=== PATIENT | female | born 1950 | race Caucasian/White ===

== ENCOUNTER 2019-10-21 15:13 | Inpatient (IN) | payer MEDICARE ==
[2019-10-21] MEDS ORDERED: ACETAMINOPHEN TAB 325 MG TAB PO PRN (20:42)
[2019-10-21] MEDS ORDERED: ALPRAZolam 0.25 MG TAB PO PRN (20:42)
[2019-10-21] MEDS ORDERED: MELATONIN 3 MG TABLET PO PRN (20:42)
[2019-10-21] MEDS ORDERED: NALOXONE 0.4 MG/ML 1 ML VIAL IV PRN (20:42)
[2019-10-21] MEDS ORDERED: CALCIUM CARBONATE 500 MG CHEWABLE PO PRN (20:42)
[2019-10-21] MEDS ORDERED: LACTULOSE 20 GM/30 ML CUP PO PRN (20:42)
[2019-10-21] MEDS ORDERED: MAGNESIUM HYDROXIDE 2,400 MG/10 ML CUP PO PRN (20:42)
[2019-10-21] MEDS ORDERED: ONDANSETRON 4 MG/2 ML VIAL IVP PRN (20:42)
[2019-10-21] MEDS ORDERED: MAG HYDROX/AL HYDROX/SIMETH 30 ML CUP PO PRN (20:42)
--- NOTE | 2019-10-21 20:51 | P.HPIM ---
History of Present Illness H&P Date: 10/21/19 Chief Complaint: weak and dizzy History of presenting complaint: This is a 69-year-old patient who follows with Dr. Jacobsen. Chronic stable medical conditions include COPD, GERD, prostatitis, history of PE with childbirth,. Patient is an ex-smoker. Patient a few days of being feeling weak diet a bit dizzy. No cough. Decrease appetite. Patient in the last few weeks as lost about 25-30 pounds. Denies any lower exstrophy setting. Decided to go down to [facility]. Denies any fever and chills. Went to the to [facility]. Chest x-ray showed a lung mass. Patient was transferred here for further workup. Blood work was done. Review of systems: GEN.: Tired, decreased appetite and weight loss EYES: None HEENT: None NECK: None RESPIRATORY: As above CARDIOVASCULAR: No chest pain GASTROINTESTINAL: None GENITOURINARY: None MUSCULOSKELETAL: Muscle pains LYMPHATICS: None HEMATOLOGICAL: None PSYCHIATRY: None NEUROLOGICAL: None Past medical history to include: COPD, PE after childbirth, GERD, osteoarthritis, Social history: -Lives with her son and [id number]. Smoked for close to 45 years about 2 packs a day stopped 4 years ago. No alcohol. Physical examination: VITAL SIGNS: 97.6, 95, 18, 130/78, 96% room air GENERAL: [31.3, sitting up in bed, not in distress. EYES: Pupils equal. Conjunctiva normal. HEENT: External appearance of nose and ears normal, oral cavity grossly normal. NECK: JVD not raised; masses not palpable. HEART: First and second heart sounds are normal; no edema. LUNGS: Respiratory rate normal; decreased breath sounds. ABDOMEN: Soft, nontender, liver spleen not palpable, no masses palpable. PSYCH: Alert and oriented x3; mood and affect normal. NEUROLOGICAL: Cranial nerves grossly intact; no facial asymmetry, power and sensation grossly intact. LYMPHATICS: No lymph nodes palpable in the axilla and neck Investigations: Pending Assessment: -Right lung mass in a patient who was a smoker for many years now presented with decreased appetite and weight loss. -COPD in an ex-smoker -GERD -Primary osteoarthritis Plan: We'll start the patient on nebulized bronchodilators. Oral steroids. Check stat x-rays been ordered. Patient may need bronchoscopy. Pulmonary's consulted. Lovenox for DVT prophylaxis. Care was discussed with the patient.. Past Medical History Past Medical History: COPD, Deep Vein Thrombosis (DVT), GERD/Reflux, Osteoarthritis (OA), Pulmonary Embolus (PE), Syncope Additional Past Medical History / Comment(s): vertigo, hypotension History of Any Multi-Drug Resistant Organisms: None Reported Past Surgical History: Tubal Ligation Past Anesthesia/Blood Transfusion Reactions: Previous Problems w/ Anesthesia Additional Past Anesthesia/Blood Transfusion Reaction / Comment(s): hard time waking up Past Psychological History: No Psychological Hx Reported Smoking Status: Former smoker Past Alcohol Use History: None Reported - Past Family History Mother Family Medical History: Dementia Medications and Allergies Home Medications Medication Instructions Recorded Confirmed Type Famotidine [Pepcid] 20 mg PO DAILY PRN 10/21/19 10/21/19 History Meclizine HCl 12.5 mg PO TID PRN 10/21/19 10/21/19 History Naproxen Sodium [Aleve] 220 mg PO DAILY PRN 10/21/19 10/21/19 History Allergies Allergy/AdvReac Type Severity Reaction Status Date / Time Iodine and Iodide Containing Allergy Anaphylaxis Verified 10/21/19 18:18 Produc tomato Allergy Rash/Hives Verified 10/21/19 18:18 dial soap AdvReac Rash/Hives Uncoded 10/21/19 18:18 Physical Exam Vitals: Vital Signs Temp Pulse Resp BP Pulse Ox 10/21/19 17:29 97.6 F 95 18 130/78 96 Intake and Output 10/21/19 10/21/19 10/21/19 06:59 14:59 22:59 Other: Weight 70.307 kg Thrombosis Risk Factor Assmnt - Choose All That Apply Any of the Below Risk Factors Present?: Yes Each Factor Represents 1 point: Abnormal pulmonary function (COPD), Obesity (BMI >25) Other Risk Factors: Yes Each Risk Factor Represents 2 Points: Age 61-74 years Each Risk Factor Represents 3 Points: History of DVT/PE Other congenital or acquired thrombophilia - If yes, enter type in comment: No Thrombosis Risk Factor Assessment Total Risk Factor Score: 7 Thrombosis Risk Factor Assessment Level: High Risk
[2019-10-21 21:40] LABS: Albumin 2.7 g/dL (3.5-5.0); Calcium 9.4 mg/dL (8.4-10.2); Magnesium 1.7 mg/dL (1.6-2.3); Potassium 4.5 mmol/L (3.5-5.1); Total Bilirubin 0.7 mg/dL (0.2-1.3); Total Protein 7.6 g/dL (6.3-8.2)
[2019-10-21 21:44] LABS: Basophils % (A) 0 %; Eosinophils # (A) 0.4 k/uL (0-0.7); Eosinophils % (A) 3 %; HCT 23.8 % (34.0-46.0); Hypochromasia Marked; Lymphocytes # (A) 1.4 k/uL (1.0-4.8); Lymphocytes % (A) 11 %; MCH 22.2 pg (25.0-35.0); MCHC 28.8 g/dL (31.0-37.0); Mean Platelet Volume 7.1; Microcytosis Slight; Monocytes # (A) 0.6 k/uL (0-1.0); Monocytes % (A) 5 %; Neutrophils # (A) 10.1 k/uL (1.3-7.7); Neutrophils % (A) 80 %; Platelet Count 557 k/uL (150-450); RDW 15.9 % (11.5-15.5); WBC 12.7 k/uL (3.8-10.6)
[2019-10-21 21:46] LABS: HGB 6.9 gm/dL (11.4-16.0)
--- NOTE | 2019-10-21 23:00 | XR ---
EXAMINATION TYPE: XR chest 2V DATE OF EXAM: 10/21/2019 COMPARISON: Today HISTORY: Lung mass TECHNIQUE: 2 views FINDINGS: There is 7 cm masslike area of consolidation in the anterior segment of the left upper lobe . This extends to the left pulmonary hilum. The heart size is normal. There is no heart failure. Medi astinum is normal. There is no pleural effusion.. Bony thorax is intact. IMPRESSION: Large mass at the left pulmonary hilum extending into the left upper lobe suspicious for tumor. No change compared to exam 8 hours ago.
[2019-10-21] MEDS: ENOXAPARIN 40 MG/0.4 ML SYRINGE SQ SCH (23:38)
[2019-10-22 07:08] LABS: Basophils % (A) 0 %; Eosinophils # (A) 0.8 k/uL (0-0.7); Eosinophils % (A) 6 %; HCT 26.1 % (34.0-46.0); HGB 7.9 gm/dL (11.4-16.0); Hypochromasia Marked; Lymphocytes # (A) 1.6 k/uL (1.0-4.8); Lymphocytes % (A) 13 %; MCH 23.4 pg (25.0-35.0); MCHC 30.4 g/dL (31.0-37.0); MCV 77.1 fL (80.0-100.0); Mean Platelet Volume 6.6; Microcytosis Slight; Monocytes # (A) 0.7 k/uL (0-1.0); Monocytes % (A) 6 %; Neutrophils # (A) 9.3 k/uL (1.3-7.7); Neutrophils % (A) 74 %; Platelet Count 506 k/uL (150-450); Poikilocytosis Slight; RBC 3.38 m/uL (3.80-5.40); RDW 15.5 % (11.5-15.5); WBC 12.6 k/uL (3.8-10.6)
[2019-10-22] MEDS: ENOXAPARIN 40 MG/0.4 ML SYRINGE SQ SCH (08:18)
[2019-10-22] MEDS: SODIUM CHLORIDE 0.9% 1,000 ML IV SCH (12:24)
--- NOTE | 2019-10-22 14:56 | US ---
EXAMINATION TYPE: US kidneys/renal and bladder DATE OF EXAM: 10/22/2019 COMPARISON: NONE CLINICAL HISTORY: assess for CKD. abnormal labs EXAM MEASUREMENTS: Right Kidney: 10.1 x 4.8 x 4.3 cm Left Kidney: 11.1 x 4.3 x 3.9 cm Right Kidney: No hydronephrosis or masses seen Left Kidney: No hydronephrosis or masses seen Bladder: distended, anechoic Left bladder jet seen There is no evidence for hydronephrosis at this point in time. No nephrolithiasis is seen. No marga s are identified. The urinary bladder is anechoic. Kidneys show normal cortical medullary differenti ation IMPRESSION: Normal renal ultrasound.
--- NOTE | 2019-10-22 18:02 | P.PN ---
Progress Note - Text Progress Note Date: 10/22/19 Chief Complaint: weak and dizzy History of presenting complaint: This is a 69-year-old patient who follows with Dr. Jacobsen. Chronic stable medical conditions include COPD, GERD, prostatitis, history of PE with childbirth,. Patient is an ex-smoker. Patient a few days of being feeling weak diet a bit dizzy. No cough. Decrease appetite. Patient in the last few weeks as lost about 25-30 pounds. Denies any lower exstrophy setting. Decided to go down to [facility]. Denies any fever and chills. Went to the to [facility]. Chest x-ray showed a lung mass. Patient was transferred here for further workup. Blood work was done. Admitted with-left lung mass, kidney injury, microcytic anemia. Pulmonary consult. Today-patient given a unit of blood. Breathing stable. Awaiting pulmonary input. Started taking diet. Review of systems: Was done for constitutional, cardiovascular, GI, pulmonary. relevant finding as above Active Medications Acetaminophen (Tylenol Tab) 650 mg PO Q6HR PRN PRN Reason: Mild Pain or Fever > 100.5 Al Hydroxide/Mg Hydroxide (Maalox) 15 ml PO Q6HR PRN PRN Reason: Indigestion Alprazolam (Xanax) 0.25 mg PO Q6HR PRN PRN Reason: Anxiety Calcium Carbonate/Glycine (Tums) 1,000 mg PO Q4HR PRN PRN Reason: Dyspepsia Enoxaparin Sodium (Lovenox) 40 mg SQ DAILY [facility] Last Admin: 10/22/19 08:18 Dose: 40 mg Documented by: Sodium Chloride (Saline 0.9%) 1,000 mls @ 130 mls/hr IV .Q7H42M [facility] Last Admin: 10/22/19 12:24 Dose: 130 mls/hr Documented by: Lactulose (Cephulac) 20 gm PO DAILY PRN PRN Reason: Constipation Magnesium Hydroxide (Milk Of Magnesia) 2,400 mg PO DAILY PRN PRN Reason: Constipation Melatonin (Melatonin) 3 mg PO HS PRN PRN Reason: Insomnia Naloxone HCl (Narcan) 0.2 mg IV Q2M PRN PRN Reason: Opioid Reversal Ondansetron HCl (Zofran) 4 mg IVP Q8HR PRN PRN Reason: Nausea And Vomiting Physical examination: VITAL SIGNS: 98.3, 98, 17, 106/68, 96% room air GENERAL: Laying in bed, comfortable EYES: Pupils equal. Conjunctiva normal. HEENT: External appearance of nose and ears normal, oral cavity grossly normal. NECK: JVD not raised; masses not palpable. HEART: First and second heart sounds are normal; no edema. LUNGS: Respiratory rate normal; decreased breath sounds. ABDOMEN: Soft, nontender, liver spleen not palpable, no masses palpable. PSYCH: Alert and oriented x3; mood and affect normal. Investigations: White count 12.6 hemoglobin 7.9 platelets 506 History Lotrisone-shows normal cortical medullary differentiation. No hydronephrosis, no kidney stones. Previous testing: Check stat x-ray-large left hilar mass White count 12.7 hemoglobin 6.9 potassium 4.5 bun 20 creatinine 1.28 Assessment: -Left lung mass in a patient who was a smoker for many years now presented with decreased appetite and weight loss.-Suspicious for malignancy -COPD in an ex-smoker -GERD -Primary osteoarthritis -Suspect chronic kidney disease likely from the sclerosis -Microcytic anemia likely of chronic disease patient get a unit of blood Plan: Continue current medication treatment plan. Discussed with the patient. Await pulmonary input.
--- NOTE | 2019-10-22 19:15 | P.CNPUL ---
History of Present Illness Consult date: 10/22/19 Reason for consult: lung mass Chief complaint: generalized weakness progressive in the last 3-4 days History of present illness: this is a 69-year-old female who used to smoke quit smoking about 4 years ago about 2 months ago she has a viral syndrome bronchitis-like processes during which she lost the weight then she gained it back remains stable until about 3-4 day prior to coming to the hospital becomes extremely weak and difficult to get out of the bed also has lower extremity swelling in the hospital she was found to have severe anemia hemoglobin of 6.9 has been transfused with 1 unit of packed RBC feeling slightly better she has a significant microcytic anemia she is not aware of stool color though, incidentally she was found to have a left perihilar masslike process she was initially evaluated at the [place] subsequently sent over here for further evaluation, she denies any hemoptysis denies any hematemesis, denies any recent weight loss night sweats and chills, chest x-ray left perihilar masslike process/density is present she has mild renal insufficiency currently gently being hydrated Review of Systems All systems: negative Past Medical History Past Medical History: COPD, Deep Vein Thrombosis (DVT), GERD/Reflux, Osteoarthritis (OA), Pulmonary Embolus (PE), Syncope Additional Past Medical History / Comment(s): vertigo, hypotension History of Any Multi-Drug Resistant Organisms: None Reported Past Surgical History: Tubal Ligation Past Anesthesia/Blood Transfusion Reactions: Previous Problems w/ Anesthesia Additional Past Anesthesia/Blood Transfusion Reaction / Comment(s): hard time waking up Past Psychological History: No Psychological Hx Reported Smoking Status: Former smoker Past Alcohol Use History: None Reported - Past Family History Mother Family Medical History: Dementia Medications and Allergies Home Medications Medication Instructions Recorded Confirmed Type Famotidine [Pepcid] 20 mg PO DAILY PRN 10/21/19 10/21/19 History Meclizine HCl 12.5 mg PO TID PRN 10/21/19 10/21/19 History Naproxen Sodium [Aleve] 220 mg PO DAILY PRN 10/21/19 10/21/19 History Allergies Allergy/AdvReac Type Severity Reaction Status Date / Time Iodine and Iodide Containing Allergy Anaphylaxis Verified 10/21/19 18:18 Produc tomato Allergy Rash/Hives Verified 10/21/19 18:18 dial soap AdvReac Rash/Hives Uncoded 10/21/19 18:18 Physical Exam Vitals: Vital Signs Temp Pulse Pulse Resp BP BP Pulse Ox 10/22/19 11:36 98.1 F 98 17 106/68 96 10/22/19 05:30 98.3 F 92 18 131/85 98 10/22/19 05:02 98.3 F 98 18 131/85 10/22/19 04:53 98 18 150/75 10/22/19 02:57 98.1 F 90 16 143/88 92 L 10/22/19 02:45 98.6 F 95 16 137/83 95 10/22/19 02:27 97.6 F 96 16 124/75 10/22/19 02:17 98.3 F 95 16 137/79 93 L 10/21/19 23:10 18 10/21/19 20:54 97.9 F 70 18 104/59 92 L Intake and Output 10/22/19 10/22/19 10/22/19 06:59 14:59 22:59 Intake Total 310 370 Balance 310 370 Intake: Intake, IV Titration 130 Amount Sodium Chloride 0.9% 1, 130 000 ml @ 130 mls/hr IV . Q7H42M [facility] Rx#:[id number] Oral 240 Blood Product 310 Rc As-1 Unit 310 [id number] Other: Voiding Method Toilet Toilet # Voids 0 - Constitutional General appearance: average body habitus, cooperative, disheveled - EENT Eyes: EOMI, PERRLA ENT: normal oropharynx Ears: bilateral: normal - Neck Carotids: bilateral: upstroke normal Thyroid: bilateral: normal size - Respiratory Respiratory: bilateral: CTA - Cardiovascular Rhythm: regular Heart sounds: normal: S1, S2 - Gastrointestinal General gastrointestinal: distended, normal bowel sounds, soft - Neurologic Neurologic: CNII-XII intact - Musculoskeletal Musculoskeletal: gait normal, generalized weakness, strength equal bilaterally - Psychiatric Psychiatric: A&O x's 3, appropriate affect, intact judgment & insight Results - Laboratory Findings CBC and BMP: 10/22/19 06:29 10/21/19 21:10 Abnormal lab findings: Abnormal Labs 10/21/19 10/21/19 10/21/19 21:10 21:10 22:38 WBC 12.7 H RBC 3.10 L Hgb 6.9 L* Hct 23.8 L MCV 77.0 L MCH 22.2 L MCHC 28.8 L RDW 15.9 H Plt Count 557 H Neutrophils # 10.1 H Eosinophils # Sodium 133 L Chloride 96 L BUN 20 H Creatinine 1.28 H Glucose 217 H AST 13 L Alkaline Phosphatase 177 H Albumin 2.7 L Crossmatch See Detail 10/22/19 06:29 WBC 12.6 H RBC 3.38 L Hgb 7.9 L Hct 26.1 L MCV 77.1 L MCH 23.4 L MCHC 30.4 L RDW Plt Count 506 H Neutrophils # 9.3 H Eosinophils # 0.8 H Sodium Chloride BUN Creatinine Glucose AST Alkaline Phosphatase Albumin Crossmatch - Diagnostic Findings Chest x-ray: report reviewed, image reviewed (finding as noted above) Assessment and Plan Assessment: generalized weakness of acute onset Severe acute anemia microcytic Left lung density possible mass neoplasm cannot be excluded patient will need anemia workup for microcytosis possible EGD and colonoscopy as well Patient will need a computed tomography scan of the chest however will get abdominal and pelvis as well given the renal functions will reassess renal f unctions tomorrow then will give a repeat CBC and CMP patient will also need a PET scan as outpatient along with pulmonary function study we'll reschedule in case if patient is going over the weekend will plan those studies including bronchoscopy as outpatient Plan: as noted above Time with Patient: Greater than 30
[2019-10-22 20:14] LABS: Appearance,Urine Clear (Clear); Bacteria,Urine Rare /hpf; Bilirubin,Urine Negative (Negative); Blood,Urine Trace (Negative); Color,Urine Yellow; Glucose,Urine (UA) Negative (Negative); Ketones,Urine Negative (Negative); Leukocyte Esterase,Urine Negative (Negative); Mucus,Urine Rare /hpf; Nitrite,Urine Negative (Negative); Protein,Urine Negative (Negative); RBC,Urine 1 /hpf (0-5); Specific Gravity,Urine 1.008 (1.001-1.035); Squamous Epithelial Cell,Urine 1 /hpf (0-4); WBC,Urine 1 /hpf (0-5)
[2019-10-23 08:29] LABS: Anisocytosis Slight; Basophils % (A) 0 %; Eosinophils # (A) 0.6 k/uL (0-0.7); Eosinophils % (A) 5 %; HCT 26.5 % (34.0-46.0); HGB 7.8 gm/dL (11.4-16.0); Hypochromasia Marked; Lymphocytes # (A) 1.2 k/uL (1.0-4.8); Lymphocytes % (A) 11 %; MCH 23.1 pg (25.0-35.0); MCHC 29.6 g/dL (31.0-37.0); MCV 77.9 fL (80.0-100.0); Mean Platelet Volume 6.7; Microcytosis Slight; Monocytes # (A) 0.6 k/uL (0-1.0); Monocytes % (A) 5 %; Neutrophils # (A) 8.2 k/uL (1.3-7.7); Neutrophils % (A) 77 %; Platelet Count 523 k/uL (150-450); Poikilocytosis Slight; RBC 3.39 m/uL (3.80-5.40); RDW 16.2 % (11.5-15.5); WBC 10.7 k/uL (3.8-10.6)
[2019-10-23] MEDS: ENOXAPARIN 40 MG/0.4 ML SYRINGE SQ SCH (08:33)
[2019-10-23 08:53] LABS: Albumin 2.6 g/dL (3.5-5.0); Calcium 8.5 mg/dL (8.4-10.2); Potassium 4.7 mmol/L (3.5-5.1); Total Bilirubin 0.8 mg/dL (0.2-1.3); Total Protein 7.5 g/dL (6.3-8.2)
[2019-10-23] MEDS ORDERED: RX INFO: IV CONTRAST WAS GIVEN 1 EACH MISC MISCELLANE PRN (10:00)
[2019-10-23] MEDS ORDERED: IOPAMIDOL CONTRAST (ORAL USE) VIAL PO PRN (10:00)
[2019-10-23] MEDS ORDERED: FAMOTIDINE 20 MG/2 ML VIAL IV ONE (10:02)
[2019-10-23] MEDS ORDERED: methylPREDNISolone SOD SUCCI 125 MG/2 ML VIAL IV ONE (10:02)
[2019-10-23] MEDS ORDERED: diphenhydrAMINE 50 MG/ML 1 ML VIAL IVP ONE (10:02)
[2019-10-23] MEDS: SODIUM CHLORIDE 0.9% 1,000 ML IV SCH ×4 (11:24→20:00)
[2019-10-23] MEDS: BARIUM SULFATE 450 ML ORAL.SUSP BOTTLE PO PRN ×2 (13:08→16:02)
[2019-10-23 20:47] VITALS: BP 138/77; PULSE 98; RESP 16; TEMP 98.3
--- NOTE | 2019-10-23 22:26 | CT ---
EXAMINATION TYPE: CT ChestAbdPelvis w con DATE OF EXAM: 10/23/2019 INDICATION: Lung mass. COMPARISON: None CT DLP: 858.2 mGycm CONTRAST: Performed with Oral Contrast and with IV Contrast, patient injected with 100ml mL of Isovue 300. TECHNIQUE: Axial images at 5 mm thick sections. Reconstructed images in the coronal plane. Delayed images through the kidneys. FINDINGS: CT CHEST: Portion of the thyroid visualized is normal. There is a 7.4 x 6.2 cm x 9.0 mass within the anterior left midlung. This abuts the main pulmonary ar melania and the left main pulmonary artery. This partially encases lingular pulmonary arteries. There is a 1.1 cm enlarged left infrahilar lymph node. Shotty lymphadenopathy is in the pretracheal s pace. The ascending aorta diameter at the level of the main pulmonary artery is 3.3 cm. The main pulmonary artery diameter at the bifurcation is 2.[address] ABDOMEN: Liver: Normal Spleen: Normal Pancreas: Normal Adrenal glands: The adrenal glands are normal. Gallbladder: Gallstones are present. Kidneys: No masses are evident. No hydronephrosis is present. No cysts are present. Delayed images were obtained through the kidneys, which remain unremarkable. Aorta: Vascular calcification is within the aorta. Inferior vena cava: Normal. CT PELVIS: Loops of bowel within the abdomen and pelvis are normal. There are loops of bowel which are incom pletely distended or lack oral contrast limiting their evaluation. Appendix: Not identified. No suspicious dilated tubular structures or inflammatory changes in the rig ht lower quadrant are evident. Urinary bladder: Normal. Genitourinary structures: Uterus is unremarkable. Adnexal regions are clear. No free fluid is within the pelvis. Osseous structures: There is a well-circumscribed lucency within the anterior column acetabulum may b e a subchondral cyst. Sacroiliac joint degenerative changes are noted. Facet degenerative changes are in the lower lumbar spine. Suspicious lytic or sclerotic lesions suggest metastases are not identifi ed. IMPRESSIONS: 1. Left lung mass extending along the cardiomediastinal border. There are 2 A 1.1 cm infra hilar lymp h node is present. 3. Distal metastases are not identified. 4. Cholelithiasis
--- NOTE | 2019-10-24 19:52 | P.DS ---
Providers Date of admission: 10/21/19 17:09 Expected date of discharge: 11/23/19 Attending physician: James Montana Consults: 10/21/19 20:44 Consult Physician Routine Consulting Provider: Wally Pineda Consult Reason/Comments: Lung mass Do you want consulting provider notified?: Yes Primary care physician: Stated None Hospital Course: Chief Complaint: weak and dizzy History of presenting complaint: This is a 69-year-old patient who follows with Dr. Jacobsen. Chronic stable medical conditions include COPD, GERD, prostatitis, history of PE with childbirth,. Patient is an ex-smoker. Patient a few days of being feeling weak diet a bit dizzy. No cough. Decrease appetite. Patient in the last few weeks as lost about 25-30 pounds. Denies any lower exstrophy setting. Decided to go down to [facility]. Denies any fever and chills. Went to the to [facility]. Chest x-ray showed a lung mass. Patient was transferred here for further workup. Blood work was done. Admitted with-left lung mass, kidney injury, microcytic anemia. Today-patient underwent a computed tomography scan of the chest abdomen pelvis. Results as below. Had discussed with Dr. Pineda from pulmonary.. He'll follow up in the results. Given that patient had microcytic anemia. Patient also to be followed for GI for repeat colonoscopy and EGD. Discussed with patient. Discussion and discharge planning more than 35 minutes Consultation: Dr. Jovanna Pineda from pulmonary Physical examination: VITAL SIGNS: 98.3, 98, 16, 138/77, 95% room air GENERAL: Sitting up, comfortable EYES: Pupils equal. Conjunctiva normal. HEENT: External appearance of nose and ears normal, oral cavity grossly normal. NECK: JVD not raised; masses not palpable. HEART: First and second heart sounds are normal; no edema. LUNGS: Respiratory rate normal; decreased breath sounds. ABDOMEN: Soft, nontender, liver spleen not palpable, no masses palpable. PSYCH: Alert and oriented x3; mood and affect normal. Investigations: Computed tomography scan abdomen chest pelvis-7 x 4 x 6.2 x 9 cm mass within the anterior left lung. A box on the main pulmonary artery and the left main artery artery. Partially encases the lingular pulmonary arteries. Infrahilar lymph node. And in the pretracheal area. Gallstones White count 12.6 hemoglobin 7.9 platelets 506 Renal ultrasound normal cortical medullary differentiation. No hydronephrosis, no kidney stones. Previous testing: Check stat x-ray-large left hilar mass White count 12.7 hemoglobin 6.9 potassium 4.5 bun 20 creatinine 1.28 Assessment: -Left lung mass in a patient who was a smoker for many years now presented with decreased appetite and weight loss.-Strongly Suspicious for malignancy-no obvious metastases and fight on the computed tomography scan. For outpatient follow-up with Dr. Jovanna Pineda -Asymptomatic gallstones -COPD in an ex-smoker -GERD -Primary osteoarthritis -Suspect chronic kidney disease likely from the sclerosis -Microcytic anemia likely of chronic disease patient received a unit of blood- outpatient EGD colonoscopy Disposition: Home Patient Condition at Discharge: Undetermined Plan - Discharge Summary Discharge Rx Participant: No New Discharge Prescriptions: Continue Famotidine [Pepcid] 20 mg PO DAILY PRN PRN Reason: Heartburn Meclizine HCl 12.5 mg PO TID PRN PRN Reason: Vertigo Discontinued Naproxen Sodium [Aleve] 220 mg PO DAILY PRN PRN Reason: Pain Discharge Medication List Famotidine [Pepcid] 20 mg PO DAILY PRN 10/21/19 [History] Meclizine HCl 12.5 mg PO TID PRN 10/21/19 [History] Follow up Appointment(s)/Referral(s): Wally Pineda MD [STAFF PHYSICIAN] - 11/04/19 1:30 pm Patient Instructions/Handouts: How to Stop Smoking (DC), Cigarette Smoking and Your Health (GEN), COPD (Chronic Obstructive Pulmonary Disease) (DC) Activity/Diet/Wound Care/Special Instructions: schedule egd/colonoscopy with dr urrutia as outpatient Discharge Disposition: HOME SELF-CARE
--- NOTE | 2019-10-26 10:29 | CDI ---
Documentation Clarification Form Date: 10/26/19 From: Meghan Springer CCS Phone: If you have a question about this query, please contact Aishwarya Sánchez, Gate Shear Operator at [phone] between 8am and 5pm. Admit Date: 10/21/19 Discharge Date:10/23/19 Patient Name: Selene Sparks Visit Number: [id number] ATTENTION: The Clinical Documentation Specialists (CDI) and [facility] Coding Staff appreciate your assistance in clarifying documentation. Please respond to the clarification below the line at the bottom and electronically sign. The CDI & [facility] Coding staff will review the response and follow-up if needed. Please note: Queries are made part of the Legal Health Record. If you have any questions, please contact the author of this message via ITS. Dear Dr. Montana, Chronic kidney disease likely from the sclerosis is documented in PNs, DS. Admitted with-left lung mass, kidney injury, microcytic anemia is documented in PNs, DS. History/Risk Factors: Lung mass suspected malignancy, Anemia, COPD Clinical Indicators: Kidney injury, Sclerosis Current BUN: 20, 14 CR: 1.28, .89 GFR: 44, 67 In order to capture the severity of condition, please clarify the stage of the CKD, if known: Acute on Chronic CKD (please indicate stage of CKD) CKD only (please indicate stage of CKD) CKD Stage 1 (GFR > 90) CKD Stage 2 (GFR 60-89) CKD Stage 3 (GFR 30-59) CKD Stage 4 (GFR 15-29) CKD Stage 5 (GFR <15) ESRD Other, please specify Unable to determine No chronic kidney disease MTDD
--- NOTE | 2019-10-31 11:01 | P.PN ---
Subjective Progress Note Date: 10/23/19 (Late entry note) Principal diagnosis: generalized weakness of acute onset Severe acute anemia microcytic Left lung density possible mass neoplasm cannot be excluded patient will need anemia workup for microcytosis possible EGD and colonoscopy as well Patient will need a computed tomography scan of the chest however will get abdominal and pelvis patient will also need a PET scan as outpatient along with pulmonary function study 10/23/2019, patient seen and evaluated examined during the rounds generalized weakness still there but severity has improved, denies any chest pain, post blood transfusion symptoms significantly improved, computed tomography scan of the chest abdominal pelvis is pending this is a 69-year-old female who used to smoke quit smoking about 4 years ago about 2 months ago she has a viral syndrome bronchitis-like processes during which she lost the weight then she gained it back remains stable until about 3-4 day prior to coming to the hospital becomes extremely weak and difficult to get out of the bed also has lower extremity swelling in the hospital she was found to have severe anemia hemoglobin of 6.9 has been transfused with 1 unit of packed RBC feeling slightly better she has a significant microcytic anemia she is not aware of stool color though, incidentally she was found to have a left perihilar masslike process she was initially evaluated at the [facility] subsequently sent over here for further evaluation, she denies any hemoptysis denies any hematemesis, denies any recent weight loss night sweats and chills, chest x-ray left perihilar masslike process/density is present she has mild renal insufficiency currently gently being hydrated Objective - Vital Signs Vital signs: Vital Signs Temp 98.3 F 10/23/19 20:46 Pulse 98 10/23/19 20:46 Resp 16 10/23/19 20:46 BP 138/77 10/23/19 20:46 Pulse Ox 95 10/23/19 20:46 - Exam - Constitutional General appearance: average body habitus, cooperative, disheveled - EENT Eyes: EOMI, PERRLA ENT: normal oropharynx Ears: bilateral: normal - Neck Carotids: bilateral: upstroke normal Thyroid: bilateral: normal size - Respiratory Respiratory: bilateral: CTA - Cardiovascular Rhythm: regular Heart sounds: normal: S1, S2 - Gastrointestinal General gastrointestinal: distended, normal bowel sounds, soft - Neurologic Neurologic: CNII-XII intact - Musculoskeletal Musculoskeletal: gait normal, generalized weakness, strength equal bilaterally - Psychiatric Psychiatric: A&O x's 3, appropriate affect, intact judgment & insight - Labs CBC & Chem 7: 10/23/19 08:11 10/23/19 08:11 Assessment and Plan Assessment: generalized weakness of acute onset Severe acute anemia microcytic Left lung density possible mass/density, likely lung neoplasm patient will need anemia workup for microcytosis possible EGD and colonoscopy as well Patient will need a computed tomography scan of the chest however will get abdominal and pelvis as well given the renal functions patient will also need a PET scan as outpatient along with pulmonary function study we'll reschedule in case if patient is going over the weekend Plan: as noted above Time with Patient: Greater than 30
== END 2019-10-23 22:47 | disposition home or self-care (01) | DRG 182 ==
LOC: 5NMEDONC 17:09
PROVIDERS: ADMIT Hospitalist; ATTEND Hospitalist
PROC: 30233N1 Transfusion of Nonautologous Red Blood Cells into Peripheral Vein, Percutaneous Approach (ICD-10-PCS; principal; 2019-10-22)
DX: C34.02 Malignant neoplasm of left main bronchus (principal); J44.9 Chronic obstructive pulmonary disease, unspecified; M19.91 Primary osteoarthritis, unspecified site; K21.9 Gastro-esophageal reflux disease without esophagitis; R53.1 Weakness; R42 Dizziness and giddiness; K59.00 Constipation, unspecified; G47.00 Insomnia, unspecified; D63.0 Anemia in neoplastic disease; F41.9 Anxiety disorder, unspecified; N26.9 Renal sclerosis, unspecified; K80.20 Calculus of gallbladder without cholecystitis without obstruction; Z87.891 Personal history of nicotine dependence; Z98.51 Tubal ligation status; Z86.711 Personal history of pulmonary embolism; Z86.718 Personal history of other venous thrombosis and embolism; Z88.8 Allergy status to other drugs, medicaments and biological substances; Z91.018 Allergy to other foods; Z91.048 Other nonmedicinal substance allergy status; Z82.0 Family history of epilepsy and other diseases of the nervous system
CPT/HCPCS: 71046; 71260; 74177; 76770; 80053; 81001; 83735; 85025; 86850; 86900; 86901; 86920

== ENCOUNTER 2019-10-27 14:26 | Inpatient (IN) | payer MEDICARE, OTHER ==
[2019-10-27] MEDS ORDERED: NALOXONE 0.4 MG/ML 1 ML VIAL IV PRN (14:40)
[2019-10-27] MEDS ORDERED: ACETAMINOPHEN TAB 325 MG TAB PO PRN (14:40)
[2019-10-27] MEDS ORDERED: PANTOPRAZOLE 40 MG/10 ML VIAL IVP STA (14:42)
--- NOTE | 2019-10-27 14:46 | ED ---
General Adult HPI - General Stated complaint: AFIB Source: patient, EMS, RN notes reviewed, old records reviewed - History of Present Illness Initial comments: 69-year-old female presenting from outside hospital with new-onset atrial fibrillation. Patient was found to be in A. fib with a rate of 180 by EMS prior to arrival at outside facility. She had recent admission to this hospital with hilar mass, anemia of unknown origin. She did receive a blood transfusion on previous admission. She states that she felt well until this morning she developed some lightheadedness, diaphoresis. Patient was initiated on Cardizem and transferred for cardiology consultation. Patient denies melena or rectal bleeding. - Related Data Home Medications Medication Instructions Recorded Confirmed Famotidine [Pepcid] 20 mg PO DAILY PRN 10/21/19 10/21/19 Meclizine HCl 12.5 mg PO TID PRN 10/21/19 10/21/19 Allergies Allergy/AdvReac Type Severity Reaction Status Date / Time Iodine and Iodide Containing Allergy Anaphylaxis Verified 10/21/19 18:18 Produc tomato Allergy Rash/Hives Verified 10/21/19 18:18 dial soap AdvReac Rash/Hives Uncoded 10/21/19 18:18 Review of Systems ROS Statement: Those systems with pertinent positive or pertinent negative responses have been documented in the HPI. ROS Other: All systems not noted in ROS Statement are negative. Past Medical History Past Medical History: COPD, Deep Vein Thrombosis (DVT), GERD/Reflux, Osteoarthritis (OA), Pulmonary Embolus (PE), Syncope Additional Past Medical History / Comment(s): vertigo, hypotension History of Any Multi-Drug Resistant Organisms: None Reported Past Surgical History: Tubal Ligation Past Anesthesia/Blood Transfusion Reactions: Previous Problems w/ Anesthesia Additional Past Anesthesia/Blood Transfusion Reaction / Comment(s): hard time waking up Past Psychological History: No Psychological Hx Reported Smoking Status: Former smoker Past Alcohol Use History: None Reported - Past Family History Mother Family Medical History: Dementia General Exam General appearance: alert, in no apparent distress Head exam: Present: atraumatic, normocephalic Eye exam: Present: normal appearance, PERRL ENT exam: Present: normal exam Neck exam: Present: normal inspection. Absent: tenderness, meningismus Respiratory exam: Present: wheezes, decreased breath sounds. Absent: respiratory distress Cardiovascular Exam: Present: regular rate, normal rhythm GI/Abdominal exam: Present: soft. Absent: distended, tenderness, guarding Extremities exam: Present: normal inspection, normal capillary refill. Absent: pedal edema Neurological exam: Present: alert, oriented X3, CN II-XII intact. Absent: motor sensory deficit Psychiatric exam: Present: normal affect, normal mood Skin exam: Present: warm, dry, intact, pallor EKG Findings - EKG Comments: EKG Findings:: EKG: Sinus rhythm, rate of 85, IL interval 146, QRS duration 82, QTC 421. No ischemic changes. Medical Decision Making - Medical Decision Making 69-year-old female with recent diagnosis of left hilar mass presenting with new- onset atrial fibrillation. Patient is in sinus rhythm at the time of arrival. No complaints of chest pain or dyspnea. Laboratory studies will be repeated including CBC, CMP. She will be admitted with cardiology on consult. Heparin has not been initiated due to anemia and need for recent transfusion. She has been placed on a proton pump inhibitor as well. Hemoglobin will be trended. Case discussed with Dr. [place] who will admit. Disposition Clinical Impression: New onset a-fib, Atrial fibrillation with RVR Disposition: ADMITTED IP TO THIS [facility] Condition: Stable Is patient prescribed a controlled substance at d/c from ED?: No Referrals: Addison Jacobsen MD [Primary Care Provider] - 1-2 days Time of Disposition: 14:46 Decision to Admit Reason: Admit from EC Decision Date: 10/27/19 Decision Time: 14:46
[2019-10-27] MEDS: SODIUM CHLORIDE 0.9% 1,000 ML IV SCH (14:57)
[2019-10-27] MEDS: DILTIAZEM 125 MG in SODIUM CHLORIDE 0.9% 100 ML IV SCH (15:01)
[2019-10-27 15:06] LABS: Calcium 8.9 mg/dL (8.4-10.2); Potassium 4.7 mmol/L (3.5-5.1)
[2019-10-27 15:11] LABS: Anisocytosis Slight; Basophils % (A) 0 %; Eosinophils # (A) 0.1 k/uL (0-0.7); Eosinophils % (A) 1 %; HCT 28.8 % (34.0-46.0); HGB 8.5 gm/dL (11.4-16.0); Hypochromasia Marked; Lymphocytes # (A) 1.2 k/uL (1.0-4.8); Lymphocytes % (A) 7 %; MCH 23.2 pg (25.0-35.0); MCHC 29.6 g/dL (31.0-37.0); MCV 78.4 fL (80.0-100.0); Microcytosis Slight; Monocytes # (A) 0.8 k/uL (0-1.0); Monocytes % (A) 4 %; Neutrophils # (A) 15.4 k/uL (1.3-7.7); Neutrophils % (A) 87 %; Platelet Count 591 k/uL (150-450); RBC 3.67 m/uL (3.80-5.40); WBC 17.6 k/uL (3.8-10.6)
[2019-10-27 15:13] LABS: INR 1.1 (<1.2); Partial Thromboplastin Time 25.6 sec (22.0-30.0); Prothrombin Time 11.7 sec (9.0-12.0)
[2019-10-27] MEDS ORDERED: cefTRIAXone IN SWFI 1,000 MG/10 ML SYRINGE IVP STA (15:14)
[2019-10-27] MEDS ORDERED: AZITHROMYCIN 500 MG in SODIUM CHLORIDE 0.9% 250 ML IVPB STA (15:14)
[2019-10-27 20:44] LABS: Glucose,Whole Blood 206 mg/dL (75-99)
[2019-10-27] MEDS: PANTOPRAZOLE 40 MG/10 ML VIAL IVP SCH (20:57)
[2019-10-28] MEDS: PANTOPRAZOLE 40 MG/10 ML VIAL IVP SCH (08:40)
[2019-10-28] MEDS: DILTIAZEM 125 MG in SODIUM CHLORIDE 0.9% 100 ML IV SCH (08:42)
[2019-10-28] MEDS: SODIUM CHLORIDE 0.9% 1,000 ML IV SCH (08:42)
[2019-10-28] MEDS ORDERED: METOPROLOL TARTRATE 25 MG TAB PO SCH (12:00)
[2019-10-28] MEDS ORDERED: ENOXAPARIN 40 MG/0.4 ML SYRINGE SQ SCH ×2 (12:00→21:00)
[2019-10-28] MEDS: METOPROLOL TARTRATE 12.5 MG TAB PO SCH ×2 (12:24→21:01)
--- NOTE | 2019-10-28 14:35 | P.CRDCN ---
History of Present Illness Consult date: 10/28/19 Chief complaint: Dizziness and lightheadedness History of present illness: This is a very pleasant 69-year-old female patient was transferred from another hospital to the emergency department here for further evaluation and management of atrial fibrillation. The patient is a pleasant 69-year-old female patient with no significant past medical history of diabetes or hypertension or dyslipidemia and no cardiac history was in her usual state of health until yesterday when she suddenly started feeling dizzy and lightheaded. No associated symptoms of heart racing or fluttering, chest pain or chest discomfort, shortness of breath, or syncope. She presented to the emergency room where she was found to be in atrial fibrillation with RVR. The atrial fibrillation is new to the patient patient remained told that she has any cardiac arrhythmia in the past. No coronary artery disease or congestive heart failure. Subsequently the patient was started on Cardizem drip and converted to normal sinus mechanism. She has been maintaining normal sinus mechanism. Currently she is on metoprolol at 12.5 mg by mouth twice a day but she is not on any oral anticoagulation as a. Nor IV anticoagulation. The initial EKG from the other hospital was reviewed and showed A. fib with RVR. Subsequently the EKG here shows normal sinus mechanism without any significant ST or T-wave abnormalities. She is asymptomatic when she was seen and evaluated earlier today. At this point I am going to continue the current dose of metoprolol. We'll obtain a TSH to rule out any thyroid disorder. Also will obtain a cardiac enzymes to rule out acute coronary syndrome. He side that point to start the patient on heparin IV. We will continue following up with the patient. Past Medical History Past Medical History: COPD, Deep Vein Thrombosis (DVT), GERD/Reflux, Osteoarthritis (OA), Pulmonary Embolus (PE), Syncope Additional Past Medical History / Comment(s): vertigo, hypotension History of Any Multi-Drug Resistant Organisms: None Reported Past Surgical History: Tubal Ligation Past Anesthesia/Blood Transfusion Reactions: Previous Problems w/ Anesthesia Additional Past Anesthesia/Blood Transfusion Reaction / Comment(s): hard time waking up Past Psychological History: No Psychological Hx Reported Smoking Status: Former smoker Past Alcohol Use History: None Reported Past Drug Use History: None Reported - Past Family History Mother Family Medical History: Dementia Medications and Allergies Home Medications Medication Instructions Recorded Confirmed Type Famotidine [Pepcid] 20 mg PO DAILY PRN 10/21/19 10/27/19 History Meclizine HCl 12.5 mg PO TID PRN 10/21/19 10/27/19 History Allergies Allergy/AdvReac Type Severity Reaction Status Date / Time Iodine and Iodide Containing Allergy Anaphylaxis Verified 10/27/19 15:32 Produc tomato Allergy Rash/Hives Verified 10/27/19 15:32 dial soap AdvReac Rash/Hives Uncoded 10/21/19 18:18 Physical Exam Vitals: Vital Signs Temp Pulse Pulse Resp BP BP Pulse Ox 10/28/19 12:00 98 F 82 18 122/63 96 10/28/19 08:00 98.1 F 95 18 116/56 95 10/28/19 04:00 98 F 80 18 109/56 94 L 10/28/19 00:00 97.9 F 79 18 122/61 94 L 10/27/19 20:00 96.3 F L 78 18 113/62 95 10/27/19 16:31 84 18 107/65 95 10/27/19 16:30 80 107/61 97 10/27/19 16:00 80 111/78 97 10/27/19 15:30 82 104/88 96 10/27/19 15:00 84 101/71 95 10/27/19 14:39 98.3 F 86 18 101/71 93 L 10/27/19 14:36 81 101/71 92 L Intake and Output 10/27/19 10/28/19 10/28/19 22:59 06:59 14:59 Intake Total 120 240 Balance 120 240 Intake: Oral 120 240 Other: Voiding Method Toilet Toilet # Voids 1 2 Weight 66.678 kg 73 kg - Constitutional General appearance: no acute distress - Respiratory Respiratory: bilateral: CTA - Cardiovascular Rhythm: regular Heart sounds: normal: S1, S2 Results 10/27/19 14:36 10/27/19 14:36 Coagulation 10/27/19 Range/Units 14:36 PT 11.7 (9.0-12.0) sec APTT 25.6 (22.0-30.0) sec CBC 10/27/19 Range/Units 14:36 WBC 17.6 H (3.8-10.6) k/uL RBC 3.67 L (3.80-5.40) m/uL Hgb 8.5 L (11.4-16.0) gm/dL Hct 28.8 L (34.0-46.0) % Plt Count 591 H (150-450) k/uL Comprehensive Metabolic Panel 10/27/19 Range/Units 14:36 Sodium 132 L (137-145) mmol/L Potassium 4.7 (3.5-5.1) mmol/L Chloride 98 (98-107) mmol/L Carbon Dioxide 25 (22-30) mmol/L BUN 18 H (7-17) mg/dL Creatinine 0.86 (0.52-1.04) mg/dL Glucose 203 H (74-99) mg/dL Calcium 8.9 (8.4-10.2) mg/dL Current Medications Generic Name Dose Route Start Last Admin Trade Name Freq PRN Reason Stop Dose Admin Acetaminophen 650 mg 10/27/19 14:40 Tylenol Tab PO Q6HR PRN Mild Pain or Fever > 100.5 Enoxaparin Sodium 40 mg 10/28/19 12:00 10/28/19 12:25 Lovenox SQ 40 mg DAILY SHY Administration Sodium Chloride 1,000 mls @ 20 mls/hr 10/27/19 14:45 10/28/19 08:42 Saline 0.9% IV Not Given .Q24H SHY Metoprolol Tartrate 12.5 mg 10/28/19 12:15 10/28/19 12:24 Lopressor PO 12.5 mg BID SHY Administration Naloxone HCl 0.2 mg 10/27/19 14:40 Narcan IV Q2M PRN Opioid Reversal Polyethylene Glycol/Electrolytes 4,000 ml 10/28/19 17:00 Golytely Lavage PO 10/28/19 17:01 ONCE ONE Intake and Output 10/27/19 10/28/19 10/28/19 22:59 06:59 14:59 Intake Total 120 240 Balance 120 240 Intake: Oral 120 240 Other: Voiding Method Toilet Toilet # Voids 1 2 Weight 66.678 kg 73 kg 10/27/19 14:36 10/27/19 14:36 Assessment and Plan Assessment: Assessment #1 paroxysmal atrial fibrillation. #2 atrial fibrillation with RVR and the patient converted to normal sinus mechanism #3 history of smoking Plan #1 continue the current dose of metoprolol #2 start the patient on IV heparin at this point and consider oral anti coagulation #3 rule out thyroid disorder. Obtain TSH and free T4 #4 rule out acute coronary event. We'll obtain serial cardiac enzymes #5 obtain an echocardiogram was Doppler #6 follow-up with the patient
[2019-10-28] MEDS ORDERED: PEG 3350-NA SULF,BICARB,CL/KCL 4,000 ML BOTTLE PO ONE (17:00)
[2019-10-28 20:08] LABS: % Iron Saturation 4.64 (12.00-45.00); Ferritin 892.4 ng/mL (10.0-291.0)
--- NOTE | 2019-10-28 20:41 | P.HPIM ---
History of Present Illness H&P Date: 10/28/19 Chief Complaint: Past out History of presenting complaint: This is a 69-year-old patient who follows with Dr. Jacobsen. Chronic stable medical conditions include COPD, GERD,, history of PE with childbirth,. Patient is an ex-smoker. Patient is in the hospital recently from October 20 through November 22. Was admitted with left lung mass, acute kidney injury and microcytic anemia. For the microcytic anemia she was supposed to follow with GI for EGD colonoscopy.Computed tomography scan abdomen chest pelvis-7 x 4 x 6.2 x 9 cm mass within the anterior left lung. A box on the main pulmonary artery and the left main artery artery. Partially encases the lingular pulmonary arteries. Infrahilar lymph node. And in the pretracheal area. Gallstones. Patient was then seen by Dr. Jovanna Pineda from pulmonary. Patient did well at home for to few days. Yesterday had an episode when she became dizzy and lightheaded and actually then passed out. Not sure for how long. No tongue biting or seizure activity witnessed. No palpitation or chest pain. EMS found the patient to be in atrial fibrillation with a rapid ventricular rate. Patient started on a Cardizem drip. By this morning patient had reverted to sinus rhythm. Feeling better. Review of systems: GEN.: Tired, decreased appetite and weight loss EYES: None HEENT: None NECK: None RESPIRATORY: Mild shortness of breath CARDIOVASCULAR: No chest pain GASTROINTESTINAL: None GENITOURINARY: None MUSCULOSKELETAL: Muscle pains LYMPHATICS: None HEMATOLOGICAL: None PSYCHIATRY: None NEUROLOGICAL: As above, nonfocal Past medical history to include: COPD, PE after childbirth, GERD, osteoarthritis, lung mass workup in place Social history: -Lives with her son and [id number]. Smoked for close to 45 years about 2 packs a day stopped 4 years ago. No alcohol. Physical examination: VITAL SIGNS: 98.3, 86, 18, 101/71, 93% room air GENERAL: [BMI 32.5, sitting up in bed, awake EYES: Pupils equal. Conjunctiva normal. HEENT: External appearance of nose and ears normal, oral cavity grossly normal. NECK: JVD not raised; masses not palpable. HEART: First and second heart sounds are normal; no edema. LUNGS: Respiratory rate normal; decreased breath sounds. ABDOMEN: Soft, nontender, liver spleen not palpable, no masses palpable. PSYCH: Alert and oriented x3; mood and affect normal. NEUROLOGICAL: Cranial nerves grossly intact; no facial asymmetry, power and sensation grossly intact. LYMPHATICS: No lymph nodes palpable in the axilla and neck Investigations: White count 70.6 eliminate 0.5 platelets 591 potassium 4.7 creatinine 0.86 glucose 203 Troponin I less than 0.012, TSH 1.4 EKG tracing personally reviewed by me shows normal sinus rhythm Assessment: -Paroxysmal atrial flutter ablation rapid ventricular rate, leading to syncope, now back in sinus rhythm -Right lung mass in a patient who was a smoker for many years pending further workup. -COPD in an ex-smoker -GERD -Primary osteoarthritis -Asymptomatic gallstones Plan: 2-D echocardiogram was ordered. Lopressor 25 mg twice a day started. IV Cardizem drip was discontinued. We will hold off any anticoagulation in anticipation of possible bronchoscopy with the biopsy. We'll discuss with pulmonary. Dr. Jovanna Pineda. She will also be scheduled for EGD colonoscopy. Would hold off anticoagulation in the morning because of procedures. Past Medical History Past Medical History: COPD, Deep Vein Thrombosis (DVT), GERD/Reflux, Osteoarthritis (OA), Pulmonary Embolus (PE), Syncope Additional Past Medical History / Comment(s): vertigo, hypotension History of Any Multi-Drug Resistant Organisms: None Reported Past Surgical History: Tubal Ligation Past Anesthesia/Blood Transfusion Reactions: Previous Problems w/ Anesthesia Additional Past Anesthesia/Blood Transfusion Reaction / Comment(s): hard time waking up Past Psychological History: No Psychological Hx Reported Smoking Status: Former smoker Past Alcohol Use History: None Reported Past Drug Use History: None Reported - Past Family History Mother Family Medical History: Dementia Medications and Allergies Home Medications Medication Instructions Recorded Confirmed Type Famotidine [Pepcid] 20 mg PO DAILY PRN 10/21/19 10/27/19 History Meclizine HCl 12.5 mg PO TID PRN 10/21/19 10/27/19 History Allergies Allergy/AdvReac Type Severity Reaction Status Date / Time Iodine and Iodide Containing Allergy Anaphylaxis Verified 10/27/19 15:32 Produc tomato Allergy Rash/Hives Verified 10/27/19 15:32 dial soap AdvReac Rash/Hives Uncoded 10/21/19 18:18 Physical Exam Vitals: Vital Signs Temp Pulse Pulse Resp BP BP Pulse Ox 10/28/19 08:00 98.1 F 95 18 116/56 95 10/28/19 04:00 98 F 80 18 109/56 94 L 10/28/19 00:00 97.9 F 79 18 122/61 94 L 10/27/19 20:00 96.3 F L 78 18 113/62 95 10/27/19 16:31 84 18 107/65 95 10/27/19 16:30 80 107/61 97 10/27/19 16:00 80 111/78 97 10/27/19 15:30 82 104/88 96 10/27/19 15:00 84 101/71 95 10/27/19 14:39 98.3 F 86 18 101/71 93 L 10/27/19 14:36 81 101/71 92 L Intake and Output 10/27/19 10/28/19 10/28/19 22:59 06:59 14:59 Intake Total 120 Balance 120 Intake: Oral 120 Other: Voiding Method Toilet Toilet # Voids 1 2 Weight 66.678 kg 73 kg Results CBC & Chem 7: 10/27/19 14:36 10/27/19 14:36 Labs: Abnormal Lab Results - Last 24 Hours (Table) 10/27/19 10/27/19 10/27/19 Range/Units 14:36 14:36 20:43 WBC 17.6 H (3.8-10.6) k/uL RBC 3.67 L (3.80-5.40) m/uL Hgb 8.5 L (11.4-16.0) gm/dL Hct 28.8 L (34.0-46.0) % MCV 78.4 L (80.0-100.0) fL MCH 23.2 L (25.0-35.0) pg MCHC 29.6 L (31.0-37.0) g/dL RDW 16.0 H (11.5-15.5) % Plt Count 591 H (150-450) k/uL Neutrophils # 15.4 H (1.3-7.7) k/uL Sodium 132 L (137-145) mmol/L BUN 18 H (7-17) mg/dL Glucose 203 H (74-99) mg/dL POC Glucose (mg/dL) 206 H (75-99) mg/dL Thrombosis Risk Factor Assmnt - Choose All That Apply Any of the Below Risk Factors Present?: Yes Each Factor Represents 1 point: Abnormal pulmonary function (COPD), Obesity (BMI >25) Other Risk Factors: Yes Each Risk Factor Represents 2 Points: Age 61-74 years Each Risk Factor Represents 3 Points: History of DVT/PE Other congenital or acquired thrombophilia - If yes, enter type in comment: No Thrombosis Risk Factor Assessment Total Risk Factor Score: 7 Thrombosis Risk Factor Assessment Level: High Risk
--- NOTE | 2019-10-28 22:15 | CONS ---
CONSULTATION DATE OF DICTATION: October 28, 2019. REASON FOR CONSULTATION: Microcytic hypochromic anemia. HISTORY OF PRESENT ILLNESS: The patient is a 69-year-old pleasant white female transferred from [facility] when she was diagnosed with A-fib and was transferred to [facility]. The patient was noted to have a hemoglobin of 8.6, and hence we are consulted in regards to this issue. She was admitted to the hospital about a month ago with a hemoglobin of 6.9, received 1 unit of blood transfusion was sent home. She was advised to have an outpatient colonoscopy which was not done yet. The patient presently denies any abdominal pain. No nausea, no vomiting. No rectal bleeding or melena. No prior history of EGD or colonoscopy in the past. PAST MEDICAL HISTORY: Significant for hypertension. Vertigo. GERD. MEDICATIONS AT HOME: Include PEPCID. ALLERGIES: To IV DYE. SOCIAL HISTORY: No smoking. No alcohol use. FAMILY HISTORY: Unremarkable. REVIEW OF SYSTEMS: CARDIOPULMONARY: No chest pain, no shortness of breath. No dysuria or hematuria. MUSCULOSKELETAL unremarkable. SKIN unremarkable. ENDOCRINE: Unremarkable. PSYCHIATRIC: Unremarkable. NEUROLOGY: Unremarkable. ENT/VISION: Unremarkable. CONSTITUTIONAL: No recent weight loss. No fever, chills, night sweats. PAST SURGICAL HISTORY: Tubal ligation. EXAMINATION: Appears comfortable. No apparent distress. Vital signs stable. Blood pressure is 113/82, pulse rate 82, temperature 98. HEENT examination unremarkable. Conjunctivae pink. Sclerae anicteric. Oral cavity no lesions. NECK: No JVD or lymph node enlargement. CHEST was clear to auscultation. HEART: Regular rate and rhythm. ABDOMEN: Soft. Bowel sounds are positive. No organomegaly. EXTREMITIES: No pedal edema. SKIN no rashes. NEUROLOGIC: Alert and oriented x3. No focal deficits. LABS: WBC 17.6, hemoglobin 8.5, platelets 591. Basic metabolic panel is within normal limits. AST, ALT, T-bilirubin and alk phos are normal. MCV is decreased at 77. IMPRESSION: 1. Microcytic hypochromic anemia, most likely related to iron deficiency anemia from occult gastrointestinal blood loss. Clinically patient does not have any evidence of active ongoing bleeding. No prior history of EGD or colonoscopy in the past. 2. New onset atrial fibrillation. Cardiology following the patient closely. 3. History of gastroesophageal reflux disease. RECOMMENDATIONS: 1. Clear liquid diet. 2. Discussed with the patient the workup of microcytic anemia. At this time we will proceed with EGD and colonoscopy tomorrow. She understands risks, benefits, and complications of the procedure and agreeable to it. Thank you for this consultation. MMMELISSAL / KATELYNN: [phone] /
[2019-10-29] MEDS ORDERED: DEXTROSE 5% IN WATER 100 ML with AMIODARONE 150 MG IV ONE (02:45)
[2019-10-29] MEDS ORDERED: AMIODARONE 360 MG in DEXTROSE 5% IN WATER 200 ML IV ONE ×2 (02:45)
--- NOTE | 2019-10-29 07:57 | P.CNPUL ---
History of Present Illness Consult date: 10/29/19 Reason for consult: dyspnea, COPD, lung mass, obstructive sleep apnea Chief complaint: Dizziness and lightheadedness of one day History of present illness: This is a 69-year-old female who was seen evaluated examined on third floor patient is well-known to me from prior medical history in the hospital, patient has a long-standing history of smoking in the past, he presented this time with dizziness lightheadedness found to be in A. fib with RVR, now converted back to sinus rhythm, patient has a recent diagnosis of left-sided lung mass, computed tomography scan have been performed which I reviewed it from previous hospitalization a week ago large left-sided anterior lung masses present very next to the chest wall, airways looks okay, for now for tissue diagnosis we will consult interventional radiology for CT-guided biopsy, patient is nothing by mouth for EGD and colonoscopy for microcytic anemia Review of Systems All systems: negative Past Medical History Past Medical History: COPD, Deep Vein Thrombosis (DVT), GERD/Reflux, O steoarthritis (OA), Pulmonary Embolus (PE), Syncope Additional Past Medical History / Comment(s): vertigo, hypotension History of Any Multi-Drug Resistant Organisms: None Reported Past Surgical History: Tubal Ligation Past Anesthesia/Blood Transfusion Reactions: Previous Problems w/ Anesthesia Additional Past Anesthesia/Blood Transfusion Reaction / Comment(s): hard time wa minh up Past Psychological History: No Psychological Hx Reported Smoking Status: Former smoker Past Alcohol Use History: None Reported Past Drug Use History: None Reported - Past Family History Mother Family Medical History: Dementia Medications and Allergies Home Medications Medication Instructions Recorded Confirmed Type Famotidine [Pepcid] 20 mg PO DAILY PRN 10/21/19 10/27/19 History Meclizine HCl 12.5 mg PO TID PRN 10/21/19 10/27/19 History Allergies Allergy/AdvReac Type Severity Reaction Status Date / Time Iodine and Iodide Containing Allergy Anaphylaxis Verified 10/27/19 15:32 Produc tomato Allergy Rash/Hives Verified 10/27/19 15:32 dial soap AdvReac Rash/Hives Uncoded 10/21/19 18:18 Physical Exam Vitals: Vital Signs Temp Pulse Resp BP Pulse Ox 10/29/19 04:00 98.2 F 144 H 18 107/62 98 10/29/19 00:00 98.6 F 89 18 122/69 96 10/28/19 20:00 98 F 83 18 149/78 97 10/28/19 16:00 97.9 F 91 18 138/77 98 10/28/19 12:46 97.9 F 91 18 138/77 98 10/28/19 12:00 98 F 82 18 122/63 96 10/28/19 08:00 98.1 F 95 18 116/56 95 Intake and Output 10/28/19 10/29/19 10/29/19 22:59 06:59 14:59 Output Total 120 120 Balance -120 -120 Output: Urine 120 120 Other: Voiding Method Toilet Toilet # Voids 1 1 - Constitutional General appearance: average body habitus, cooperative, disheveled - EENT Eyes: EOMI, PERRLA Ears: bilateral: normal - Neck Carotids: bilateral: upstroke normal Thyroid: bilateral: normal size - Respiratory Respiratory: bilateral: CTA - Cardiovascular Rhythm: regular Heart sounds: normal: S1, S2 - Gastrointestinal General gastrointestinal: decreased bowel sounds, soft - Integumentary Integumentary: normal turgor - Neurologic Neurologic: CNII-XII intact - Musculoskeletal Musculoskeletal: gait normal, generalized weakness, strength equal bilaterally - Psychiatric Psychiatric: A&O x's 3, appropriate affect, intact judgment & insight Results - Laboratory Findings CBC and BMP: 10/27/19 14:36 10/27/19 14:36 PT/INR, D-dimer PT 11.7 sec (9.0-12.0) 10/27/19 14:36 INR 1.1 (<1.2) 10/27/19 14:36 Abnormal lab findings: Abnormal Labs 10/27/19 10/27/19 10/27/19 14:36 14:36 14:36 WBC 17.6 H RBC 3.67 L Hgb 8.5 L Hct 28.8 L MCV 78.4 L MCH 23.2 L MCHC 29.6 L RDW 16.0 H Plt Count 591 H Neutrophils # 15.4 H Sodium 132 L BUN 18 H Glucose 203 H POC Glucose (mg/dL) Iron 9 L TIBC 194 L % Saturation 4.64 L Ferritin 892.4 H 10/27/19 20:43 WBC RBC Hgb Hct MCV MCH MCHC RDW Plt Count Neutrophils # Sodium BUN Glucose POC Glucose (mg/dL) 206 H Iron TIBC % Saturation Ferritin - Diagnostic Findings Chest x-ray: report reviewed, image reviewed CT scan - chest: report reviewed, image reviewed (Those were done weeks ago) Assessment and Plan Assessment: 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 fib with RVR spontaneously converted to sinus rhythm now Iron deficiency anemia Generalized weakness Plan: As mass is large anteriorly just next to the left thoracic wall and will proceed with CT-guided biopsy INR has been consulted Proceed with upper and lower endoscopy as planned Tumor is unresectable, will get a tissue diagnosis and plan for chemo/radiation versus observation patient wants to think about intervention Follow closely Time with Patient: Greater than 30
[2019-10-29] MEDS: METOPROLOL TARTRATE 12.5 MG TAB PO SCH (08:17)
[2019-10-29] MEDS ORDERED: AMIODARONE 300 MG in DEXTROSE 5% IN WATER 250 ML IV SCH ×2 (09:00)
[2019-10-29 09:19] LABS: Anisocytosis Slight; HCT 25.6 % (34.0-46.0); HGB 7.5 gm/dL (11.4-16.0); Hypochromasia Marked; MCH 22.9 pg (25.0-35.0); MCHC 29.2 g/dL (31.0-37.0); MCV 78.4 fL (80.0-100.0); Mean Platelet Volume 6.9; Microcytosis Slight; Platelet Count 449 k/uL (150-450); RBC 3.27 m/uL (3.80-5.40); RDW 16.4 % (11.5-15.5); WBC 10.5 k/uL (3.8-10.6)
[2019-10-29 09:30] LABS: African American GFR (CKD) >90 (>60 ml/min/1.73 sqM); Anion Gap 8 mmol/L; Blood Urea Nitrogen 10 mg/dL (7-17); Calcium 8.4 mg/dL (8.4-10.2); Carbon Dioxide 28 mmol/L (22-30); Chloride 99 mmol/L (98-107); Glucose 156 mg/dL (74-99); Non-African American GFR(CKD) 80 (>60 ml/min/1.73 sqM); Potassium 3.9 mmol/L (3.5-5.1); Sodium 135 mmol/L (137-145)
[2019-10-29 09:33] LABS: INR 1.2 (<1.2); Prothrombin Time 11.9 sec (9.0-12.0)
[2019-10-29 11:47] LABS: Glucose,Whole Blood 161 mg/dL (75-99)
--- NOTE | 2019-10-29 12:44 | P.PN ---
Subjective Progress Note Date: 10/29/19 Principal diagnosis: Paroxysmal atrial fibrillation This is a very pleasant 69-year-old female patient was transferred from another hospital to the emergency department here for further evaluation and management of atrial fibrillation. The patient is a pleasant 69-year-old female patient with no significant past medical history of diabetes or hypertension or dyslipidemia and no cardiac history was in her usual state of health until yesterday when she suddenly started feeling dizzy and lightheaded. No associated symptoms of heart racing or fluttering, chest pain or chest discomfort, shortness of breath, or syncope. She presented to the emergency room where she was found to be in atrial fibrillation with RVR. The atrial fibrillation is new to the patient patient remained told that she has any cardiac arrhythmia in the past. No coronary artery disease or congestive heart failure. Subsequently the patient was started on Cardizem drip and converted to normal sinus mechanism. She has been maintaining normal sinus mechanism. Currently she is on metoprolol at 12.5 mg by mouth twice a day but she is not on any oral anticoagulation as a. Nor IV anticoagulation. The initial EKG from the other hospital was reviewed and showed A. fib with RVR. Subsequently the EKG here shows normal sinus mechanism without any significant ST or T-wave abnormalities. She is asymptomatic when she was seen and evaluated earlier today. The patient was seen today, October [id number]. She remains asymptomatic from a cardiac vascular standpoint overview. She went into A. fib with RVR last night and she was started on amiodarone IV. Currently she is on any IV as well as met oprolol 12.5 mg by mouth twice a day which I am going to increase to 25 mg by mouth twice a day. The echocardiogram continues to be pending. Hemoglobin continues to be low. Heparin was stopped. She is going to undergo an EGD tomorrow to rule out any gastrointestinal bleeding. We'll hold any antiplatelet or anticoagulation at this point though the patient cleared from the gastrointestinal standpoint of view. We'll follow-up on the echo. Objective - Vital Signs Vital signs: Vital Signs Temp 98.2 F 10/29/19 08:00 Pulse 80 10/29/19 08:00 Resp 18 10/29/19 08:00 BP 116/72 10/29/19 08:00 Pulse Ox 98 10/29/19 08:00 Intake & Output 10/28/19 10/29/19 10/29/19 18:59 06:59 18:59 Intake Total 240 359.8 Output Total 240 Balance 240 -240 359.8 Intake: Intake, IV Titration 359.8 Amount Amiodarone 300 mg In 199.8 Dextrose 5% in Water 250 ml @ 0.5 MG/MIN 25 mls/hr IV .Q10H [facility] Rx#: [id number] Sodium Chloride 0.9% 1, 160 000 ml @ 20 mls/hr IV . Q24H [facility] Rx#:[id number] Oral 240 Output: Urine 240 Other: Voiding Method Toilet # Voids 1 - Constitutional General appearance: Present: no acute distress - Respiratory Respiratory: bilateral: CTA - Cardiovascular Rhythm: regular Heart sounds: normal: S1, S2 - Labs CBC & Chem 7: 10/29/19 08:50 10/29/19 08:50 Labs: Abnormal Lab Results - Last 24 Hours (Table) 10/27/19 10/29/19 10/29/19 Range/Units 14:36 08:50 08:50 RBC 3.27 L (3.80-5.40) m/uL Hgb 7.5 L (11.4-16.0) gm/dL Hct 25.6 L (34.0-46.0) % MCV 78.4 L (80.0-100.0) fL MCH 22.9 L (25.0-35.0) pg MCHC 29.2 L (31.0-37.0) g/dL RDW 16.4 H (11.5-15.5) % INR (<1.2) Sodium 135 L (137-145) mmol/L Glucose 156 H (74-99) mg/dL POC Glucose (mg/dL) (75-99) mg/dL Iron 9 L (50-170) ug/dL TIBC 194 L (228-460) ug/dL % Saturation 4.64 L (12.00-45.00) Ferritin 892.4 H (10.0-291.0) ng/mL 10/29/19 10/29/19 Range/Units 08:50 11:46 RBC (3.80-5.40) m/uL Hgb (11.4-16.0) gm/dL Hct (34.0-46.0) % MCV (80.0-100.0) fL MCH (25.0-35.0) pg MCHC (31.0-37.0) g/dL RDW (11.5-15.5) % INR 1.2 H (<1.2) Sodium (137-145) mmol/L Glucose (74-99) mg/dL POC Glucose (mg/dL) 161 H (75-99) mg/dL Iron (50-170) ug/dL TIBC (228-460) ug/dL % Saturation (12.00-45.00) Ferritin (10.0-291.0) ng/mL Assessment and Plan Assessment: Assessment #1 paroxysmal atrial fibrillation. #2 atrial fibrillation with RVR and the patient converted to normal sinus mechanism #3 history of smoking Plan #1 continue amiodarone IV and switch to amiodarone by mouth down the line #2 increase the dose of metoprolol #3 continue holding any anticoagulation until the patient cleared from the gastrointestinal standpoint overview #4 follow-up with the patient #5 follow-up on the echocardiogram
[2019-10-29] MEDS ORDERED: PROPOFOL 10 MG/ML 20 ML VIAL IV ONE (13:11)
[2019-10-29] MEDS ORDERED: LIDOCAINE 1% INJ 10MG/ML (20 ML MDV) ONE (13:11)
[2019-10-29] MEDS ORDERED: IV FLUID CONTINUATION 1,000 ML IV ONE ×2 (13:12)
--- NOTE | 2019-10-29 13:39 | P.PCN ---
Date of Procedure: 10/29/19 Procedure(s) Performed: Brief history: Patient is a pleasant 69-year-old white female admitted the hospital with new- onset A. fib and Iron deficiency anemia with a hemoglobin of 8.3 g/dL. She denies any GI symptoms. She is scheduled for an elective upper endoscopy as well as colonoscopy to evaluate further. Procedure performed: Esophagogastroduodenoscopy with biopsy Colonoscopy Preoperative diagnosis: Iron deficiency anemia Anesthesia: [facility] Procedure: After informed consent was obtained from the patient was brought into the endoscopy unit and IV sedation was administered by anesthesia under continuous monitoring. Initially upper endoscopy was done. The Olympus GF 160 video endoscope was inserted inserted into the mouth and esophagus intubated without any difficulty and was gradually advanced into the stomach and duodenum and carefully examined. The bulb and second part of the duodenum appeared normal. Biopsies were done from the duodenum to rule out celiac disease. The scope was then withdrawn into the stomach adequately insufflated with air and upon careful examination the antrum had mild antral gastritis and biopsies were done from this area. The body, cardia and fundus appeared normal. The scope was then withdrawn into the esophagus. The GE junction was located at 40 cm to the incisors. It appeared regular with no erythema erosions or ulcerations. Rest of the esophagus appeared normal. Patient tolerated the procedure well. At this time the patient continued to remain sedation. Initial digital rectal examination was normal. Olympus CF 160 video colonoscope was then inserted into the rectum and gradually advanced to the cecum with moderate to severe difficulty. Careful examination was performed as the scope was gradually being withdrawn. The prep was excellent. The cecum, ascending colon, transverse colon, descending colon, sigmoid colon and rectum appeared normal. Retroflexion was performed in the rectum and small internal hemorrhoids were noted. Patient tolerated the procedure well. Impression: 1. Upper endoscopy revealed mild antral gastritis and small hiatal 2. Colonoscopy revealed small internal hemorrhoids but no evidence of colorectal neoplasia Recommendations: Findings of this examination were discussed with the patient as well as as a family. She was advised to follow with the biopsy results. Diet will be advanced as tolerated. She'll be started on iron supplements twice daily.
[2019-10-29 17:40] LABS: Glucose,Whole Blood 195 mg/dL (75-99)
--- NOTE | 2019-10-29 19:04 | P.PN ---
Progress Note - Text Progress Note Date: 10/29/19 Chief Complaint: Past out History of presenting complaint: This is a 69-year-old patient who follows with Dr. Jacobsen. Chronic stable medical conditions include COPD, GERD,, history of PE with childbirth,. Patient is an ex-smoker. Patient is in the hospital recently from October 20 through November 22. Was admitted with left lung mass, acute kidney injury and microcytic anemia. For the microcytic anemia she was supposed to follow with GI for EGD colonoscopy.Computed tomography scan abdomen chest pelvis-7 x 4 x 6.2 x 9 cm mass within the anterior left lung. A box on the main pulmonary artery and the left main artery artery. Partially encases the lingular pulmonary arteries. Infrahilar lymph node. And in the pretracheal area. Gallstones. Patient was then seen by Dr. Jovanna Pineda from pulmonary. Patient did well at home for to few days. Yesterday had an episode when she became dizzy and lightheaded and actually then passed out. Not sure for how long. No tongue biting or seizure activity witnessed. No palpitation or chest pain. EMS found the patient to be in atrial fibrillation with a rapid ventricular rate. Patient started on a Cardizem drip. By this morning patient had reverted to sinus rhythm. Feeling better. Today-underwent EGD coloscopic this morning. Found a mild gastritis and small internal hemorrhoids. Pending lung biopsy. Breathing stable. Laying in bed. Review of systems: Was done for constitutional, cardiovascular, GI, pulmonary. relevant finding as above Active Medications Acetaminophen (Tylenol Tab) 650 mg PO Q6HR PRN PRN Reason: Mild Pain or Fever > 100.5 Amiodarone HCl (Cordarone) 400 mg PO BID [facility] Sodium Chloride (Saline 0.9%) 1,000 mls @ 20 mls/hr IV .Q24H [facility] Last Admin: 10/28/19 08:42 Dose: Not Given Documented by: Metoprolol Tartrate (Lopressor) 25 mg PO BID [facility] Naloxone HCl (Narcan) 0.2 mg IV Q2M PRN PRN Reason: Opioid Reversal Physical examination: VITAL SIGNS: 97.9, 76, 18, 115/67, 96% on 2 L GENERAL: [BMI 32.5, laying in bed awake EYES: Pupils equal. Conjunctiva normal. HEENT: External appearance of nose and ears normal, oral cavity grossly normal. NECK: JVD not raised; masses not palpable. HEART: First and second heart sounds are normal; no edema. LUNGS: Respiratory rate normal; decreased breath sounds. ABDOMEN: Soft, nontender, liver spleen not palpable, no masses palpable. PSYCH: Alert and oriented x3; mood and affect normal. Investigations: White count 10.5 hemoglobin 7.5 [place] 3.9 creatinine 0.77 Previous testing White count 17.6 hemoglobin 8.5 platelets 591 potassium 4.7 creatinine 0.86 glucose 203 Troponin I less than 0.012, TSH 1.4 EKG tracing personally reviewed by me shows normal sinus rhythm Assessment: -Paroxysmal atrial flutter ablation rapid ventricular rate, leading to syncope, now back in sinus rhythm -Right lung mass in a patient who was a smoker for many years pending lung biopsy. -COPD in an ex-smoker -GERD -Primary osteoarthritis -Asymptomatic gallstones -Microcytic anemia workup included EGD coloscopy. Unremarkable. Plan: Discussed with patient. Discussed with Dr. Jovanna Pineda from pulmonary. Pending lung biopsy but by interventional radiology. Discussed with patient. Hopefully tomorrow..
--- NOTE | 2019-10-29 20:00 | ECHOF ---
Referral Reason:af MEASUREMENTS -------- HEIGHT: 149.9 cm WEIGHT: 72.6 kg BP: 116/56 IVSd: 1.1 cm (0.6 - 1.1) LVIDd: 4.4 cm (3.9 - 5.3) LVPWd: 1.1 cm (0.6 - 1.1) IVSs: 1.6 cm LVIDs: 3.0 cm LVPWs: 1.5 cm LA Diam: 3.6 cm (2.7 - 3.8) RVIDd: 3.6 cm (< 3.3) LAESV Index (A-L): 24.51 ml/m Ao Diam: 2.7 cm (2.0 - 3.7) AV Cusp: 2.0 cm (1.5 - 2.6) EPSS: 0.8 cm MV E Rao: 0.73 m/s MV DecT: 223 ms MV A Rao: 0.87 m/s MV E/A Ratio: 0.84 AV maxP.57 mmHg AV meanP.24 mmHg RAP: 5.00 mmHg RVSP: 24.03 mmHg MV EF SLOPE: 56.88 mm/s (70 - 150) MV EXCURSION: 10.07 mm (> 18.000) FINDINGS -------- Sinus rhythm. This was a technically adequate study. The left ventricular size is normal. There is borderline concentric left ventricular hypertrophy. Overall left ventricular systolic function is normal with, an EF between 60 - 65 %. The right ventricle is mildly enlarged. Normal LA size by volume 22+/-6 ml/m2. The right atrium is normal in size. Interatrial and interventricular septum intact. Aortic valve is trileaflet and is mildly thickened. There is mild aortic stenosis present. Peak/m vidal gradient across the Aortic Valve is 20.57mmHg / 9.24mmHg. The mitral valve leaflets are mildly thickened. Mild tricuspid regurgitation present. Right ventricular systolic pressure is normal at < 35 mmHg. Trace/mild (physiologic) pulmonic regurgitation. The aortic root size is normal. Normal inferior vena cava with normal inspiratory collapse consistent with estimated right atrial pre ssure of 5 mmHg. There is no pericardial effusion. CONCLUSIONS -------- 1. The left ventricular size is normal. 2. There is borderline concentric left ventricular hypertrophy. 3. Overall left ventricular systolic function is normal with, an EF between 60 - 65 %. 4. The right ventricle is mildly enlarged. 5. Aortic valve is trileaflet and is mildly thickened. 6. There is mild aortic stenosis present. 7. Peak/mean gradient across the Aortic Valve is 20.57mmHg / 9.24mmHg. 8. The mitral valve leaflets are mildly thickened. 9. Mild tricuspid regurgitation present. 10. Trace/mild (physiologic) pulmonic regurgitation. 11. There is no pericardial effusion. CHICKEN STUFFER: Audra Oconnor RDCS
[2019-10-29 20:04] LABS: Glucose,Whole Blood 238 mg/dL (75-99)
[2019-10-29] MEDS: METOPROLOL TARTRATE 25 MG TAB PO SCH (21:00)
[2019-10-29] MEDS: AMIODARONE 200 MG TAB PO SCH (21:01)
[2019-10-30] MEDS: SODIUM CHLORIDE 0.9% 1,000 ML IV SCH (02:38)
[2019-10-30 03:27] VITALS: RESP 18
[2019-10-30 06:21] LABS: Glucose,Whole Blood 178 mg/dL (75-99)
--- NOTE | 2019-10-30 07:40 | P.PN ---
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 fib with RVR spontaneously converted to sinus rhythm now Iron deficiency anemia Generalized weakness 10/30/2019 overall patient remains stable, will service following for A. fib RVR, patient is in sinus rhythm now, has been on oral amiodarone, off of IV amiodarone, consult has been initiated with interventional radiology for CT- guided biopsy of left-sided anterior lung mass, patient is status post endoscopy including colonoscopy and EGD for iron deficiency anemia and no significant pathology noted except some antral mucosa disruption, This is a 69-year-old female who was seen evaluated examined on third floor patient is well-known to me from prior medical history in the hospital, patient has a long-standing history of smoking in the past, he presented this time with dizziness lightheadedness found to be in A. fib with RVR, now converted back to sinus rhythm, patient has a recent diagnosis of left-sided lung mass, computed tomography scan have been performed which I reviewed it from previous hospitalization a week ago large left-sided anterior lung masses present very next to the chest wall, airways looks okay, for now for tissue diagnosis we will consult interventional radiology for CT-guided biopsy, patient is nothing by mouth for EGD and colonoscopy for microcytic anemia Objective - Vital Signs Vital signs: Vital Signs Temp 98.5 F 10/30/19 03:20 Pulse 85 10/30/19 03:20 Resp 18 10/30/19 03:20 BP 127/67 10/30/19 03:20 Pulse Ox 94 L 10/30/19 03:20 Intake & Output 10/29/19 10/30/19 10/30/19 18:59 06:59 18:59 Intake Total 379.8 Balance 379.8 Weight 74.2 kg Intake: IV 20 Intake, IV Titration 359.8 Amount Amiodarone 300 mg In 199.8 Dextrose 5% in Water 250 ml @ 0.5 MG/MIN 25 mls/hr IV .Q10H [facility] Rx#: [id number] Sodium Chloride 0.9% 1, 160 000 ml @ 20 mls/hr IV . Q24H [facility] Rx#:[id number] Other: Voiding Method Toilet # Voids 1 - Exam - Constitutional General appearance: average body habitus, cooperative, disheveled - EENT Eyes: EOMI, PERRLA Ears: bilateral: normal - Neck Carotids: bilateral: upstroke normal Thyroid: bilateral: normal size - Respiratory Respiratory: bilateral: CTA - Cardiovascular Rhythm: regular Heart sounds: normal: S1, S2 - Gastrointestinal General gastrointestinal: decreased bowel sounds, soft - Integumentary Integumentary: normal turgor - Neurologic Neurologic: CNII-XII intact - Musculoskeletal Musculoskeletal: gait normal, generalized weakness, strength equal bilaterally - Psychiatric Psychiatric: A&O x's 3, appropriate affect, intact judgment & insight - Labs CBC & Chem 7: 10/29/19 08:50 10/29/19 08:50 Labs: Abnormal Lab Results - Last 24 Hours (Table) 10/29/19 10/29/19 10/29/19 Range/Units 08:50 08:50 08:50 RBC 3.27 L (3.80-5.40) m/uL Hgb 7.5 L (11.4-16.0) gm/dL Hct 25.6 L (34.0-46.0) % MCV 78.4 L (80.0-100.0) fL MCH 22.9 L (25.0-35.0) pg MCHC 29.2 L (31.0-37.0) g/dL RDW 16.4 H (11.5-15.5) % INR 1.2 H (<1.2) Sodium 135 L (137-145) mmol/L Glucose 156 H (74-99) mg/dL POC Glucose (mg/dL) (75-99) mg/dL 10/29/19 10/29/19 10/29/19 Range/Units 11:46 17:25 20:03 RBC (3.80-5.40) m/uL Hgb (11.4-16.0) gm/dL Hct (34.0-46.0) % MCV (80.0-100.0) fL MCH (25.0-35.0) pg MCHC (31.0-37.0) g/dL RDW (11.5-15.5) % INR (<1.2) Sodium (137-145) mmol/L Glucose (74-99) mg/dL POC Glucose (mg/dL) 161 H 195 H 238 H (75-99) mg/dL 10/30/19 Range/Units 06:20 RBC (3.80-5.40) m/uL Hgb (11.4-16.0) gm/dL Hct (34.0-46.0) % MCV (80.0-100.0) fL MCH (25.0-35.0) pg MCHC (31.0-37.0) g/dL RDW (11.5-15.5) % INR (<1.2) Sodium (137-145) mmol/L Glucose (74-99) mg/dL POC Glucose (mg/dL) 178 H (75-99) mg/dL Assessment and Plan Assessment: 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 fib with RVR spontaneously converted to sinus rhythm now Iron deficiency anemia Generalized weakness Plan: As mass is large anteriorly just next to the left thoracic wall and will proceed with CT-guided biopsy INR has been consulted Status post upper and lower endoscopy as planned Tumor is unresectable, will get a tissue diagnosis and plan for chemo/radiation versus observation patient wants to think about intervention Follow closely Time with Patient: Greater than 30
[2019-10-30] MEDS: AMIODARONE 200 MG TAB PO SCH (07:58)
[2019-10-30] MEDS: METOPROLOL TARTRATE 25 MG TAB PO SCH (07:58)
[2019-10-30 09:49] VITALS: TEMP 97.4
[2019-10-30] MEDS ORDERED: APIXABAN 2.5 MG TABLET PO SCH (10:45)
--- NOTE | 2019-10-30 11:04 | P.PN ---
Subjective Progress Note Date: 10/30/19 Principal diagnosis: Paroxysmal atrial fibrillation This is a very pleasant 69-year-old female patient was transferred from another hospital to the emergency department here for further evaluation and management of atrial fibrillation. The patient is a pleasant 69-year-old female patient with no significant past medical history of diabetes or hypertension or dyslipidemia and no cardiac history was in her usual state of health until yesterday when she suddenly started feeling dizzy and lightheaded. No associated symptoms of heart racing or fluttering, chest pain or chest discomfort, shortness of breath, or syncope. She presented to the emergency room where she was found to be in atrial fibrillation with RVR. The atrial fibrillation is new to the patient patient remained told that she has any cardiac arrhythmia in the past. No coronary artery disease or congestive heart failure. Subsequently the patient was started on Cardizem drip and converted to normal sinus mechanism. She has been maintaining normal sinus mechanism. Currently she is on metoprolol at 12.5 mg by mouth twice a day but she is not on any oral anticoagulation as a. Nor IV anticoagulation. The initial EKG from the other hospital was reviewed and showed A. fib with RVR. Subsequently the EKG here shows normal sinus mechanism without any significant ST or T-wave abnormalities. She is asymptomatic when she was seen and evaluated earlier today. The patient was seen today, although 10/12/2019. She remains asymptomatic from a cardiovascular standpoint overview. She has been maintaining normal sinus mechanism which she is on amiodarone by mouth. She underwent yesterday an EGD which showed no evidence of active bleeding. Also she underwent a lung biopsy. We checked the GI service and they stated that it is safe to start the patient on oral anticoagulation. Her echo revealed normal LV function was mild aortic stenoses Objective - Vital Signs Vital signs: Vital Signs Temp 97.4 F L 10/30/19 09:48 Pulse 76 10/30/19 10:50 Resp 18 10/30/19 10:50 BP 129/81 10/30/19 10:50 Pulse Ox 100 10/30/19 10:50 Intake & Output 10/29/19 10/30/19 10/30/19 18:59 06:59 18:59 Intake Total 379.8 Balance 379.8 Weight 74.2 kg Intake: IV 20 Intake, IV Titration 359.8 Amount Amiodarone 300 mg In 199.8 Dextrose 5% in Water 250 ml @ 0.5 MG/MIN 25 mls/hr IV .Q10H [facility] Rx#: [id number] Sodium Chloride 0.9% 1, 160 000 ml @ 20 mls/hr IV . Q24H [facility] Rx#:[id number] Other: Voiding Method Toilet # Voids 1 - Constitutional General appearance: Present: no acute distress - Respiratory Respiratory: bilateral: CTA - Cardiovascular Rhythm: regular Heart sounds: normal: S1, S2 - Labs CBC & Chem 7: 10/29/19 08:50 10/29/19 08:50 Labs: Abnormal Lab Results - Last 24 Hours (Table) 10/29/19 10/29/19 10/29/19 Range/Units 11:46 17:25 20:03 POC Glucose (mg/dL) 161 H 195 H 238 H (75-99) mg/dL 10/30/19 Range/Units 06:20 POC Glucose (mg/dL) 178 H (75-99) mg/dL Assessment and Plan Assessment: Assessment #1 paroxysmal atrial fibrillation. #2 atrial fibrillation with RVR and the patient converted to normal sinus mechanism #3 history of smoking Plan #1 continue the current medical regimen #2 start the patient on oral anticoagulation
[2019-10-30 11:39] VITALS: BP 132/81; PULSE 77
[2019-10-30 11:55] LABS: Glucose,Whole Blood 200 mg/dL (75-99)
[2019-10-30 12:02] LABS: HCT 26.4 % (34.0-46.0); HGB 7.7 gm/dL (11.4-16.0); Hypochromasia Marked; MCH 23.1 pg (25.0-35.0); MCHC 29.1 g/dL (31.0-37.0); MCV 79.5 fL (80.0-100.0); Mean Platelet Volume 6.9; Platelet Count 490 k/uL (150-450); RBC 3.32 m/uL (3.80-5.40); WBC 13.5 k/uL (3.8-10.6)
--- NOTE | 2019-10-30 15:38 | CT ---
EXAMINATION TYPE: CT biopsy lung LT DATE OF EXAM: 10/30/2019 HISTORY: Lung mass COMPARISON: PET/CT 09/18/2019, CTA chest 07/24/2019. OPERATORS: Dr. Annetta Joseph D.O. PROCEDURE: The procedure was discussed with the patient. The risks, complications, benefits, and alternatives we re discussed and any questions were answered. Informed consent was obtained. Preliminary CT imaging demonstrated left upper lobe medial lung mass. The skin overlying a suitable p ath to the left anterior lung lesion was localized using CT and the overlying skin was prepped and dr abena utilizing maximal barrier technique. Lidocaine used for local anesthesia. A small skin ney was made with a scalpel. Using CT guidance, access was gained to the lesion with a 18-gauge coaxial core biopsy needle. Core specimen(s) submitted in formalin for histopathology. 4 pass(es) performed in al l. All needles were removed and sterile bandage was applied. Postprocedure CT imaging demonstrated no evidence of significant hemorrhage or pneumothorax. Patient tolerated procedure well with no immediate complications. Patient is discharged in stable condition. IMPRESSION: SUCCESSFUL CT GUIDED LEFT LUNG MASS 18G CORE BIOPSY. PATHOLOGY PENDING.
--- NOTE | 2019-10-30 23:27 | P.DS ---
Providers Date of admission: 10/29/19 10:02 Expected date of discharge: 10/30/19 Attending physician: James Montana Consults: 10/27/19 14:41 Consult Physician Routine Consulting Provider: Ash Villarreal Consult Reason/Comments: New-onset atrial fibrillation Do you want consulting provider notified?: Yes 10/28/19 12:01 Consult Physician Routine Consulting Provider: Sherice Menjivar Consult Reason/Comments: microcytic anemia Do you want consulting provider notified?: Yes 10/28/19 20:41 Consult Physician Routine Consulting Provider: Wally Pineda Consult Reason/Comments: Bronchoscopy-lung mass Do you want consulting provider notified?: Yes Primary care physician: [facility] Course: Chief Complaint: Past out History of presenting complaint: This is a 69-year-old patient who follows with Dr. Jacobsen. Chronic stable medical conditions include COPD, GERD,, history of PE with childbirth,. Patient is an ex-smoker. Patient is in the hospital recently from October 20 through November 22. Was admitted with left lung mass, acute kidney injury and microcytic anemia. For the microcytic anemia she was supposed to follow with GI for EGD colonos copy.Computed tomography scan abdomen chest pelvis-7 x 4 x 6.2 x 9 cm mass within the anterior left lung. A box on the main pulmonary artery and the left main artery artery. Partially encases the lingular pulmonary arteries. Infrahilar lymph node. And in the pretracheal area. Gallstones. Patient was then seen by Dr. Jovanna Pineda from pulmonary. Patient did well at home for to few days. Yesterday had an episode when she became dizzy and lightheaded and actually then passed out. Not sure for how long. No tongue biting or seizure activity witnessed. No palpitation or chest pain. EMS found the patient to be in atrial fibrillation with a rapid ventricular rate. Patient started on a Cardizem drip. By this morning patient had reverted to sinus rhythm. Feeling better. for microcytic anemia-underwent EGD coloscopic - mild gastritis and small internal hemorrhoids. Today-underwent lung biopsy. Stable.we'll follow with Dr. Pineda in the office. And oncology. consultation: Dr. Kwan from cardiology Dr. Pineda from pulmonary Interventional radiology. Physical examination: VITAL SIGNS: 97.4, 71, 18, 121/77, 96% on room air GENERAL: , laying in bed awake EYES: Pupils equal. Conjunctiva normal. HEENT: External appearance of nose and ears normal, oral cavity grossly normal. NECK: JVD not raised; masses not palpable. HEART: First and second heart sounds are normal; no edema. LUNGS: Respiratory rate normal; decreased breath sounds. ABDOMEN: Soft, nontender, liver spleen not palpable, no masses palpable. PSYCH: Alert and oriented x3; mood and affect normal. Investigations: white count 13.5 hemoglobin 7.7 which is 490 Previous testing White count 17.6 hemoglobin 8.5 platelets 591 potassium 4.7 creatinine 0.86 glucose 203 Troponin I less than 0.012, TSH 1.4 EKG tracing personally reviewed by me shows normal sinus rhythm Assessment: -Paroxysmal atrial flutter ablation rapid ventricular rate, leading to syncope, now back in sinus rhythm -Right lung mass in a patient who was a smoker for many years -today had lung biopsy. -COPD in an ex-smoker -GERD -Primary osteoarthritis -Asymptomatic gallstones -Microcytic anemia workup included EGD coloscopy. Unremarkable. disposition: Home Patient Condition at Discharge: Stable Plan - Discharge Summary New Discharge Prescriptions: New Amiodarone [Cordarone] 400 mg PO DAILY #30 tab Apixaban [Eliquis] 2.5 mg PO BID #60 tablet Metoprolol Tartrate [Lopressor] 25 mg PO BID #60 tab Continue Famotidine [Pepcid] 20 mg PO DAILY PRN PRN Reason: Heartburn Meclizine HCl 12.5 mg PO TID PRN PRN Reason: Vertigo Discharge Medication List Famotidine [Pepcid] 20 mg PO DAILY PRN 10/21/19 [History] Meclizine HCl 12.5 mg PO TID PRN 10/21/19 [History] Amiodarone [Cordarone] 400 mg PO DAILY #30 tab 10/30/19 [Rx] Apixaban [Eliquis] 2.5 mg PO BID #60 tablet 10/30/19 [Rx] Metoprolol Tartrate [Lopressor] 25 mg PO BID #60 tab 10/30/19 [Rx] Follow up Appointment(s)/Referral(s): Rafa Medrano MD [STAFF PHYSICIAN] - 10 Days (Spoke to day spa manager. Office will call you on Saturday or Saturday with an appointment time.) Adrian Mar MD [STAFF PHYSICIAN] - 11/13/19 4:30 pm (Saturday) Addison Jacobsen MD [Primary Care Provider] - 1-2 days (Office is closed. Please call to schedule appointment) Wally Pineda MD [STAFF PHYSICIAN] - 1 Week (Office is closed. Please call to schedule appointment) Patient Instructions/Handouts: A-fib (Atrial Fibrillation) (DC), Safe Use of Anticoagulants (DC) Discharge Disposition: HOME SELF-CARE
--- NOTE | 2019-11-06 08:03 | CDI ---
Documentation Clarification Form Date: 11/06/2019 07:53:24 AM From: Shawna Chance Phone: If you have a question about this query, please contact Aishwarya Sánchez Park Ranger at [phone] between 8am and 5pm. Admit Date: 10/29/2019 10:02:00 AM Patient Name: Selene Sparks Visit Number: [id number] Discharge Date: 10/30/2019 03:53:00 PM ATTENTION: The Clinical Documentation Specialists (CDI) and [facility] Coding Staff appreciate your assistance in clarifying documentation. Please respond to the clarification below the line at the bottom and electronically sign. The CDI & [facility] Coding staff will review the response and follow-up if needed. Please note: Queries are made part of the Legal Health Record. If you have any questions, please contact the author of this message via ITS. Dr. James Montana Patient had a lung core bx of FERNANDA. Path report is positive for moderately to poorly differentiated squamous cell carcinoma. In order to accurately reflect the patient's condition, attending must document. Codes cannot be taken from path report results. Please clarify if you agree with malignancy documented on path report or do not. Patient history/risk factors: FERNANDA mass atrial fib Radiology: FERNANDA mass Please clarify if you agree with results of positive path report from patient lung core bx: Yes No Other, please specify ____ Unable to determine Behavior Malignant, primary site Malignant, secondary site Benign In situ Of uncertain behavior Other, please specify Unable to determine moderate to severe squamous cell carcinoma of the lung, POA, likely primary MTDD
== END 2019-10-30 15:53 | disposition home or self-care (01) | DRG 309 ==
LOC: EC 14:26 → 3SCARD 15:02 → OBSVTOIN 10-29 10:02
PROVIDERS: ADMIT Hospitalist; ATTEND Hospitalist
PROC: 0DJD8ZZ Inspection of Lower Intestinal Tract, Via Natural or Artificial Opening Endoscopic (ICD-10-PCS; principal; 2019-10-29 11:25)
PROC: 0DB98ZX Excision of Duodenum, Via Natural or Artificial Opening Endoscopic, Diagnostic (ICD-10-PCS; principal; 2019-10-29 11:25)
PROC: 0DB78ZX Excision of Stomach, Pylorus, Via Natural or Artificial Opening Endoscopic, Diagnostic (ICD-10-PCS; principal; 2019-10-29 11:25)
PROC: 0BB83ZX Excision of Left Upper Lobe Bronchus, Percutaneous Approach, Diagnostic (ICD-10-PCS; 2019-10-30)
DX: I48.92 Unspecified atrial flutter (principal); N17.9 Acute kidney failure, unspecified; C34.12 Malignant neoplasm of upper lobe, left bronchus or lung; I48.0 Paroxysmal atrial fibrillation; I10 Essential (primary) hypertension; G47.33 Obstructive sleep apnea (adult) (pediatric); D50.9 Iron deficiency anemia, unspecified; K21.9 Gastro-esophageal reflux disease without esophagitis; K29.70 Gastritis, unspecified, without bleeding; K64.8 Other hemorrhoids; K80.20 Calculus of gallbladder without cholecystitis without obstruction; M19.91 Primary osteoarthritis, unspecified site; J44.9 Chronic obstructive pulmonary disease, unspecified; R91.8 Other nonspecific abnormal finding of lung field; Z87.891 Personal history of nicotine dependence; Z86.711 Personal history of pulmonary embolism; Z79.899 Other long term (current) drug therapy; Z91.041 Radiographic dye allergy status; Z98.51 Tubal ligation status; K44.9 Diaphragmatic hernia without obstruction or gangrene; Z82.0 Family history of epilepsy and other diseases of the nervous system; I95.9 Hypotension, unspecified; R42 Dizziness and giddiness; Z11.59 Encounter for screening for other viral diseases
CPT/HCPCS: 36415; 43239; 45378; 77012; 80048; 82728; 83540; 83550; 84443; 84484; 85025; 85027; 85610; 85730; 86850; 86900; 86901; 88305; 88341; 88342; 93005; 93306; 96365; 96366; 96374; 96375; 99285

== ENCOUNTER 2019-11-03 17:48 | Inpatient (IN) | payer MEDICARE ==
[2019-11-03] MEDS ORDERED: SODIUM CHLORIDE 0.9% 500 ML 500 ML IV STA (18:31)
--- NOTE | 2019-11-03 18:37 | ED ---
General Adult HPI - General Chief complaint: Weakness Stated complaint: heart concerns Time Seen by Provider: 11/03/19 18:00 Source: patient, RN notes reviewed, old records reviewed Mode of arrival: wheelchair Limitations: no limitations - History of Present Illness Initial comments: This is a 69-year-old female who presents emergency department after having had a dizzy spell at home at which point in time she called EMS. EMS at that time reported the patient's heart rate got down to 28. Patient was taken to [facility] where the they saw no abnormalities while in the emergency department but they did see a rhythm strip that the heart rate was down into the 40s. From the hospital she was sent to her school crossing guard Yoselin Bashir to the patient and believe that the patient's heart rate was occasionally going slow causing her lightheadedness and he wanted the patient admitted in the amiodarone stop. Patient states currently she has without symptoms. Patient denies any recent fever chills. Patient denies any recent chest pain. Patient was recently diagnosed with a lung mass and had a biopsy of that mass. - Related Data Home Medications Medication Instructions Recorded Confirmed Famotidine [Pepcid] 20 mg PO DAILY PRN 10/21/19 10/27/19 Meclizine HCl 12.5 mg PO TID PRN 10/21/19 10/27/19 Previous Rx's Medication Instructions Recorded Amiodarone [Cordarone] 400 mg PO DAILY #30 tab 10/30/19 Apixaban [Eliquis] 2.5 mg PO BID #60 tablet 10/30/19 Metoprolol Tartrate [Lopressor] 25 mg PO BID #60 tab 10/30/19 Allergies Allergy/AdvReac Type Severity Reaction Status Date / Time Iodine and Iodide Containing Allergy Anaphylaxis Verified 11/03/19 18:01 Produc tomato Allergy Rash/Hives Verified 11/03/19 18:01 dial soap AdvReac Rash/Hives Uncoded 11/03/19 18:01 Review of Systems ROS Statement: Those systems with pertinent positive or pertinent negative responses have been documented in the HPI. ROS Other: All systems not noted in ROS Statement are negative. Past Medical History Past Medical History: COPD, Deep Vein Thrombosis (DVT), GERD/Reflux, Osteoarthritis (OA), Pulmonary Embolus (PE), Syncope Additional Past Medical History / Comment(s): vertigo, hypotension History of Any Multi-Drug Resistant Organisms: None Reported Past Surgical History: Tubal Ligation Past Anesthesia/Blood Transfusion Reactions: Previous Problems w/ Anesthesia Additional Past Anesthesia/Blood Transfusion Reaction / Comment(s): hard time waking up Past Psychological History: No Psychological Hx Reported Smoking Status: Former smoker Past Alcohol Use History: None Reported Past Drug Use History: None Reported - Past Family History Mother Family Medical History: Dementia General Exam - General Exam Comments Initial Comments: GENERAL: Patient is well-developed and well-nourished. Patient is nontoxic and well- hydrated and is in no acute distress. ENT: Neck is soft and supple. No significant lymphadenopathy is noted. Oropharynx is clear. Moist mucous membranes. Neck has full range of motion without eliciting any pain. EYES: The sclera were anicteric and conjunctiva were pink and moist. Extraocular movements were intact and pupils were equal round and reactive to light. Eyelids were unremarkable. PULMONARY: Unlabored respirations. Good breath sounds bilaterally. No audible rales rhonchi or wheezing was noted. CARDIOVASCULAR: There is a regular rate and rhythm without any murmurs gallops or rubs. ABDOMEN: Soft and nontender with normal bowel sounds. SKIN: Skin is clear with no lesions or rashes and otherwise unremarkable. NEUROLOGIC: Patient is alert and oriented x3. Cranial nerves II through XII are grossly intact. Motor and sensory are also intact. Normal speech, volume and content. Symmetrical smile. MUSCULOSKELETAL: Normal extremities with adequate strength and full range of motion. No lower extremity swelling or edema. No calf tenderness. LYMPHATICS: No significant lymphadenopathy is noted PSYCHIATRIC: Normal psychiatric evaluation. Limitations: no limitations Course Vital Signs 11/03/19 11/03/19 17:58 19:44 Pulse Rate 76 74 Respiratory 18 16 Rate Blood Pressure 103/71 115/58 O2 Sat by Pulse 96 Oximetry Medical Decision Making - Medical Decision Making EKG shows normal sinus rhythm at a rate of 79 bpm MI interval 150 QRS 78 QT interval 362 QTC is 4:15. Patient's EKG shows no ST segment elevation or depression. Chest x-ray shows a left-sided lung mass. Patient has been asymptomatic throughout the ED stay. I spoke with Dr. Mar he wants the patient admitted. I spoke with [facility]ist agreed to admit the patient admitted the patient wrote admitting orders. - Lab Data Result diagrams: 11/03/19 19:29 11/03/19 19:29 Lab Results 11/03/19 11/03/19 Range/Units 19:29 19:29 WBC 13.4 H (3.8-10.6) k/uL RBC 3.41 L (3.80-5.40) m/uL Hgb 7.7 L (11.4-16.0) gm/dL Hct 26.2 L (34.0-46.0) % MCV 76.9 L (80.0-100.0) fL MCH 22.5 L (25.0-35.0) pg MCHC 29.3 L (31.0-37.0) g/dL RDW 16.8 H (11.5-15.5) % Plt Count 609 H (150-450) k/uL Neutrophils % 81 % Lymphocytes % 8 % Monocytes % 5 % Eosinophils % 3 % Basophils % 0 % Neutrophils # 10.9 H (1.3-7.7) k/uL Lymphocytes # 1.1 (1.0-4.8) k/uL Monocytes # 0.7 (0-1.0) k/uL Eosinophils # 0.4 (0-0.7) k/uL Basophils # 0.1 (0-0.2) k/uL Hypochromasia Marked Anisocytosis Slight Microcytosis Slight Sodium 128 L (137-145) mmol/L Potassium 5.1 (3.5-5.1) mmol/L Chloride 93 L (98-107) mmol/L Carbon Dioxide 27 (22-30) mmol/L Anion Gap 8 mmol/L BUN 17 (7-17) mg/dL Creatinine 0.89 (0.52-1.04) mg/dL Est GFR (CKD-EPI)AfAm 78 (>60 ml/min/1.73 sqM) Est GFR (CKD-EPI)NonAf 67 (>60 ml/min/1.73 sqM) Glucose 140 H (74-99) mg/dL Calcium 9.1 (8.4-10.2) mg/dL Magnesium 2.0 (1.6-2.3) mg/dL Total Bilirubin 0.7 (0.2-1.3) mg/dL AST 19 (14-36) U/L ALT 14 (4-34) U/L Alkaline Phosphatase 167 H (38-126) U/L Total Protein 7.2 (6.3-8.2) g/dL Albumin 2.8 L (3.5-5.0) g/dL Disposition Clinical Impression: Bradycardia, Lung mass Disposition: ADMITTED IP TO THIS HOSP Referrals: Addison Jacobsen MD [Primary Care Provider] - 1-2 days Time of Disposition: 20:11
[2019-11-03 19:40] LABS: Anisocytosis Slight; Basophils # (A) 0.1 k/uL (0-0.2); Basophils % (A) 0 %; Eosinophils # (A) 0.4 k/uL (0-0.7); Eosinophils % (A) 3 %; HCT 26.2 % (34.0-46.0); HGB 7.7 gm/dL (11.4-16.0); Hypochromasia Marked; Lymphocytes # (A) 1.1 k/uL (1.0-4.8); Lymphocytes % (A) 8 %; MCH 22.5 pg (25.0-35.0); MCHC 29.3 g/dL (31.0-37.0); MCV 76.9 fL (80.0-100.0); Mean Platelet Volume 6.6; Microcytosis Slight; Monocytes # (A) 0.7 k/uL (0-1.0); Monocytes % (A) 5 %; Neutrophils # (A) 10.9 k/uL (1.3-7.7); Neutrophils % (A) 81 %; Platelet Count 609 k/uL (150-450); RBC 3.41 m/uL (3.80-5.40); RDW 16.8 % (11.5-15.5); WBC 13.4 k/uL (3.8-10.6)
[2019-11-03 19:45] LABS: Albumin 2.8 g/dL (3.5-5.0); Calcium 9.1 mg/dL (8.4-10.2); Potassium 5.1 mmol/L (3.5-5.1); Total Bilirubin 0.7 mg/dL (0.2-1.3); Total Protein 7.2 g/dL (6.3-8.2)
[2019-11-03] MEDS ORDERED: NITROGLYCERIN SL TABS 0.4 MG TAB SUBLINGUAL PRN (20:11)
[2019-11-03 20:19] LABS: INR 1.2 (<1.2); Partial Thromboplastin Time 32.1 sec (22.0-30.0); Prothrombin Time 11.9 sec (9.0-12.0)
--- NOTE | 2019-11-03 20:26 | XR ---
EXAMINATION TYPE: XR chest 2V DATE OF EXAM: 11/03/2019 COMPARISON: Prior chest x-ray 10/21/2019 HISTORY: Chest pain TECHNIQUE: Frontal and lateral views of the chest are obtained. FINDINGS: Left-sided lung mass is again noted. There is no pneumothorax or pleural effusion. Heart s ize is stable. IMPRESSION: Stable lung mass.
[2019-11-03] MEDS ORDERED: RX INFO: IV CONTRAST WAS GIVEN 1 EACH MISC MISCELLANE PRN (22:22)
[2019-11-03] MEDS ORDERED: diphenhydrAMINE 25 MG CAP PO SCH (22:30)
[2019-11-04] MEDS ORDERED: methylPREDNISolone SOD SUCCI 40 MG/ML 1 ML VIAL IV SCH
[2019-11-04 00:13] VITALS: RESP 18
[2019-11-04 02:20] LABS: Cholesterol 110 mg/dL (<200); HDL Cholesterol 19 mg/dL (40-60); LDL Cholesterol,Calculated 71 mg/dL (0-99); Triglycerides 100 mg/dL (<150)
[2019-11-04] MEDS ORDERED: ASPIRIN 325 MG TAB PO SCH (09:00)
--- NOTE | 2019-11-04 09:34 | P.CRDCN ---
History of Present Illness Consult date: 11/04/19 Requesting physician: Andrew De Leon Reason for Consult (text): bradycardia Chief complaint: dizziness, weakness History of present illness: This is a pleasant 69-year-old patient who is new to our practice and will be following with Dr. Mar. 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 At that time she was initiated on amiodarone, her metoprolol was increased to 25 mg by mouth twice a day and she was initiated on Eliquis 2.5 mg by mouth twice a day. She was noted to be anemic and an EGD and colonoscopy ruled out active bleeding but did reveal mild antral gastritis and small hiatal hernia with small internal hemorrhoids, no evidence of colorectal neoplasia. Apparently yesterday she became very weak and dizzy and overall did not feel well presented to [facility] and was noted to have a low heart rate. At one point it is reported that the patient was found by EMS to have a heart rate around 28. Apparently her heart rate was in the 40s while at [facility]. She was discharged from [facility] and was seen in the office by Dr. Mar who recommended she present to the emergency department here. He advised her at that time to discontinue the amiodarone. Her metoprolol has been on hold as well. Her heart rate has been well-controlled running in the 70s to 90s since presentation. EKG showed sinus rhythm. Chest x-ray showed stable lung mass. Labs show white blood cell count 13,400, hemoglobin 7.7, potassium 5.1, BUN 17, creatinine 0.89, alkaline phosphatase 167 with normal AST and ALT, troponins negative 3. The patient did undergo echocardiogram with Doppler study during her previous admission which showed normal LV systolic function with ejection fraction of 60- 65%, mild aortic stenosis, mild tricuspid regurgitation. Upon examination, patient is resting completely bed. She has no further complaints of dizziness or weakness. She's had no complaints of chest discomfort, palpitations, nausea, vomiting. She's had no blood in the urine or stool. Past Medical History Past Medical History: Atrial Fibrillation, COPD, Deep Vein Thrombosis (DVT), GERD/Reflux, Osteoarthritis (OA), Pulmonary Embolus (PE), Syncope Additional Past Medical History / Comment(s): vertigo, hypotension, recently diagnosed with afib a week ago- started on amio PO at this time. History of Any Multi-Drug Resistant Organisms: None Reported Past Surgical History: Tubal Ligation Past Anesthesia/Blood Transfusion Reactions: Previous Problems w/ Anesthesia Additional Past Anesthesia/Blood Transfusion Reaction / Comment(s): hard time waking up Past Psychological History: No Psychological Hx Reported Smoking Status: Former smoker Past Alcohol Use History: None Reported Additional Past Alcohol Use History / Comment(s): quit smoking 4 almost 5 years. Past Drug Use History: None Reported - Past Family History Mother Family Medical History: Dementia Medications and Allergies Home Medications Medication Instructions Recorded Confirmed Type Famotidine [Pepcid] 20 mg PO DAILY PRN 10/21/19 11/03/19 History Meclizine HCl 12.5 mg PO TID PRN 10/21/19 11/03/19 History Apixaban [Eliquis] 2.5 mg PO BID #60 tablet 10/30/19 11/03/19 Rx Metoprolol Tartrate [Lopressor] 25 mg PO BID #60 tab 10/30/19 11/03/19 Rx Allergies Allergy/AdvReac Type Severity Reaction Status Date / Time Iodine and Iodide Containing Allergy Anaphylaxis Verified 11/03/19 20:36 Produc tomato Allergy Rash/Hives Verified 11/03/19 20:36 dial soap Allergy Rash/Hives Uncoded 11/03/19 20:36 Physical Exam Vitals: Vital Signs Temp Pulse Pulse Resp BP BP Pulse Ox 11/04/19 07:35 98.1 F 96 18 100/64 94 L 11/04/19 04:00 98.3 F 92 18 149/76 94 L 11/04/19 00:19 84 18 11/04/19 00:17 98.2 F 84 18 95/67 94 L 11/04/19 00:00 98.2 F 84 18 95/67 94 L 11/03/19 20:20 74 11/03/19 19:44 74 16 115/58 11/03/19 17:58 76 18 103/71 96 Intake and Output 11/03/19 11/04/19 11/04/19 22:59 06:59 14:59 Intake Total 600 Balance 600 Intake: Oral 600 Other: Voiding Method Toilet # Voids 1 Weight 66.678 kg 68.5 kg PHYSICAL EXAMINATION: This is a 69-year-old female in no apparent distress at the time of my examination. VITAL SIGNS: Blood pressure 100/64 but was 149/76 at 4 AM, heart rate 96, respirations 18, temp 98.1F. Patient is 94 % on room air. HEENT: Head is atraumatic, normocephalic. Pupils are equal, round. Sclerae anicteric. Conjunctivae are clear. Mucous membranes of the mouth are moist. Neck is supple. There is no elevated jugular venous pressure. No carotid bruit is heard. CHEST EXAMINATION: Lungs reveal diminished air entry bilaterally. No wheezes rales or rhonchi. Respirations even and nonlabored. HEART EXAMINATION: Heart regular, positive S1 and S2. No S3. No S4. With a soft systolic ejection murmur. ABDOMEN: Soft, nontender. Bowel sounds are heard. No organomegaly noted. EXTREMITIES: 2+ peripheral pulses with no evidence of peripheral edema and no calf tenderness noted. NEUROLOGIC EXAMINATION: Patient is awake, alert and oriented x3. Results 11/03/19 19:29 11/03/19 19:29 Cardiac Enzymes 11/03/19 11/03/19 11/03/19 Range/Units 19:29 19:29 22:45 AST 19 (14-36) U/L Troponin I <0.012 <0.012 (0.000-0.034) ng/mL 11/04/19 Range/Units 00:59 AST (14-36) U/L Troponin I <0.012 (0.000-0.034) ng/mL Coagulation 11/03/19 Range/Units 19:29 PT 11.9 (9.0-12.0) sec APTT 32.1 H (22.0-30.0) sec Lipids 11/04/19 Range/Units 00:59 Triglycerides 100 (<150) mg/dL Cholesterol 110 (<200) mg/dL HDL Cholesterol 19 L (40-60) mg/dL CBC 11/03/19 Range/Units 19:29 WBC 13.4 H (3.8-10.6) k/uL RBC 3.41 L (3.80-5.40) m/uL Hgb 7.7 L (11.4-16.0) gm/dL Hct 26.2 L (34.0-46.0) % Plt Count 609 H (150-450) k/uL Comprehensive Metabolic Panel 11/03/19 Range/Units 19:29 Sodium 128 L (137-145) mmol/L Potassium 5.1 (3.5-5.1) mmol/L Chloride 93 L (98-107) mmol/L Carbon Dioxide 27 (22-30) mmol/L BUN 17 (7-17) mg/dL Creatinine 0.89 (0.52-1.04) mg/dL Glucose 140 H (74-99) mg/dL Calcium 9.1 (8.4-10.2) mg/dL AST 19 (14-36) U/L ALT 14 (4-34) U/L Alkaline Phosphatase 167 H (38-126) U/L Total Protein 7.2 (6.3-8.2) g/dL Albumin 2.8 L (3.5-5.0) g/dL Current Medications Generic Name Dose Route Start Last Admin Trade Name Freq PRN Reason Stop Dose Admin Aspirin 325 mg 11/04/19 09:00 Aspirin PO DAILY SHY Nitroglycerin 0.4 mg 11/03/19 20:11 Nitrostat SUBLINGUAL Q5M PRN Chest Pain Intake and Output 11/03/19 11/04/19 11/04/19 22:59 06:59 14:59 Intake Total 600 Balance 600 Intake: Oral 600 Other: Voiding Method Toilet # Voids 1 Weight 66.678 kg 68.5 kg 11/03/19 19:29 11/03/19 19:29 EKG Interpretations (text) Normal sinus rhythm Assessment and Plan Assessment: #1 symptomatic bradycardia, amiodarone has been discontinued and beta blockers currently on hold, improved #2 paroxysmal atrial fibrillation #3 prior history of smoking #4 newly diagnosed squamous cell carcinoma Plan: From cardiology's perspective, we will resume beta carlton. We will resume Eliquis at 5 mg by mouth twice a day. We will monitor the patient for 24 hours. We will attempt to obtain records from EMS and [facility]. We will provide further recommendations accordingly. CORE LOADER note has been reviewed, I agree with a documented findings and plan of care. Patient was seen and examined.
[2019-11-04] MEDS: METOPROLOL TARTRATE 25 MG TAB PO SCH ×2 (10:06→20:17)
[2019-11-04] MEDS: APIXABAN 5 MG TAB PO SCH ×2 (10:06→20:17)
--- NOTE | 2019-11-04 11:17 | P.CNPUL ---
History of Present Illness Consult date: 11/04/19 Reason for consult: dyspnea, lung mass Chief complaint: Dizziness lightheadedness History of present illness: 69-year-old female well-known to me came into the hospital with severe dizziness and lightheadedness likely related to profound bradycardia, cardiovascular services following this patient, he she had the recent A. fib with RVR medicines are being adjusted, she has been diagnosed as large left-sided lung mass biopsy was done last week positive for poorly differentiated squamous cell carcinoma oncology has been consulted Review of Systems All systems: negative Past Medical History Past Medical History: Atrial Fibrillation, COPD, Deep Vein Thrombosis (DVT), GERD/Reflux, Osteoarthritis (OA), Pulmonary Embolus (PE), Syncope Additional Past Medical History / Comment(s): vertigo, hypotension, recently d iagnosed with afib a week ago- started on amio PO at this time. History of Any Multi-Drug Resistant Organisms: None Reported Past Surgical History: Tubal Ligation Past Anesthesia/Blood Transfusion Reactions: Previous Problems w/ Anesthesia Additional Past Anesthesia/Blood Transfusion Reaction / Comment(s): hard time waking up Past Psychological History: No Psychological Hx Reported Smoking Status: Former smoker Past Alcohol Use History: None Reported Additional Past Alcohol Use History / Comment(s): quit smoking 4 almost 5 years. Past Drug Use History: None Reported - Past Family History Mother Family Medical History: Dementia Medications and Allergies Home Medications Medication Instructions Recorded Confirmed Type Famotidine [Pepcid] 20 mg PO DAILY PRN 10/21/19 11/03/19 History Meclizine HCl 12.5 mg PO TID PRN 10/21/19 11/03/19 History Apixaban [Eliquis] 2.5 mg PO BID #60 tablet 10/30/19 11/03/19 Rx Metoprolol Tartrate [Lopressor] 25 mg PO BID #60 tab 10/30/19 11/03/19 Rx Allergies Allergy/AdvReac Type Severity Reaction Status Date / Time Iodine and Iodide Containing Allergy Anaphylaxis Verified 11/03/19 20:36 Produc tomato Allergy Rash/Hives Verified 11/03/19 20:36 dial soap Allergy Rash/Hives Uncoded 11/03/19 20:36 Physical Exam Vitals: Vital Signs Temp Pulse Pulse Resp BP BP Pulse Ox 11/04/19 07:35 98.1 F 96 18 100/64 94 L 11/04/19 04:00 98.3 F 92 18 149/76 94 L 11/04/19 00:19 84 18 11/04/19 00:17 98.2 F 84 18 95/67 94 L 11/04/19 00:00 98.2 F 84 18 95/67 94 L 11/03/19 20:20 74 11/03/19 19:44 74 16 115/58 11/03/19 17:58 76 18 103/71 96 Intake and Output 11/03/19 11/04/19 11/04/19 22:59 06:59 14:59 Intake Total 600 Balance 600 Intake: Oral 600 Other: Voiding Method Toilet # Voids 1 Weight 66.678 kg 68.5 kg - Constitutional General appearance: average body habitus, cooperative, disheveled - EENT Eyes: EOMI, PERRLA ENT: normal oropharynx Ears: bilateral: normal - Neck Neck: normal ROM Carotids: bilateral: upstroke normal - Respiratory Respiratory: bilateral: diminished - Cardiovascular Rhythm: regular Heart sounds: normal: S1, S2 - Gastrointestinal General gastrointestinal: normal bowel sounds - Integumentary Integumentary: normal turgor - Neurologic Neurologic: CNII-XII intact - Musculoskeletal Musculoskeletal: gait normal, generalized weakness, strength equal bilaterally - Psychiatric Psychiatric: A&O x's 3, appropriate affect, intact judgment & insight Results - Laboratory Findings CBC and BMP: 11/03/19 19:29 11/03/19 19:29 PT/INR, D-dimer PT 11.9 sec (9.0-12.0) 11/03/19 19:29 INR 1.2 (<1.2) H 11/03/19 19:29 Abnormal lab findings: Abnormal Labs 11/03/19 11/03/19 11/03/19 19:29 19:29 19:29 WBC 13.4 H RBC 3.41 L Hgb 7.7 L Hct 26.2 L MCV 76.9 L MCH 22.5 L MCHC 29.3 L RDW 16.8 H Plt Count 609 H Neutrophils # 10.9 H INR 1.2 H APTT 32.1 H Sodium 128 L Chloride 93 L Glucose 140 H Alkaline Phosphatase 167 H Albumin 2.8 L HDL Cholesterol 11/04/19 00:59 WBC RBC Hgb Hct MCV MCH MCHC RDW Plt Count Neutrophils # INR APTT Sodium Chloride Glucose Alkaline Phosphatase Albumin HDL Cholesterol 19 L - Diagnostic Findings Chest x-ray: report reviewed, image reviewed Assessment and Plan Assessment: New diagnoses of non-small cell lung cancer biopsy positive for squamous cell carcinoma likely unresectable due to size Dizziness lightheadedness is due to profound bradycardia A. fib with RVR Hypertension hypertensive cardiovascular disease Severe chronic anemia microcytic Generalized weakness Baseline COPD Plan: Continue as needed breathing treatment Blood pressure medicines are being adjusted Continue anticoagulation We'll consult oncology Further recommendations pending plan of care as per clinical response of patient Time with Patient: Greater than 30
[2019-11-04] MEDS ORDERED: MECLIZINE 25 MG TAB PO PRN (15:47)
[2019-11-04] MEDS ORDERED: FAMOTIDINE 20 MG TAB PO PRN (15:47)
--- NOTE | 2019-11-04 18:11 | P.HPIM ---
History of Present Illness H&P Date: 11/04/19 Chief Complaint: Dizziness is a 69-year-old female with a past medical history of COPD, osteoarthritis, GERD, DVT 40 years ago, not on anticoagulation coming to the hospital with a chief complaint of dizziness. Patient was feeling dizzy so called EMS, who took her to [facility] and she was noticed to have abnormalities in her symptoms trip and said that her heart rate was in 40s, later she was discharged from there to follow up with Dr. Kwan. She was advised to discontinue amiodarone and get admitted. Patient was recently admitted to the hospital last week with a new onset of A. fib with RVR and was discharged home on amiodarone and Eliquis. Patient also had a biopsy done of her right lung mass. In the emergency patient had had a heart rate in 70s to 90s and EKG was showing sinus rhythm. She had a chest x-ray showing stable left sided lung mass. On reviewing her vitals her white count was slightly elevated at 13.4, hemoglobin is 7.7 with MCV of 76.9. Patient mentions that she had a blood transfusion done in her recent admission. Sodium 128, potassium 5.1, chloride 93, bicarbonate 27. P1 17 and creatinine of 0.89. Troponin less than 0.0123. Albumin of 2.8. Review of Systems REVIEW OF SYSTEMS: CONSTITUTIONAL: No fever, no malaise, no fatigue. HEENT: No recent visual problems or hearing problems. Denied any sore throat. CARDIOVASCULAR: As per HPI PULMONARY: Left lung mass and biopsy done recently GASTROINTESTINAL: No abdominal pain, nausea or vomiting. NEUROLOGICAL: No headaches, no weakness, no numbness. HEMATOLOGICAL: Denies any bleeding or petechiae. GENITOURINARY: Denies any burning micturition, frequency, or urgency. MUSCULOSKELETAL/RHEUMATOLOGICAL: No joint swelling or pains ENDOCRINE: Denies any polyuria or polydipsia. Denies heat or cold intolerance The rest of the 13-point review of systems is negative. Past Medical History Past Medical History: Atrial Fibrillation, COPD, Deep Vein Thrombosis (DVT), GERD/Reflux, Osteoarthritis (OA), Pulmonary Embolus (PE), Syncope Additional Past Medical History / Comment(s): vertigo, hypotension, recently diagnosed with afib a week ago- started on amio PO at this time. History of Any Multi-Drug Resistant Organisms: None Reported Past Surgical History: Tubal Ligation Past Anesthesia/Blood Transfusion Reactions: Previous Problems w/ Anesthesia Additional Past Anesthesia/Blood Transfusion Reaction / Comment(s): hard time waking up Past Psychological History: No Psychological Hx Reported Smoking Status: Former smoker Past Alcohol Use History: None Reported Additional Past Alcohol Use History / Comment(s): quit smoking 4 almost 5 years. Past Drug Use History: None Reported - Past Family History Mother Family Medical History: Dementia Medications and Allergies Home Medications Medication Instructions Recorded Confirmed Type Famotidine [Pepcid] 20 mg PO DAILY PRN 10/21/19 11/03/19 History Meclizine HCl 12.5 mg PO TID PRN 10/21/19 11/03/19 History Apixaban [Eliquis] 2.5 mg PO BID #60 tablet 10/30/19 11/03/19 Rx Metoprolol Tartrate [Lopressor] 25 mg PO BID #60 tab 10/30/19 11/03/19 Rx Allergies Allergy/AdvReac Type Severity Reaction Status Date / Time Iodine and Iodide Containing Allergy Anaphylaxis Verified 11/03/19 20:36 Produc tomato Allergy Rash/Hives Verified 11/03/19 20:36 dial soap Allergy Rash/Hives Uncoded 11/03/19 20:36 Physical Exam Vitals: Vital Signs Temp Pulse Pulse Resp BP BP Pulse Ox 11/04/19 11:40 98.8 F 79 18 115/66 93 L 11/04/19 07:35 98.1 F 96 18 100/64 94 L 11/04/19 04:00 98.3 F 92 18 149/76 94 L 11/04/19 00:19 84 18 11/04/19 00:17 98.2 F 84 18 95/67 94 L 11/04/19 00:00 98.2 F 84 18 95/67 94 L 11/03/19 20:20 74 11/03/19 19:44 74 16 115/58 11/03/19 17:58 76 18 103/71 96 Intake and Output 11/04/19 11/04/19 11/04/19 06:59 14:59 22:59 Intake Total 600 250 Balance 600 250 Intake: Oral 600 250 Other: Voiding Method Toilet # Voids 1 2 Weight 68.5 kg PHYSICAL EXAMINATION: GENERAL: Patient is comfortably lying in bed with her daughter at the bedside. HEENT: Pupils are round and equally reacting to light. Mild pallor. No icterus. CARDIOVASCULAR: S 1 and s 2 heard, normal rhythm. No additional sounds. PULMONARY: Bilateral breath sounds are positive. Diminished at lower lung bases No wheeze or crackles. ABDOMEN: Soft, nontender, nondistended, normoactive bowel sounds. No palpable organomegaly. MUSCULOSKELETAL: No joint swelling or deformity. EXTREMITIES: No cyanosis, clubbing, or pedal edema. NEUROLOGICAL: alert, awake, oriented X 3 , Gross neurological examination did not reveal any focal deficits. Results CBC & Chem 7: 11/05/19 05:34 11/05/19 05:34 Labs: Abnormal Lab Results - Last 24 Hours (Table) 11/03/19 11/03/19 11/03/19 Range/Units 19:29 19:29 19:29 WBC 13.4 H (3.8-10.6) k/uL RBC 3.41 L (3.80-5.40) m/uL Hgb 7.7 L (11.4-16.0) gm/dL Hct 26.2 L (34.0-46.0) % MCV 76.9 L (80.0-100.0) fL MCH 22.5 L (25.0-35.0) pg MCHC 29.3 L (31.0-37.0) g/dL RDW 16.8 H (11.5-15.5) % Plt Count 609 H (150-450) k/uL Neutrophils # 10.9 H (1.3-7.7) k/uL INR 1.2 H (<1.2) APTT 32.1 H (22.0-30.0) sec Sodium 128 L (137-145) mmol/L Chloride 93 L (98-107) mmol/L Glucose 140 H (74-99) mg/dL Alkaline Phosphatase 167 H (38-126) U/L Albumin 2.8 L (3.5-5.0) g/dL HDL Cholesterol (40-60) mg/dL 11/04/19 Range/Units 00:59 WBC (3.8-10.6) k/uL RBC (3.80-5.40) m/uL Hgb (11.4-16.0) gm/dL Hct (34.0-46.0) % MCV (80.0-100.0) fL MCH (25.0-35.0) pg MCHC (31.0-37.0) g/dL RDW (11.5-15.5) % Plt Count (150-450) k/uL Neutrophils # (1.3-7.7) k/uL INR (<1.2) APTT (22.0-30.0) sec Sodium (137-145) mmol/L Chloride (98-107) mmol/L Glucose (74-99) mg/dL Alkaline Phosphatase (38-126) U/L Albumin (3.5-5.0) g/dL HDL Cholesterol 19 L (40-60) mg/dL Thrombosis Risk Factor Assmnt - Choose All That Apply Any of the Below Risk Factors Present?: Yes Each Factor Represents 1 point: Abnormal pulmonary function (COPD) Other Risk Factors: Yes Each Risk Factor Represents 2 Points: Age 61-74 years Other congenital or acquired thrombophilia - If yes, enter type in comment: No Thrombosis Risk Factor Assessment Total Risk Factor Score: 3 Thrombosis Risk Factor Assessment Level: Moderate Risk Assessment and Plan Assessment: ASSESSMENT Dizziness- probably due to bradycardia Paroxysmal atrial fibrillation Hypovolemic hyponatremia Chronic anemia Microcytosis Thrombocytosis Squamous cell carcinoma of the left lung GERD Vertigo 40 pack years of smoking-quit 4 years back Moderate protein calorie malnutrition PLAN: Patient's amiodarone has been discontinued. Patient is currently in sinus rhythm. She was restarted on Lopressor 25 mg twice a day. Patient received a liter of bolus in the ER, will check her electrolytes tomorrow morning. As the patient has microcytosis, we will check iron panel. Her thrombocytosis could be due to her underlying malignancy. Patient is restarted on her home medications. Oncology has been consulted. Cardiology and pulmonary following the patient. DVT prophylaxsis on Eliquis. Further recommendations to follow depending on the progress of the patient.
[2019-11-05 06:03] LABS: Anisocytosis Slight; Basophils % (A) 0 %; Eosinophils # (A) 0.6 k/uL (0-0.7); Eosinophils % (A) 5 %; HCT 26.4 % (34.0-46.0); HGB 7.8 gm/dL (11.4-16.0); Hypochromasia Marked; Lymphocytes # (A) 1.3 k/uL (1.0-4.8); Lymphocytes % (A) 12 %; MCHC 29.4 g/dL (31.0-37.0); MCV 78.3 fL (80.0-100.0); Mean Platelet Volume 6.6; Microcytosis Slight; Monocytes # (A) 0.7 k/uL (0-1.0); Monocytes % (A) 6 %; Neutrophils # (A) 8.3 k/uL (1.3-7.7); Neutrophils % (A) 75 %; Platelet Count 586 k/uL (150-450); RBC 3.37 m/uL (3.80-5.40); RDW 16.1 % (11.5-15.5); WBC 11.2 k/uL (3.8-10.6)
[2019-11-05 06:15] LABS: Calcium 8.9 mg/dL (8.4-10.2); Potassium 4.6 mmol/L (3.5-5.1)
[2019-11-05] MEDS: METOPROLOL TARTRATE 25 MG TAB PO SCH ×2 (08:52→20:47)
[2019-11-05] MEDS: APIXABAN 5 MG TAB PO SCH ×2 (08:52→20:47)
--- NOTE | 2019-11-05 11:07 | P.PN ---
Subjective Progress Note Date: 11/05/19 This is a pleasant 69-year-old patient who is new to our practice and will be following with Dr. Mar. 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 At that time she was initiated on amiodarone, her metoprolol was increased to 25 mg by mouth twice a day and she was initiated on Eliquis 2.5 mg by mouth twice a day. She was noted to be anemic and an EGD and colonoscopy ruled out active bleeding but did reveal mild antral gastritis and small hiatal hernia with small internal hemorrhoids, no evidence of colorectal neoplasia. Apparently yesterday she became very weak and dizzy and overall did not feel well presented to [facility] and was noted to have a low heart rate. At one point it is reported that the patient was found by EMS to have a heart rate around 28. Apparently her heart rate was in the 40s while at [place]. She was discharged from [facility] and was seen in the office by Dr. Mar who recommended she present to the emergency department here. He advised her at that time to discontinue the amiodarone. Her metoprolol has been on hold as well. Her heart rate has been well-controlled running in the 70s to 90s since presentation. EKG showed sinus rhythm. Chest x-ray showed stable lung mass. Labs show white blood cell count 13,400, hemoglobin 7.7, potassium 5.1, BUN 17, creatinine 0.89, alkaline phosphatase 167 with normal AST and ALT, troponins negative 3. The patient did undergo echocardiogram with Doppler study during her previous a dmission which showed normal LV systolic function with ejection fraction of 60- 65%, mild aortic stenosis, mild tricuspid regurgitation. Upon examination, patient is resting completely bed. She has no further complaints of dizziness or weakness. She's had no complaints of chest discomfort, palpitations, nausea, vomiting. She's had no blood in the urine or stool. 11/05/2019 Patient was seen and examined sitting up at the edge of the bed. She is feeling well. She had no further episodes of feeling dizzy and weak. Her heart rate has been in the 80s and maintaining sinus rhythm. She is back on her metoprolol tartrate 25 mg by mouth twice a day. Oncology has been counseled and 4 squamous cell carcinoma of the lung which is not amenable by resection due to the size according to Dr. Pineda. Labs today showed white blood cell count of 11,200, hemoglobin stable at 7.8, sodium 132, potassium 4.6, BUN 14 and creatinine 0.83. Objective - Vital Signs Vital signs: Vital Signs Temp 98.1 F 11/05/19 08:00 Pulse 97 11/05/19 08:00 Resp 18 11/05/19 08:00 BP 120/66 11/05/19 08:00 Pulse Ox 92 L 11/05/19 08:00 Intake & Output 11/04/19 11/05/19 11/05/19 18:59 06:59 18:59 Intake Total 490 236 Balance 490 236 Weight 66.6 kg Intake: Oral 490 236 Other: Voiding Method Toilet Toilet Toilet # Voids 2 3 - Exam PHYSICAL EXAMINATION: HEENT: Head is atraumatic, normocephalic. Pupils equal, round. Neck is supple. There is no elevated jugular venous pressure. HEART EXAMINATION: Heart sounds regular, S1 and S2 with a soft systolic murmur. CHEST EXAMINATION: Lungs reveal diminished air entry bilaterally. Tenderness is noted with deep breathing. ABDOMEN: Soft, nontender. Bowel sounds are heard. No organomegaly noted. EXTREMITIES: 2+ peripheral pulses with no evidence of peripheral edema and no calf tenderness noted. NEUROLOGIC patient is awake, alert and oriented x3. . - Labs CBC & Chem 7: 11/05/19 05:34 11/05/19 05:34 Labs: Abnormal Lab Results - Last 24 Hours (Table) 11/05/19 11/05/19 Range/Units 05:34 05:34 WBC 11.2 H (3.8-10.6) k/uL RBC 3.37 L (3.80-5.40) m/uL Hgb 7.8 L (11.4-16.0) gm/dL Hct 26.4 L (34.0-46.0) % MCV 78.3 L (80.0-100.0) fL MCH 23.0 L (25.0-35.0) pg MCHC 29.4 L (31.0-37.0) g/dL RDW 16.1 H (11.5-15.5) % Plt Count 586 H (150-450) k/uL Neutrophils # 8.3 H (1.3-7.7) k/uL Sodium 132 L (137-145) mmol/L Chloride 94 L (98-107) mmol/L Glucose 148 H (74-99) mg/dL Assessment and Plan Assessment: #1 symptomatic bradycardia, improved, currently on metoprolol 25 mg by mouth twice a day #2 paroxysmal atrial fibrillation #3 prior history of smoking #4 newly diagnosed squamous cell carcinoma, oncology has been consulted Plan: From cardiology's perspective, medications were reviewed and we will continue the same. At this time will follow her on an as-needed basis. She'll be scheduled as an outpatient follow-up with Dr. Mar in the office following discharge. 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 Patient was seen and examined.
[2019-11-05] MEDS ORDERED: LORazepam 2 MG/ML INJ IV PRN (11:58)
--- NOTE | 2019-11-05 15:33 | P.PN ---
Subjective Progress Note Date: 11/05/19 Principal diagnosis: New diagnoses of non-small cell lung cancer biopsy positive for squamous cell carcinoma likely unresectable due to size Dizziness lightheadedness is due to profound bradycardia A. fib with RVR Hypertension hypertensive cardiovascular disease Severe chronic anemia microcytic Generalized weakness Baseline COPD 11/05/2019, patient seen eval examined during the rounds dizziness lightheadedness has improved, denies any chest pain shortness of breath, he modynamic slightly stable now, hemodynamic status including her blood pressure of 106/72 saturation 92% she is afebrile, has been evaluated by oncology service, workup for metastatic disease being considered, at bedside had a lengthy discussion with the daughter 69-year-old female well-known to me came into the hospital with severe dizziness and lightheadedness likely related to profound bradycardia, cardiovascular services following this patient, he she had the recent A. fib with RVR medicines are being adjusted, she has been diagnosed as large left-sided lung mass biopsy was done last week positive for poorly differentiated squamous cell carcinoma oncology has been consulted Objective - Vital Signs Vital signs: Vital Signs Temp 97.8 F 11/05/19 15:00 Pulse 82 11/05/19 15:00 Resp 18 11/05/19 15:00 BP 106/72 11/05/19 15:00 Pulse Ox 92 L 11/05/19 15:00 Intake & Output 11/04/19 11/05/19 11/05/19 18:59 06:59 18:59 Intake Total 490 546 Balance 490 546 Weight 66.6 kg Intake: IV 10 Invasive Line 1 10 Oral 490 536 Other: Voiding Method Toilet Toilet Toilet # Voids 2 3 2 - Exam - Constitutional General appearance: average body habitus, cooperative, disheveled - EENT Eyes: EOMI, PERRLA ENT: normal oropharynx Ears: bilateral: normal - Neck Neck: normal ROM Carotids: bilateral: upstroke normal - Respiratory Respiratory: bilateral: diminished - Cardiovascular Rhythm: regular Heart sounds: normal: S1, S2 - Gastrointestinal General gastrointestinal: normal bowel sounds - Integumentary Integumentary: normal turgor - Neurologic Neurologic: CNII-XII intact - Musculoskeletal Musculoskeletal: gait normal, generalized weakness, strength equal bilaterally - Psychiatric Psychiatric: A&O x's 3, appropriate affect, intact judgment & insight - Labs CBC & Chem 7: 11/05/19 05:34 11/05/19 05:34 Labs: Abnormal Lab Results - Last 24 Hours (Table) 11/05/19 11/05/19 Range/Units 05:34 05:34 WBC 11.2 H (3.8-10.6) k/uL RBC 3.37 L (3.80-5.40) m/uL Hgb 7.8 L (11.4-16.0) gm/dL Hct 26.4 L (34.0-46.0) % MCV 78.3 L (80.0-100.0) fL MCH 23.0 L (25.0-35.0) pg MCHC 29.4 L (31.0-37.0) g/dL RDW 16.1 H (11.5-15.5) % Plt Count 586 H (150-450) k/uL Neutrophils # 8.3 H (1.3-7.7) k/uL Sodium 132 L (137-145) mmol/L Chloride 94 L (98-107) mmol/L Glucose 148 H (74-99) mg/dL Assessment and Plan Assessment: New diagnoses of non-small cell lung cancer biopsy positive for squamous cell carcinoma likely unresectable due to size Dizziness lightheadedness is due to profound bradycardia A. fib with RVR Hypertension hypertensive cardiovascular disease Severe chronic anemia microcytic Generalized weakness Baseline COPD Plan: Workup in process for metastatic disease Continue as needed breathing treatment Blood pressure medicines are being adjusted Continue anticoagulation oncology services have started following Further recommendations pending plan of care as per clinical response of patient Time with Patient: Greater than 30
[2019-11-05 17:38] LABS: % Iron Saturation 2.93 (12.00-45.00)
--- NOTE | 2019-11-05 23:57 | P.CONS ---
History of Present Illness - Reason for Consult Consult date: 11/05/19 New diagnosis of Lung Cancer Requesting physician: Wally Pineda - Chief Complaint SOb Review of Systems All systems: negative (HPI) Past Medical History Past Medical History: Atrial Fibrillation, COPD, Deep Vein Thrombosis (DVT), GERD/Reflux, Osteoarthritis (OA), Pulmonary Embolus (PE), Syncope Additional Past Medical History / Comment(s): vertigo, hypotension, recently diagnosed with afib a week ago- started on amio PO at this time. History of Any Multi-Drug Resistant Organisms: None Reported Past Surgical History: Tubal Ligation Past Anesthesia/Blood Transfusion Reactions: Previous Problems w/ Anesthesia Additional Past Anesthesia/Blood Transfusion Reaction / Comm: hard time waking up Past Psychological History: No Psychological Hx Reported Smoking Status: Former smoker Past Alcohol Use History: None Reported Additional Past Alcohol Use History / Comment(s): quit smoking 4 almost 5 years. Past Drug Use History: None Reported - Past Family History Mother Family Medical History: Dementia Medications and Allergies Home Medications Medication Instructions Recorded Confirmed Type Famotidine [Pepcid] 20 mg PO DAILY PRN 10/21/19 11/03/19 History Meclizine HCl 12.5 mg PO TID PRN 10/21/19 11/03/19 History Apixaban [Eliquis] 2.5 mg PO BID #60 tablet 10/30/19 11/03/19 Rx Metoprolol Tartrate [Lopressor] 25 mg PO BID #60 tab 10/30/19 11/03/19 Rx Allergies Allergy/AdvReac Type Severity Reaction Status Date / Time Iodine and Iodide Containing Allergy Anaphylaxis Verified 11/03/19 20:36 Produc tomato Allergy Rash/Hives Verified 11/03/19 20:36 dial soap Allergy Rash/Hives Uncoded 11/03/19 20:36 Physical Exam Vitals: Vital Signs Temp Pulse Resp BP Pulse Ox 11/05/19 08:00 98.1 F 97 18 120/66 92 L 11/05/19 05:03 97.9 F 83 18 108/66 92 L 11/05/19 00:00 98.0 F 80 16 144/80 94 L 11/04/19 20:11 98.1 F 85 16 111/71 92 L 11/04/19 16:00 98.3 F 82 18 115/59 94 L 11/04/19 11:40 98.8 F 79 18 115/66 93 L Intake and Output 11/04/19 11/05/19 11/05/19 22:59 06:59 14:59 Intake Total 240 236 Balance 240 236 Intake: Oral 240 236 Other: Voiding Method Toilet Toilet Toilet # Voids 2 3 2 Weight 66.6 kg - Constitutional General appearance: cooperative, no acute distress, thin - EENT Eyes: EOMI, dentition normal ENT: NA/AT, normal oropharynx - Neck No palapable adenopathy Neck: normal ROM - Cardiovascular Rhythm: regular Heart sounds: normal: S1, S2 - Gastrointestinal General gastrointestinal: normal bowel sounds, soft - Integumentary Integumentary: pale - Neurologic non-focal Results CBC & Chem 7: 11/05/19 05:34 11/05/19 05:34 Labs: Abnormal Lab Results - Last 24 Hours (Table) 11/05/19 11/05/19 Range/Units 05:34 05:34 WBC 11.2 H (3.8-10.6) k/uL RBC 3.37 L (3.80-5.40) m/uL Hgb 7.8 L (11.4-16.0) gm/dL Hct 26.4 L (34.0-46.0) % MCV 78.3 L (80.0-100.0) fL MCH 23.0 L (25.0-35.0) pg MCHC 29.4 L (31.0-37.0) g/dL RDW 16.1 H (11.5-15.5) % Plt Count 586 H (150-450) k/uL Neutrophils # 8.3 H (1.3-7.7) k/uL Sodium 132 L (137-145) mmol/L Chloride 94 L (98-107) mmol/L Glucose 148 H (74-99) mg/dL Assessment and Plan Plan: Assessment and Recommendations: New Diagnosis of Squamous Cell LUng Cancer: - Bx on 10/29 - MRI Brain - PET scan as outpatient Microcytic Anemia: - Further anemia work-up - Low saturation, increased Ferritin - Transfuse less than 7 - Daily CBC Physician Attest: I have completed the full history and physical and agree with above dictation, dictated as a scribe.
--- NOTE | 2019-11-06 01:43 | P.PN ---
Subjective Progress Note Date: 11/05/19 Principal diagnosis: A fib and Lung Cancer is a 69-year-old female with a past medical history of COPD, osteoarthritis, GERD, DVT 40 years ago, not on anticoagulation coming to the hospital with a chief complaint of dizziness. Patient was feeling dizzy so called EMS, who took her to [facility] and she was noticed to have abnormalities in her symptoms trip and said that her heart rate was in 40s, later she was discharged from there to follow up with Dr. Kwan. She was advised to discontinue amiodarone and get admitted. Patient was recently admitted to the hospital last week with a new onset of A. fib with RVR and was discharged home on amiodarone and Eliquis. Patient also had a biopsy done of her right lung mass. In the emergency patient had had a heart rate in 70s to 90s and EKG was showing sinus rhythm. She had a chest x-ray showing stable left sided lung mass. On reviewing her vitals her white count was slightly elevated at 13.4, hemoglobin is 7.7 with MCV of 76.9. Patient mentions that she had a blood transfusion done in her recent admission. Sodium 128, potassium 5.1, chloride 93, bicarbonate 27. P1 17 and creatinine of 0.89. Troponin less than 0.0123. Albumin of 2.8. On 11/05/2019 -patient is lying in bed appears to be no acute distress. Her daughter is at bedside. Patient mentions that oncology communicated to her about the new diagnosis of lung cancer. She is keeping her hopes high and said she would fight. Overnight no acute events reported by nursing staff. Patient denies having any complaints of fever chills or rigors. No cough or difficulty in breathing. No chest pain or palpitations. No abdominal pain nausea vomiting or diarrhea. No dysuria or hematuria. On reviewing the patient's vitals t emperature 98.1, heart rate 82, respiratory rate 16, blood pressure 134/78, saturating at 97% on room air. On reviewing her labs white count is 1.2, hemoglobin 7.8, platelets 586. Sodium trended up to 132, potassium 4.6, chloride 94, bicarb 28, BUN 14, creatinine 0.83 iron studies came back as low iron with low saturation. Active Medications Apixaban (Eliquis) 5 mg PO BID SHY Last Admin: 11/05/19 20:47 Dose: 5 mg Documented by: Famotidine (Pepcid) 20 mg PO DAILY PRN PRN Reason: Heartburn Lorazepam (Ativan) 0.5 mg IV Q1H PRN PRN Reason: Anxiety Stop: 12/05/19 11:59 Meclizine HCl (Antivert) 12.5 mg PO TID PRN PRN Reason: Vertigo Metoprolol Tartrate (Lopressor) 25 mg PO BID [facility] Last Admin: 11/05/19 20:47 Dose: 25 mg Documented by: Nitroglycerin (Nitrostat) 0.4 mg SUBLINGUAL Q5M PRN PRN Reason: Chest Pain Objective - Vital Signs Vital signs: Vital Signs Temp 97.8 F 11/05/19 15:00 Pulse 82 11/05/19 15:00 Resp 18 11/05/19 15:00 BP 106/72 11/05/19 15:00 Pulse Ox 92 L 11/05/19 15:00 Intake & Output 11/04/19 11/05/19 11/05/19 18:59 06:59 18:59 Intake Total 490 546 Balance 490 546 Weight 66.6 kg Intake: IV 10 Invasive Line 1 10 Oral [id number] Other: Voiding Method Toilet Toilet Toilet # Voids 2 3 2 - Exam PHYSICAL EXAMINATION: GENERAL: Patient is comfortably lying in bed with her daughter at the bedside. HEENT: Pupils are round and equally reacting to light. Mild pallor. No icterus. CARDIOVASCULAR: S 1 and s 2 heard, normal rhythm. No additional sounds. PULMONARY: Bilateral breath sounds are positive. Diminished at lower lung bases No wheeze or crackles. ABDOMEN: Soft, nontender, nondistended, normoactive bowel sounds. No palpable organomegaly. MUSCULOSKELETAL: No joint swelling or deformity. EXTREMITIES: No cyanosis, clubbing, or pedal edema. NEUROLOGICAL: alert, awake, oriented X 3 , Gross neurological examination did not reveal any focal deficits. - Labs CBC & Chem 7: 11/05/19 05:34 11/05/19 05:34 Labs: Abnormal Lab Results - Last 24 Hours (Table) 11/05/19 11/05/19 Range/Units 05:34 05:34 WBC 11.2 H (3.8-10.6) k/uL RBC 3.37 L (3.80-5.40) m/uL Hgb 7.8 L (11.4-16.0) gm/dL Hct 26.4 L (34.0-46.0) % MCV 78.3 L (80.0-100.0) fL MCH 23.0 L (25.0-35.0) pg MCHC 29.4 L (31.0-37.0) g/dL RDW 16.1 H (11.5-15.5) % Plt Count 586 H (150-450) k/uL Neutrophils # 8.3 H (1.3-7.7) k/uL Sodium 132 L (137-145) mmol/L Chloride 94 L (98-107) mmol/L Glucose 148 H (74-99) mg/dL Assessment and Plan Assessment: ASSESSMENT Dizziness- probably due to bradycardia Paroxysmal atrial fibrillation Hypovolemic hyponatremia Chronic anemia Microcytosis Thrombocytosis Squamous cell carcinoma of the left lung GERD Vertigo 40 pack years of smoking-quit 4 years back Moderate protein calorie malnutrition PLAN: Patient's amiodarone has been discontinued. Patient is currently in sinus rhythm. She was restarted on Lopressor 25 mg twice a day and she is tolerating it well. Patient received 1 L of bolus in the ED, sodium today at 132. Hemoglobin stable at 7.8 and will transfuse if below 7. Her thrombocytosis could be due to her underlying malignancy. Patient is restarted on her home medications. Oncology has been consulted- they evaluated her today and gave her the diagnosis. Cardiology and pulmonary following the patient. DVT prophylaxsis on Eliquis. Further recommendations to follow depending on the progress of the patient.
[2019-11-06 07:04] LABS: Anisocytosis Slight; Basophils # (A) 0.1 k/uL (0-0.2); Basophils % (A) 1 %; Eosinophils # (A) 0.6 k/uL (0-0.7); Eosinophils % (A) 6 %; HCT 26.4 % (34.0-46.0); HGB 7.6 gm/dL (11.4-16.0); Hypochromasia Marked; Lymphocytes # (A) 1.2 k/uL (1.0-4.8); Lymphocytes % (A) 12 %; MCH 22.5 pg (25.0-35.0); MCV 77.8 fL (80.0-100.0); Mean Platelet Volume 6.8; Microcytosis Slight; Monocytes # (A) 0.6 k/uL (0-1.0); Monocytes % (A) 6 %; Neutrophils # (A) 7.4 k/uL (1.3-7.7); Neutrophils % (A) 74 %; Platelet Count 580 k/uL (150-450); RBC 3.39 m/uL (3.80-5.40); RDW 16.6 % (11.5-15.5); WBC 10.1 k/uL (3.8-10.6)
[2019-11-06 07:21] LABS: Albumin 2.8 g/dL (3.5-5.0); Calcium 9.1 mg/dL (8.4-10.2); Potassium 4.7 mmol/L (3.5-5.1); Total Bilirubin 0.7 mg/dL (0.2-1.3); Total Protein 7.5 g/dL (6.3-8.2)
[2019-11-06 07:58] LABS: Reticulocyte % 2.8 % (0.5-2.0)
[2019-11-06] MEDS: METOPROLOL TARTRATE 25 MG TAB PO SCH (08:02)
--- NOTE | 2019-11-06 09:22 | MR ---
EXAMINATION TYPE: MR brain wo/w con DATE OF EXAM: 11/06/2019 COMPARISON: None HISTORY: initial staging, New diagnosis of Lung CA, Dizziness TECHNIQUE: Multiplanar, multisequence images of the brain and brainstem is performed without and with IV contras t, utilizing 6.5 mL intravenous Gadavist . FINDINGS: Diffusion weighted images demonstrate no evidence of a recent infarct or other diffusion ab normality. Mild to moderate generalized degenerative change. There is both diffuse and numerous focal areas of abnormal signal the white matter which are nonspecific but most typical of remote microvasc ular ischemia. Midline structures demonstrate normal morphology. The craniocervical junction appears within normal limits. Post contrast images demonstrate no abnormal enhancement. The dural venous sinuses appear pa tent. Changes of chronic sinusitis with nasal septal deviation. The globes are symmetric. IMPRESSION: 1. No evidence of intracranial metastases. 2. Degenerative and nonspecific white matter changes most typical remote ischemia
--- NOTE | 2019-11-06 10:51 | P.PN ---
Subjective Progress Note Date: 11/06/19 Principal diagnosis: New diagnoses of non-small cell lung cancer biopsy positive for squamous cell carcinoma likely unresectable due to size Dizziness lightheadedness is due to profound bradycardia A. fib with RVR Hypertension hypertensive cardiovascular disease Severe chronic anemia microcytic Generalized weakness Baseline COPD I was 2019, patient seen eval examined during the rounds labs reviewed medications reviewed care plan discussed, awake and alert, no dizziness lightheadedness has been noted, oncology service following this patient, hemodynamic status stable, patient continued to manifest severe microcytic anemia 11/05/2019, patient seen eval examined during the rounds dizziness lightheadedness has improved, denies any chest pain shortness of breath, h emodynamic slightly stable now, hemodynamic status including her blood pressure of 106/72 saturation 92% she is afebrile, has been evaluated by oncology service, workup for metastatic disease being considered, at bedside had a lengthy discussion with the daughter 69-year-old female well-known to me came into the hospital with severe dizziness and lightheadedness likely related to profound bradycardia, cardiovascular services following this patient, he she had the recent A. fib with RVR medicines are being adjusted, she has been diagnosed as large left-sided lung mass biopsy was done last week positive for poorly differentiated squamous cell carcinoma oncology has been consulted Objective - Vital Signs Vital signs: Vital Signs Temp 98.2 F 11/06/19 08:10 Pulse 96 11/06/19 08:10 Resp 18 11/06/19 08:10 BP 100/55 11/06/19 08:10 Pulse Ox 92 L 11/06/19 08:10 Intake & Output 11/05/19 11/06/19 11/06/19 18:59 06:59 18:59 Intake Total 1006 480 Balance 1006 480 Weight 66.8 kg Intake: IV 10 Invasive Line 1 10 Oral 996 [id number] Other: Voiding Method Toilet Toilet Toilet # Voids 2 2 - Exam - Constitutional General appearance: average body habitus, cooperative, disheveled - EENT Eyes: EOMI, PERRLA ENT: normal oropharynx Ears: bilateral: normal - Neck Neck: normal ROM Carotids: bilateral: upstroke normal - Respiratory Respiratory: bilateral: diminished - Cardiovascular Rhythm: regular Heart sounds: normal: S1, S2 - Gastrointestinal General gastrointestinal: normal bowel sounds - Integumentary Integumentary: normal turgor - Neurologic Neurologic: CNII-XII intact - Musculoskeletal Musculoskeletal: gait normal, generalized weakness, strength equal bilaterally - Psychiatric Psychiatric: A&O x's 3, appropriate affect, intact judgment & insight - Labs CBC & Chem 7: 11/06/19 06:24 11/06/19 06:24 Labs: Abnormal Lab Results - Last 24 Hours (Table) 11/05/19 11/06/19 11/06/19 Range/Units 05:34 06:24 06:24 RBC 3.39 L (3.80-5.40) m/uL Hgb 7.6 L (11.4-16.0) gm/dL Hct 26.4 L (34.0-46.0) % MCV 77.8 L (80.0-100.0) fL MCH 22.5 L (25.0-35.0) pg MCHC 29.0 L (31.0-37.0) g/dL RDW 16.6 H (11.5-15.5) % Plt Count 580 H (150-450) k/uL Retic Count 2.8 H (0.5-2.0) % Sodium 132 L (137-145) mmol/L Chloride 95 L (98-107) mmol/L Glucose 142 H (74-99) mg/dL Iron 6 L (50-170) ug/dL TIBC 205 L (228-460) ug/dL % Saturation 2.93 L (12.00-45.00) Alkaline Phosphatase 168 H (38-126) U/L Albumin 2.8 L (3.5-5.0) g/dL Assessment and Plan Assessment: New diagnoses of non-small cell lung cancer biopsy positive for squamous cell carcinoma likely unresectable due to size Dizziness lightheadedness is due to profound bradycardia A. fib with RVR Hypertension hypertensive cardiovascular disease Severe chronic anemia microcytic Generalized weakness Baseline COPD Plan: Workup in process for metastatic disease Continue as needed breathing treatment Blood pressure medicines are being adjusted Continue anticoagulation oncology services have started following Further recommendations pending plan of care as per clinical response of patient
[2019-11-06] MEDS: APIXABAN 5 MG TAB PO SCH (12:14)
[2019-11-06 12:36] LABS: Folate, Serum 4.1 ng/mL
--- NOTE | 2019-11-06 16:19 | P.PN ---
Subjective Progress Note Date: 11/06/19 Principal diagnosis: New lung cancer diagnosis Microcytic anemia MRI of brain reviewed and negative for metastatic disease Objective - Vital Signs Vital signs: Vital Signs Temp 98.2 F 11/06/19 08:10 Pulse 96 11/06/19 08:10 Resp 18 11/06/19 08:10 BP 100/55 11/06/19 08:10 Pulse Ox 92 L 11/06/19 08:10 Intake & Output 11/05/19 11/06/19 11/06/19 18:59 06:59 18:59 Intake Total 1006 480 Balance 1006 480 Weight 66.8 kg Intake: IV 10 Invasive Line 1 10 Oral 996 480 Other: Voiding Method Toilet Toilet Toilet # Voids 2 2 - Exam - Constitutional General appearance: cooperative, no acute distress, thin - EENT Eyes: EOMI, dentition normal ENT: NA/AT, normal oropharynx - Neck No palapable adenopathy Neck: normal ROM - Cardiovascular Rhythm: regular Heart sounds: normal: S1, S2 - Gastrointestinal General gastrointestinal: normal bowel sounds, soft - Integumentary Integumentary: pale - Neurologic non-focal - Labs CBC & Chem 7: 11/06/19 06:24 11/06/19 06:24 Labs: Abnormal Lab Results - Last 24 Hours (Table) 11/05/19 11/06/19 11/06/19 Range/Units 05:34 06:24 06:24 RBC 3.39 L (3.80-5.40) m/uL Hgb 7.6 L (11.4-16.0) gm/dL Hct 26.4 L (34.0-46.0) % MCV 77.8 L (80.0-100.0) fL MCH 22.5 L (25.0-35.0) pg MCHC 29.0 L (31.0-37.0) g/dL RDW 16.6 H (11.5-15.5) % Plt Count 580 H (150-450) k/uL Retic Count 2.8 H (0.5-2.0) % Sodium 132 L (137-145) mmol/L Chloride 95 L (98-107) mmol/L Glucose 142 H (74-99) mg/dL Iron 6 L (50-170) ug/dL TIBC 205 L (228-460) ug/dL % Saturation 2.93 L (12.00-45.00) Alkaline Phosphatase 168 H (38-126) U/L Albumin 2.8 L (3.5-5.0) g/dL Assessment and Plan Plan: Assessment and Recommendations: New Diagnosis of Squamous Cell LUng Cancer: - Bx on 10/29 - MRI Brain - PET scan as outpatient Microcytic Anemia: - Further anemia work-up - Low saturation, increased Ferritin - Transfuse less than 7 - Daily CBC Plan": - Set up for outpatient PET, Molecular testing on pathology specimen(NGS and PDL1) - Will follow up with Dr. Medrano in 10 Days to discuss and initiate treatment plan - GI evaluation was completed last week. - Discussed plan with patient and daughter in detail she is anxious for discharge therefore will be ok with this but she will need cbc next week. Physician Attest: I have completed the full history and physical and agree with above dictation, dictated as a scribe.
--- NOTE | 2019-11-06 16:49 | P.DS ---
Providers Date of admission: 11/03/19 20:11 Expected date of discharge: 11/06/19 Attending physician: Andrew De Leon Consults: 11/03/19 20:11 Consult Physician Urgent Consulting Provider: [facility] Consult Reason/Comments: Bradycardia Do you want consulting provider notified?: Yes 11/03/19 22:43 Consult Physician Urgent Consulting Provider: Wally Pineda Consult Reason/Comments: known to you, lung cancer Do you want consulting provider notified?: Yes, Notify in am 11/04/19 10:58 Consult Physician Routine Consulting Provider: Rafa Medrano Consult Reason/Comments: New diagnosis squamous cell lung ca Do you want consulting provider notified?: Yes 11/06/19 11:43 Consult Physician Routine Consulting Provider: Milan Acosta Consult Reason/Comments: iron deficiency Do you want consulting provider notified?: Yes Primary care physician: [facility] Hospital Course: is a 69-year-old female with a past medical history of COPD, osteoarthritis, GERD, DVT 40 years ago, not on anticoagulation coming to the hospital with a chief complaint of dizziness. Patient was feeling dizzy so called EMS, who took her to [facility] and she was noticed to have abnormalities in her symptoms trip and said that her heart rate was in 40s, later she was discharged from there to follow up with Dr. Kwan. She was advised to discontinue amiodarone and get admitted. Patient was recently admitted to the hospital last week with a new onset of A. fib with RVR and was discharged home on amiodarone and Eliquis. Patient also had a biopsy done of her right lung mass. In the emergency patient had had a heart rate in 70s to 90s and EKG was showing sinus rhythm. She had a chest x-ray showing stable left sided lung mass. On reviewing her vitals her white count was slightly elevated at 13.4, hemoglobin is 7.7 with MCV of 76.9. Patient mentions that she had a blood transfusion done in her recent admission. Sodium 128, potassium 5.1, chloride 93, bicarbonate 27. P1 17 and creatinine of 0.89. Troponin less than 0.0123. Albumin of 2.8. Hospital course -at the time of admission patient had symptomatic bradycardia, heart rate of blockers and amiodarone were discontinued. Cardiology services were consulted. As the patient had a lung biopsy and was waiting for the results, oncology services have been consulted. Dr. Medrano evaluated the patient and she was given the diagnosis of squamous cell carcinoma of the left lung. As a part of workup for her lung cancer patient had an MRI of the brain that was negative for any metastases. So she's been cleared by cardiology and oncology to be discharged home today. Patient has been started on 5 mg twice a day of Eliquis and her dose of metoprolol has been resumed at 25 mg twice a day. DISCHARGE DIAGNOSIS Dizziness- probably due to bradycardia Paroxysmal atrial fibrillation Hypovolemic hyponatremia Chronic anemia Microcytosis Thrombocytosis Squamous cell carcinoma of the left lung GERD Vertigo 40 pack years of smoking-quit 4 years back Moderate protein calorie malnutrition Patient is being discharged in stable condition and is advised to follow up with her primary care physician, pulmonary, cardiology and oncology. CC to Dr. Addison Jacobsen Patient Condition at Discharge: Fair Plan - Discharge Summary Discharge Rx Participant: No New Discharge Prescriptions: New Apixaban [Eliquis] 5 mg PO BID 30 Days #60 tab Continue Famotidine [Pepcid] 20 mg PO DAILY PRN PRN Reason: Heartburn Meclizine HCl 12.5 mg PO TID PRN PRN Reason: Vertigo Metoprolol Tartrate [Lopressor] 25 mg PO BID #60 tab Discontinued Apixaban [Eliquis] 2.5 mg PO BID #60 tablet Discharge Medication List Famotidine [Pepcid] 20 mg PO DAILY PRN 10/21/19 [History] Meclizine HCl 12.5 mg PO TID PRN 10/21/19 [History] Metoprolol Tartrate [Lopressor] 25 mg PO BID #60 tab 10/30/19 [Rx] Apixaban [Eliquis] 5 mg PO BID 30 Days #60 tab 11/06/19 [Rx] Follow up Appointment(s)/Referral(s): Addison Jacobsen MD [Primary Care Provider] - 1-2 days Discharge Disposition: HOME SELF-CARE
[2019-11-06 17:12] VITALS: BP 118/61; PULSE 75; TEMP 98.3
--- NOTE | 2019-11-06 23:45 | CONS ---
CONSULTATION DATE OF SERVICE: 11/06/2019 REASON FOR CONSULTATION: Iron deficiency anemia. HISTORY OF PRESENT ILLNESS: The patient is a 69 -year-old pleasant white female admitted to the hospital because of atrial fibrillation and RVR. She presented to the hospital with shortness of breath and subsequently was noted to have an atrial fibrillation. She is on Eliquis because of prior history of DVT and PE. At the time of admission the hospital, was noted to have anemia with a hemoglobin of 7.7 g/dL and hence we are consulted in regards to this issue. The patient was just discharged from the hospital 10 days ago at which time she also had severe anemia. She underwent an EGD and colonoscopy by tn that showed mild antral gastritis and small internal hemorrhoids. The patient denies any abdominal pain. No nausea, vomiting. No rectal bleeding or melena. PAST MEDICAL HISTORY: Atrial fibrillation, DVT, PE, COPD, newly diagnosed squamous cell lung cancer following with Dr. Medrano. MEDICATIONS: Medications at home include Pepcid, meclizine, Eliquis, Lopressor. PAST SURGICAL HISTORY: Tubal ligation. FAMILY HISTORY: Mother has dementia. ALLERGIES: IODINE. REVIEW OF SYSTEMS: CARDIOPULMONARY: No chest pain, no shortness of breath. no dysuria or hematuria. MUSCULOSKELETAL unremarkable. SKIN unremarkable. ENDOCRINE unremarkable. PSYCHIATRIC unremarkable. NEUROLOGY: Unremarkable. ENT/VISION: Unremarkable. CONSTITUTIONAL: No recent weight loss. No fever, chills, night sweats. PHYSICAL EXAMINATION: She appears comfortable. No apparent distress. Vital signs stable. Blood pressure 153/89, pulse rate 75, temperature 98.3. HEENT examination unremarkable. Conjunctivae pink. Sclerae anicteric. Oral cavity no lesions. Neck no JVD. No lymph node enlargement. CHEST: Clear to auscultation. HEART: Regular rate and rhythm. ABDOMEN: Soft. Bowel sounds are positive. No organomegaly. EXTREMITIES: No pedal edema. SKIN no rashes. NEUROLOGIC: Alert and oriented x3. No focal deficits. LABS: WBC 10.1, hemoglobin 7.6, platelets 518, MCV 77.8. INR 1.2. Basic metabolic panel is within normal limits. IMPRESSION: 1. Microcytic hypochromic anemia and iron indices consistent with iron deficiency anemia. Patient did undergo EGD/ colonoscopy during her last hospitalization a week ago that showed mild gastritis and small internal hemorrhoids. 2. Newly diagnosed squamous cell lung cancer, following with Oncology. 3. Deep vein thrombosis/pulmonary embolism on Eliquis. 4. Atrial fibrillation on Eliquis. RECOMMENDATIONS: 1. No need for any GI workup at this time. 2. Start her on iron supplements twice daily. 3. She can be discharged home from GI standpoint. Thank you for this consultation. MMODL / IJN: [id number] /
== END 2019-11-06 17:15 | disposition home or self-care (01) | DRG 309 ==
LOC: EC 17:48 → 3SCARD 20:11
PROVIDERS: ADMIT Hospitalist; ATTEND Hospitalist
DX: I48.0 Paroxysmal atrial fibrillation (principal); E87.1 Hypo-osmolality and hyponatremia; E44.0 Moderate protein-calorie malnutrition; C34.12 Malignant neoplasm of upper lobe, left bronchus or lung; I08.2 Rheumatic disorders of both aortic and tricuspid valves; I11.9 Hypertensive heart disease without heart failure; J44.9 Chronic obstructive pulmonary disease, unspecified; D47.3 Essential (hemorrhagic) thrombocythemia; E86.1 Hypovolemia; K21.9 Gastro-esophageal reflux disease without esophagitis; K29.70 Gastritis, unspecified, without bleeding; M19.90 Unspecified osteoarthritis, unspecified site; K64.8 Other hemorrhoids; K44.9 Diaphragmatic hernia without obstruction or gangrene; D63.0 Anemia in neoplastic disease; F41.9 Anxiety disorder, unspecified; R07.9 Chest pain, unspecified; Z68.29 Body mass index [BMI] 29.0-29.9, adult; Z79.899 Other long term (current) drug therapy; Z79.01 Long term (current) use of anticoagulants; Z86.718 Personal history of other venous thrombosis and embolism; Z86.711 Personal history of pulmonary embolism; Z98.51 Tubal ligation status; Z88.8 Allergy status to other drugs, medicaments and biological substances; Z91.018 Allergy to other foods; Z91.048 Other nonmedicinal substance allergy status; Z87.891 Personal history of nicotine dependence; Z81.8 Family history of other mental and behavioral disorders
CPT/HCPCS: 36415; 70553; 71046; 80048; 80053; 80061; 82607; 82746; 83540; 83550; 83615; 83735; 83921; 84443; 84484; 85025; 85045; 85610; 85730; 93005; 96360; 96361; 99285

== ENCOUNTER 2019-12-25 11:19 | Inpatient (IN) | payer MEDICARE, OTHER ==
[2019-12-25] MEDS ORDERED: ONDANSETRON 4 MG/2 ML VIAL IVP STA (11:48)
[2019-12-25] MEDS ORDERED: SODIUM CHLORIDE 0.9% 1,000 ML IV STA (11:48)
--- NOTE | 2019-12-25 12:09 | ED ---
General Adult HPI - General Chief complaint: Nausea/Vomiting/Diarrhea Stated complaint: Syncope Time Seen by Provider: 12/25/19 11:30 Source: patient, EMS, RN notes reviewed Mode of arrival: EMS Limitations: no limitations - History of Present Illness Initial comments: 69-year-old female with a past medical history of atrial fibrillation, COPD, DVT, PE, lung mass presents to the emergency room for a chief complaint of vomiting. Patient is a poor historian. However family member reports that patient had an episode of syncope today. States she was dry heaving prior to this. She then passed out. Afterwards she again continued nausea vomiting. F amily member states she was not dry heaving when she passed out. Her family called 911. Patient denies any chest pain or shortness of breath. Patient states her nausea is better at this time. Patient has been nothing by mouth for 10 hours because she was supposed to have a PET scan today however that was rescheduled for next week.Patient has no other complaints at this time including shortness of breath, chest pain, abdominal pain, nausea or vomiting, headache, or visual changes. - Related Data Home Medications Medication Instructions Recorded Confirmed Famotidine [Pepcid] 20 mg PO DAILY PRN 10/21/19 12/25/19 Previous Rx's Medication Instructions Recorded Metoprolol Tartrate [Lopressor] 25 mg PO BID #60 tab 10/30/19 Apixaban [Eliquis] 5 mg PO BID 30 Days #60 tab 11/06/19 Allergies Allergy/AdvReac Type Severity Reaction Status Date / Time Iodine and Iodide Containing Allergy Anaphylaxis Verified 12/25/19 12:48 Produc tomato Allergy Rash/Hives Verified 12/25/19 12:48 dial soap Allergy Rash/Hives Uncoded 12/25/19 11:30 Review of Systems ROS Statement: Those systems with pertinent positive or pertinent negative responses have been documented in the HPI. ROS Other: All systems not noted in ROS Statement are negative. Past Medical History Past Medical History: Atrial Fibrillation, COPD, Deep Vein Thrombosis (DVT), GERD/Reflux, Osteoarthritis (OA), Pulmonary Embolus (PE), Syncope Additional Past Medical History / Comment(s): vertigo, hypotension, recently diagnosed with afib a week ago- started on amio PO at this time, Lung CA History of Any Multi-Drug Resistant Organisms: None Reported Past Surgical History: Tubal Ligation Past Anesthesia/Blood Transfusion Reactions: Previous Problems w/ Anesthesia Additional Past Anesthesia/Blood Transfusion Reaction / Comment(s): hard time waking up Past Psychological History: No Psychological Hx Reported Smoking Status: Former smoker Past Alcohol Use History: None Reported Past Drug Use History: None Reported - Past Family History Mother Family Medical History: Dementia General Exam Limitations: no limitations General appearance: alert, in no apparent distress Head exam: Present: atraumatic, normocephalic, normal inspection Eye exam: Present: normal appearance, PERRL, EOMI. Absent: scleral icterus, conjunctival injection, periorbital swelling ENT exam: Present: normal exam, mucous membranes moist Neck exam: Present: normal inspection, full ROM. Absent: tenderness, meningismus, lymphadenopathy Respiratory exam: Present: normal lung sounds bilaterally. Absent: respiratory distress, wheezes, rales, rhonchi, stridor Cardiovascular Exam: Present: regular rate, normal rhythm, normal heart sounds. Absent: systolic murmur, diastolic murmur, rubs, gallop, clicks GI/Abdominal exam: Present: soft, normal bowel sounds. Absent: distended, tenderness, guarding, rebound, rigid Neurological exam: Present: alert Course Vital Signs 12/25/19 12/25/19 12/25/19 11:20 11:45 12:02 Temperature 97.6 F Pulse Rate 91 Respiratory 18 Rate Blood Pressure 98/69 109/71 Blood Pressure 104/75 [Sitting] Blood Pressure 102/59 [Standing] Blood Pressure 100/66 [Supine] O2 Sat by Pulse 95 Oximetry 12/25/19 12/25/19 13:25 13:33 Temperature Pulse Rate 165 H 93 Respiratory Rate Blood Pressure Blood Pressure [Sitting] Blood Pressure [Standing] Blood Pressure [Supine] O2 Sat by Pulse Oximetry Medical Decision Making - Medical Decision Making Vitals are stable. Patient's orthostatics were negative however did have one episode of tachycardia when getting up to the bathroom. CBC shows chronic anemia of 7.5 that appears stable. CMP does have some mild hyponatremia which was treated with IV fluids. Troponin is negative. EKG is unremarkable. Urinal ysis does not show any significant evidence of infection. However this will be cultured given rare bacteria. At this time given history of syncope patient will be admitted for further management. Patient was also evaluated by Dr. Mckeon. - Lab Data Result diagrams: 12/25/19 11:52 12/25/19 11:52 Lab Results 12/25/19 12/25/19 12/25/19 Range/Units 11:52 11:52 11:52 WBC 13.7 H (3.8-10.6) k/uL RBC 3.30 L (3.80-5.40) m/uL Hgb 7.5 L (11.4-16.0) gm/dL Hct 25.7 L (34.0-46.0) % MCV 77.9 L (80.0-100.0) fL MCH 22.6 L (25.0-35.0) pg MCHC 29.0 L (31.0-37.0) g/dL RDW 16.3 H (11.5-15.5) % Plt Count 627 H (150-450) k/uL Neutrophils % 82 % Lymphocytes % 6 % Monocytes % 5 % Eosinophils % 6 % Basophils % 1 % Neutrophils # 11.2 H (1.3-7.7) k/uL Lymphocytes # 0.8 L (1.0-4.8) k/uL Monocytes # 0.6 (0-1.0) k/uL Eosinophils # 0.8 H (0-0.7) k/uL Basophils # 0.1 (0-0.2) k/uL Hypochromasia Marked Anisocytosis Slight Microcytosis Slight PT 12.8 H (9.0-12.0) sec INR 1.3 H (<1.2) APTT 34.9 H (22.0-30.0) sec Sodium 129 L (137-145) mmol/L Potassium 4.7 (3.5-5.1) mmol/L Chloride 94 L (98-107) mmol/L Carbon Dioxide 26 (22-30) mmol/L Anion Gap 9 mmol/L BUN 14 (7-17) mg/dL Creatinine 0.74 (0.52-1.04) mg/dL Est GFR (CKD-EPI)AfAm >90 (>60 ml/min/1.73 sqM) Est GFR (CKD-EPI)NonAf 85 (>60 ml/min/1.73 sqM) Glucose 180 H (74-99) mg/dL Calcium 9.2 (8.4-10.2) mg/dL Magnesium 1.8 (1.6-2.3) mg/dL Total Bilirubin 0.7 (0.2-1.3) mg/dL AST 16 (14-36) U/L ALT 11 (4-34) U/L Alkaline Phosphatase 208 H (38-126) U/L Troponin I (0.000-0.034) ng/mL Total Protein 7.4 (6.3-8.2) g/dL Albumin 2.7 L (3.5-5.0) g/dL Urine Color Urine Appearance (Clear) Urine pH (5.0-8.0) Ur Specific Chemult (1.001-1.035) Urine Protein (Negative) Urine Glucose (UA) (Negative) Urine Ketones (Negative) Urine Blood (Negative) Urine Nitrite (Negative) Urine Bilirubin (Negative) Urine Urobilinogen (<2.0) mg/dL Ur Leukocyte Esterase (Negative) Urine RBC (0-5) /hpf Urine WBC (0-5) /hpf Ur Squamous Epith Cells (0-4) /hpf Amorphous Sediment (None) /hpf Urine Bacteria (None) /hpf Urine Mucus (None) /hpf 12/25/19 12/25/19 Range/Units 11:52 11:54 WBC (3.8-10.6) k/uL RBC (3.80-5.40) m/uL Hgb (11.4-16.0) gm/dL Hct (34.0-46.0) % MCV (80.0-100.0) fL MCH (25.0-35.0) pg MCHC (31.0-37.0) g/dL RDW (11.5-15.5) % Plt Count (150-450) k/uL Neutrophils % % Lymphocytes % % Monocytes % % Eosinophils % % Basophils % % Neutrophils # (1.3-7.7) k/uL Lymphocytes # (1.0-4.8) k/uL Monocytes # (0-1.0) k/uL Eosinophils # (0-0.7) k/uL Basophils # (0-0.2) k/uL Hypochromasia Anisocytosis Microcytosis PT (9.0-12.0) sec INR (<1.2) APTT (22.0-30.0) sec Sodium (137-145) mmol/L Potassium (3.5-5.1) mmol/L Chloride (98-107) mmol/L Carbon Dioxide (22-30) mmol/L Anion Gap mmol/L BUN (7-17) mg/dL Creatinine (0.52-1.04) mg/dL Est GFR (CKD-EPI)AfAm (>60 ml/min/1.73 sqM) Est GFR (CKD-EPI)NonAf (>60 ml/min/1.73 sqM) Glucose (74-99) mg/dL Calcium (8.4-10.2) mg/dL Magnesium (1.6-2.3) mg/dL Total Bilirubin (0.2-1.3) mg/dL AST (14-36) U/L ALT (4-34) U/L Alkaline Phosphatase (38-126) U/L Troponin I <0.012 (0.000-0.034) ng/mL Total Protein (6.3-8.2) g/dL Albumin (3.5-5.0) g/dL Urine Color Yellow Urine Appearance Clear (Clear) Urine pH 6.0 (5.0-8.0) Ur Specific Chemult 1.012 (1.001-1.035) Urine Protein Trace H (Negative) Urine Glucose (UA) Negative (Negative) Urine Ketones Negative (Negative) Urine Blood Small H (Negative) Urine Nitrite Negative (Negative) Urine Bilirubin Negative (Negative) Urine Urobilinogen 4.0 (<2.0) mg/dL Ur Leukocyte Esterase Negative (Negative) Urine RBC 9 H (0-5) /hpf Urine WBC 6 H (0-5) /hpf Ur Squamous Epith Cells 2 (0-4) /hpf Amorphous Sediment Rare H (None) /hpf Urine Bacteria Rare H (None) /hpf Urine Mucus Rare H (None) /hpf Disposition Clinical Impression: Syncope, Nausea & vomiting, History of lung cancer Disposition: ADMITTED IP TO THIS HOSP Is patient prescribed a controlled substance at d/c from ED?: No Referrals: None,Stated [Primary Care Provider] - 1-2 days Time of Disposition: 14:04
[2019-12-25 12:11] LABS: Anisocytosis Slight; Basophils # (A) 0.1 k/uL (0-0.2); Basophils % (A) 1 %; Eosinophils # (A) 0.8 k/uL (0-0.7); Eosinophils % (A) 6 %; HCT 25.7 % (34.0-46.0); HGB 7.5 gm/dL (11.4-16.0); Hypochromasia Marked; Lymphocytes # (A) 0.8 k/uL (1.0-4.8); Lymphocytes % (A) 6 %; MCH 22.6 pg (25.0-35.0); MCV 77.9 fL (80.0-100.0); Mean Platelet Volume 6.2; Microcytosis Slight; Monocytes # (A) 0.6 k/uL (0-1.0); Monocytes % (A) 5 %; Neutrophils # (A) 11.2 k/uL (1.3-7.7); Neutrophils % (A) 82 %; Platelet Count 627 k/uL (150-450); RDW 16.3 % (11.5-15.5); WBC 13.7 k/uL (3.8-10.6)
[2019-12-25 12:20] LABS: Carbon Dioxide 26 mmol/L (22-30); Chloride 94 mmol/L (98-107); Glucose 180 mg/dL (74-99); Potassium 4.7 mmol/L (3.5-5.1); Sodium 129 mmol/L (137-145)
[2019-12-25 12:21] LABS: ALT 11 U/L (4-34); AST 16 U/L (14-36); African American GFR (CKD) >90 (>60 ml/min/1.73 sqM); Albumin 2.7 g/dL (3.5-5.0); Alkaline Phosphatase 208 U/L (38-126); Anion Gap 9 mmol/L; Blood Urea Nitrogen 14 mg/dL (7-17); Calcium 9.2 mg/dL (8.4-10.2); Magnesium 1.8 mg/dL (1.6-2.3); Non-African American GFR(CKD) 85 (>60 ml/min/1.73 sqM); Total Bilirubin 0.7 mg/dL (0.2-1.3); Total Protein 7.4 g/dL (6.3-8.2)
[2019-12-25 12:27] LABS: INR 1.3 (<1.2); Partial Thromboplastin Time 34.9 sec (22.0-30.0); Prothrombin Time 12.8 sec (9.0-12.0)
--- NOTE | 2019-12-25 12:39 | XR ---
EXAMINATION TYPE: XR chest 2V DATE OF EXAM: 12/25/2019 COMPARISON: 11/03/2019 HISTORY: Shortness of breath TECHNIQUE: Frontal and lateral views of the chest are obtained. FINDINGS: Scattered senescent parenchymal changes noted. Hyperinflation compatible with COPD. Progressive left perihilar mass measuring an estimated 10.8 x 7.8 cm. The right lung appears clear. Heart size is stable. Mediastinal structures are stable and grossly unremarkable. No evidence for hilar prominence. Degenerative changes dorsal spine. IMPRESSION: 1. No evidence for acute pulmonary disease. Enlarging left hilar mass.
[2019-12-25 13:56] LABS: Amorphous Sediment,Urine Rare /hpf; Appearance,Urine Clear (Clear); Bacteria,Urine Rare /hpf; Bilirubin,Urine Negative (Negative); Blood,Urine Small (Negative); Color,Urine Yellow; Glucose,Urine (UA) Negative (Negative); Ketones,Urine Negative (Negative); Leukocyte Esterase,Urine Negative (Negative); Mucus,Urine Rare /hpf; Nitrite,Urine Negative (Negative); Protein,Urine Trace (Negative); RBC,Urine 9 /hpf (0-5); Specific Gravity,Urine 1.012 (1.001-1.035); Squamous Epithelial Cell,Urine 2 /hpf (0-4); WBC,Urine 6 /hpf (0-5)
[2019-12-25] MEDS ORDERED: ONDANSETRON 4 MG/2 ML VIAL IVP PRN (22:01)
--- NOTE | 2019-12-25 22:08 | P.HPIM ---
History of Present Illness H&P Date: 12/25/19 Chief Complaint: Syncope Patient is a 69-year-old female with a known history of lung cancer diagnosed about a month ago supposed to get PET scan today a.m., paroxysmal atrial fibrillation on anticoagulation with Eliquis, history of DVT, COPD, osteoarthritis and previous syncopal episode when she was diagnosed with A. matthew came to ER with complaints of dizziness and near syncopal episode today morning. Patient states that she was getting out of the bed to go to the bathroom and suddenly felt dizzy associated nausea and dry heaves. Did have episode of vomiting. Patient did not fall on the ground and was able to lean onto the floor with the help of her family. Patient does not recall if she lost her consciousness or not. EMS was called. Patient was brought to the hospital for evaluation. Patient denied any chest pain or palpitations prior to the episode. No h eadache. No recent abdominal pain or diarrhea.. No fever no chills.Denied any hematemesis or melena. No hematochezia. Chest x-ray showed no acute evidence of pulmonary disease. Enlarging left hilar mass. EKG showed normal sinus rhythm Laboratory data showed WBC 13.7, hemoglobin 7.5 MCV 77.9 and platelets 627 INR 1.3 Sodium 139, potassium 4.7, chloride 94 BUN 49 creatinine 0.74 Alk phos 208 Troponin x3- Albumin 2.7 Urinalysis is negative for infection Review of Systems Constitutional: Patient denies any fever or chills . No generalized weakness or weight loss. Abdomen:currently Patient denied nausea vomiting and diarrhea and abdominal pain. Cardiovascular: Patient denies any chest pain or short of breath no palpitations. Respiratory: patient denied any cough or sputum production. No shortness of breath Neurologic: Patient denied any numbness or tingling headache. Musculoskeletal: Patient denies any complaints of joint swelling or deformity. Skin: Negative Psychiatric: Negative Endocrine: No heat or cold intolerance. No recent weight gain. Genitourinary: No dysuria or hematuria. All other 14 point ROS negative except the above Past Medical History Past Medical History: Atrial Fibrillation, COPD, Deep Vein Thrombosis (DVT), GERD/Reflux, Osteoarthritis (OA), Pulmonary Embolus (PE), Syncope Additional Past Medical History / Comment(s): vertigo, hypotension, recently diagnosed with afib, Lung CA History of Any Multi-Drug Resistant Organisms: None Reported Past Surgical History: Tubal Ligation Past Anesthesia/Blood Transfusion Reactions: Previous Problems w/ Anesthesia Additional Past Anesthesia/Blood Transfusion Reaction / Comment(s): hard time waking up Past Psychological History: No Psychological Hx Reported Smoking Status: Former smoker Past Alcohol Use History: None Reported Additional Past Alcohol Use History / Comment(s): quit smoking 4 almost 5 years. Past Drug Use History: None Reported - Past Family History Mother Family Medical History: Dementia Medications and Allergies Home Medications Medication Instructions Recorded Confirmed Type Famotidine [Pepcid] 20 mg PO DAILY PRN 10/21/19 12/25/19 History Metoprolol Tartrate [Lopressor] 25 mg PO BID #60 tab 10/30/19 12/25/19 Rx Apixaban [Eliquis] 5 mg PO BID 30 Days #60 tab 11/06/19 12/25/19 Rx Allergies Allergy/AdvReac Type Severity Reaction Status Date / Time Iodine and Iodide Containing Allergy Anaphylaxis Verified 12/25/19 12:48 Produc tomato Allergy Rash/Hives Verified 12/25/19 12:48 dial soap Allergy Rash/Hives Uncoded 12/25/19 11:30 Physical Exam Vitals: Vital Signs Temp Pulse Pulse Resp BP BP BP 12/25/19 17:15 97.5 F L 92 18 100/61 12/25/19 16:00 80 18 116/67 12/25/19 15:30 89 16 116/67 12/25/19 15:00 87 18 119/71 12/25/19 14:30 90 16 119/71 12/25/19 14:00 94 17 102/72 12/25/19 13:33 93 12/25/19 13:30 96 21 102/72 12/25/19 13:25 165 H 12/25/19 13:00 138 H 18 102/59 12/25/19 12:30 102/59 12/25/19 12:02 104/75 102/59 12/25/19 12:00 104/75 12/25/19 11:45 109/71 12/25/19 11:30 98/69 12/25/19 11:20 97.6 F 91 18 98/69 BP Pulse Ox 12/25/19 17:15 95 12/25/19 16:00 94 L 12/25/19 15:30 12/25/19 15:00 95 12/25/19 14:30 90 L 12/25/19 14:00 93 L 12/25/19 13:33 12/25/19 13:30 93 L 12/25/19 13:25 12/25/19 13:00 90 L 12/25/19 12:30 12/25/19 12:02 100/66 12/25/19 12:00 95 12/25/19 11:45 12/25/19 11:30 95 12/25/19 11:20 95 Intake and Output 12/25/19 12/25/19 12/25/19 06:59 14:59 22:59 Other: Weight 66.361 kg 66.361 kg PHYSICAL EXAMINATION: Patient is lying in the bed comfortably, no acute distress, awake alert and oriented.. HEENT: Normocephalic. Neck is supple. Pupils reactive. Nostrils clear. Oral cavity is moist. Ears reveal no drainage. Neck reveals no JVD, carotid bruits, or thyromegaly. CHEST EXAMINATION: Trachea is central. Symmetrical expansion. Patient does have scattered rhonchi and coarse sounds. CARDIAC: Normal S1, S2 with no gallops. No murmurs ABDOMEN: Soft. Bowel sounds normal. No organomegaly. No abdominal bruits. Extremities: trace edema. No clubbing or cyanosis Neurologically awake, alert, oriented x3 with well-coordinated movements. No focal deficits noted Skin: No rash or skin lesions. Psychiatric: Coperative. Nonsuicidal Musculoskeletal: No joint swelling or deformity. Normal range of motion. Results CBC & Chem 7: 12/25/19 11:52 12/25/19 11:52 Labs: Abnormal Lab Results - Last 24 Hours (Table) 12/25/19 12/25/19 12/25/19 Range/Units 11:52 11:52 11:52 WBC 13.7 H (3.8-10.6) k/uL RBC 3.30 L (3.80-5.40) m/uL Hgb 7.5 L (11.4-16.0) gm/dL Hct 25.7 L (34.0-46.0) % MCV 77.9 L (80.0-100.0) fL MCH 22.6 L (25.0-35.0) pg MCHC 29.0 L (31.0-37.0) g/dL RDW 16.3 H (11.5-15.5) % Plt Count 627 H (150-450) k/uL Neutrophils # 11.2 H (1.3-7.7) k/uL Lymphocytes # 0.8 L (1.0-4.8) k/uL Eosinophils # 0.8 H (0-0.7) k/uL PT 12.8 H (9.0-12.0) sec INR 1.3 H (<1.2) APTT 34.9 H (22.0-30.0) sec Sodium 129 L (137-145) mmol/L Chloride 94 L (98-107) mmol/L Glucose 180 H (74-99) mg/dL Alkaline Phosphatase 208 H (38-126) U/L Albumin 2.7 L (3.5-5.0) g/dL Urine Protein (Negative) Urine Blood (Negative) Urine RBC (0-5) /hpf Urine WBC (0-5) /hpf Amorphous Sediment (None) /hpf Urine Bacteria (None) /hpf Urine Mucus (None) /hpf 12/25/19 Range/Units 11:54 WBC (3.8-10.6) k/uL RBC (3.80-5.40) m/uL Hgb (11.4-16.0) gm/dL Hct (34.0-46.0) % MCV (80.0-100.0) fL MCH (25.0-35.0) pg MCHC (31.0-37.0) g/dL RDW (11.5-15.5) % Plt Count (150-450) k/uL Neutrophils # (1.3-7.7) k/uL Lymphocytes # (1.0-4.8) k/uL Eosinophils # (0-0.7) k/uL PT (9.0-12.0) sec INR (<1.2) APTT (22.0-30.0) sec Sodium (137-145) mmol/L Chloride (98-107) mmol/L Glucose (74-99) mg/dL Alkaline Phosphatase (38-126) U/L Albumin (3.5-5.0) g/dL Urine Protein Trace H (Negative) Urine Blood Small H (Negative) Urine RBC 9 H (0-5) /hpf Urine WBC 6 H (0-5) /hpf Amorphous Sediment Rare H (None) /hpf Urine Bacteria Rare H (None) /hpf Urine Mucus Rare H (None) /hpf Thrombosis Risk Factor Assmnt - DVT/VTE Prophylaxis DVT/VTE Prophylaxis: Pharmacologic Prophylaxis ordered - Choose All That Apply Any of the Below Risk Factors Present?: Yes Each Factor Represents 1 point: Abnormal pulmonary function (COPD), Obesity (BMI >25) Each Risk Factor Represents 2 Points: Age 61-74 years, Malignancy Each Risk Factor Represents 3 Points: History of DVT/PE Other congenital or acquired thrombophilia - If yes, enter type in comment: No Thrombosis Risk Factor Assessment Total Risk Factor Score: 9 Thrombosis Risk Factor Assessment Level: High Risk Assessment and Plan Assessment: Acute syncopal episode. rule out arrhythmia Possible Symptomatic anemia Anemia of chronic disease and microcytic anemia rule out iron deficiency. Hypovolemic hyponatremia Right respiratory fibrillation on anticoagulation with Eliquis Squamous cell lung cancer/left hilar mass. Currently work-up in progress. PET scan pending. GERD Prior history of smoking Moderate protein calorie malnutrition DVT prophylaxis patient is only on Eliquis Plan: Patient was given IV fluid bolus. Tele monitor. Monitor H&H. FOBT was ordered. Will check iron profile as well. Hemoglobin during previous discharge was 7.6 which is stable currently. Patient will continue on metoprolol and Eliquis. Started on PPI and follow-up closely. Discussed with the patient and her at bedside in detail. Time with Patient: Greater than 30
[2019-12-25] MEDS: PANTOPRAZOLE 40 MG/10 ML VIAL IVP SCH (23:17)
[2019-12-26 05:31] LABS: Anisocytosis Slight; Basophils % (A) 0 %; Eosinophils # (A) 1.2 k/uL (0-0.7); Eosinophils % (A) 9 %; HCT 25.2 % (34.0-46.0); Hypochromasia Marked; Lymphocytes # (A) 1.2 k/uL (1.0-4.8); Lymphocytes % (A) 10 %; MCH 21.9 pg (25.0-35.0); MCHC 27.7 g/dL (31.0-37.0); MCV 79.2 fL (80.0-100.0); Mean Platelet Volume 6.3; Monocytes # (A) 0.6 k/uL (0-1.0); Monocytes % (A) 5 %; Neutrophils % (A) 74 %; Platelet Count 607 k/uL (150-450); RBC 3.18 m/uL (3.80-5.40); WBC 12.2 k/uL (3.8-10.6)
[2019-12-26] MEDS: PANTOPRAZOLE 40 MG/10 ML VIAL IVP SCH (08:21)
[2019-12-26] MEDS: METOPROLOL TARTRATE 25 MG TAB PO SCH ×2 (08:21→21:04)
[2019-12-26] MEDS: APIXABAN 5 MG TAB PO SCH ×2 (08:21→21:04)
[2019-12-26 09:55] LABS: % Iron Saturation 6.52 (12.00-45.00); African American GFR (CKD) 88.4 (60.0-200.0); Anion Gap 6.4 mmol/L (4.00-12.00); BUN/Creat Ratio 16.25 Ratio (12.00-20.00); Calcium 8.7 mg/dL (8.7-10.3); Carbon Dioxide 28.6 mmol/L (21.6-31.8); Chol/HDL Ratio 4.95; Ferritin 1002.9 ng/mL (10.0-291.0); LDL Cholesterol,Calculated 68.2 mg/dL (0.0-131.0); Non-African American GFR(CKD) 76.3 (60.0-200.0); Potassium 4.3 mmol/L (3.5-5.5); VLDL Calculation 18.8 mg/dL (5.00-40.00)
--- NOTE | 2019-12-26 12:41 | P.CONS ---
History of Present Illness - Reason for Consult Consult date: 12/26/19 Squamous cell lung cancer. Syncope - History of Present Illness The patient is a 69-year-old white female, patient of Dr. Martinez in the office. The patient was found to have a large left lung mass in 10/11, with biopsy in early 11/11 showing only differential to squamous cell cancer. CT of the chest abdomen and pelvis at that time did not show any obvious metastatic disease. There was a nonspecific 1.1 cm infrahilar ipsilateral nodes. The patient was seen in consult in 11/11 when admitted with atrial fibrillation with RVR. At that time MRI of the brain was ordered which showed no metastatic disease. The patient continued follow-up in the outpatient setting with a PET scan ordered for completion of staging. Unfortunately she was unable to get that done at the time because of insurance issues. Patient states that she was ultimately able to obtain coverage and had a PET scan scheduled for 12/25/19. However on the day when she got up from laying down she felt very dizzy and lightheaded and states that she actually passed out. She was also nauseous and subsequently had an episode of vomiting when she regained consciousness. She was therefore brought to the emergency room and admitted for further management. She denied any ongoing neurologic symptoms prior to this episode. She states that when younger she would have orthostatic symptoms if she got up too fast after sitting or lying down. Review of Systems Constitutional: Reports fatigue Eyes: denies blurred vision, denies pain Ears: deny: decreased hearing, ear discharge, earache, tinnitus Ears, nose, mouth and throat: Denies headache, Denies sore throat Cardiovascular: Reports dyspnea on exertion, Reports irregular heart beat Respiratory: Reports dyspnea Gastrointestinal: Reports nausea, Reports vomiting Genitourinary: Denies dysuria, Denies hematuria Menstruation: Reports postmenopausal Musculoskeletal: Denies myalgias Integumentary: Denies pruritus, Denies rash Neurological: Reports as per HPI, Reports syncope, Reports weakness Psychiatric: Reports as per HPI Endocrine: Reports fatigue Hematologic/Lymphatic: Reports as per HPI Past Medical History Past Medical History: Atrial Fibrillation, COPD, Deep Vein Thrombosis (DVT), GERD/Reflux, Osteoarthritis (OA), Pulmonary Embolus (PE), Syncope Additional Past Medical History / Comment(s): vertigo, hypotension, recently chloe gnosed with afib, Lung CA History of Any Multi-Drug Resistant Organisms: None Reported Past Surgical History: Tubal Ligation Past Anesthesia/Blood Transfusion Reactions: Previous Problems w/ Anesthesia Additional Past Anesthesia/Blood Transfusion Reaction / Comm: hard time waking up Past Psychological History: No Psychological Hx Reported Smoking Status: Former smoker Past Alcohol Use History: None Reported Additional Past Alcohol Use History / Comment(s): quit smoking 4 almost 5 years. Past Drug Use History: None Reported - Past Family History Mother Family Medical History: Dementia Medications and Allergies Home Medications Medication Instructions Recorded Confirmed Type Famotidine [Pepcid] 20 mg PO DAILY PRN 10/21/19 12/25/19 History Metoprolol Tartrate [Lopressor] 25 mg PO BID #60 tab 10/30/19 12/25/19 Rx Apixaban [Eliquis] 5 mg PO BID 30 Days #60 tab 11/06/19 12/25/19 Rx Allergies Allergy/AdvReac Type Severity Reaction Status Date / Time Iodine and Iodide Containing Allergy Anaphylaxis Verified 12/25/19 12:48 Produc tomato Allergy Rash/Hives Verified 12/25/19 12:48 dial soap Allergy Rash/Hives Uncoded 12/25/19 11:30 Physical Exam Vitals: Vital Signs Temp Pulse Pulse Resp BP BP BP 12/26/19 12:30 97.9 F 91 19 12/26/19 04:56 98.3 F 92 17 123/67 12/25/19 21:00 98.0 F 83 16 115/70 12/25/19 17:15 97.5 F L 92 18 100/61 12/25/19 16:00 80 18 116/67 12/25/19 15:30 89 16 116/67 12/25/19 15:00 87 18 119/71 12/25/19 14:30 90 16 119/71 12/25/19 14:00 94 17 102/72 12/25/19 13:33 93 12/25/19 13:30 96 21 102/72 12/25/19 13:25 165 H 12/25/19 13:00 138 H 18 102/59 BP Pulse Ox 12/26/19 12:30 111/65 95 12/26/19 04:56 90 L 12/25/19 21:00 95 12/25/19 17:15 95 12/25/19 16:00 94 L 12/25/19 15:30 12/25/19 15:00 95 12/25/19 14:30 90 L 12/25/19 14:00 93 L 12/25/19 13:33 12/25/19 13:30 93 L 12/25/19 13:25 12/25/19 13:00 90 L Intake and Output 12/25/19 12/26/19 12/26/19 22:59 06:59 14:59 Intake Total 240 Balance 240 Intake: Oral 240 Other: Voiding Method Toilet Toilet # Voids 1 1 Weight 66.361 kg - Constitutional General appearance: no acute distress - EENT Eyes: EOMI, PERRLA ENT: hearing grossly normal, normal oropharynx - Neck Neck: no lymphadenopathy Thyroid: bilateral: normal size - Respiratory Respiratory: bilateral: CTA - Cardiovascular Rhythm: irregularly irregular Heart sounds: normal: S1, S2 - Gastrointestinal General gastrointestinal: normal bowel sounds, soft - Integumentary Integumentary: normal - Neurologic Neurologic: CNII-XII intact - Musculoskeletal Musculoskeletal: generalized weakness, strength equal bilaterally - Psychiatric Psychiatric: A&O x's 3, appropriate affect Results CBC & Chem 7: 12/26/19 05:18 12/26/19 05:18 Labs: Abnormal Lab Results - Last 24 Hours (Table) 12/25/19 12/26/19 12/26/19 Range/Units 11:54 05:18 05:18 WBC 12.2 H (3.8-10.6) k/uL RBC 3.18 L (3.80-5.40) m/uL Hgb 7.0 L (11.4-16.0) gm/dL Hct 25.2 L (34.0-46.0) % MCV 79.2 L (80.0-100.0) fL MCH 21.9 L (25.0-35.0) pg MCHC 27.7 L (31.0-37.0) g/dL RDW 16.0 H (11.5-15.5) % Plt Count 607 H (150-450) k/uL Neutrophils # 9.0 H (1.3-7.7) k/uL Eosinophils # 1.2 H (0-0.7) k/uL Sodium 129 L (135-145) mmol/L Chloride 94 L (96-109) mmol/L Glucose 141 H (70-110) mg/dL Iron 12 L (50-170) ug/dL TIBC 184 L (228-460) ug/dL % Saturation 6.52 L (12.00-45.00) Ferritin 1002.9 H (10.0-291.0) ng/mL HDL Cholesterol 22.0 L (40.0-60.0) mg/dL Urine Protein Trace H (Negative) Urine Blood Small H (Negative) Urine RBC 9 H (0-5) /hpf Urine WBC 6 H (0-5) /hpf Amorphous Sediment Rare H (None) /hpf Urine Bacteria Rare H (None) /hpf Urine Mucus Rare H (None) /hpf Microbiology - Last 24 Hours (Table) 12/25/19 14:57 Urine Culture - Preliminary Urine,Clean Catch Chest x-ray: report reviewed Assessment and Plan (1) Squamous cell carcinoma of left lung Narrative/Plan: The patient was diagnosed with the same in 11/11. CT of the chest abdomen and pelvis at that time did not show any obvious metastatic disease. Patient's MRI of the brain was negative. However she has been unable to complete staging with PET scan due to insurance issues. She states that she is finally had that was ordered and was supposed to get a PET scan done on 12/25/19. Due to her hospital admission she has already had this rescheduled for next week. She'll follow-up in the office after the same for treatment plan. Current Visit: Yes Status: Acute Code(s): C34.92 - MALIGNANT NEOPLASM OF UNSP PART OF LEFT BRONCHUS OR LUNG SNOMED Code(s): 36785532971127319 (2) Syncope Narrative/Plan: This is appear to be related to her malignancy. MRI of the brain was negative in 11/11. She has had no neurologic symptoms since. By history this episode appears to be vasovagal. The patient already feels much better since admission. Defer to the admitting service of further workup and management as well as discharge decision The patient confirmed that though she actually passed out she did not fall or have any significant trauma. She said she essentially collapsed into an office chair. Current Visit: Yes Status: Acute Code(s): R55 - SYNCOPE AND COLLAPSE SNOMED Code(s): 570505843 (3) Anemia aplastic aregenerative Narrative/Plan: The patient had anemia workup at her previous visit, showing very high ferritin. Therefore there is no evidence of any bleeding. The anemia appears to be most likely due to marrow aplasia from inflammation related to her cancer. The persistent chronic anemia could however have contributed to her having the vasovagal/orthostatic symptoms. Continue to monitor and transfuse if less than 7. Okay to continue anticoagulation as the anemia does not appear to be due to blood loss. Current Visit: Yes Status: Acute Code(s): D61.9 - APLASTIC ANEMIA, UNSPECIFIED SNOMED Code(s): 68196563
--- NOTE | 2019-12-26 15:40 | P.CRDCN ---
History of Present Illness Consult date: 12/26/19 Requesting physician: Andrew De Leon Reason for Consult (text): syncope Chief complaint: syncope History of present illness: This pleasant 69-year-old female patient who follows with Dr. Kwan in the office. She has a history of COPD, PE, DVT, GERD, chronic anemia, paroxysmal atrial fibrillation, smoking for which she quit about 4 years ago, and recent diagnosis of squamous cell carcinoma of the lung. Does have a history of a admission in October of this year due to bradycardia while on metoprolol and amiodarone. Amiodarone was discontinued and the bradycardia resolved. She been doing fairly well until yesterday when she woke up to go have her PET scan done. She was sitting in a chair in her stomach felt funny at which time her son tried to help her to the bathroom and she passed out. There is a mention of some nausea with dry heaves but the patient feels that this happened after the syncopal episode. She does have a history of syncope in the past. She remembers as a child and grade school slamming her finger and her desk and subsequently passing out. EKG on admission showed sinus rhythm. Patient has been maintaining sinus rhythm however there is a episode of tachycardia documented in the vital signs spread sheet with no rhythm strips available however likely A. fib with RVR as her rates are 130s to 160s. She is currently on metoprolol titrate 25 mg by mouth twice a day, Protonix, Zofran and Eliquis 5 mg by mouth twice a day. Vital signs on admission showed a white blood cell count 13.7, hemoglobin 7.5 which is stable, sodium 129, BUN 14, creatinine 0.74 and troponins negative 3. She's had no further syncope. She does note some very mild dizziness at times upon standing verbalizes her blood pressure tends to run low. She denies any palpitations at the time of her syncope. Denies the feeling she had when she was significantly bradycardic and [place]. She's had no chest discomfort, shortness of breath, orthopnea or PND. She's had no edema. Past Medical History Past Medical History: Atrial Fibrillation, COPD, Deep Vein Thrombosis (DVT), GERD/Reflux, Osteoarthritis (OA), Pulmonary Embolus (PE), Syncope Additional Past Medical History / Comment(s): vertigo, hypotension, recently d iagnosed with afib, Lung CA History of Any Multi-Drug Resistant Organisms: None Reported Past Surgical History: Tubal Ligation Past Anesthesia/Blood Transfusion Reactions: Previous Problems w/ Anesthesia Additional Past Anesthesia/Blood Transfusion Reaction / Comment(s): hard time waking up Past Psychological History: No Psychological Hx Reported Smoking Status: Former smoker Past Alcohol Use History: None Reported Additional Past Alcohol Use History / Comment(s): quit smoking 4 almost 5 years. Past Drug Use History: None Reported - Past Family History Mother Family Medical History: Dementia Medications and Allergies Home Medications Medication Instructions Recorded Confirmed Type Famotidine [Pepcid] 20 mg PO DAILY PRN 10/21/19 12/25/19 History Metoprolol Tartrate [Lopressor] 25 mg PO BID #60 tab 10/30/19 12/25/19 Rx Apixaban [Eliquis] 5 mg PO BID 30 Days #60 tab 11/06/19 12/25/19 Rx Allergies Allergy/AdvReac Type Severity Reaction Status Date / Time Iodine and Iodide Containing Allergy Anaphylaxis Verified 12/25/19 12:48 Produc tomato Allergy Rash/Hives Verified 12/25/19 12:48 dial soap Allergy Rash/Hives Uncoded 12/25/19 11:30 Physical Exam Vitals: Vital Signs Temp Pulse Pulse Resp BP BP BP 12/26/19 12:30 97.9 F 91 19 12/26/19 04:56 98.3 F 92 17 123/67 12/25/19 21:00 98.0 F 83 16 115/70 12/25/19 17:15 97.5 F L 92 18 100/61 12/25/19 16:00 80 18 116/67 12/25/19 15:30 89 16 116/67 12/25/19 15:00 87 18 119/71 12/25/19 14:30 90 16 119/71 12/25/19 14:00 94 17 102/72 BP Pulse Ox 12/26/19 12:30 111/65 95 12/26/19 04:56 90 L 12/25/19 21:00 95 12/25/19 17:15 95 12/25/19 16:00 94 L 12/25/19 15:30 12/25/19 15:00 95 12/25/19 14:30 90 L 12/25/19 14:00 93 L Intake and Output 12/25/19 12/26/19 12/26/19 22:59 06:59 14:59 Intake Total 240 Balance 240 Intake: Oral 240 Other: Voiding Method Toilet Toilet # Voids 1 1 Weight 66.361 kg PHYSICAL EXAMINATION: This is a 69-year-old female in no apparent distress at the time of my examination. VITAL SIGNS: Blood pressure 111/65, heart rate 91, respirations 19, temp 97.9F. Patient is 95 % on room air. HEENT: Head is atraumatic, normocephalic. Pupils are equal, round. Sclerae anicteric. Conjunctivae are clear. Mucous membranes of the mouth are moist. Neck is supple. There is no elevated jugular venous pressure. No carotid bruit is heard. CHEST EXAMINATION: Clear to auscultation bilaterally. No wheezes rales or rhonchi. Respirations even and nonlabored. HEART EXAMINATION: Heart regular, positive S1 and S2. No S3. No S4. With the systolic ejection murmur at the base. ABDOMEN: Soft, nontender. Bowel sounds are heard. No organomegaly noted. EXTREMITIES: 2+ peripheral pulses with no evidence of peripheral edema and no calf tenderness noted. NEUROLOGIC EXAMINATION: Patient is awake, alert and oriented x3. Results 12/26/19 05:18 12/26/19 05:18 Cardiac Enzymes 12/25/19 12/25/19 Range/Units 14:54 18:12 Troponin I <0.012 <0.012 (0.000-0.034) ng/mL Lipids 12/26/19 Range/Units 05:18 Triglycerides 94.0 (0.0-149.0) mg/dL Cholesterol 109 (0-200) mg/dL HDL Cholesterol 22.0 L (40.0-60.0) mg/dL Cholesterol/HDL Ratio 4.95 CBC 12/26/19 Range/Units 05:18 WBC 12.2 H (3.8-10.6) k/uL RBC 3.18 L (3.80-5.40) m/uL Hgb 7.0 L (11.4-16.0) gm/dL Hct 25.2 L (34.0-46.0) % Plt Count 607 H (150-450) k/uL Comprehensive Metabolic Panel 12/26/19 Range/Units 05:18 Sodium 129 L (135-145) mmol/L Potassium 4.3 (3.5-5.5) mmol/L Chloride 94 L (96-109) mmol/L Carbon Dioxide 28.6 (21.6-31.8) mmol/L BUN 13.0 (9.0-27.0) mg/dL Creatinine 0.8 (0.6-1.5) mg/dL Glucose 141 H (70-110) mg/dL Calcium 8.7 (8.7-10.3) mg/dL Current Medications Generic Name Dose Route Start Last Admin Trade Name Freq PRN Reason Stop Dose Admin Apixaban 5 mg 12/26/19 09:00 12/26/19 08:21 Apixaban 5 Mg Tab PO 5 mg BID SHY Administration Metoprolol Tartrate 25 mg 12/26/19 09:00 12/26/19 08:21 Metoprolol Tartrate 25 Mg Tab PO 25 mg BID SHY Administration Ondansetron HCl 4 mg 12/25/19 22:01 Ondansetron 4 Mg/2 Ml Vial IVP Q6HR PRN Nausea And Vomiting Pantoprazole Sodium 40 mg 12/25/19 22:15 12/26/19 08:21 Pantoprazole 40 Mg/10 Ml Vial IVP 40 mg DAILY SHY Administration Intake and Output 12/25/19 12/26/19 12/26/19 22:59 06:59 14:59 Intake Total 240 Balance 240 Intake: Oral 240 Other: Voiding Method Toilet Toilet # Voids 1 1 Weight 66.361 kg 12/26/19 05:18 12/26/19 05:18 Assessment and Plan Assessment: #1 syncope likely vasovagal versus orthostasis #2 chronic anemia #3 squamous cell lung cancer #4 hyponatremia #5 paroxysmal atrial fibrillation with rapid ventricular response, anticoagulated #6 GERD #7 history of smoking Plan: From adaptive physical educator perspective episode of syncope likely related to vasovagal syncope or orthostatic hypotension. We will check orthostatic blood pressures. Continue current medications. She'll follow-up in the office with Dr. Mar as an outpatient. PERSONAL CARE HOME ADMINISTRATOR note has been reviewed, I agree with a documented findings and plan of care. Patient was seen and examined.
[2019-12-27 05:23] LABS: Anisocytosis Slight; Basophils # (A) 0.1 k/uL (0-0.2); Basophils % (A) 0 %; Eosinophils # (A) 1.5 k/uL (0-0.7); Eosinophils % (A) 12 %; HCT 28.6 % (34.0-46.0); HGB 8.3 gm/dL (11.4-16.0); Hypochromasia Marked; Lymphocytes # (A) 1.3 k/uL (1.0-4.8); Lymphocytes % (A) 10 %; MCH 23.2 pg (25.0-35.0); MCHC 29.1 g/dL (31.0-37.0); MCV 79.7 fL (80.0-100.0); Mean Platelet Volume 6.4; Monocytes # (A) 0.6 k/uL (0-1.0); Monocytes % (A) 5 %; Neutrophils # (A) 9.2 k/uL (1.3-7.7); Neutrophils % (A) 72 %; Platelet Count 582 k/uL (150-450); Poikilocytosis Slight; RBC 3.59 m/uL (3.80-5.40); RDW 16.5 % (11.5-15.5); WBC 12.8 k/uL (3.8-10.6)
[2019-12-27] MEDS: METOPROLOL TARTRATE 25 MG TAB PO SCH (08:50)
[2019-12-27] MEDS: APIXABAN 5 MG TAB PO SCH (08:50)
[2019-12-27] MEDS: PANTOPRAZOLE 40 MG/10 ML VIAL IVP SCH (08:50)
[2019-12-27] MEDS ORDERED: SODIUM FERRIC GLUCONAT-SUCROSE 125 MG in SODIUM CHLORIDE 0.9% 100 ML IVPB SCH (09:00)
[2019-12-27 11:39] VITALS: BP 104/65; PULSE 78; RESP 14; TEMP 98
--- NOTE | 2019-12-27 12:13 | P.PN ---
Subjective Progress Note Date: 12/27/19 This pleasant 69-year-old female patient who follows with Dr. Kwan in the office. She has a history of COPD, PE, DVT, GERD, chronic anemia, paroxysmal atrial fibrillation, smoking for which she quit about 4 years ago, and recent diagnosis of squamous cell carcinoma of the lung. Does have a history of a admission in October of this year due to bradycardia while on metoprolol and amiodarone. Amiodarone was discontinued and the bradycardia resolved. She been doing fairly well until yesterday when she woke up to go have her PET scan done. She was sitting in a chair in her stomach felt funny at which time her son tried to help her to the bathroom and she passed out. There is a mention of some nausea with dry heaves but the patient feels that this happened after the syncopal episode. She does have a history of syncope in the past. She remembers as a child and grade school slamming her finger and her desk and subsequently passing out. EKG on admission showed sinus rhythm. Patient has been maintaining sinus rhythm however there is a episode of tachycardia documented in the vital signs spread sheet with no rhythm strips available however likely A. fib with RVR as her rates are 130s to 160s. She is currently on metoprolol titrate 25 mg by mouth twice a day, Protonix, Zofran and Eliquis 5 mg by mouth twice a day. Vital signs on admission showed a white blood cell count 13.7, hemoglobin 7.5 which is stable, sodium 129, BUN 14, creatinine 0.74 and troponins negative 3. She's had no further syncope. She does note some very mild dizziness at times upon standing verbalizes her blood pressure tends to run low. She denies any palpitations at the time of her syncope. Denies the feeling she had when she was significantly bradycardic and [place]. She's had no chest discomfort, shortness of breath, orthopnea or PND. She's had no edema. 12/27/2019 The patient was seen and examined this morning resting comfortably in bed. She said no further complaints of syncope. She's had no dizziness or lightheadedness. Symptoms no nausea or vomiting. She was given one unit of packed red blood cells and iron infusion. Hemoglobin this morning is 8.3. Vital signs have been stable with no significant orthostatic changes in blood pressure. Objective - Vital Signs Vital signs: Vital Signs Temp 98.0 F 12/27/19 11:39 Pulse 78 12/27/19 11:39 Resp 14 12/27/19 11:39 BP 104/65 12/27/19 11:39 Pulse Ox 91 L 12/27/19 11:39 Intake & Output 12/26/19 12/27/19 12/27/19 18:59 06:59 18:59 Intake Total 480 310 480 Balance 480 310 480 Intake: Oral 480 480 Blood Product 0 310 Rc Pheresis As-3 Unit 0 310 [id number] Other: Voiding Method Toilet Toilet # Voids 2 2 - Exam PHYSICAL EXAMINATION: HEENT: Head is atraumatic, normocephalic. Pupils equal, round. Neck is supple. There is no elevated jugular venous pressure. HEART EXAMINATION: Heart sounds regular, S1 and S2 normal with a systolic ejection murmur at the base. CHEST EXAMINATION: Lungs are clear to auscultation. No chest wall tenderness is noted on palpation or with deep breathing. ABDOMEN: Soft, nontender. Bowel sounds are heard. No organomegaly noted. EXTREMITIES: 2+ peripheral pulses with no evidence of peripheral edema and no calf tenderness noted. NEUROLOGIC patient is awake, alert and oriented x3. . - Labs CBC & Chem 7: 12/27/19 05:00 12/26/19 05:18 Labs: Abnormal Lab Results - Last 24 Hours (Table) 12/25/19 12/27/19 Range/Units 14:54 05:00 WBC 12.8 H (3.8-10.6) k/uL RBC 3.59 L (3.80-5.40) m/uL Hgb 8.3 L (11.4-16.0) gm/dL Hct 28.6 L (34.0-46.0) % MCV 79.7 L (80.0-100.0) fL MCH 23.2 L (25.0-35.0) pg MCHC 29.1 L (31.0-37.0) g/dL RDW 16.5 H (11.5-15.5) % Plt Count 582 H (150-450) k/uL Neutrophils # 9.2 H (1.3-7.7) k/uL Eosinophils # 1.5 H (0-0.7) k/uL Crossmatch See Detail Assessment and Plan Assessment: #1 syncope likely vasovagal #2 chronic anemia #3 squamous cell lung cancer #4 hyponatremia #5 paroxysmal atrial fibrillation with rapid ventricular response, anticoagulated #6 GERD #7 history of smoking Plan: From industrial energy engineer perspective episode of syncope likely related to vasovagal syncope. Continue current medications. She'll follow-up in the office with Dr. Mar as an outpatient. INTERIOR DESIGN PROJECT MANAGER note has been reviewed, I agree with a documented findings and plan of care. Patient was seen and examined.
--- NOTE | 2019-12-29 06:35 | CDI ---
Documentation Clarification Form Date: 12/29/2019 05:16:00 AM From: Shawna Chance Phone: If you have a question about this query, please contact Aishwarya Sánchez Line Locator at [phone] between 8am and 5pm. Admit Date: 12/25/2019 03:14:00 PM Patient Name: Selene Sparks Visit Number: [id number] Discharge Date: 12/27/2019 05:14:00 PM ATTENTION: The Clinical Documentation Specialists (CDI) and [facility] Coding Staff appreciate your assistance in clarifying documentation. Please respond to the clarification below the line at the bottom and electronically sign. The CDI & [facility] Coding staff will review the response and follow-up if needed. Please note: Queries are made part of the Legal Health Record. If you have any questions, please contact the author of this message via ITS. Dr. Star Butler The patients principal diagnosis has not been clearly identified and requires clarification. Patient with syncope thought to be vasovagal. Patient also has anemia not due to blood loss but due to bone marrow aplasia. "Chronic anemail could however have contributed to her having the vasovagal symptoms." Patient RBC transfusion 12/25. Patient also with Atrial fib. Please clarify reason for patient's syncope. He/She presented with syncope History/Risk factors: Lung Cancer, aplastic anemia, atrial fib Lab findings: HGB 7.5 Radiology findings: enlarging hilar mass Vital Signs: 97.6 F, 91 bpm, 18, 98/69, 95 NC Treatment: 1 unit RBC's Consults: Oncology and Cardiology In your professional opinion, can you please clarify which diagnosis, after study, accounted for the patients presenting symptoms and was the reason chiefly responsible for the admission? Anemia aplastic causing syncope Atrial fib causing syncope Other: Unable to determine: Syncope secondary to vasovagal MTDD
== END 2019-12-27 17:14 | disposition home or self-care (01) | DRG 312 ==
LOC: EC 11:19 → 6NMEDSUR 15:14
PROVIDERS: ADMIT Hospitalist; ATTEND Hospitalist
PROC: 30233N1 Transfusion of Nonautologous Red Blood Cells into Peripheral Vein, Percutaneous Approach (ICD-10-PCS; principal; 2019-12-26)
DX: R55 Syncope and collapse (principal); D61.9 Aplastic anemia, unspecified; E44.0 Moderate protein-calorie malnutrition; E87.1 Hypo-osmolality and hyponatremia; C34.02 Malignant neoplasm of left main bronchus; Z68.29 Body mass index [BMI] 29.0-29.9, adult; E86.1 Hypovolemia; I48.0 Paroxysmal atrial fibrillation; J44.9 Chronic obstructive pulmonary disease, unspecified; K21.9 Gastro-esophageal reflux disease without esophagitis; Z79.01 Long term (current) use of anticoagulants; Z79.899 Other long term (current) drug therapy; Z85.118 Personal history of other malignant neoplasm of bronchus and lung; Z86.711 Personal history of pulmonary embolism; Z86.718 Personal history of other venous thrombosis and embolism; Z87.891 Personal history of nicotine dependence; Z82.0 Family history of epilepsy and other diseases of the nervous system; D63.8 Anemia in other chronic diseases classified elsewhere; M19.90 Unspecified osteoarthritis, unspecified site; Z98.51 Tubal ligation status; Z91.041 Radiographic dye allergy status; E66.9 Obesity, unspecified
CPT/HCPCS: 36415; 71046; 80048; 80053; 80061; 81001; 82728; 83540; 83550; 83735; 84484; 85025; 85610; 85730; 86850; 86900; 86901; 86920; 87086; 93005; 96361; 96374; 99285

== ENCOUNTER 2019-12-30 23:51 | Observation (INO) | payer MEDICARE, OTHER ==
[2019-12-31] MEDS ORDERED: APIXABAN 5 MG TAB PO STA (00:53)
[2019-12-31] MEDS ORDERED: METOPROLOL TARTRATE 25 MG TAB PO STA (00:54)
[2019-12-31] MEDS ORDERED: NITROGLYCERIN SL TABS 0.4 MG TAB SUBLINGUAL PRN (01:00)
[2019-12-31] MEDS ORDERED: FAMOTIDINE 20 MG TAB PO PRN (01:01)
[2019-12-31 01:07] LABS: Anisocytosis Slight; Basophils # (A) 0.1 k/uL (0-0.2); Basophils % (A) 0 %; Eosinophils # (A) 0.8 k/uL (0-0.7); Eosinophils % (A) 5 %; HGB 8.5 gm/dL (11.4-16.0); Hypochromasia Marked; Lymphocytes % (A) 7 %; MCH 23.8 pg (25.0-35.0); MCHC 29.1 g/dL (31.0-37.0); MCV 81.8 fL (80.0-100.0); Mean Platelet Volume 6.1; Monocytes # (A) 0.6 k/uL (0-1.0); Monocytes % (A) 4 %; Neutrophils # (A) 12.8 k/uL (1.3-7.7); Neutrophils % (A) 83 %; Platelet Count 575 k/uL (150-450); RBC 3.55 m/uL (3.80-5.40); RDW 16.7 % (11.5-15.5); WBC 15.5 k/uL (3.8-10.6)
--- NOTE | 2019-12-31 01:28 | ED ---
Syncope HPI - General Chief Complaint: Recheck/Abnormal Lab/Rx Stated Complaint: Recheck Time Seen by Provider: 12/31/19 00:04 Source: patient, RN/MD, EMS, old records reviewed Mode of arrival: EMS Limitations: no limitations - History of Present Illness Initial Comments: This patient is a 69-year-old woman who presents as a transfer from [facility]. The patient had gone to the other hospital for syncopal episode. The patient reports that this evening she had gone to urinate and then had passed out. During the evaluation at the other hospital, the patient had atrial fibrillation with a rapid ventricular rate and for that reason they transferred the patient here. When I interview the patient, she states she is feeling much better. She is not having chest pain, dyspnea, diaphoresis, nausea or vomiting. MD Complaint: loss of consciousness, collapsed -: hour(s) Prodromal Symptoms: none Witnessed: no Injuries Sustained Associated with Event: None Current Symptoms: back to baseline Context: other Treatments Prior to Arrival: medication - Related Data Home Medications Medication Instructions Recorded Confirmed Famotidine [Pepcid] 20 mg PO DAILY PRN 10/21/19 12/25/19 Previous Rx's Medication Instructions Recorded Metoprolol Tartrate [Lopressor] 25 mg PO BID #60 tab 10/30/19 Apixaban [Eliquis] 5 mg PO BID 30 Days #60 tab 11/06/19 Allergies Allergy/AdvReac Type Severity Reaction Status Date / Time Iodine and Iodide Containing Allergy Anaphylaxis Verified 12/30/19 23:58 Produc tomato Allergy Rash/Hives Verified 12/30/19 23:58 dial soap Allergy Rash/Hives Uncoded 12/30/19 23:58 Review of Systems ROS Statement: Those systems with pertinent positive or pertinent negative responses have been documented in the HPI. ROS Other: All systems not noted in ROS Statement are negative. Constitutional: Denies: fever, chills Eyes: Denies: vision change Respiratory: Denies: cough, dyspnea Cardiovascular: Reports: palpitations, syncope. Denies: chest pain, orthopnea, edema Gastrointestinal: Denies: abdominal pain, vomiting, diarrhea, melena, hematochezia Genitourinary: Denies: dysuria, frequency, hematuria Musculoskeletal: Denies: back pain Skin: Denies: rash Neurological: Denies: headache, weakness, numbness Past Medical History Past Medical History: Atrial Fibrillation, COPD, Deep Vein Thrombosis (DVT), GERD/Reflux, Osteoarthritis (OA), Pulmonary Embolus (PE), Syncope Additional Past Medical History / Comment(s): vertigo, hypotension, recently diagnosed with afib, Lung CA History of Any Multi-Drug Resistant Organisms: None Reported Past Surgical History: Tubal Ligation Past Anesthesia/Blood Transfusion Reactions: Previous Problems w/ Anesthesia Additional Past Anesthesia/Blood Transfusion Reaction / Comment(s): hard time waking up Past Psychological History: No Psychological Hx Reported Smoking Status: Former smoker Past Alcohol Use History: None Reported Past Drug Use History: None Reported - Past Family History Mother Family Medical History: Dementia General Exam Limitations: no limitations General appearance: alert, in no apparent distress Head exam: Present: atraumatic, normocephalic Eye exam: Present: normal appearance. Absent: scleral icterus, conjunctival injection ENT exam: Present: normal oropharynx Neck exam: Present: normal inspection, full ROM Respiratory exam: Present: normal lung sounds bilaterally. Absent: respiratory distress, wheezes, rales, rhonchi, stridor Cardiovascular Exam: Present: regular rate, normal rhythm, normal heart sounds. Absent: systolic murmur, diastolic murmur, rubs, gallop GI/Abdominal exam: Present: soft. Absent: distended, tenderness, guarding, rebound, rigid, mass Extremities exam: Present: normal inspection, normal capillary refill. Absent: pedal edema, calf tenderness Back exam: Present: normal inspection. Absent: CVA tenderness (R), CVA tenderness (L) Neurological exam: Present: alert Skin exam: Present: warm, dry, intact, normal color. Absent: rash Course Vital Signs 12/30/19 12/31/19 23:52 01:00 Pulse Rate 84 82 Respiratory 22 16 Rate Blood Pressure 116/69 113/72 O2 Sat by Pulse 92 L 97 Oximetry EKG Findings - EKG Results: EKG: interpreted by PRAVIN BAEZ, sinus rhythm (Rate 82 bpm), normal axis, normal QRS, normal ST/T, no acute changes Medical Decision Making - Lab Data Result diagrams: 12/31/19 00:57 12/31/19 00:57 Lab Results 12/31/19 12/31/19 12/31/19 Range/Units 00:57 00:57 00:57 WBC 15.5 H (3.8-10.6) k/uL RBC 3.55 L (3.80-5.40) m/uL Hgb 8.5 L (11.4-16.0) gm/dL Hct 29.0 L (34.0-46.0) % MCV 81.8 (80.0-100.0) fL MCH 23.8 L (25.0-35.0) pg MCHC 29.1 L (31.0-37.0) g/dL RDW 16.7 H (11.5-15.5) % Plt Count 575 H (150-450) k/uL Neutrophils % 83 % Lymphocytes % 7 % Monocytes % 4 % Eosinophils % 5 % Basophils % 0 % Neutrophils # 12.8 H (1.3-7.7) k/uL Lymphocytes # 1.0 (1.0-4.8) k/uL Monocytes # 0.6 (0-1.0) k/uL Eosinophils # 0.8 H (0-0.7) k/uL Basophils # 0.1 (0-0.2) k/uL Hypochromasia Marked Anisocytosis Slight Sodium 131 L (137-145) mmol/L Potassium 4.5 (3.5-5.1) mmol/L Chloride 96 L (98-107) mmol/L Carbon Dioxide 31 H (22-30) mmol/L Anion Gap 4 mmol/L BUN 15 (7-17) mg/dL Creatinine 0.69 (0.52-1.04) mg/dL Est GFR (CKD-EPI)AfAm >90 (>60 ml/min/1.73 sqM) Est GFR (CKD-EPI)NonAf >90 (>60 ml/min/1.73 sqM) Glucose 193 H (74-99) mg/dL Calcium 8.6 (8.4-10.2) mg/dL Troponin I <0.012 (0.000-0.034) ng/mL Disposition Clinical Impression: Syncope Disposition: ADMITTED IP TO THIS HOSP Condition: Good Referrals: None,Stated [Primary Care Provider] - 1-2 days
[2019-12-31 01:31] LABS: African American GFR (CKD) >90 (>60 ml/min/1.73 sqM); Anion Gap 4 mmol/L; Blood Urea Nitrogen 15 mg/dL (7-17); Calcium 8.6 mg/dL (8.4-10.2); Carbon Dioxide 31 mmol/L (22-30); Chloride 96 mmol/L (98-107); Glucose 193 mg/dL (74-99); Non-African American GFR(CKD) >90 (>60 ml/min/1.73 sqM); Potassium 4.5 mmol/L (3.5-5.1); Sodium 131 mmol/L (137-145)
[2019-12-31] MEDS ORDERED: APIXABAN 5 MG TAB PO SCH (09:00)
[2019-12-31] MEDS ORDERED: METOPROLOL TARTRATE 25 MG TAB PO SCH (09:00)
[2019-12-31 09:02] VITALS: RESP 18
[2019-12-31 11:27] VITALS: BMI 29.7
[2019-12-31] MEDS ORDERED: SODIUM CHLORIDE 0.9% 1,000 ML IV SCH (14:30)
[2019-12-31] MEDS ORDERED: SODIUM CHLORIDE 0.9% 1,000 ML IV ONE (14:32)
[2019-12-31] MEDS ORDERED: IPRATROPIUM-ALBUTEROL 3 ML NEB INHALATION PRN (14:33)
[2019-12-31] MEDS ORDERED: HYDROcodone/APAP 5-325MG 1 EACH TAB PO PRN (14:44)
--- NOTE | 2019-12-31 15:13 | P.DS ---
Providers Date of admission: 12/31/19 01:00 Attending physician: Andrew De Leon Primary care physician: Stated None Hospital Course: As mentioned in HPI Patient Condition at Discharge: Good Plan - Discharge Summary New Discharge Prescriptions: New HYDROcodone/APAP 7.5-325MG [[place] 7.5-325] 1 tab PO Q4H PRN #20 tab PRN Reason: Pain Omeprazole [PriLOSEC] 40 mg PO AC-BRKFST #14 capsule. Albuterol Inhaler [Ventolin Hfa Inhaler] 2 puff INHALATION RT-QID PRN #1 inhaler PRN Reason: Shortness Of Breath Or Wheezing No Action Famotidine [Pepcid] 20 mg PO DAILY PRN PRN Reason: Heartburn Metoprolol Tartrate [Lopressor] 25 mg PO BID #60 tab Apixaban [Eliquis] 5 mg PO BID 30 Days #60 tab Discharge Medication List Famotidine [Pepcid] 20 mg PO DAILY PRN 10/21/19 [History] Metoprolol Tartrate [Lopressor] 25 mg PO BID #60 tab 10/30/19 [Rx] Apixaban [Eliquis] 5 mg PO BID 30 Days #60 tab 11/06/19 [Rx] Albuterol Inhaler [Ventolin Hfa Inhaler] 2 puff INHALATION RT-QID PRN #1 inhaler 12/31/19 [Rx] HYDROcodone/APAP 7.5-325MG [[place] 7.5-325] 1 tab PO Q4H PRN #20 tab 12/31/19 [Rx] Omeprazole [PriLOSEC] 40 mg PO AC-BRKFST #14 capsule. 12/31/19 [Rx] Follow up Appointment(s)/Referral(s): Adrian Mar MD [STAFF PHYSICIAN] - 1 Week Monica Roth MD [STAFF PHYSICIAN] - 3 Days Discharge Disposition: HOME SELF-CARE
--- NOTE | 2019-12-31 15:13 | P.HPIM ---
History of Present Illness Patient is admitted for syncope. Patient had asthma symptoms will episodes in the past patient appears to have micturition syncope she recently while urinating. Patient has history of atrial fibrillation patient is presently rate controlled at this time. Patient is on 2.5 mg of Eliquis. Patient also appears to be clinically dehydrated mild hyponatremia patient will be given IV fluids. Patient is complaining of left hip pain we'll obtain a imaging of the left hip. If it doesn't show any significant abnormality and if patient is able to tap ambulate well without any assist patient will be discharged today. Patient will be given IV fluids before discharge. She denied any fever chills dysuria patient does have mild leukocytosis which is reactive patient does have history of lung cancer chest x-ray showing the lung mass. Patient is supposed to get a PET scan tomorrow. Patient was extensively evaluated in the past for syncope was evaluated by cardiology in the past. Patient will follow with PCP and cardiology as outpatient. Review of Systems REVIEW OF SYSTEMS: CONSTITUTIONAL: No fever, no malaise, no fatigue. HEENT: No recent visual problems or hearing problems. Denied any sore throat. CARDIOVASCULAR: No chest pain, orthopnea, PND, no palpitations. PULMONARY: No shortness of breath, no cough, no hemoptysis. GASTROINTESTINAL: No diarrhea, no nausea, no vomiting, no abdominal pain. NEUROLOGICAL: No headaches, no weakness, no numbness. HEMATOLOGICAL: Denies any bleeding or petechiae. GENITOURINARY: Denies any burning micturition, frequency, or urgency. MUSCULOSKELETAL/RHEUMATOLOGICAL: Denies any joint pain, swelling, or any muscle pain. ENDOCRINE: Denies any polyuria or polydipsia. The rest of the 14-point review of systems is negative. Past Medical History Past Medical History: Atrial Fibrillation, COPD, Deep Vein Thrombosis (DVT), GERD/Reflux, Osteoarthritis (OA), Pulmonary Embolus (PE), Syncope Additional Past Medical History / Comment(s): vertigo, hypotension, recently diagnosed with afib, Lung CA History of Any Multi-Drug Resistant Organisms: None Reported Past Surgical History: Tubal Ligation Past Anesthesia/Blood Transfusion Reactions: Previous Problems w/ Anesthesia Additional Past Anesthesia/Blood Transfusion Reaction / Comment(s): hard time waking up Past Psychological History: No Psychological Hx Reported Smoking Status: Former smoker Past Alcohol Use History: None Reported Additional Past Alcohol Use History / Comment(s): quit smoking 4 almost 5 years. Past Drug Use History: None Reported - Past Family History Mother Family Medical History: Dementia Medications and Allergies Home Medications Medication Instructions Recorded Confirmed Type Famotidine [Pepcid] 20 mg PO DAILY PRN 10/21/19 12/31/19 History Metoprolol Tartrate [Lopressor] 25 mg PO BID #60 tab 10/30/19 12/31/19 Rx Apixaban [Eliquis] 5 mg PO BID 30 Days #60 tab 11/06/19 12/31/19 Rx HYDROcodone/APAP 7.5-325MG [[place] 1 tab PO Q4H PRN #20 tab 12/31/19 Rx 7.5-325] Allergies Allergy/AdvReac Type Severity Reaction Status Date / Time Iodine and Iodide Containing Allergy Anaphylaxis Verified 12/31/19 08:43 Produc tomato Allergy Rash/Hives Verified 12/31/19 08:43 dial soap Allergy Rash/Hives Uncoded 12/31/19 08:43 Physical Exam Vitals: Vital Signs Temp Pulse Pulse Resp BP BP Pulse Ox 12/31/19 09:00 97.8 F 90 18 101/67 95 12/31/19 02:30 97.8 F 70 107/65 97 12/31/19 02:27 97.8 F 70 107/65 97 12/31/19 01:00 82 16 113/72 97 12/30/19 23:52 84 22 116/69 92 L Intake and Output 12/31/19 12/31/19 12/31/19 06:59 14:59 22:59 Output Total 100 Balance -100 Output: Urine 100 Other: # Voids 1 Weight 66.678 kg 66.678 kg PHYSICAL EXAMINATION: GENERAL: The patient is alert and oriented x3, not in any acute distress. Well developed, well nourished. HEENT: Pupils are round and equally reacting to light. EOMI. No scleral icterus. No conjunctival pallor. Normocephalic, atraumatic. No pharyngeal erythema. No thyromegaly. CARDIOVASCULAR: S1 and S2 present. No murmurs, rubs, or gallops. PULMONARY: Mildly diminished air entry into bilateral lung mcgee ABDOMEN: Soft, nontender, nondistended, normoactive bowel sounds. No palpable organomegaly. MUSCULOSKELETAL: No joint swelling or deformity. EXTREMITIES: No cyanosis, clubbing, or pedal edema. NEUROLOGICAL: Gross neurological examination did not reveal any focal deficits. SKIN: No rashes. Results CBC & Chem 7: 12/31/19 00:57 12/31/19 00:57 Labs: Abnormal Lab Results - Last 24 Hours (Table) 12/31/19 12/31/19 Range/Units 00:57 00:57 WBC 15.5 H (3.8-10.6) k/uL RBC 3.55 L (3.80-5.40) m/uL Hgb 8.5 L (11.4-16.0) gm/dL Hct 29.0 L (34.0-46.0) % MCH 23.8 L (25.0-35.0) pg MCHC 29.1 L (31.0-37.0) g/dL RDW 16.7 H (11.5-15.5) % Plt Count 575 H (150-450) k/uL Neutrophils # 12.8 H (1.3-7.7) k/uL Eosinophils # 0.8 H (0-0.7) k/uL Sodium 131 L (137-145) mmol/L Chloride 96 L (98-107) mmol/L Carbon Dioxide 31 H (22-30) mmol/L Glucose 193 H (74-99) mg/dL Thrombosis Risk Factor Assmnt - Choose All That Apply Each Factor Represents 1 point: Obesity (BMI >25) Each Risk Factor Represents 2 Points: Age 61-74 years Thrombosis Risk Factor Assessment Total Risk Factor Score: 3 Thrombosis Risk Factor Assessment Level: Moderate Risk Assessment and Plan Plan: -Syncope: Probably micturition syncope is hypovolemic as well with low blood pressure and hyponatremia and mildly dry mucous membranes patient will be hydrated as mentioned above and will be discharged today. Patient has a PET scan scheduled tomorrow. -Left hip pain probably osteoarthritis Will opt any chest hip x-ray make sure there are no metastatic lesions to the hip -Leukocytosis reactive in nature -Atrial relation presently rate controlled on anticoagulation which will be con tinued. -Recently diagnosed lung cancer for which patient is not on any treatment yet has not initiated any treatment yet. -history of DVT and PE in the past Patient appears to be bit weak clinically will ablate the patient if patient is strong enough and if if the x-rays are negative patient will be hydrated and discharged today
--- NOTE | 2019-12-31 15:15 | XR ---
EXAMINATION TYPE: XR Hip Complete LT DATE OF EXAM: 12/31/2019 COMPARISON: 12/30/2019 [facility] HISTORY: Left hip pain x1 week TECHNIQUE: 2 view left hip FINDINGS: No acute or subacute fracture or dislocation is evident. Femoral head articulates with the acetabulum. IMPRESSION: 1. No acute osseous abnormality left hip
[2019-12-31 17:00] VITALS: BP 104/67; PULSE 94; TEMP 97.9
== END 2019-12-31 19:51 | disposition home or self-care (01) ==
LOC: EC 23:51 → 3NCARDOBS 12-31 01:00
PROVIDERS: ADMIT Hospitalist; ATTEND Hospitalist
DX: R55 Syncope and collapse (principal); R39.198 Other difficulties with micturition; I48.91 Unspecified atrial fibrillation; E87.1 Hypo-osmolality and hyponatremia; M25.552 Pain in left hip; D72.829 Elevated white blood cell count, unspecified; Z85.118 Personal history of other malignant neoplasm of bronchus and lung; J44.9 Chronic obstructive pulmonary disease, unspecified; Z86.718 Personal history of other venous thrombosis and embolism; K21.9 Gastro-esophageal reflux disease without esophagitis; M19.90 Unspecified osteoarthritis, unspecified site; Z86.711 Personal history of pulmonary embolism; I95.9 Hypotension, unspecified; Z87.891 Personal history of nicotine dependence; Z81.8 Family history of other mental and behavioral disorders; Z79.01 Long term (current) use of anticoagulants; Z79.899 Other long term (current) drug therapy; Z79.891 Long term (current) use of opiate analgesic; Z91.018 Allergy to other foods; Z91.048 Other nonmedicinal substance allergy status
CPT/HCPCS: 93005 ×2; 99285; 36415; 80048; 84484; 85025; 73502; G0378

== ENCOUNTER → 2020-01-01 | Outpatient (CLI) | payer MEDICARE, OTHER ==
--- NOTE | 2020-01-04 11:29 | PE ---
Nuclear medicine PET/CT HISTORY: Cancer of the lung, C 34.82, initial Patient received 12.4 mCi F-18 FDG intravenously and delayed scanning was performed from the skull ba se to the mid thighs. Localization and attenuation correction CT scan was performed., Comparison to c hest CT dated 10/23/2019 Chest and neck: The left upper lobe mass shows hypermetabolic uptake consistent with patient's histor y of lung carcinoma. No additional hypermetabolic uptake. No evident pleural or pericardial effusion. No additional lung mass. No axillary, supraclavicular, or evident additional mediastinal uptake. ABDOMEN: There is no adrenal mass. No evident liver mass or retroperitoneal adenopathy, no suspicious uptake. There is no ascites. Gallstone is noted incidentally. Osseous structures show no suspicious uptake. IMPRESSION: Findings consistent with patient's history of lung carcinoma.
== END | disposition home or self-care (01) ==
LOC: RADPETMAIN 13:47
PROVIDERS: ATTEND Internal Medicine Hematology & Oncology
DX: C34.82 Malignant neoplasm of overlapping sites of left bronchus and lung (principal)
CPT/HCPCS: 78815; A9552

== ENCOUNTER 2020-01-14 23:22 | Inpatient (IN) | payer MEDICARE, OTHER ==
[2020-01-14] MEDS ORDERED: PNEUMONIA PROTOCOL UTILIZED 1 EACH MISC PO PRN (23:30)
--- NOTE | 2020-01-14 23:40 | ED ---
SOB HPI - General Stated Complaint: COPD Time Seen by Provider: 01/14/20 23:26 Source: patient, EMS Mode of arrival: EMS - History of Present Illness MD Complaint: shortness of breath, cough, chest pain -: days(s) Severity: mild Quality: aching Consistency: constant Improves With: oxygen, bronchodilators Worsens With: nothing Known History Of: COPD, other (Lungs) Associated Symptoms: chest pain, cough Treatments Prior to Arrival: oxygen, bronchodilator, other - Related Data Home Medications Medication Instructions Recorded Confirmed Famotidine [Pepcid] 20 mg PO DAILY PRN 10/21/19 12/31/19 Previous Rx's Medication Instructions Recorded Metoprolol Tartrate [Lopressor] 25 mg PO BID #60 tab 10/30/19 Apixaban [Eliquis] 5 mg PO BID 30 Days #60 tab 11/06/19 Albuterol Inhaler [Ventolin Hfa 2 puff INHALATION RT-QID PRN #1 12/31/19 Inhaler] inhaler HYDROcodone/APAP 7.5-325MG [[place] 1 tab PO Q4H PRN #20 tab 12/31/19 7.5-325] Omeprazole [PriLOSEC] 40 mg PO AC-BRKFST #14 capsule. 12/31/19 Allergies Allergy/AdvReac Type Severity Reaction Status Date / Time Iodine and Iodide Containing Allergy Anaphylaxis Verified 12/31/19 08:43 Produc tomato Allergy Rash/Hives Verified 12/31/19 08:43 dial soap Allergy Rash/Hives Uncoded 12/31/19 08:43 Review of Systems ROS Statement: Those systems with pertinent positive or pertinent negative responses have been documented in the HPI. ROS Other: All systems not noted in ROS Statement are negative. Constitutional: Reports: weakness. Denies: fever, chills Respiratory: Reports: cough, dyspnea, wheezes. Denies: hemoptysis Cardiovascular: Reports: chest pain. Denies: palpitations, dyspnea on exertion, orthopnea, edema, syncope Gastrointestinal: Denies: abdominal pain, nausea, vomiting, diarrhea Genitourinary: Denies: dysuria, hematuria Musculoskeletal: Denies: back pain Skin: Denies: rash Neurological: Denies: headache, weakness, numbness Past Medical History Past Medical History: Atrial Fibrillation, COPD, Deep Vein Thrombosis (DVT), GERD/Reflux, Osteoarthritis (OA), Pulmonary Embolus (PE), Syncope Additional Past Medical History / Comment(s): vertigo, hypotension, recently diagnosed with afib a week ago- started on amio PO at this time. History of Any Multi-Drug Resistant Organisms: None Reported Past Surgical History: Tubal Ligation Past Anesthesia/Blood Transfusion Reactions: Previous Problems w/ Anesthesia Additional Past Anesthesia/Blood Transfusion Reaction / Comment(s): hard time waking up Past Psychological History: No Psychological Hx Reported Smoking Status: Former smoker Past Alcohol Use History: None Reported Past Drug Use History: None Reported - Past Family History Mother Family Medical History: Dementia General Exam General appearance: alert, in no apparent distress Head exam: Present: atraumatic, normocephalic Eye exam: Present: normal appearance. Absent: scleral icterus, conjunctival injection ENT exam: Present: normal oropharynx Neck exam: Present: normal inspection Respiratory exam: Present: wheezes. Absent: respiratory distress, rhonchi, stridor Cardiovascular Exam: Present: regular rate, normal rhythm, normal heart sounds. Absent: systolic murmur, diastolic murmur, rubs, gallop GI/Abdominal exam: Present: soft. Absent: distended, tenderness, guarding, rebound, rigid, mass Extremities exam: Present: normal inspection, normal capillary refill. Absent: pedal edema, calf tenderness Back exam: Present: normal inspection. Absent: CVA tenderness (R), CVA tenderness (L) Neurological exam: Present: alert Skin exam: Present: warm, dry, intact, normal color. Absent: rash Course Vital Signs 01/14/20 23:26 Temperature 98.1 F Pulse Rate 95 Respiratory 17 Rate Blood Pressure 106/67 O2 Sat by Pulse 94 L Oximetry Medical Decision Making - Medical Decision Making This patient is 69-year-old woman who presented to [facility] this afternoon/evening with complaint of shortness of breath and cough. The patient was diagnosed in October with left lung cancer. She also has history of COPD. The patient was seen there and found to be hypoxic on room air. Chest x-ray does show left sided mass/infiltrate. The patient was started on Zosyn therefore possible pneumonia steroids for COPD exacerbation, and transferred [facility] for further evaluation and treatment. When I interview the patient, she states that her breathing does feel better following treatment and on the oxygen. She states she does not have any new chest pain, she does have some aching at the upper portion of the left chest that she states has been present since she had been diagnosed with the cancer. She states that she is taking hydrocodone for this and that it does relieve the pain. She has not noted fever or chills. She does have cough but no change in her sputum. No leg pain or swelling Disposition Clinical Impression: Pneumonia, COPD (chronic obstructive pulmonary disease), Lung cancer Disposition: ADMITTED IP TO THIS HOSP Condition: Fair Is patient prescribed a controlled substance at d/c from ED?: No Referrals: Monica Roth MD [Primary Care Provider] - 1-2 days
[2020-01-14] MEDS ORDERED: HYDROcodone/APAP 7.5-325MG 1 EACH TAB PO ONE (23:52)
[2020-01-14] MEDS: ALBUTEROL NEBULIZED 2.5 MG/3 ML INHALATION PRN (23:59)
[2020-01-15] MEDS: ALBUTEROL NEBULIZED 2.5 MG/3 ML INHALATION PRN (00:01)
[2020-01-15] MEDS ORDERED: FAMOTIDINE 20 MG TAB PO PRN (00:05)
[2020-01-15] MEDS ORDERED: HYDROcodone/APAP 7.5-325MG 1 EACH TAB PO PRN (00:05)
[2020-01-15] MEDS: PANTOPRAZOLE 40 MG TABLET PO SCH (06:42)
[2020-01-15 07:56] LABS: Glucose,Whole Blood 181 mg/dL (75-99)
[2020-01-15] MEDS ORDERED: PIPERACILLIN-TAZOBACTAM 3.375 GM in SODIUM CHLORIDE 0.9% 100 ML IVPB SCH (08:00)
[2020-01-15] MEDS: AZITHROMYCIN 500 MG TAB PO SCH (08:23)
[2020-01-15] MEDS: APIXABAN 5 MG TAB PO SCH ×2 (08:23→20:42)
[2020-01-15] MEDS ORDERED: SODIUM CHLORIDE 0.9% 500 ML 500 ML IV ONE (08:30)
[2020-01-15] MEDS ORDERED: DILTIAZEM 5 MG/ML 5 ML VIAL IVP STA (08:46)
[2020-01-15] MEDS: IPRATROPIUM-ALBUTEROL 3 ML NEB INHALATION SCH ×4 (08:59→19:34)
[2020-01-15] MEDS ORDERED: METOPROLOL TARTRATE 25 MG TAB PO SCH (09:00)
[2020-01-15] MEDS ORDERED: HEPARIN SODIUM,PORCINE 5,000 UNIT/ML 1 ML VIAL SQ SCH (09:00)
[2020-01-15] MEDS: DILTIAZEM 125 MG in SODIUM CHLORIDE 0.9% 100 ML IV SCH (09:13)
[2020-01-15] MEDS: SODIUM CHLORIDE 0.9% 1,000 ML IV SCH (09:15)
[2020-01-15 09:52] LABS: Calcium 9.5 mg/dL (8.4-10.2)
[2020-01-15 10:05] LABS: Anisocytosis Slight; Basophils # (A) 0.1 k/uL (0-0.2); Basophils % (A) 1 %; Eosinophils # (A) 0.3 k/uL (0-0.7); Eosinophils % (A) 2 %; HCT 33.1 % (34.0-46.0); HGB 9.2 gm/dL (11.4-16.0); Hypochromasia Marked; Lymphocytes # (A) 0.9 k/uL (1.0-4.8); Lymphocytes % (A) 6 %; MCH 24.6 pg (25.0-35.0); MCHC 27.8 g/dL (31.0-37.0); Mean Platelet Volume 7.2; Monocytes # (A) 0.8 k/uL (0-1.0); Monocytes % (A) 5 %; Neutrophils % (A) 85 %; Platelet Count 576 k/uL (150-450); RBC 3.74 m/uL (3.80-5.40); RDW 16.4 % (11.5-15.5); WBC 15.3 k/uL (3.8-10.6)
[2020-01-15 10:09] LABS: MCV 88.5 fL (80.0-100.0)
[2020-01-15 10:25] LABS: Creatine Kinase MB 0.6 ng/mL (0.0-2.4); Troponin I <0.012 ng/mL (0.000-0.034)
--- NOTE | 2020-01-15 10:35 | XR ---
EXAMINATION TYPE: XR chest 1V portable DATE OF EXAM: 01/15/2020 Comparison: 01/14/2020 History: 69-year-old female Pneumonia Findings: Heart borderline enlarged. Large focal area of opacity at the left midlung. No other consolidation or pleural effusion. Impression: 1. Borderline heart size. 2. Redemonstrated large focal opacity at the left midlung.
[2020-01-15 10:37] LABS: Creatine Kinase <20 U/L (30-135)
--- NOTE | 2020-01-15 11:37 | P.CRDCN ---
<Wandy Pepe - Last Filed: 01/15/20 11:31> History of Present Illness Consult date: 01/15/20 History of present illness: CHIEF COMPLAINT: Afib RVR HISTORY OF PRESENT ILLNESS: This is a 69-year old female with a past medical history significant for paroxysmal atrial fibrillation, COPD, DVT, and recent diagnosis of lung cancer. Patient follows in the office with Dr. Mar. We have been asked to see the patient in consultation for afib with RVR. Patient was admitted to the hospital for shortness of breath and possible pneumonia. Per nursing, patient was using the commode this morning. The patient stood up after using the commode and became pale, diaphoretic and limp. The patient had to be assisted back to bed. Her blood pressure was found to be in the 70s. Heart rate revealed atrial fibrillation with RVR. Hence, cardiology consultation was requested. Patient examined at the bedside. She is currently receiving a 500 mL bolus. She continues to have an uncontrolled heart rate. She received her morning dose of metoprolol a few minutes ago per nursing. Apparently the patient did not receive her dose of metoprolol last night. She currently denies chest pain or pressure. DIAGNOSTICS: Bedside telemetry reveals A. fib with RVR Chest xray borderline heart size. Large redemonstrated large focal opacity at the left midlung Laboratory data: WBC 15.3. Hemoglobin 9.2. Platelet count 576. Sodium 129. Potassium 5.0. BUN 18. Creatinine 0.80. Lactic acid 1.8. Troponin negative 1 Current home cardiac medications include metoprolol 25 mg BID and Eliquis 5 mg BID Echocardiogram completed in October 2019 reveals ejection fraction between 60 and 65%, mild aortic stenosis, and mild tricuspid regurgitation. REVIEW OF SYSTEMS: At the time of my exam: CONSTITUTIONAL: Denies fever or chills. HEENT: Denies blurred vision, vision changes, or eye pain. Denies hemoptysis CARDIOVASCULAR: Denies chest pain, orthopnea, PND or palpitations RESPIRATORY: No shortness of breath. GASTROINTESTINAL: Denies abdominal pain. Denies nausea or vomiting. HEMATOLOGIC: Denies bleeding disorders. GENITOURINARY: Denies any blood in urine. SKIN: Denies pruitis. Denies rash. PHYSICAL EXAM: VITAL SIGNS: Reviewed. GENERAL: Well-developed in no acute distress. HEENT: Head is normocephalic. Pupils are equal, round. Sclerae anicteric. Mucous membranes of the mouth are moist. Neck supple. No JVD or thyromegaly LUNGS: Respirations even and unlabored. Lungs essentially clear to auscultation bilaterally. HEART: Tachycardic. Irregular rate and rhythm. S1 and S2 heard. ABDOMEN: Soft. Nondistended. Nontender. EXTREMITIES: Normal range of motion. No clubbing or cyanosis. Peripheral pulses intact. No lower extremity edema NEUROLOGIC: Awake and alert. Oriented x 3. ASSESSMENT: Paroxysmal atrial fibrillation with RVR Pre-syncope, suspect vasovagal in nature Hypotension Lung cancer History of nicotine dependence PLAN: Agreeable to patient receiving 500cc bolus Monitor blood pressure Begin cardizem drip at 5mg/hr Increase metoprolol to 50mg BID Repeat 2D echo to assess cardiac structure and function Nurse practitioner note has been reviewed by physician. Signing provider agrees with the documented findings, assessment, and plan of care. Past Medical History Past Medical History: Atrial Fibrillation, COPD, Deep Vein Thrombosis (DVT), GERD/Reflux, Osteoarthritis (OA), Pulmonary Embolus (PE), Syncope Additional Past Medical History / Comment(s): vertigo, hypotension, recently diagnosed with afib a week ago- started on amio PO at this time. History of Any Multi-Drug Resistant Organisms: None Reported Past Surgical History: Tubal Ligation Past Anesthesia/Blood Transfusion Reactions: Previous Problems w/ Anesthesia Additional Past Anesthesia/Blood Transfusion Reaction / Comment(s): hard time waking up Past Psychological History: No Psychological Hx Reported Smoking Status: Former smoker Past Alcohol Use History: None Reported Additional Past Alcohol Use History / Comment(s): quit smoking 4 almost 5 years. Past Drug Use History: None Reported - Past Family History Mother Family Medical History: Dementia Medications and Allergies Home Medications Medication Instructions Recorded Confirmed Type Famotidine [Pepcid] 20 mg PO DAILY PRN 10/21/19 01/15/20 History Metoprolol Tartrate [Lopressor] 25 mg PO BID #60 tab 10/30/19 01/15/20 Rx Apixaban [Eliquis] 5 mg PO BID 30 Days #60 tab 11/06/19 01/15/20 Rx HYDROcodone/APAP 7.5-325MG [[place] 1 tab PO Q4H PRN #20 tab 12/31/19 01/15/20 Rx 7.5-325] Omeprazole [PriLOSEC] 40 mg PO AC-BRKFST #14 capsule. 12/31/19 01/15/20 Rx Allergies Allergy/AdvReac Type Severity Reaction Status Date / Time Iodine and Iodide Containing Allergy Anaphylaxis Verified 01/15/20 07:50 Produc tomato Allergy Rash/Hives Verified 01/15/20 07:50 dial soap Allergy Rash/Hives Uncoded 12/31/19 08:43 Physical Exam Vitals: Vital Signs Temp Pulse Pulse Resp BP BP Pulse Ox 01/15/20 03:00 98 F 90 18 94/60 99 01/15/20 01:00 97.3 F L 98 18 95/61 92 L 01/15/20 00:35 99.1 F 101 H 18 123/73 98 01/15/20 00:08 84 01/15/20 00:00 86 01/14/20 23:26 98.1 F 95 17 106/67 94 L Intake and Output 01/14/20 01/15/20 01/15/20 22:59 06:59 14:59 Other: Voiding Method Bedside Commode # Voids 1 Weight 66.678 kg Results 01/15/20 09:19 01/15/20 09:19 Current Medications Generic Name Dose Route Start Last Admin Trade Name Freq PRN Reason Stop Dose Admin Hydrocodone Bitart/Acetaminophen 1 each 01/15/20 00:05 Hydrocodone/Apap 7.5-325mg 1 Each Tab PO Q4H PRN Pain Albuterol Sulfate 2.5 mg 01/14/20 23:30 01/15/20 00:01 Albuterol Nebulized 2.5 Mg/3 Ml INHALATION 2.5 mg RT-Q4H PRN Administration Shortness Of Breath Or Wheezing Albuterol/Ipratropium 3 ml 01/15/20 08:00 Ipratropium-Albuterol 3 Ml Neb INHALATION RT-QID SHY Apixaban 5 mg 01/15/20 09:00 01/15/20 08:23 Apixaban 5 Mg Tab PO 5 mg BID SHY Administration Azithromycin 500 mg 01/15/20 09:00 01/15/20 08:23 Azithromycin 500 Mg Tab PO 500 mg DAILY SHY Administration Famotidine 20 mg 01/15/20 00:05 Famotidine 20 Mg Tab PO DAILY PRN Heartburn Piperacillin Sod/Tazobactam 100 mls @ 25 mls/hr 01/15/20 08:00 Sod 3.375 gm/ Sodium Chloride IVPB Q8HR SHY Sodium Chloride 500 mls @ 999 mls/hr 01/15/20 08:30 Saline 0.9% IV 01/15/20 09:00 .Q31M ONE Sodium Chloride 1,000 mls @ 100 mls/hr 01/15/20 08:30 Saline 0.9% IV .Q10H SHY Diltiazem HCl 125 mg/ Sodium 125 mls @ 5 mls/hr 01/15/20 09:00 Chloride IV .Q24H SHY 5 MG/HR Metoprolol Tartrate 25 mg 01/15/20 09:00 01/15/20 08:23 Metoprolol Tartrate 25 Mg Tab PO 25 mg BID SHY Administration Miscellaneous Information 1 each 01/14/20 23:30 Pneumonia Protocol Utilized 1 Each Misc PO ONCE PRN Per Protocol Pantoprazole Sodium 40 mg 01/15/20 07:30 01/15/20 06:42 Pantoprazole 40 Mg Tablet PO 40 mg AC-BRKFST SHY Administration Intake and Output 01/14/20 01/15/20 01/15/20 22:59 06:59 14:59 Other: Voiding Method Bedside Commode # Voids 1 Weight 66.678 kg <Kushal Mackay - Last Filed: 01/15/20 17:20> History of Present Illness History of present illness: Agree with history, physical and assessment and plan as above. Patient predominantly presented with shortness of breath, cough, chills. Elevated white blood cell count and chest x-ray showing possible pneumonia versus patient's lung cancer. May be presyncopal due to infection versus component of dehydration. Continue with IV fluids and increase rate controlling medications as able. Continue anticoagulation with Eliquis. Further recommendations to follow. Kushal Mackay D.O. Physical Exam Vitals: Vital Signs Temp Pulse Pulse Pulse Resp BP BP 01/15/20 16:04 78 01/15/20 15:54 78 01/15/20 12:43 70 20 01/15/20 11:03 64 16 01/15/20 10:49 63 93/57 01/15/20 10:39 104 H 16 01/15/20 10:32 117 H 16 01/15/20 10:25 122 H 16 01/15/20 10:14 123 H 18 01/15/20 10:01 131 H 108/82 01/15/20 08:30 144 H 18 01/15/20 08:15 18 01/15/20 08:10 01/15/20 08:00 97.5 F L 100 20 106/63 01/15/20 03:00 98 F 90 18 01/15/20 01:00 97.3 F L 98 18 01/15/20 00:35 99.1 F 101 H 18 123/73 01/15/20 00:08 84 01/15/20 00:00 86 01/14/20 23:26 98.1 F 95 17 106/67 BP Pulse Ox 01/15/20 16:04 01/15/20 15:54 01/15/20 12:43 90/64 94 L 01/15/20 11:03 95/59 96 01/15/20 10:49 01/15/20 10:39 116/54 96 01/15/20 10:32 82/61 96 01/15/20 10:25 91/62 96 01/15/20 10:14 99/65 96 01/15/20 10:01 01/15/20 08:30 92/50 01/15/20 08:15 01/15/20 08:10 80/50 01/15/20 08:00 100 01/15/20 03:00 94/60 99 01/15/20 01:00 95/61 92 L 01/15/20 00:35 98 01/15/20 00:08 01/15/20 00:00 01/14/20 23:26 94 L Intake and Output 01/15/20 01/15/20 01/15/20 06:59 14:59 22:59 Intake Total 8.667 Output Total 200 Balance -191.333 Intake: Intake, IV Titration 8.667 Amount Diltiazem 125 mg In 8.667 Sodium Chloride 0.9% 100 ml @ 10 MG/HR 10 mls/hr IV .[id number] [facility] Rx#: [id number] Output: Urine 200 Other: Voiding Method Bedside Commode Bedside Commode # Voids 1 Weight 66.678 kg Results 01/15/20 09:19 01/15/20 09:19 Cardiac Enzymes 01/15/20 01/15/20 Range/Units 09:19 14:09 Lactate Dehydrogenase 303 L (313-618) U/L CK-MB (CK-2) 0.6 (0.0-2.4) ng/mL Troponin I <0.012 (0.000-0.034) ng/mL CBC 01/15/20 Range/Units 09:19 WBC 15.3 H (3.8-10.6) k/uL RBC 3.74 L (3.80-5.40) m/uL Hgb 9.2 L (11.4-16.0) gm/dL Hct 33.1 L (34.0-46.0) % Plt Count 576 H (150-450) k/uL Comprehensive Metabolic Panel 01/15/20 Range/Units 09:19 Sodium 129 L (137-145) mmol/L Potassium 5.0 (3.5-5.1) mmol/L Chloride 96 L (98-107) mmol/L Carbon Dioxide 23 (22-30) mmol/L BUN 18 H (7-17) mg/dL Creatinine 0.80 (0.52-1.04) mg/dL Glucose 178 H (74-99) mg/dL Calcium 9.5 (8.4-10.2) mg/dL Current Medications Generic Name Dose Route Start Last Admin Trade Name Freq PRN Reason Stop Dose Admin Hydrocodone Bitart/Acetaminophen 1 each 01/15/20 00:05 Hydrocodone/Apap 7.5-325mg 1 Each Tab PO Q4H PRN Pain Albuterol Sulfate 2.5 mg 01/14/20 23:30 01/15/20 00:01 Albuterol Nebulized 2.5 Mg/3 Ml INHALATION 2.5 mg RT-Q4H PRN Administration Shortness Of Breath Or Wheezing Albuterol/Ipratropium 3 ml 01/15/20 08:00 01/15/20 15:54 Ipratropium-Albuterol 3 Ml Neb INHALATION 3 ml RT-QID SHY Administration Apixaban 5 mg 01/15/20 09:00 01/15/20 08:23 Apixaban 5 Mg Tab PO 5 mg BID SHY Administration Azithromycin 500 mg 01/15/20 09:00 01/15/20 08:23 Azithromycin 500 Mg Tab PO 500 mg DAILY SHY Administration Diphenhydramine HCl 50 mg 01/15/20 17:16 Diphenhydramine 50 Mg/Ml 1 Ml Vial IVP 01/15/20 17:17 ONCE ONE Famotidine 20 mg 01/15/20 00:05 Famotidine 20 Mg Tab PO DAILY PRN Heartburn Famotidine 20 mg 01/15/20 17:16 Famotidine 20 Mg/2 Ml Vial IV 01/15/20 17:17 ONCE ONE Sodium Chloride 1,000 mls @ 100 mls/hr 01/15/20 08:30 01/15/20 09:15 Saline 0.9% IV 100 mls/hr .Q10H SHY Administration Diltiazem HCl 125 mg/ Sodium 125 mls @ 10 mls/hr 01/15/20 09:00 01/15/20 10:57 Chloride IV 0 mg/hr .[id number] SHY 0 mls/hr Infusion 10 MG/HR Ceftriaxone Sodium 2 gm/ 50 mls @ 100 mls/hr 01/15/20 09:30 01/15/20 09:32 Sodium Chloride IVPB 100 mls/hr Q24HR SHY Administration Methylprednisolone Sodium Succinate 125 mg 01/15/20 17:16 Methylprednisolone Sod Succi 125 Mg/2 Ml Vial IV 01/15/20 17:17 ONCE ONE Metoprolol Tartrate 50 mg 01/15/20 21:00 Metoprolol Tartrate 50 Mg Tab PO BID SHY Miscellaneous Information 1 each 01/14/20 23:30 Pneumonia Protocol Utilized 1 Each Misc PO ONCE PRN Per Protocol Pantoprazole Sodium 40 mg 01/15/20 07:30 01/15/20 06:42 Pantoprazole 40 Mg Tablet PO 40 mg AC-BRKFST SHY Administration Intake and Output 01/15/20 01/15/20 01/15/20 06:59 14:59 22:59 Intake Total 8.667 Output Total 200 Balance -191.333 Intake: Intake, IV Titration 8.667 Amount Diltiazem 125 mg In 8.667 Sodium Chloride 0.9% 100 ml @ 10 MG/HR 10 mls/hr IV .[id number] SHY Rx#: [id number] Output: Urine 200 Other: Voiding Method Bedside Commode Bedside Commode # Voids 1 Weight 66.678 kg 01/15/20 09:19 01/15/20 09:19
--- NOTE | 2020-01-15 13:19 | P.HPIM ---
History of Present Illness 69-year-old female came in with complaints of Torri sinus and weakness was seen at the [facility] was transferred here for possible pneumonia patient has significant infiltrate in the left side which is probably secondary to lung cancer. Patient does have lung cancer was actually recently discharged from the hospital a few weeks ago after she was treated for hyponatremia.. Patient was later found to be in atrial correlation with rapid ventricular rate patient is also hyponatremic patient will be given IV fluids patient was a bolus with IV fluids. Patient was started on Cardizem cardiology evaluated the patient denied patient is on metoprolol which was resumed denies any chest pain at this time. Patient looks really tired and weak. She is comparing of cough some sputum production. Review of Systems REVIEW OF SYSTEMS: CONSTITUTIONAL: As mentioned above HEENT: No recent visual problems or hearing problems. Denied any sore throat. CARDIOVASCULAR: No chest pain, orthopnea, PND, no palpitations, no syncope. PULMONARY: As mentioned above GASTROINTESTINAL: No diarrhea, no nausea, no vomiting, no abdominal pain. NEUROLOGICAL: No headaches, no weakness, no numbness. HEMATOLOGICAL: Denies any bleeding or petechiae. GENITOURINARY: Denies any burning micturition, frequency, or urgency. MUSCULOSKELETAL/RHEUMATOLOGICAL: Denies any joint pain, swelling, or any muscle pain. ENDOCRINE: Denies any polyuria or polydipsia. The rest of the 14-point review of systems is negative. Past Medical History Past Medical History: Atrial Fibrillation, COPD, Deep Vein Thrombosis (DVT), GERD/Reflux, Osteoarthritis (OA), Pulmonary Embolus (PE), Syncope Additional Past Medical History / Comment(s): vertigo, hypotension, recently diagnosed with afib a week ago- started on amio PO at this time. History of Any Multi-Drug Resistant Organisms: None Reported Past Surgical History: Tubal Ligation Past Anesthesia/Blood Transfusion Reactions: Previous Problems w/ Anesthesia Additional Past Anesthesia/Blood Transfusion Reaction / Comment(s): hard time waking up Past Psychological History: No Psychological Hx Reported Smoking Status: Former smoker Past Alcohol Use History: None Reported Additional Past Alcohol Use History / Comment(s): quit smoking 4 almost 5 years. Past Drug Use History: None Reported - Past Family History Mother Family Medical History: Dementia Medications and Allergies Home Medications Medication Instructions Recorded Confirmed Type Famotidine [Pepcid] 20 mg PO DAILY PRN 10/21/19 01/15/20 History Metoprolol Tartrate [Lopressor] 25 mg PO BID #60 tab 10/30/19 01/15/20 Rx Apixaban [Eliquis] 5 mg PO BID 30 Days #60 tab 11/06/19 01/15/20 Rx HYDROcodone/APAP 7.5-325MG [[place] 1 tab PO Q4H PRN #20 tab 12/31/19 01/15/20 Rx 7.5-325] Omeprazole [PriLOSEC] 40 mg PO AC-BRKFST #14 capsule. 12/31/19 01/15/20 Rx Allergies Allergy/AdvReac Type Severity Reaction Status Date / Time Iodine and Iodide Containing Allergy Anaphylaxis Verified 01/15/20 07:50 Produc tomato Allergy Rash/Hives Verified 01/15/20 07:50 dial soap Allergy Rash/Hives Uncoded 12/31/19 08:43 Physical Exam Vitals: Vital Signs Temp Pulse Pulse Pulse Resp BP BP 01/15/20 11:03 64 16 01/15/20 10:49 63 93/57 01/15/20 10:39 104 H 16 01/15/20 10:32 117 H 16 01/15/20 10:25 122 H 16 01/15/20 10:14 123 H 18 01/15/20 10:01 131 H 108/82 01/15/20 08:30 144 H 18 01/15/20 08:15 18 01/15/20 08:10 01/15/20 08:00 97.5 F L 100 20 106/63 01/15/20 03:00 98 F 90 18 01/15/20 01:00 97.3 F L 98 18 01/15/20 00:35 99.1 F 101 H 18 123/73 01/15/20 00:08 84 01/15/20 00:00 86 01/14/20 23:26 98.1 F 95 17 106/67 BP Pulse Ox 01/15/20 11:03 95/59 96 01/15/20 10:49 01/15/20 10:39 116/54 96 01/15/20 10:32 82/61 96 01/15/20 10:25 91/62 96 01/15/20 10:14 99/65 96 01/15/20 10:01 01/15/20 08:30 92/50 01/15/20 08:15 01/15/20 08:10 80/50 01/15/20 08:00 100 01/15/20 03:00 94/60 99 01/15/20 01:00 95/61 92 L 01/15/20 00:35 98 01/15/20 00:08 01/15/20 00:00 01/14/20 23:26 94 L Intake and Output 01/14/20 01/15/20 01/15/20 22:59 06:59 14:59 Intake Total 8.667 Output Total 200 Balance -191.333 Intake: Intake, IV Titration 8.667 Amount Diltiazem 125 mg In 8.667 Sodium Chloride 0.9% 100 ml @ 10 MG/HR 10 mls/hr IV .[id number] [facility] Rx#: [id number] Output: Urine 200 Other: Voiding Method Bedside Commode Bedside Commode # Voids 1 Weight 66.678 kg PHYSICAL EXAMINATION: GENERAL: The patient is alert and oriented x3, not in any acute distress. And built appears to be fatigued HEENT: Pupils are round and equally reacting to light. EOMI. No scleral icterus. No conjunctival pallor. Normocephalic, atraumatic. No pharyngeal erythema. No thyromegaly. CARDIOVASCULAR: S1 and S2 present. No murmurs, rubs, or gallops. Atrial fibri llation with rapid ventricular rate PULMONARY: Chest is clear to auscultation, no wheezing or crackles. ABDOMEN: Soft, nontender, nondistended, normoactive bowel sounds. No palpable organomegaly. MUSCULOSKELETAL: No joint swelling or deformity. EXTREMITIES: No cyanosis, clubbing, or pedal edema. NEUROLOGICAL: Gross neurological examination did not reveal any focal deficits. SKIN: No rashes. Results CBC & Chem 7: 01/15/20 09:19 01/15/20 09:19 Labs: Abnormal Lab Results - Last 24 Hours (Table) 01/15/20 01/15/20 01/15/20 Range/Units 07:54 09:19 09:19 WBC 15.3 H (3.8-10.6) k/uL RBC 3.74 L (3.80-5.40) m/uL Hgb 9.2 L (11.4-16.0) gm/dL Hct 33.1 L (34.0-46.0) % MCH 24.6 L (25.0-35.0) pg MCHC 27.8 L (31.0-37.0) g/dL RDW 16.4 H (11.5-15.5) % Plt Count 576 H (150-450) k/uL Neutrophils # 13.0 H (1.3-7.7) k/uL Lymphocytes # 0.9 L (1.0-4.8) k/uL Sodium 129 L (137-145) mmol/L Chloride 96 L (98-107) mmol/L BUN 18 H (7-17) mg/dL Glucose 178 H (74-99) mg/dL POC Glucose (mg/dL) 181 H (75-99) mg/dL Total Creatine Kinase (30-135) U/L 01/15/20 Range/Units 09:19 WBC (3.8-10.6) k/uL RBC (3.80-5.40) m/uL Hgb (11.4-16.0) gm/dL Hct (34.0-46.0) % MCH (25.0-35.0) pg MCHC (31.0-37.0) g/dL RDW (11.5-15.5) % Plt Count (150-450) k/uL Neutrophils # (1.3-7.7) k/uL Lymphocytes # (1.0-4.8) k/uL Sodium (137-145) mmol/L Chloride (98-107) mmol/L BUN (7-17) mg/dL Glucose (74-99) mg/dL POC Glucose (mg/dL) (75-99) mg/dL Total Creatine Kinase <20 L (30-135) U/L Thrombosis Risk Factor Assmnt - Choose All That Apply Each Factor Represents 1 point: Abnormal pulmonary function (COPD) Each Risk Factor Represents 2 Points: Age 61-74 years Each Risk Factor Represents 3 Points: History of DVT/PE Thrombosis Risk Factor Assessment Total Risk Factor Score: 6 Thrombosis Risk Factor Assessment Level: High Risk Assessment and Plan Plan: Possible left left temporal lobe pneumonia possibly postobstructive pneumonia patient will be continued on Rocephin and azithromycin. -Atrial fibrillation with rapid ventricular rate: Secondary to dehydration and intravascular volume patient patient will be started and continued on IV fluids -Acute renal failure prerenal azotemia secondary to dehydration IV fluids as mentioned above -Dizziness and presyncope due to intravascular depletion continue with IV fluids as mentioned above -History of lung cancer -Generalized weakness: PT and OT consultation -History of DVT and PE in the past continue with anticoagulation with Eliquis -COPD without any acute exacerbation
[2020-01-15 14:36] LABS: Reticulocyte % 2.6 % (0.5-2.0)
[2020-01-15] MEDS ORDERED: FAMOTIDINE 20 MG/2 ML VIAL IV ONE (17:16)
[2020-01-15] MEDS ORDERED: methylPREDNISolone SOD SUCCI 125 MG/2 ML VIAL IV ONE (17:16)
[2020-01-15] MEDS ORDERED: diphenhydrAMINE 50 MG/ML 1 ML VIAL IVP ONE (17:16)
--- NOTE | 2020-01-15 19:57 | CT ---
EXAMINATION TYPE: CT angio chest DATE OF EXAM: 01/15/2020 7:15 PM COMPARISON: PET CT 01/01/2020. CT 10/23/2019. HISTORY: PE suspected. CT DLP: 228 mGycm Automated exposure control for dose reduction was used. CONTRAST: CTA scan of the thorax is performed with IV Contrast, patient injected with 100 mL of Isovue 370, pul monary embolism protocol. MIP images are created and reviewed. FINDINGS: LUNGS: There is redemonstration of a 6.8 x 6.9 cm left upper lobe mass, invading the anterior mediast inum and left hilar. The mass encases the bronchovascular structures. No significant new abnormality is seen. No pleural effusion or pneumothorax. MEDIASTINUM: There is satisfactory enhancement of the pulmonary artery and its branches, there is no CT evidence for pulmonary embolism. No pericardial effusion is seen. OTHER: No additional significant abnormality is seen. IMPRESSION: REDEMONSTRATED LARGE LEFT UPPER LOBE MASS CONSISTENT WITH HISTORY OF MALIGNANCY. OTHERWISE NO EVIDENCE OF PULMONARY EMBOLUS.
[2020-01-15] MEDS: METOPROLOL TARTRATE 50 MG TAB PO SCH (20:42)
[2020-01-15 20:47] LABS: Glucose,Whole Blood 259 mg/dL (75-99)
--- NOTE | 2020-01-15 21:56 | P.CONS ---
History of Present Illness - Reason for Consult Consult date: 01/15/20 Recent Lung cancer Diagnosis Requesting physician: Stefanie Lazaro - Chief Complaint Weak and SOB - History of Present Illness Mrs. 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 The patient was found to have a large left lung mass in 10/11, with biopsy in early 11/11 showing only differential to squamous cell cancer. CT of the chest abdomen and pelvis at that time did not show any obvious metastatic disease. There was a nonspecific 1.1 cm infrahilar ipsilateral nodes. The patient was seen in consult in 11/11 when admitted with atrial fibrillation with RVR. At that time MRI of the brain was ordered which showed no metastatic disease. The patient was scheduled to follow-up in the outpatient setting with a PET scan ordered for completion of staging. Unfortunately she was unable to get that done at the time because of insurance issues. Patient states that she was ultimately able to obtain coverage and had a PET scan scheduled for 12/25/19. Therefore she did not commit to first follow-up visit until December, Last appointment scheduled she was admitted for complaints of syncope. This has now been rescheduled for 01/19 for first outpatient visit in office. She now presents for complaints of weakness, shortness of breath and burning chest pain. She originally presented at the [facility] although was then transferred to [facility] for concern of pneumonia given the recent lung cancer diagnosis. Chest xray did reveal a significant infiltrate in the left side which is the same side of lung as the newly found cancer. Review of Systems All systems: negative Constitutional: Reports as per HPI Past Medical History Past Medical History: Atrial Fibrillation, COPD, Deep Vein Thrombosis (DVT), GERD/Reflux, Osteoarthritis (OA), Pulmonary Embolus (PE), Syncope Additional Past Medical History / Comment(s): vertigo, hypotension, recently diagnosed with afib a week ago- started on amio PO at this time. History of Any Multi-Drug Resistant Organisms: None Reported Past Surgical History: Tubal Ligation Past Anesthesia/Blood Transfusion Reactions: Previous Problems w/ Anesthesia Additional Past Anesthesia/Blood Transfusion Reaction / Comm: hard time waking up Past Psychological History: No Psychological Hx Reported Smoking Status: Former smoker Past Alcohol Use History: None Reported Additional Past Alcohol Use History / Comment(s): quit smoking 4 almost 5 years. Past Drug Use History: None Reported - Past Family History Mother Family Medical History: Dementia Medications and Allergies Home Medications Medication Instructions Recorded Confirmed Type Famotidine [Pepcid] 20 mg PO DAILY PRN 10/21/19 01/15/20 History Metoprolol Tartrate [Lopressor] 25 mg PO BID #60 tab 10/30/19 01/15/20 Rx Apixaban [Eliquis] 5 mg PO BID 30 Days #60 tab 11/06/19 01/15/20 Rx HYDROcodone/APAP 7.5-325MG [[place] 1 tab PO Q4H PRN #20 tab 12/31/19 01/15/20 Rx 7.5-325] Omeprazole [PriLOSEC] 40 mg PO AC-BRKFST #14 capsule. 12/31/19 01/15/20 Rx Allergies Allergy/AdvReac Type Severity Reaction Status Date / Time Iodine and Iodide Containing Allergy Anaphylaxis Verified 01/15/20 07:50 Produc tomato Allergy Rash/Hives Verified 01/15/20 07:50 dial soap Allergy Rash/Hives Uncoded 12/31/19 08:43 Physical Exam Vitals: Vital Signs Temp Pulse Pulse Pulse Resp BP BP 01/15/20 12:43 70 20 01/15/20 11:03 64 16 01/15/20 10:49 63 93/57 01/15/20 10:39 104 H 16 01/15/20 10:32 117 H 16 01/15/20 10:25 122 H 16 01/15/20 10:14 123 H 18 01/15/20 10:01 131 H 108/82 01/15/20 08:30 144 H 18 01/15/20 08:15 18 01/15/20 08:10 01/15/20 08:00 97.5 F L 100 20 106/63 01/15/20 03:00 98 F 90 18 01/15/20 01:00 97.3 F L 98 18 01/15/20 00:35 99.1 F 101 H 18 123/73 01/15/20 00:08 84 01/15/20 00:00 86 01/14/20 23:26 98.1 F 95 17 106/67 BP Pulse Ox 01/15/20 12:43 90/64 94 L 01/15/20 11:03 95/59 96 01/15/20 10:49 10/23/20 10:39 116/54 96 01/15/20 10:32 82/61 96 01/15/20 10:25 91/62 96 01/15/20 10:14 99/65 96 01/15/20 10:01 01/15/20 08:30 92/50 01/15/20 08:15 01/15/20 08:10 80/50 01/15/20 08:00 100 01/15/20 03:00 94/60 99 01/15/20 01:00 95/61 92 L 01/15/20 00:35 98 01/15/20 00:08 01/15/20 00:00 01/14/20 23:26 94 L Intake and Output 01/14/20 01/15/20 01/15/20 22:59 06:59 14:59 Intake Total 8.667 Output Total 200 Balance -191.333 Intake: Intake, IV Titration 8.667 Amount Diltiazem 125 mg In 8.667 Sodium Chloride 0.9% 100 ml @ 10 MG/HR 10 mls/hr IV .[id number] [facility] Rx#: [id number] Output: Urine 200 Other: Voiding Method Bedside Commode Bedside Commode # Voids 1 Weight 66.678 kg - Constitutional General appearance: cooperative, no acute distress - EENT Eyes: EOMI, PERRLA ENT: NA/AT, normal oropharynx - Neck Supple Neck: normal ROM - Respiratory Respiratory: left: wheezing, bilateral: diminished (bibasilar) - Cardiovascular Rhythm: irregularly irregular leg Peripheral Edema: bilateral: Trace - Gastrointestinal General gastrointestinal: normal bowel sounds, soft - Integumentary Integumentary: pale - Neurologic Neurologic: CNII-XII intact - Musculoskeletal Musculoskeletal: generalized weakness, strength equal bilaterally - Psychiatric Psychiatric: A&O x's 3, appropriate affect, intact judgment & insight Results CBC & Chem 7: 01/15/20 09:19 01/15/20 09:19 Labs: Abnormal Lab Results - Last 24 Hours (Table) 01/15/20 01/15/20 01/15/20 Range/Units 07:54 09:19 09:19 WBC 15.3 H (3.8-10.6) k/uL RBC 3.74 L (3.80-5.40) m/uL Hgb 9.2 L (11.4-16.0) gm/dL Hct 33.1 L (34.0-46.0) % MCH 24.6 L (25.0-35.0) pg MCHC 27.8 L (31.0-37.0) g/dL RDW 16.4 H (11.5-15.5) % Plt Count 576 H (150-450) k/uL Neutrophils # 13.0 H (1.3-7.7) k/uL Lymphocytes # 0.9 L (1.0-4.8) k/uL Sodium 129 L (137-145) mmol/L Chloride 96 L (98-107) mmol/L BUN 18 H (7-17) mg/dL Glucose 178 H (74-99) mg/dL POC Glucose (mg/dL) 181 H (75-99) mg/dL Total Creatine Kinase (30-135) U/L 01/15/20 Range/Units 09:19 WBC (3.8-10.6) k/uL RBC (3.80-5.40) m/uL Hgb (11.4-16.0) gm/dL Hct (34.0-46.0) % MCH (25.0-35.0) pg MCHC (31.0-37.0) g/dL RDW (11.5-15.5) % Plt Count (150-450) k/uL Neutrophils # (1.3-7.7) k/uL Lymphocytes # (1.0-4.8) k/uL Sodium (137-145) mmol/L Chloride (98-107) mmol/L BUN (7-17) mg/dL Glucose (74-99) mg/dL POC Glucose (mg/dL) (75-99) mg/dL Total Creatine Kinase <20 L (30-135) U/L Chest x-ray: report reviewed CT scan - chest: report reviewed Assessment and Plan (1) Non-small cell cancer of left lung Current Visit: Yes Status: Acute Code(s): C34.92 - MALIGNANT NEOPLASM OF UNSP PART OF LEFT BRONCHUS OR LUNG SNOMED Code(s): 196683058 (2) Atrial fibrillation with RVR Current Visit: No Status: Acute Code(s): I48.91 - UNSPECIFIED ATRIAL FIBRILLATION SNOMED Code(s): 608473542244628 (3) Hyponatremia Current Visit: No Status: Acute Code(s): E87.1 - HYPO-OSMOLALITY AND HYPONATREMIA SNOMED Code(s): 93135825 (4) Microcytic anemia Current Visit: Yes Status: Acute Code(s): D50.9 - IRON DEFICIENCY ANEMIA, UNSPECIFIED SNOMED Code(s): 049600367 (5) Leukocytosis Current Visit: Yes Status: Acute Code(s): D72.829 - ELEVATED WHITE BLOOD CELL COUNT, UNSPECIFIED SNOMED Code(s): 142994953 (6) Lymphocytopenia Current Visit: Yes Status: Acute Code(s): D72.810 - LYMPHOCYTOPENIA SNOMED Code(s): 79298976 Plan: Left Lung Pneumonia: - Likely secondary to post obstructive pneumonia give known Large left lung mass and new diagnosis of NSCLCA Non-Small Cell Lung Cancer: Squamous Cell Carcinoma - Diagnosed in October, but has not committed to follow-up until now as she states she had lost her insurance - PET scan early December no distant metastatic disease identified - MRI Brain in October negative for Metastatic Disease Pre-syncopal Episodes: - Second admission this month for the same: - [place] to be secondary to her atrial fib with RVR, however given her lung cancer diagnosis and Initial MRI Brain in October, reasonable to consider re- imaging of brain if persists Microcytic Anemia: - Secondary to malignancy and likely secondary decreased PO intake - Anemia assessment ordered Hyponatremia: - Dehydration, possible component SIADH - Monitor for improvement after fluid replacement History of DVT and Atrial Fib - On Eliquis Tobacco Dependance and COPD - On 3L NC during evaluation Hypotension: - Dehydration decreased PO intake - IV Hydration/Fluids Plan: - Further assess with CT chest (completed and neg PE, Redemonstration of Left Lung mass, possible picture post obstructive pneumonia. - Radiation Oncology to further assess - IV Fluid Hydration - IV antibiotics primary teams - Daily CBC Physician Attest: I have completed the full history and physical and developed the above impression and plan, Agree with above dictation by CLAIMS DIRECTOR. Dictated as a scribe
[2020-01-16 02:04] LABS: % Iron Saturation 5.26 (12.00-45.00)
[2020-01-16] MEDS: SODIUM CHLORIDE 0.9% 1,000 ML IV SCH ×2 (02:38→08:15)
[2020-01-16 03:22] LABS: Ferritin 1958.2 ng/mL (10.0-291.0)
[2020-01-16 04:33] VITALS: TEMP 97.4
--- NOTE | 2020-01-16 05:00 | ECHOF ---
Referral Reason:LV function, hypotension, compare to recent echo MEASUREMENTS -------- HEIGHT: 129.5 cm WEIGHT: 66.7 kg BP: RVIDd: 2.9 cm (< 3.3) IVSd: 1.1 cm (0.6 - 1.1) LVIDd: 4.1 cm (3.9 - 5.3) LVPWd: 1.2 cm (0.6 - 1.1) IVSs: 1.4 cm LVIDs: 2.7 cm LVPWs: 1.7 cm LAESV Index (A-L): 23.47 ml/m Ao Diam: 2.3 cm (2.0 - 3.7) AV Cusp: 1.6 cm (1.5 - 2.6) LA Diam: 3.1 cm (2.7 - 3.8) AV maxP.64 mmHg AV meanP.79 mmHg RAP: 5.00 mmHg RVSP: 16.18 mmHg FINDINGS -------- Atrial fibrillation. Resting tachycardia (HR>100bpm). This was a technically good study. The left ventricular size is normal. Left ventricular wall thickness is normal. Overall left vent ricular systolic function is low-normal with, an EF between 50 - 55 %. Left ventricular fillimg pre ssure cannot be estimated due to Atrial fibrillation. The right ventricle is normal in size. The left atrial size is normal. Normal LA size by volume 22+/-6 ml/m2. The right atrial size is normal. Aortic valve is trileaflet and is mildly thickened. There is mild aortic valve sclerosis. Peak/me an gradient across the Aortic Valve is 9.64mmHg / 6.79mmHg. The mitral valve is normal. Mild mitral regurgitation is present. The tricuspid valve appears structurally normal. Mild tricuspid regurgitation present. Right vent ricular systolic pressure is normal at < 35 mmHg. There is no pulmonic regurgitation present. The aortic root size is normal. Normal inferior vena cava with normal inspiratory collapse consistent with estimated right atrial pre ssure of 5 mmHg. There is a trivial pericardial effusion present. CONCLUSIONS -------- 1. The left ventricular size is normal. 2. Left ventricular wall thickness is normal. 3. Overall left ventricular systolic function is low-normal with, an EF between 50 - 55 %. 4. Left ventricular fillimg pressure cannot be estimated due to Atrial fibrillation. 5. Aortic valve is trileaflet and is mildly thickened. 6. There is mild aortic valve sclerosis. 7. Peak/mean gradient across the Aortic Valve is 9.64mmHg / 6.79mmHg. 8. Mild mitral regurgitation is present. 9. Mild tricuspid regurgitation present. 10. There is a trivial pericardial effusion present. GRIP: Anna Kelsey RDCS
[2020-01-16] MEDS: PANTOPRAZOLE 40 MG TABLET PO SCH (06:21)
[2020-01-16 06:34] LABS: Glucose,Whole Blood 285 mg/dL (75-99)
[2020-01-16] MEDS: AZITHROMYCIN 500 MG TAB PO SCH (08:15)
[2020-01-16] MEDS: DILTIAZEM 125 MG in SODIUM CHLORIDE 0.9% 100 ML IV SCH (08:15)
[2020-01-16] MEDS: APIXABAN 5 MG TAB PO SCH (08:15)
[2020-01-16] MEDS: METOPROLOL TARTRATE 50 MG TAB PO SCH (08:15)
[2020-01-16 08:22] VITALS: RESP 16
[2020-01-16 08:23] LABS: Anisocytosis Slight; HCT 29.6 % (34.0-46.0); Hypochromasia Marked; MCH 23.5 pg (25.0-35.0); MCHC 27.1 g/dL (31.0-37.0); MCV 86.8 fL (80.0-100.0); Mean Platelet Volume 6.7; Platelet Count 612 k/uL (150-450); RBC 3.41 m/uL (3.80-5.40); RDW 16.3 % (11.5-15.5); WBC 12.7 k/uL (3.8-10.6)
[2020-01-16 08:38] LABS: Albumin 2.4 g/dL (3.5-5.0); Calcium 9.7 mg/dL (8.4-10.2); Total Bilirubin 0.4 mg/dL (0.2-1.3); Total Protein 7.2 g/dL (6.3-8.2)
[2020-01-16] MEDS: IPRATROPIUM-ALBUTEROL 3 ML NEB INHALATION SCH ×3 (08:42→15:48)
[2020-01-16 08:59] LABS: Potassium 5.3 mmol/L (3.5-5.1)
--- NOTE | 2020-01-16 09:55 | P.PN ---
Subjective Progress Note Date: 01/16/20 The patient continues to complain of some generalized weakness and shortness of breath on exertion. However she feels better compared to her admission. Palpitations have resolved. This pretty status has improved. Objective - Vital Signs Vital signs: Vital Signs Temp 97.4 F L 01/16/20 08:15 Pulse 98 01/16/20 08:15 Resp 16 01/16/20 08:15 BP 117/58 01/16/20 08:15 Pulse Ox 96 01/16/20 08:15 Intake & Output 01/15/20 01/16/20 01/16/20 18:59 06:59 18:59 Intake Total 8.667 450 Output Total 200 Balance -191.333 450 Weight 61.6 kg Intake: Intake, IV Titration 8.667 0 Amount Diltiazem 125 mg In 8.667 0 Sodium Chloride 0.9% 100 ml @ 10 MG/HR 10 mls/hr IV .[id number] [facility] Rx#: [id number] Oral 450 Output: Urine 200 Other: Voiding Method Bedside Commode Toilet # Voids 1 1 - Constitutional General appearance: Present: no acute distress - EENT Eyes: Present: EOMI ENT: Present: hearing grossly normal, normal oropharynx - Respiratory Respiratory: bilateral: CTA - Cardiovascular Rhythm: regular Heart sounds: normal: S1, S2 - Gastrointestinal General gastrointestinal: Present: normal bowel sounds, soft - Integumentary Integumentary: Present: normal - Neurologic Neurologic: Present: CNII-XII intact - Musculoskeletal Musculoskeletal: Present: generalized weakness, strength equal bilaterally - Psychiatric Psychiatric: Present: A&O x's 3, appropriate affect - Labs CBC & Chem 7: 01/16/20 07:34 01/16/20 07:34 Labs: Abnormal Lab Results - Last 24 Hours (Table) 01/15/20 01/15/20 01/15/20 Range/Units 09:19 09:19 09:19 WBC 15.3 H (3.8-10.6) k/uL RBC 3.74 L (3.80-5.40) m/uL Hgb 9.2 L (11.4-16.0) gm/dL Hct 33.1 L (34.0-46.0) % MCH 24.6 L (25.0-35.0) pg MCHC 27.8 L (31.0-37.0) g/dL RDW 16.4 H (11.5-15.5) % Plt Count 576 H (150-450) k/uL Neutrophils # 13.0 H (1.3-7.7) k/uL Lymphocytes # 0.9 L (1.0-4.8) k/uL Retic Count (0.5-2.0) % Sodium 129 L (137-145) mmol/L Potassium (3.5-5.1) mmol/L Chloride 96 L (98-107) mmol/L BUN 18 H (7-17) mg/dL Glucose 178 H (74-99) mg/dL POC Glucose (mg/dL) (75-99) mg/dL Iron (50-170) ug/dL TIBC (228-460) ug/dL % Saturation (12.00-45.00) Ferritin (10.0-291.0) ng/mL AST (14-36) U/L Alkaline Phosphatase (38-126) U/L Lactate Dehydrogenase (313-618) U/L Total Creatine Kinase <20 L (30-135) U/L Albumin (3.5-5.0) g/dL 01/15/20 01/15/20 01/15/20 Range/Units 14:09 14:09 20:46 WBC (3.8-10.6) k/uL RBC (3.80-5.40) m/uL Hgb (11.4-16.0) gm/dL Hct (34.0-46.0) % MCH (25.0-35.0) pg MCHC (31.0-37.0) g/dL RDW (11.5-15.5) % Plt Count (150-450) k/uL Neutrophils # (1.3-7.7) k/uL Lymphocytes # (1.0-4.8) k/uL Retic Count 2.6 H (0.5-2.0) % Sodium (137-145) mmol/L Potassium (3.5-5.1) mmol/L Chloride (98-107) mmol/L BUN (7-17) mg/dL Glucose (74-99) mg/dL POC Glucose (mg/dL) 259 H (75-99) mg/dL Iron 9 L (50-170) ug/dL TIBC 171 L (228-460) ug/dL % Saturation 5.26 L (12.00-45.00) Ferritin 1958.2 H (10.0-291.0) ng/mL AST (14-36) U/L Alkaline Phosphatase (38-126) U/L Lactate Dehydrogenase 303 L (313-618) U/L Total Creatine Kinase (30-135) U/L Albumin (3.5-5.0) g/dL 01/16/20 01/16/20 01/16/20 Range/Units 06:32 07:34 07:34 WBC 12.7 H (3.8-10.6) k/uL RBC 3.41 L (3.80-5.40) m/uL Hgb 8.0 L (11.4-16.0) gm/dL Hct 29.6 L (34.0-46.0) % MCH 23.5 L (25.0-35.0) pg MCHC 27.1 L (31.0-37.0) g/dL RDW 16.3 H (11.5-15.5) % Plt Count 612 H (150-450) k/uL Neutrophils # (1.3-7.7) k/uL Lymphocytes # (1.0-4.8) k/uL Retic Count (0.5-2.0) % Sodium 132 L (137-145) mmol/L Potassium 5.3 H (3.5-5.1) mmol/L Chloride 96 L (98-107) mmol/L BUN (7-17) mg/dL Glucose 354 H (74-99) mg/dL POC Glucose (mg/dL) 285 H (75-99) mg/dL Iron (50-170) ug/dL TIBC (228-460) ug/dL % Saturation (12.00-45.00) Ferritin (10.0-291.0) ng/mL AST 12 L (14-36) U/L Alkaline Phosphatase 154 H (38-126) U/L Lactate Dehydrogenase (313-618) U/L Total Creatine Kinase (30-135) U/L Albumin 2.4 L (3.5-5.0) g/dL Assessment and Plan (1) Atrial fibrillation with RVR Narrative/Plan: Patient CTA was negative for evidence of pulmonary embolus. Therefore that is ruled out as a potential cause. I did show her large left upper lobe tumor, with invasion into the mediastinum. Therefore this potentially could have been due to pressure and/or hypoxic effects of the tumor. Defer to cardiology for ongoing workup and accommodations. The patient is currently in normal sinus rhythm. Current Visit: No Status: Acute Code(s): I48.91 - UNSPECIFIED ATRIAL FI BRILLATION SNOMED Code(s): 150155488046636 (2) Lung cancer Narrative/Plan: Patient had a recent PET scan on 01/11/20. It did not show any metastatic disease. She has follow-up with Dr. Martinez in the office next week. Based on s tucker would be a candidate for curative treatment, likely with combined chemoradiation. Current Visit: Yes Status: Acute Code(s): C34.90 - MALIGNANT NEOPLASM OF UNSP PART OF UNSP BRONCHUS OR LUNG SNOMED Code(s): 369051032 (3) Anemia aplastic aregenerative Narrative/Plan: Labs during previous admission indicated anemia of inflammation likely due to h er malignancy. Hemoglobin is stable in the 8-9 range. Continue to monitor and transfuse if less than 7 Current Visit: No Status: Acute Code(s): D61.9 - APLASTIC ANEMIA, UNSPECIFIED SNOMED Code(s): 54205037
[2020-01-16 11:51] LABS: Glucose,Whole Blood 334 mg/dL (75-99)
[2020-01-16] MEDS ORDERED: SODIUM POLYSTYRENE SULFONATE 15 GM/60 ML BOTTLE PO STA (12:09)
[2020-01-16] MEDS ORDERED: INSULIN ASPART (NovoLOG) 100 UNIT/ML VIAL SQ SCH (12:30)
--- NOTE | 2020-01-16 12:40 | P.DS ---
Providers Date of admission: 01/15/20 09:34 Attending physician: Andrew De Leon Consults: 01/15/20 08:29 Consult Physician Urgent Consulting Provider: Kushal Mackay Consult Reason/Comments: afib rvr Do you want consulting provider notified?: Yes 01/15/20 13:15 Consult Physician Routine Consulting Provider: Rafa Medrano Consult Reason/Comments: Lung cancer Do you want consulting provider notified?: Yes Primary care physician: [facility] Hospital Course: 69-year-old female came in with complaints of Torri sinus and weakness was seen at the [facility] was transferred here for possible pneumonia patient has significant infiltrate in the left side which is probably secondary to lung cancer. Patient does have lung cancer was actually recently discharged from the hospital a few weeks ago after she was treated for hyponatremia.. Patient was later found to be in atrial correlation with rapid ventricular rate patient is also hyponatremic patient will be given IV fluids patient was a bolus with IV fluids. Patient was started on Cardizem cardiology evaluated the patient denied patient is on metoprolol which was resumed denies any chest pain at this time. Patient looks really tired and weak. She is comparing of cough some sputum production. 01/16/2020 Patient had a CAT scan of the chest which did not show any significant pneumonic infiltrate but does have a bit mass. Patient probably a lot require any more antibiotics. Patient the A. fib presently rate controlled had an episode where she has to go back on Cardizem last night. Patient can be discharged if cleared by cardiology. Patient's metoprolol dose was increased to 50 g twice a day. PHYSICAL EXAMINATION: GENERAL: The patient is alert and oriented x3, not in any acute distress. And built appears to be fatigued HEENT: Pupils are round and equally reacting to light. EOMI. No scleral icterus. No conjunctival pallor. Normocephalic, atraumatic. No pharyngeal erythema. No thyromegaly. CARDIOVASCULAR: S1 and S2 present. No murmurs, rubs, or gallops. PULMONARY: Chest is clear to auscultation, no wheezing or crackles. ABDOMEN: Soft, nontender, nondistended, normoactive bowel sounds. No palpable organomegaly. MUSCULOSKELETAL: No joint swelling or deformity. EXTREMITIES: No cyanosis, clubbing, or pedal edema. NEUROLOGICAL: Gross neurological examination did not reveal any focal deficits. SKIN: No rashes. Assessment and Plan Plan: Ruled out left left lower lobe pneumonia, and medics will be discontinued -Atrial fibrillation with rapid ventricular rate: Secondary to dehydration and intravascular volume depletion along with possible mild SIADH. -Chronic hypoxic respiratory failure patient may require oxygen upon discharge this is because of her lung cancer and COPD -Acute renal failure prerenal azotemia secondary to dehydration IV fluids as mentioned above -Dizziness and presyncope due to intravascular depletion continue with IV fluids as mentioned above -Type 2 diabetes mellitus with elevated blood sugars secondary to systemic steroids she received upon admission -History of lung cancer -History of DVT and PE in the past continue with anticoagulation with Eliquis -COPD without any acute exacerbation Patient Condition at Discharge: Fair Plan - Discharge Summary New Discharge Prescriptions: New Metoprolol Tartrate [Lopressor] 50 mg PO BID #60 tab Continue Famotidine [Pepcid] 20 mg PO DAILY PRN PRN Reason: Heartburn Apixaban [Eliquis] 5 mg PO BID 30 Days #60 tab HYDROcodone/APAP 7.5-325MG [[place] 7.5-325] 1 tab PO Q4H PRN #20 tab PRN Reason: Pain Discontinued Metoprolol Tartrate [Lopressor] 25 mg PO BID #60 tab Omeprazole [PriLOSEC] 40 mg PO AC-BRFST #14 capsule.dr Discharge Medication List Famotidine [Pepcid] 20 mg PO DAILY PRN 10/21/19 [History] Apixaban [Eliquis] 5 mg PO BID 30 Days #60 tab 11/06/19 [Rx] HYDROcodone/APAP 7.5-325MG [[place] 7.5-325] 1 tab PO Q4H PRN #20 tab 12/31/19 [Rx] Metoprolol Tartrate [Lopressor] 50 mg PO BID #60 tab 01/16/20 [Rx] Follow up Appointment(s)/Referral(s): [facility], [NON-STAFF] - 1-2 Days Monica Roth MD [Primary Care Provider] - 3 Days Discharge Disposition: HOME WITH HOME HEALTH SERVICES
[2020-01-16] MEDS ORDERED: VERAPAMIL 40 MG TAB PO SCH (13:00)
--- NOTE | 2020-01-16 15:12 | P.PN ---
Subjective Progress Note Date: 01/16/20 Principal diagnosis: Afob RVR PROGRESS NOTE 01/16/2020 69-year-old female with medical history of smoking 30+ years, DVT, PE, paroxysmal atrial fibrillation, COPD, DVT and recent diagnosis of lung mass in September 2019. Patient examined this a.m. sitting in bed with no acute distress. Patient is alert and oriented. Pt follows with Dr. Kwan in office. Cardiology consulted for atrial fibrillation with RVR, shortness of breath and possible pneumonia. Patient has been going in and out of sinus tach/atrial fibrillation on monitors. Vital signs stable. Continues 3 L of O2 NC. CT angiography of chest, negative for PE. Most recent EF 50-55%, atrial fibrillation noted. mild MR. Mild TR. Trivial pericardial effusion present. PHYSICAL EXAMINATION: HEENT: Head is atraumatic, normocephalic. Pupils are equal, round. Sclerae anicteric. Conjunctivae are clear. Mucous membranes of the mouth are moist. Neck is supple. There is no jugular venous distention. No carotid bruit is heard. No thyromegaly. LUNGS: Diminished to auscultation with wheezes and rhonchi. No chest wall tenderness is noted on palpation or with deep breathing. HEART: Irrregular rate and rhythm without murmurs, rubs or gallops. S1 and S2 heard. ABDOMEN: Abdominal exam revealed normal bowel sounds. The abdomen was soft, non- tender, and without masses, organomegaly, or appreciable enlargement of the abdominal aorta. EXTREMITIES: Examination of the extremities revealed easily palpable radial, femoral and pedal pulses. There was no cyanosis, clubbing or edema. No calf tenderness noted. VASCULAR: Radial and dorsalis pedis pulses palpated, no evidence of clubbing. NEUROLOGIC: Patient is awake, alert and oriented x3. There were no obvious focal neurologic abnormalities. LAB DATA: Troponin normal. WBC continues to be elevated at 12.7. HBG 8.0, HCT 29.6. FINAL IMPRESSION: 1. Afib RVR 2. Lung Mass 3. smoking x 30 years 4. COPD exacerbation 5. Pneumonia PLAN: Continue metoprolol tartrate 25 mg twice daily. Add Verapamil 40 mg every 8 hours times daily. Continue anticoagulation with Eliquis 5 mg twice daily. Continue same medical/medication regime. Okay for discharge from cardiology perspective and follow-up with Dr. Kwan in office in 2 weeks. Objective - Vital Signs Vital signs: Vital Signs Temp 97.4 F L 01/16/20 08:15 Pulse 76 01/16/20 11:35 Resp 16 01/16/20 11:40 BP 115/65 01/16/20 11:35 Pulse Ox 92 L 01/16/20 11:40 Intake & Output 01/15/20 01/16/20 01/16/20 18:59 06:59 18:59 Intake Total 8.667 450 439.75 Output Total 200 1 Balance -191.333 450 438.75 Weight 61.6 kg Intake: IV 10 Diltiazem 125 mg In 10 Sodium Chloride 0.9% 100 ml @ 10 MG/HR 10 mls/hr IV .[id number] [facility] Rx#: [id number] Intake, IV Titration 8.667 0 71.75 Amount Diltiazem 125 mg In 8.667 0 21.75 Sodium Chloride 0.9% 100 ml @ 10 MG/HR 10 mls/hr IV .[id number] [facility] Rx#: [id number] cefTRIAXone 2 gm In 50 Sodium Chloride 0.9% 50 ml @ 100 mls/hr IVPB Q24HR [facility] Rx#:[id number] Oral 450 358 Output: Urine 200 Urine/Stool Mix 1 Other: Voiding Method Bedside Commode Toilet Toilet # Voids 1 1 1 - Labs CBC & Chem 7: 01/16/20 07:34 01/16/20 07:34 Labs: Abnormal Lab Results - Last 24 Hours (Table) 01/15/20 01/15/20 01/16/20 Range/Units 14:09 20:46 06:32 WBC (3.8-10.6) k/uL RBC (3.80-5.40) m/uL Hgb (11.4-16.0) gm/dL Hct (34.0-46.0) % MCH (25.0-35.0) pg MCHC (31.0-37.0) g/dL RDW (11.5-15.5) % Plt Count (150-450) k/uL Sodium (137-145) mmol/L Potassium (3.5-5.1) mmol/L Chloride (98-107) mmol/L Glucose (74-99) mg/dL POC Glucose (mg/dL) 259 H 285 H (75-99) mg/dL Iron 9 L (50-170) ug/dL TIBC 171 L (228-460) ug/dL % Saturation 5.26 L (12.00-45.00) Ferritin 1958.2 H (10.0-291.0) ng/mL AST (14-36) U/L Alkaline Phosphatase (38-126) U/L Lactate Dehydrogenase 303 L (313-618) U/L Albumin (3.5-5.0) g/dL 01/16/20 01/16/20 01/16/20 Range/Units 07:34 07:34 11:48 WBC 12.7 H (3.8-10.6) k/uL RBC 3.41 L (3.80-5.40) m/uL Hgb 8.0 L (11.4-16.0) gm/dL Hct 29.6 L (34.0-46.0) % MCH 23.5 L (25.0-35.0) pg MCHC 27.1 L (31.0-37.0) g/dL RDW 16.3 H (11.5-15.5) % Plt Count 612 H (150-450) k/uL Sodium 132 L (137-145) mmol/L Potassium 5.3 H (3.5-5.1) mmol/L Chloride 96 L (98-107) mmol/L Glucose 354 H (74-99) mg/dL POC Glucose (mg/dL) 334 H (75-99) mg/dL Iron (50-170) ug/dL TIBC (228-460) ug/dL % Saturation (12.00-45.00) Ferritin (10.0-291.0) ng/mL AST 12 L (14-36) U/L Alkaline Phosphatase 154 H (38-126) U/L Lactate Dehydrogenase (313-618) U/L Albumin 2.4 L (3.5-5.0) g/dL
[2020-01-16 15:46] VITALS: BP 96/63; PULSE 116
[2020-01-16] MEDS ORDERED: METOPROLOL TARTRATE 25 MG TAB PO SCH (21:00)
--- NOTE | 2020-01-19 08:48 | CDI ---
Documentation Clarification Form Date: 01/19/20 From: Aixa Hopper Phone: If you have a question about this query, please contact Aishwarya Sánchez, Deoiling Machine Operator at [phone] between 8am and 5pm. Admit Date: 01/15/20 Discharge Date: 01/16/20 Patient Name: VAMSI SZYMANSKI Visit Number: [id number] ATTENTION: The Clinical Documentation Specialists (CDI) and [facility] Coding Staff appreciate your assistance in clarifying documentation. Please respond to the clarification below the line at the bottom and electronically sign. The CDI & [facility] Coding staff will review the response and follow-up if needed. Please note: Queries are made part of the Legal Health Record. If you have any questions, please contact the author of this message via ITS. Dear Dr. Stefanie Lazaro, The patient has uncontrolled Type II diabetes, as indicated in the discharge summary. POC Glucose: 181, 259, 285, 334 Glucose: 178, 354 Treatment: NovoLOG use Protocal unit SQ [facility] Per [facility] 2016 - query the provider for clarification whether the patient has hyperglycemia or hypoglycemia so that the appropriate code may be reported - uncontrolled diabetes indicates that the patient's blood sugar is not at an acceptable level, because it is either too high or too low. In order to capture the severity of Illness and necessary documentation specificity, please clarify if Type 2 uncontrolled diabetes is: Hyperglycemia Other, please specify Unable to Determine Uncontrolled in my dictations is always hyperglycemia. If hypo, it will be specified MTDD
== END 2020-01-16 16:51 | disposition home health service (06) | DRG 194 ==
LOC: EC 23:22 → 3NCARDOBS 23:30 → OBSVTOIN 01-15 09:34 → 2SICU 01-15 09:39 → 3NCARDOBS 01-15 09:57 → 3SCARD 01-15 13:01
PROVIDERS: ADMIT Hospitalist; ATTEND Hospitalist
DX: J18.9 Pneumonia, unspecified organism (principal); E87.1 Hypo-osmolality and hyponatremia; J44.0 Chronic obstructive pulmonary disease with (acute) lower respiratory infection; C34.12 Malignant neoplasm of upper lobe, left bronchus or lung; N17.9 Acute kidney failure, unspecified; D61.9 Aplastic anemia, unspecified; J96.11 Chronic respiratory failure with hypoxia; I08.2 Rheumatic disorders of both aortic and tricuspid valves; I95.9 Hypotension, unspecified; D72.810 Lymphocytopenia; I48.0 Paroxysmal atrial fibrillation; E11.65 Type 2 diabetes mellitus with hyperglycemia; T38.0X5A Adverse effect of glucocorticoids and synthetic analogues, initial encounter; E86.0 Dehydration; D50.9 Iron deficiency anemia, unspecified; K21.9 Gastro-esophageal reflux disease without esophagitis; M19.90 Unspecified osteoarthritis, unspecified site; Z79.01 Long term (current) use of anticoagulants; Z79.899 Other long term (current) drug therapy; Z86.718 Personal history of other venous thrombosis and embolism; Z86.711 Personal history of pulmonary embolism; Z98.51 Tubal ligation status; Z91.041 Radiographic dye allergy status; Z91.018 Allergy to other foods; Z91.048 Other nonmedicinal substance allergy status; Z87.891 Personal history of nicotine dependence; Z81.8 Family history of other mental and behavioral disorders
CPT/HCPCS: 71045; 71275; 80048; 80053; 82550; 82553; 82607; 82728; 83540; 83550; 83605; 83615; 83921; 84484; 85025; 85027; 85045; 87040; 87077; 87186; 93306; 94640; 99285

== ENCOUNTER 2020-01-19 15:39 | Inpatient (IN) | payer MEDICARE, OTHER ==
--- NOTE | 2020-01-19 20:22 | XR ---
EXAMINATION TYPE: XR chest 1V DATE OF EXAM: 01/19/2020 COMPARISON: Today HISTORY: Short of breath TECHNIQUE: FINDINGS: Heart is enlarged. There is 8 cm masslike density at the left pulmonary hilum in the left m idlung field. The right lung is clear. There is no heart failure. There are chest leads. Costophrenic angles are clear. IMPRESSION: Large mass in the left midlung field superimposed on the left perihilum not changed compared to exam earlier today.
[2020-01-19] MEDS ORDERED: METOPROLOL TARTRATE 25 MG TAB PO SCH (21:00)
[2020-01-19 21:05] LABS: African American GFR (CKD) >90 (>60 ml/min/1.73 sqM); Anion Gap 6 mmol/L; Blood Urea Nitrogen 16 mg/dL (7-17); Calcium 9.5 mg/dL (8.4-10.2); Carbon Dioxide 32 mmol/L (22-30); Chloride 92 mmol/L (98-107); Glucose 232 mg/dL (74-99); Non-African American GFR(CKD) >90 (>60 ml/min/1.73 sqM); Potassium 4.3 mmol/L (3.5-5.1); Sodium 130 mmol/L (137-145)
[2020-01-19] MEDS ORDERED: DILTIAZEM DRIP BOLUS FROM BAG 1 MG SOLN IV ONE (21:15)
[2020-01-19] MEDS: FAMOTIDINE 20 MG TAB PO SCH (21:21)
[2020-01-19] MEDS: APIXABAN 5 MG TAB PO SCH (21:21)
[2020-01-19] MEDS: PIPERACILLIN-TAZOBACTAM 3.375 GM in SODIUM CHLORIDE 0.9% 100 ML IVPB SCH (21:21)
[2020-01-19] MEDS: DILTIAZEM 125 MG in SODIUM CHLORIDE 0.9% 100 ML IV SCH (21:22)
[2020-01-19] MEDS: SODIUM CHLORIDE 0.9% 1,000 ML IV SCH (21:22)
[2020-01-19 22:42] LABS: Anisocytosis Slight; Basophils % (A) 0 %; Eosinophils # (A) 0.3 k/uL (0-0.7); Eosinophils % (A) 2 %; HCT 29.3 % (34.0-46.0); HGB 8.1 gm/dL (11.4-16.0); Hypochromasia Marked; Lymphocytes # (A) 1.2 k/uL (1.0-4.8); Lymphocytes % (A) 8 %; MCH 23.6 pg (25.0-35.0); MCHC 27.5 g/dL (31.0-37.0); MCV 85.7 fL (80.0-100.0); Mean Platelet Volume 8.3; Monocytes # (A) 0.5 k/uL (0-1.0); Monocytes % (A) 3 %; Neutrophils # (A) 13.2 k/uL (1.3-7.7); Neutrophils % (A) 86 %; Platelet Count 507 k/uL (150-450); RBC 3.43 m/uL (3.80-5.40); RDW 16.4 % (11.5-15.5); WBC 15.3 k/uL (3.8-10.6)
[2020-01-19 22:59] LABS: Poikilocytosis (M) Present; Polychromasia Present
[2020-01-20] MEDS: PIPERACILLIN-TAZOBACTAM 3.375 GM in SODIUM CHLORIDE 0.9% 100 ML IVPB SCH ×3 (04:13→20:12)
[2020-01-20] MEDS: SODIUM CHLORIDE 0.9% 1,000 ML IV SCH ×2 (06:31→20:12)
[2020-01-20 08:33] LABS: Appearance,Urine Clear (Clear); Bilirubin,Urine Negative (Negative); Blood,Urine Small (Negative); Color,Urine Light Yellow; Glucose,Urine (UA) Negative (Negative); Ketones,Urine Negative (Negative); Leukocyte Esterase,Urine Negative (Negative); Mucus,Urine Rare /hpf; Nitrite,Urine Negative (Negative); PH, Urine 6.5 (5.0-8.0); Protein,Urine Negative (Negative); RBC,Urine 2 /hpf (0-5); Specific Gravity,Urine 1.011 (1.001-1.035); Squamous Epithelial Cell,Urine 3 /hpf (0-4); Urobilinogen,Urine <2.0 mg/dL (<2.0); WBC,Urine 1 /hpf (0-5)
[2020-01-20 08:56] LABS: HCT 27.1 % (34.0-46.0); HGB 7.6 gm/dL (11.4-16.0); MCH 23.4 pg (25.0-35.0); MCV 83.5 fL (80.0-100.0); RBC 3.25 m/uL (3.80-5.40); RDW 16.5 % (11.5-15.5); WBC 13.4 k/uL (3.8-10.6)
[2020-01-20 08:57] LABS: Anisocytosis Slight; Basophils % (A) 0 %; Eosinophils # (A) 0.3 k/uL (0-0.7); Eosinophils % (A) 2 %; Hypochromasia Marked; Lymphocytes % (A) 8 %; Mean Platelet Volume 6.4; Monocytes # (A) 0.6 k/uL (0-1.0); Monocytes % (A) 5 %; Neutrophils # (A) 11.2 k/uL (1.3-7.7); Neutrophils % (A) 84 %; Platelet Count 574 k/uL (150-450)
[2020-01-20 09:14] LABS: ALT 12 U/L (4-34); AST 11 U/L (14-36); African American GFR (CKD) >90 (>60 ml/min/1.73 sqM); Albumin 2.1 g/dL (3.5-5.0); Alkaline Phosphatase 122 U/L (38-126); Anion Gap 4 mmol/L; Bilirubin, Delta 0.4 mg/dL (0.0-0.2); Bilirubin,Unconjugated 0.2 mg/dL (0.0-1.1); Blood Urea Nitrogen 12 mg/dL (7-17); Calcium 8.7 mg/dL (8.4-10.2); Carbon Dioxide 31 mmol/L (22-30); Chloride 98 mmol/L (98-107); Glucose 168 mg/dL (74-99); Non-African American GFR(CKD) >90 (>60 ml/min/1.73 sqM); Potassium 3.7 mmol/L (3.5-5.1); Sodium 133 mmol/L (137-145); Total Bilirubin 0.6 mg/dL (0.2-1.3); Total Protein 6.3 g/dL (6.3-8.2)
[2020-01-20 09:40] LABS: Magnesium 1.6 mg/dL (1.6-2.3)
[2020-01-20] MEDS: FAMOTIDINE 20 MG TAB PO SCH ×2 (09:51→20:09)
[2020-01-20] MEDS: APIXABAN 5 MG TAB PO SCH ×2 (09:51→20:10)
[2020-01-20] MEDS: METOPROLOL TARTRATE 50 MG TAB PO SCH ×2 (09:51→19:04)
--- NOTE | 2020-01-20 11:09 | P.HPIM ---
History of Present Illness This is a pleasant 69 years old female with past medical history of atrial fibrillation, the venous thrombosis, COPD, gastroesophageal reflux disease, osteoarthritis, pulmonary embolism, syncope Patient was transferred from [facility]. She was recently discharged from this hospital on 01/15 for pneumonia and left lung cancer. Also she had A. fib with RVR and hyponatremia. Patient presents because of dyspnea, worsening over one week associated with cough and yellowish phlegm. No chest pain. She was recently diagnosed with lung cancer and she supposed to see Dr. Medrano today for treatment. She did not get any chemotherapy yet. She is at 2 L oxygen at home She denies smoking, quit 2 years ago, no alcohol or illicit drugs Labs at [facility] show leukocytosis of 19.8 K, hemoglobin 7.8, [place] 717K. Influenza, and detected, coronavirus and detected, several other viruses not detected. Sodium 128, potassium 4.2, glucose 238, creatinine 0.8, liver enzymes AST and ALT not elevated, bilirubin normal at 0.7. CPKs normal is 43, magnesium 1.5, lactic acid is 3.1 which is elevated Patient is already on Cardizem drip started by sales and marketing analyst team, also she is already on Eliquis, also she was started on normal saline at 100 mL per hour Chest x-ray showing a large mass in the left midlung field superimposed of the left renal ileum not change compared to old exam earlier today about 8 cm Cardiology team already been consulted Review of Systems CONSTITUTIONAL: No fever, no malaise, no fatigue. HEENT: No recent visual problems or hearing problems. Denied any sore throat. CARDIOVASCULAR: No orthopnea, PND, no palpitations, no syncope. PULMONARY: No shortness of breath, no cough, no hemoptysis. GASTROINTESTINAL: No diarrhea, no nausea, no vomiting, no abdominal pain. Normoactive bowel sounds. NEUROLOGICAL: No headaches, no weakness, no numbness. HEMATOLOGICAL: Denies any bleeding or petechiae. GENITOURINARY: Denies any burning micturition, frequency, or urgency. MUSCULOSKELETAL/RHEUMATOLOGICAL: Denies any joint pain, swelling, or any muscle pain. ENDOCRINE: Denies any polyuria or polydipsia. Past Medical History Past Medical History: Atrial Fibrillation, COPD, Deep Vein Thrombosis (DVT), GERD/Reflux, Osteoarthritis (OA), Pulmonary Embolus (PE), Syncope Additional Past Medical History / Comment(s): vertigo, hypotension, recently diagnosed with afib a week ago- started on amio PO at this time. History of Any Multi-Drug Resistant Organisms: None Reported Past Surgical History: Tubal Ligation Past Anesthesia/Blood Transfusion Reactions: Previous Problems w/ Anesthesia Additional Past Anesthesia/Blood Transfusion Reaction / Comment(s): hard time waking up Past Psychological History: No Psychological Hx Reported Smoking Status: Former smoker Past Alcohol Use History: None Reported Additional Past Alcohol Use History / Comment(s): quit smoking 4 almost 5 years. Past Drug Use History: None Reported - Past Family History Mother Family Medical History: Dementia Medications and Allergies Home Medications Medication Instructions Recorded Confirmed Type Famotidine [Pepcid] 20 mg PO DAILY PRN 10/21/19 01/19/20 History Apixaban [Eliquis] 5 mg PO BID 30 Days #60 tab 11/06/19 01/19/20 Rx HYDROcodone/APAP 7.5-325MG [[place] 1 tab PO Q4H PRN #20 tab 12/31/19 01/19/20 Rx 7.5-325] Metoprolol Tartrate [Lopressor] 25 mg PO BID #30 tablet 01/16/20 01/19/20 Rx Verapamil [Isoptin] 40 mg PO TID #90 tab 01/16/20 01/19/20 Rx Allergies Allergy/AdvReac Type Severity Reaction Status Date / Time Iodine and Iodide Containing Allergy Anaphylaxis Verified 01/19/20 19:09 Produc tomato Allergy Rash/Hives Verified 01/19/20 19:09 dial soap Allergy Rash/Hives Uncoded 12/31/19 08:43 Physical Exam Vitals: Vital Signs Temp Pulse Resp BP Pulse Ox 01/20/20 03:41 98.9 F 94 18 114/55 91 L 01/19/20 23:55 98.1 F 92 18 105/63 98 01/19/20 20:21 95 01/19/20 20:00 98.4 F 114 H 18 116/77 95 01/19/20 19:04 97.9 F 90 20 117/73 96 Intake and Output 01/19/20 01/20/20 01/20/20 22:59 06:59 14:59 Output Total 400 400 Balance -400 -400 Output: Urine 400 400 Other: Voiding Method Bedside Commode # Voids 1 1 Weight 62.5 kg 62.7 kg GENERAL: The patient is alert and oriented x3, not in any acute distress. Well developed, well nourished. HEENT: Pupils are round and equally reacting to light. EOMI. No scleral icterus. No conjunctival pallor. Normocephalic, atraumatic. No pharyngeal erythema. No thyromegaly. CARDIOVASCULAR: S1 and S2 present. No murmurs, rubs, or gallops. PULMONARY: Chest is clear to auscultation, no wheezing or crackles. ABDOMEN: Soft, nontender, nondistended, normoactive bowel sounds. No palpable organomegaly. MUSCULOSKELETAL: No joint swelling or deformity. EXTREMITIES: No cyanosis, clubbing, or pedal edema. NEUROLOGICAL: Gross neurological examination did not reveal any focal deficits. SKIN: No rashes. No petechiae Results CBC & Chem 7: 01/20/20 08:35 01/20/20 08:35 Labs: Abnormal Lab Results - Last 24 Hours (Table) 01/19/20 01/19/20 Range/Units 20:34 20:34 WBC 15.3 H (3.8-10.6) k/uL RBC 3.43 L (3.80-5.40) m/uL Hgb 8.1 L (11.4-16.0) gm/dL Hct 29.3 L (34.0-46.0) % MCH 23.6 L (25.0-35.0) pg MCHC 27.5 L (31.0-37.0) g/dL RDW 16.4 H (11.5-15.5) % Plt Count 507 H (150-450) k/uL Neutrophils # 13.2 H (1.3-7.7) k/uL Sodium 130 L (137-145) mmol/L Chloride 92 L (98-107) mmol/L Carbon Dioxide 32 H (22-30) mmol/L Glucose 232 H (74-99) mg/dL Thrombosis Risk Factor Assmnt - Choose All That Apply Any of the Below Risk Factors Present?: Yes Each Factor Represents 1 point: Abnormal pulmonary function (COPD), Medical pt on bed rest, Serious lung disease incl. pneumonia (< 1month) Each Risk Factor Represents 2 Points: Age 61-74 years Other congenital or acquired thrombophilia - If yes, enter type in comment: No Thrombosis Risk Factor Assessment Total Risk Factor Score: 5 Thrombosis Risk Factor Assessment Level: High Risk Assessment and Plan Assessment: Atrial fibrillation with RVR, on Eliquis 8 cm left perihilar lung mass with history of lung cancer Possible post-obstructive pneumonia Acute on a chronic hypoxic respiratory failure COPD, not in acute exacerbation Hyponatremia Elevated lactic acid on the presentation to [facility] History of DVT/PE on Eliquis Osteoarthritis History of Gastroesophageal reflux disease Plan: this is a pleasant 69 years old female who presents with pneumonia, lung cancer and A. fib with RVR . Continue with antibiotic with Zosyn. Follow-up sputum culture. Follow-up recommendation by cardiology team. pulmonary consult . Continue with gentle hydration and follow-up culture results Labs and medication were reviewed.. Continue same treatment. Continue with symptomatic treatment. Resume home medication. Monitor lytes and vitals. DVT and GI prophylaxis. Further recommendations depends on the clinical course of the patient DVT prophylaxis: Eliquis GI Prophylaxis: Pepcid PT/OT: Pending Prognosis is guarded
--- NOTE | 2020-01-20 11:23 | P.CNPUL ---
History of Present Illness Consult date: 01/20/20 Reason for consult: dyspnea Chief complaint: Transfer from [place] for A. fib RVR History of present illness: This is a 69-year-old female well-known to me patient has been recently diagnosed with non-small cell cancer has not been started on chemotherapy, however patient has seen and evaluated by oncology services, patient has problem with recurrent atrial fibrillation has been hospitalized and early December, stabilized and discharged again presented with shortness of breath also cough yellowish sputum production, she has been on A. fib RVR lactic acid was elevated, patient has been on eliquis, chest x-ray shows a large mass at left midlung field area Review of Systems All systems: negative Past Medical History Past Medical History: Atrial Fibrillation, COPD, Deep Vein Thrombosis (DVT), GERD/Reflux, Osteoarthritis (OA), Pulmonary Embolus (PE), Syncope Additional Past Medical History / Comment(s): vertigo, hypotension, recently diagnosed with afib a week ago- started on amio PO at this time. History of Any Multi-Drug Resistant Organisms: None Reported Past Surgical History: Tubal Ligation Past Anesthesia/Blood Transfusion Reactions: Previous Problems w/ Anesthesia Additional Past Anesthesia/Blood Transfusion Reaction / Comment(s): hard time waking up Past Psychological History: No Psychological Hx Reported Smoking Status: Former smoker Past Alcohol Use History: None Reported Additional Past Alcohol Use History / Comment(s): quit smoking 4 almost 5 years. Past Drug Use History: None Reported - Past Family History Mother Family Medical History: Dementia Medications and Allergies Home Medications Medication Instructions Recorded Confirmed Type Famotidine [Pepcid] 20 mg PO DAILY PRN 10/21/19 01/19/20 History Apixaban [Eliquis] 5 mg PO BID 30 Days #60 tab 11/06/19 01/19/20 Rx HYDROcodone/APAP 7.5-325MG [[place] 1 tab PO Q4H PRN #20 tab 12/31/19 01/19/20 Rx 7.5-325] Metoprolol Tartrate [Lopressor] 25 mg PO BID #30 tablet 01/16/20 01/19/20 Rx Verapamil [Isoptin] 40 mg PO TID #90 tab 01/16/20 01/19/20 Rx Allergies Allergy/AdvReac Type Severity Reaction Status Date / Time Iodine and Iodide Containing Allergy Anaphylaxis Verified 01/19/20 19:09 Produc tomato Allergy Rash/Hives Verified 01/19/20 19:09 dial soap Allergy Rash/Hives Uncoded 12/31/19 08:43 Physical Exam Vitals: Vital Signs Temp Pulse Resp BP Pulse Ox 01/20/20 08:00 98.0 F 85 16 125/73 96 01/20/20 03:41 98.9 F 94 18 114/55 91 L 01/19/20 23:55 98.1 F 92 18 105/63 98 01/19/20 20:21 95 01/19/20 20:00 98.4 F 114 H 18 116/77 95 01/19/20 19:04 97.9 F 90 20 117/73 96 Intake and Output 01/19/20 01/20/20 01/20/20 22:59 06:59 14:59 Output Total 400 400 Balance -400 -400 Output: Urine 400 400 Other: Voiding Method Bedside Commode # Voids 1 1 Weight 62.5 kg 62.7 kg - Constitutional General appearance: cooperative, disheveled - EENT Eyes: PERRLA Ears: bilateral: normal - Neck Neck: normal ROM Carotids: bilateral: upstroke normal Thyroid: bilateral: normal size - Respiratory Respiratory: bilateral: diminished - Cardiovascular Rhythm: irregularly irregular Heart sounds: normal: S1, S2 - Gastrointestinal General gastrointestinal: soft - Integumentary Integumentary: normal turgor - Neurologic Neurologic: CNII-XII intact - Musculoskeletal Musculoskeletal: gait normal, generalized weakness, strength equal bilaterally - Psychiatric Psychiatric: A&O x's 3, appropriate affect, intact judgment & insight Results - Laboratory Findings CBC and BMP: 01/20/20 08:35 01/20/20 08:35 Abnormal lab findings: Abnormal Labs 01/19/20 01/19/20 01/20/20 20:34 20:34 08:00 WBC 15.3 H RBC 3.43 L Hgb 8.1 L Hct 29.3 L MCH 23.6 L MCHC 27.5 L RDW 16.4 H Plt Count 507 H Neutrophils # 13.2 H Sodium 130 L Chloride 92 L Carbon Dioxide 32 H Glucose 232 H Delta Bilirubin AST Albumin Urine Blood Small H Urine Mucus Rare H 01/20/20 01/20/20 08:35 08:35 WBC 13.4 H RBC 3.25 L Hgb 7.6 L Hct 27.1 L MCH 23.4 L MCHC 28.0 L RDW 16.5 H Plt Count 574 H Neutrophils # 11.2 H Sodium 133 L Chloride Carbon Dioxide 31 H Glucose 168 H Delta Bilirubin 0.4 H AST 11 L Albumin 2.1 L Urine Blood Urine Mucus - Diagnostic Findings Chest x-ray: report reviewed, image reviewed (Pending as noted above) Assessment and Plan Assessment: Purulent tracheobronchitis Q COPD exacerbation A. fib RVR Left mid lung field large mass, non-small cell cancer Plan: IV steroids Breathing treatments Antibiotics Continue Cardizem drip Breathing exercise incentive spirometry Other recommendations pending plan of care as per clinical response of the patient Time with Patient: Greater than 30
[2020-01-20] MEDS: IPRATROPIUM-ALBUTEROL 3 ML NEB INHALATION SCH ×3 (11:36→20:10)
--- NOTE | 2020-01-20 12:13 | P.CRDCN ---
History of Present Illness History of present illness: HISTORY OF PRESENTING ILLNESS This is a pleasant 69-year-old female past medical history significant for paroxysmal atrial fibrillation, newly diagnosed lung cancer, COPD and former nicotine dependence. She follows in the office with Dr. Mar. We have been asked to see in consultation for atrial fibrillation. She presented to [facility] with symptoms of shortness of breath and palpitations. Initial EKG on arrival there appeared to be SVT. She was converted with 6 mg of adenosine and underlying rhythm was A. fib. She maintained a normal ventricular response for a period of time and then went A. fib with RVR. She was transferred here for further cardiac evaluation on IV Cardizem. EKG on arrival here revealed atrial fibrillation heart rate initially 122 with a repeat this morning heart rate of 101. Chest x-ray reveals large mass in the left midlung superimposed on left perihilum not change compared to earlier study. Costophrenic angles are clear. Laboratory data reviewed, WBC 13.4, hemoglobin 7.6, platelets 574, sodium 133, potassium 3.7, creatinine 0.57, magnesium 1.6, NT proBNP 7040, procalcitonin 0.61 and TSH 1.21. Current daily cardiac medications include Eliquis 5 mg twice a day, Lopressor 25 mg twice a day and verapamil 40 mg 3 times a day. Echocardiogram obtained last week revealed preserved LV systolic function with ejection fraction 50-55%, mild aortic stenosis with a mean gradient of 6 mmHg, mild MR and mild TR noted. Currently she does not have a plan moving forward with oncology. She states she was supposed to have an appointment with oncology today. REVIEW OF SYSTEMS At the time of my exam: CONSTITUTIONAL: Denies fever or chills. CARDIOVASCULAR: Complains of shortness of breath. Denies chest pain, orthopnea, PND or palpitations. RESPIRATORY: Denies cough. GASTROINTESTINAL: Denies abdominal pain, diarrhea, constipation, nausea or vomiting. MUSCULOSKELETAL: Denies myalgias. NEUROLOGIC: Denies numbness, tingling or weakness. ENDOCRINE: Denies fatigue, weight change, polydipsia or polyurina. GENITOURINARY: Denies burning, hematuria or urgency with micturation. HEMATOLOGIC: Denies history of anemia or bleeding. PHYSICAL EXAMINATION Blood pressure 125/73 heart rate 85 afebrile and maintaining oxygen saturation on nasal cannula. CONSTITUTIONAL: No apparent distress. HEENT: Head is normocephalic. Pupils are equal, round. Sclerae anicteric. Mucous membranes of the mouth are moist. No JVD. No carotid bruit. CHEST EXAMINATION: Lungs are clear to auscultation. No chest wall tenderness is noted on palpation or with deep breathing. Diminshed bilatearlly. HEART EXAMINATION: Irregular rate and rhythm. S1, S2 heard. Soft systolic ejection murmur at the left sternal border, no gallops or rub. ABDOMEN: Soft, nontender. Positive bowel sounds. EXTREMITIES: 2+ peripheral pulses, no lower extremity edema and no calf tenderness. NEUROLOGIC EXAMINATION: Patient is awake, alert and oriented x3. 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 If rates improve to 80 or less we will stop this later on today. Continue eliquis for anti-coagulation. We will continue to follow and make recommendations accordingly. Thank you kindly for this consultation. Nurse Practitioner note has been reviewed, I agree with a documented findings and plan of care. Patient was seen and examined. Past Medical History Past Medical History: Atrial Fibrillation, COPD, Deep Vein Thrombosis (DVT), GERD/Reflux, Osteoarthritis (OA), Pulmonary Embolus (PE), Syncope Additional Past Medical History / Comment(s): vertigo, hypotension, recently diagnosed with afib a week ago- started on amio PO at this time. History of Any Multi-Drug Resistant Organisms: None Reported Past Surgical History: Tubal Ligation Past Anesthesia/Blood Transfusion Reactions: Previous Problems w/ Anesthesia Additional Past Anesthesia/Blood Transfusion Reaction / Comment(s): hard time waking up Past Psychological History: No Psychological Hx Reported Smoking Status: Former smoker Past Alcohol Use History: None Reported Additional Past Alcohol Use History / Comment(s): quit smoking 4 almost 5 years. Past Drug Use History: None Reported - Past Family History Mother Family Medical History: Dementia Medications and Allergies Home Medications Medication Instructions Recorded Confirmed Type Famotidine [Pepcid] 20 mg PO DAILY PRN 10/21/19 01/19/20 History Apixaban [Eliquis] 5 mg PO BID 30 Days #60 tab 11/06/19 01/19/20 Rx HYDROcodone/APAP 7.5-325MG [Hugo 1 tab PO Q4H PRN #20 tab 12/31/19 01/19/20 Rx 7.5-325] Metoprolol Tartrate [Lopressor] 25 mg PO BID #30 tablet 01/16/20 01/19/20 Rx Verapamil [Isoptin] 40 mg PO TID #90 tab 01/16/20 01/19/20 Rx Allergies Allergy/AdvReac Type Severity Reaction Status Date / Time Iodine and Iodide Containing Allergy Anaphylaxis Verified 01/19/20 19:09 Produc tomato Allergy Rash/Hives Verified 01/19/20 19:09 dial soap Allergy Rash/Hives Uncoded 12/31/19 08:43 Physical Exam Vitals: Vital Signs Temp Pulse Pulse Resp BP Pulse Ox 01/20/20 11:54 16 01/20/20 11:50 84 01/20/20 11:38 84 01/20/20 08:00 98.0 F 85 16 125/73 96 01/20/20 03:41 98.9 F 94 18 114/55 91 L 01/19/20 23:55 98.1 F 92 18 105/63 98 01/19/20 20:21 95 01/19/20 20:00 98.4 F 114 H 18 116/77 95 01/19/20 19:04 97.9 F 90 20 117/73 96 Intake and Output 01/19/20 01/20/20 01/20/20 22:59 06:59 14:59 Output Total 400 400 Balance -400 -400 Output: Urine 400 400 Other: Voiding Method Bedside Commode Bedside Commode # Voids 1 1 Weight 62.5 kg 62.7 kg Results 01/20/20 08:35 01/20/20 08:35 Cardiac Enzymes 01/20/20 Range/Units 08:35 AST 11 L (14-36) U/L CBC 01/19/20 01/20/20 Range/Units 20:34 08:35 WBC 15.3 H 13.4 H (3.8-10.6) k/uL RBC 3.43 L 3.25 L (3.80-5.40) m/uL Hgb 8.1 L 7.6 L (11.4-16.0) gm/dL Hct 29.3 L 27.1 L (34.0-46.0) % Plt Count 507 H 574 H (150-450) k/uL Comprehensive Metabolic Panel 01/19/20 01/20/20 Range/Units 20:34 08:35 Sodium 130 L 133 L (137-145) mmol/L Potassium 4.3 3.7 (3.5-5.1) mmol/L Chloride 92 L 98 (98-107) mmol/L Carbon Dioxide 32 H 31 H (22-30) mmol/L BUN 16 12 (7-17) mg/dL Creatinine 0.63 0.57 (0.52-1.04) mg/dL Glucose 232 H 168 H (74-99) mg/dL Calcium 9.5 8.7 (8.4-10.2) mg/dL Unconjugated Bilirubin 0.2 (0.0-1.1) mg/dL AST 11 L (14-36) U/L ALT 12 (4-34) U/L Alkaline Phosphatase 122 (38-126) U/L Total Protein 6.3 (6.3-8.2) g/dL Albumin 2.1 L (3.5-5.0) g/dL Current Medications Generic Name Dose Route Start Last Admin Trade Name Freq PRN Reason Stop Dose Admin Hydrocodone Bitart/Acetaminophen 1 each 01/19/20 20:52 Hydrocodone/Apap 7.5-325mg 1 Each Tab PO Q4H PRN Pain Albuterol/Ipratropium 3 ml 01/20/20 12:00 01/20/20 11:36 Ipratropium-Albuterol 3 Ml Neb INHALATION 3 ml RT-QID SHY Administration Apixaban 5 mg 01/19/20 21:00 01/20/20 09:51 Apixaban 5 Mg Tab PO Not Given BID SHY Budesonide 0.5 mg 01/20/20 20:00 Budesonide 0.5 Mg/2 Ml Nebu INHALATION RT-BID SHY Famotidine 20 mg 01/19/20 21:00 01/20/20 09:51 Famotidine 20 Mg Tab PO Not Given BID SHY Sodium Chloride 1,000 mls @ 100 mls/hr 01/19/20 19:15 01/20/20 06:31 Saline 0.9% IV Not Given .Q10H SHY Piperacillin Sod/Tazobactam 100 mls @ 25 mls/hr 01/19/20 20:00 01/20/20 04:13 Sod 3.375 gm/ Sodium Chloride IVPB 25 mls/hr Q8H SHY Administration Diltiazem HCl 125 mg/ Sodium 125 mls @ 5 mls/hr 01/19/20 21:15 01/19/20 21:22 Chloride IV 5 mg/hr .Q24H SHY 5 mls/hr Administration 5 MG/HR Methylprednisolone Sodium Succinate 60 mg 01/20/20 12:00 Methylprednisolone Sod Succi 125 Mg/2 Ml Vial IV Q6HR SHY Metoprolol Tartrate 50 mg 01/20/20 09:03 01/20/20 09:51 Metoprolol Tartrate 50 Mg Tab PO Not Given BID SHY Intake and Output 01/19/20 01/20/20 01/20/20 22:59 06:59 14:59 Output Total 400 400 Balance -400 -400 Output: Urine 400 400 Other: Voiding Method Bedside Commode Bedside Commode # Voids 1 1 Weight 62.5 kg 62.7 kg 01/20/20 08:35 01/20/20 08:35
[2020-01-20] MEDS: methylPREDNISolone SOD SUCCI 125 MG/2 ML VIAL IV SCH ×3 (12:38→23:19)
[2020-01-20] MEDS: HYDROcodone/APAP 7.5-325MG 1 EACH TAB PO PRN (20:09)
[2020-01-20] MEDS: BUDESONIDE 0.5 MG/2 ML NEBU INHALATION SCH (20:10)
[2020-01-20] MEDS ORDERED: METOPROLOL TARTRATE 50 MG TAB PO SCH (21:00)
[2020-01-20 21:01] LABS: Glucose,Whole Blood 521 mg/dL (75-99)
[2020-01-20 21:01] LABS: Glucose,Whole Blood 514 mg/dL (75-99)
[2020-01-20] MEDS: INSULIN ASPART (NovoLOG) 100 UNIT/ML VIAL SQ SCH (21:15)
[2020-01-20 22:06] LABS: Glucose,Whole Blood 520 mg/dL (75-99)
[2020-01-20] MEDS ORDERED: INSULIN REGULAR 100 UNIT/ML VIAL IV ONE (22:30)
[2020-01-20] MEDS: DILTIAZEM 125 MG in SODIUM CHLORIDE 0.9% 100 ML IV SCH (23:08)
[2020-01-20] MEDS: INSULIN REGULAR 100 UNIT in SODIUM CHLORIDE 0.9% 100 ML IV SCH (23:12)
[2020-01-21 00:06] LABS: Glucose,Whole Blood 410 mg/dL (75-99)
[2020-01-21 00:32] LABS: Glucose,Whole Blood 382 mg/dL (75-99)
[2020-01-21 01:03] LABS: Glucose,Whole Blood 355 mg/dL (75-99)
[2020-01-21 01:35] LABS: Glucose,Whole Blood 312 mg/dL (75-99)
[2020-01-21 02:13] LABS: Glucose,Whole Blood 274 mg/dL (75-99)
[2020-01-21 02:32] LABS: Glucose,Whole Blood 248 mg/dL (75-99)
[2020-01-21] MEDS: PIPERACILLIN-TAZOBACTAM 3.375 GM in SODIUM CHLORIDE 0.9% 100 ML IVPB SCH ×3 (03:09→20:40)
[2020-01-21] MEDS: SODIUM CHLORIDE 0.9% 1,000 ML IV SCH ×2 (03:10→12:24)
[2020-01-21 04:35] LABS: Glucose,Whole Blood 154 mg/dL (75-99)
[2020-01-21] MEDS: methylPREDNISolone SOD SUCCI 125 MG/2 ML VIAL IV SCH (06:08)
[2020-01-21] MEDS: INSULIN ASPART (NovoLOG) 100 UNIT/ML VIAL SQ SCH ×4 (06:09→20:59)
[2020-01-21 06:34] LABS: Glucose,Whole Blood 119 mg/dL (75-99)
[2020-01-21 07:33] LABS: Glucose,Whole Blood 119 mg/dL (75-99)
[2020-01-21] MEDS: IPRATROPIUM-ALBUTEROL 3 ML NEB INHALATION SCH ×4 (08:00→19:32)
[2020-01-21] MEDS: BUDESONIDE 0.5 MG/2 ML NEBU INHALATION SCH ×2 (08:00→19:32)
[2020-01-21] MEDS: METOPROLOL TARTRATE 50 MG TAB PO SCH ×2 (08:28→20:21)
[2020-01-21] MEDS: APIXABAN 5 MG TAB PO SCH ×2 (08:28→20:21)
[2020-01-21] MEDS: FAMOTIDINE 20 MG TAB PO SCH ×2 (08:28→20:20)
[2020-01-21 08:54] LABS: Anisocytosis Slight; Basophils # (A) 0.1 k/uL (0-0.2); Basophils % (A) 1 %; Eosinophils # (A) 0.1 k/uL (0-0.7); Eosinophils % (A) 1 %; HCT 29.7 % (34.0-46.0); HGB 8.3 gm/dL (11.4-16.0); Hypochromasia Marked; Lymphocytes # (A) 0.7 k/uL (1.0-4.8); Lymphocytes % (A) 6 %; MCH 24.2 pg (25.0-35.0); MCV 86.2 fL (80.0-100.0); Mean Platelet Volume 7.2; Monocytes # (A) 0.5 k/uL (0-1.0); Monocytes % (A) 3 %; Neutrophils # (A) 11.6 k/uL (1.3-7.7); Neutrophils % (A) 89 %; Platelet Count 574 k/uL (150-450); RBC 3.44 m/uL (3.80-5.40); RDW 16.8 % (11.5-15.5); WBC 13.1 k/uL (3.8-10.6)
[2020-01-21 09:40] LABS: African American GFR (CKD) >90 (>60 ml/min/1.73 sqM); Anion Gap 10 mmol/L; Blood Urea Nitrogen 16 mg/dL (7-17); Calcium 9.9 mg/dL (8.4-10.2); Carbon Dioxide 23 mmol/L (22-30); Chloride 103 mmol/L (98-107); Glucose 120 mg/dL (74-99); Non-African American GFR(CKD) >90 (>60 ml/min/1.73 sqM); Potassium 4.5 mmol/L (3.5-5.1); Sodium 136 mmol/L (137-145)
--- NOTE | 2020-01-21 10:38 | P.PN ---
Subjective This is a pleasant 69 years old female with past medical history of atrial fibrillation, the venous thrombosis, COPD, gastroesophageal reflux disease, osteoarthritis, pulmonary embolism, syncope Patient was transferred from [facility]. She was recently discharged from this hospital on 01/15 for pneumonia and left lung cancer. Also she had A. fib with RVR and hyponatremia. Patient presents because of dyspnea, worsening over one week associated with cough and yellowish phlegm. No chest pain. She was recently diagnosed with lung cancer and she supposed to see Dr. Medrano today for treatment. She did not get any chemotherapy yet. She is at 2 L oxygen at home She denies smoking, quit 2 years ago, no alcohol or illicit drugs Labs at [facility] show leukocytosis of 19.8 K, hemoglobin 7.8, [place] 717K. Influenza, and detected, coronavirus and detected, several other viruses not detected. Sodium 128, potassium 4.2, glucose 238, creatinine 0.8, liver enzymes AST and ALT not elevated, bilirubin normal at 0.7. CPKs normal is 43, magnesium 1.5, lactic acid is 3.1 which is elevated Patient is already on Cardizem drip started by cattery operator team, also she is already on Eliquis, also she was started on normal saline at 100 mL per hour Chest x-ray showing a large mass in the left midlung field superimposed of the left renal ileum not change compared to old exam earlier today about 8 cm Cardiology team already been consulted 01/21/2020 Patient feels better today, she still feels dyspneic, cough is improving. She saturating at 98% on 3 L oxygen via nasal cannula, she still slightly tachypneic about 20-22. She has leukocytosis since admission and today is 13.1 K, patient is also on steroids. BMP is stable. She remains on Zosyn, Solu-Medrol, Eliquis and normal saline at 100 mL per hour [id number] lower to 50 mL/h Review of Systems CONSTITUTIONAL: No fever, no malaise, no fatigue. HEENT: No recent visual problems or hearing problems. Denied any sore throat. CARDIOVASCULAR: No orthopnea, PND, no palpitations, no syncope. PULMONARY: No shortness of breath, no cough, no hemoptysis. GASTROINTESTINAL: No diarrhea, no nausea, no vomiting, no abdominal pain. Normoactive bowel sounds. NEUROLOGICAL: No headaches, no weakness, no numbness. HEMATOLOGICAL: Denies any bleeding or petechiae. Active Medications Generic Name Dose Route Start Last Admin Trade Name Freq PRN Reason Stop Dose Admin Hydrocodone Bitart/Acetaminophen 1 each 01/19/20 20:52 01/20/20 20:09 Hydrocodone/Apap 7.5-325mg 1 Each Tab PO 1 each Q4H PRN Administration Pain Albuterol/Ipratropium 3 ml 01/20/20 12:00 01/21/20 08:00 Ipratropium-Albuterol 3 Ml Neb INHALATION Not Given RT-QID SHY Apixaban 5 mg 01/19/20 21:00 01/21/20 08:28 Apixaban 5 Mg Tab PO 5 mg BID SHY Administration Budesonide 0.5 mg 01/20/20 20:00 01/21/20 08:00 Budesonide 0.5 Mg/2 Ml Nebu INHALATION Not Given RT-BID SHY Dronedarone 400 mg 01/21/20 10:15 Dronedarone 400 Mg Tab PO AC-BID SHY Famotidine 20 mg 01/19/20 21:00 01/21/20 08:28 Famotidine 20 Mg Tab PO 20 mg BID SHY Administration Sodium Chloride 1,000 mls @ 100 mls/hr 01/19/20 19:15 01/21/20 03:10 Saline 0.9% IV 100 mls/hr .Q10H SHY Administration Piperacillin Sod/Tazobactam 100 mls @ 25 mls/hr 01/19/20 20:00 01/21/20 03:09 Sod 3.375 gm/ Sodium Chloride IVPB 25 mls/hr Q8H SHY Administration Insulin Human Regular 100 unit 101 mls @ 0 mls/hr 01/20/20 23:00 01/21/20 04:38 / Sodium Chloride IV 1.5 mls/hr .Q0M SHY 1.5 mls/hr Titration Protocol Titrate Insulin Aspart 0 unit 01/20/20 21:00 01/21/20 06:09 Insulin Aspart (Novolog) 100 Unit/Ml Vial SQ Not Given ACHS SHY Protocol Methylprednisolone Sodium Succinate 60 mg 01/20/20 12:00 01/21/20 06:08 Methylprednisolone Sod Succi 125 Mg/2 Ml Vial IV 60 mg Q6HR SHY Administration Metoprolol Tartrate 50 mg 01/20/20 09:03 01/21/20 08:28 Metoprolol Tartrate 50 Mg Tab PO 50 mg BID SHY Administration Objective - Vital Signs Vital signs: Vital Signs Temp 98.1 F 01/21/20 03:22 Pulse 75 01/21/20 08:00 Resp 16 01/21/20 08:00 BP 117/67 01/21/20 08:00 Pulse Ox 98 01/21/20 08:00 Intake & Output 01/20/20 01/21/20 01/21/20 18:59 06:59 18:59 Intake Total 120 310.383 0 Output Total 775 200 Balance -655 310.383 -200 Weight 62.6 kg Intake: Intake, IV Titration 90.383 Amount Insulin Regular 100 unit 90.383 In Sodium Chloride 0.9% 100 ml @ Titrate IV .Q0M SHY Rx#:[id number] Oral 120 220 0 Output: Urine 775 200 Other: Voiding Method Bedside Commode Bedside Commode # Voids 1 1 - Exam GENERAL: The patient is alert and oriented x3, not in any acute distress. Well developed, well nourished. HEENT: Pupils are round and equally reacting to light. EOMI. No scleral icterus. No conjunctival pallor. Normocephalic, atraumatic. No pharyngeal erythema. No thyromegaly. CARDIOVASCULAR: S1 and S2 present. No murmurs, rubs, or gallops. PULMONARY: Chest is clear to auscultation, no wheezing or crackles. ABDOMEN: Soft, nontender, nondistended, normoactive bowel sounds. No palpable o rganomegaly. MUSCULOSKELETAL: No joint swelling or deformity. EXTREMITIES: No cyanosis, clubbing, or pedal edema. NEUROLOGICAL: Gross neurological examination did not reveal any focal deficits. SKIN: No rashes. No petechiae - Labs CBC & Chem 7: 01/21/20 07:42 01/21/20 07:42 Labs: Abnormal Lab Results - Last 24 Hours (Table) 01/19/20 01/20/20 01/20/20 Range/Units 20:30 20:59 21:00 WBC (3.8-10.6) k/uL RBC (3.80-5.40) m/uL Hgb (11.4-16.0) gm/dL Hct (34.0-46.0) % MCH (25.0-35.0) pg MCHC (31.0-37.0) g/dL RDW (11.5-15.5) % Plt Count (150-450) k/uL Neutrophils # (1.3-7.7) k/uL Lymphocytes # (1.0-4.8) k/uL Sodium (137-145) mmol/L Glucose (74-99) mg/dL POC Glucose (mg/dL) 521 H 514 H (75-99) mg/dL Procalcitonin 0.61 H (0.02-0.09) ng/mL 01/20/20 01/21/20 01/21/20 Range/Units 22:04 00:05 00:31 WBC (3.8-10.6) k/uL RBC (3.80-5.40) m/uL Hgb (11.4-16.0) gm/dL Hct (34.0-46.0) % MCH (25.0-35.0) pg MCHC (31.0-37.0) g/dL RDW (11.5-15.5) % Plt Count (150-450) k/uL Neutrophils # (1.3-7.7) k/uL Lymphocytes # (1.0-4.8) k/uL Sodium (137-145) mmol/L Glucose (74-99) mg/dL POC Glucose (mg/dL) 520 H 410 H 382 H (75-99) mg/dL Procalcitonin (0.02-0.09) ng/mL 01/21/20 01/21/20 01/21/20 Range/Units 01:02 01:33 02:11 WBC (3.8-10.6) k/uL RBC (3.80-5.40) m/uL Hgb (11.4-16.0) gm/dL Hct (34.0-46.0) % MCH (25.0-35.0) pg MCHC (31.0-37.0) g/dL RDW (11.5-15.5) % Plt Count (150-450) k/uL Neutrophils # (1.3-7.7) k/uL Lymphocytes # (1.0-4.8) k/uL Sodium (137-145) mmol/L Glucose (74-99) mg/dL POC Glucose (mg/dL) 355 H 312 H 274 H (75-99) mg/dL Procalcitonin (0.02-0.09) ng/mL 01/21/20 01/21/20 01/21/20 Range/Units 02:30 04:33 06:32 WBC (3.8-10.6) k/uL RBC (3.80-5.40) m/uL Hgb (11.4-16.0) gm/dL Hct (34.0-46.0) % MCH (25.0-35.0) pg MCHC (31.0-37.0) g/dL RDW (11.5-15.5) % Plt Count (150-450) k/uL Neutrophils # (1.3-7.7) k/uL Lymphocytes # (1.0-4.8) k/uL Sodium (137-145) mmol/L Glucose (74-99) mg/dL POC Glucose (mg/dL) 248 H 154 H 119 H (75-99) mg/dL Procalcitonin (0.02-0.09) ng/mL 01/21/20 01/21/20 01/21/20 Range/Units 07:32 07:42 07:42 WBC 13.1 H (3.8-10.6) k/uL RBC 3.44 L (3.80-5.40) m/uL Hgb 8.3 L (11.4-16.0) gm/dL Hct 29.7 L (34.0-46.0) % MCH 24.2 L (25.0-35.0) pg MCHC 28.0 L (31.0-37.0) g/dL RDW 16.8 H (11.5-15.5) % Plt Count 574 H (150-450) k/uL Neutrophils # 11.6 H (1.3-7.7) k/uL Lymphocytes # 0.7 L (1.0-4.8) k/uL Sodium 136 L (137-145) mmol/L Glucose 120 H (74-99) mg/dL POC Glucose (mg/dL) 119 H (75-99) mg/dL Procalcitonin (0.02-0.09) ng/mL
[2020-01-21 11:04] LABS: Glucose,Whole Blood 201 mg/dL (75-99)
--- NOTE | 2020-01-21 12:18 | P.PN ---
Subjective HISTORY OF PRESENTING ILLNESS This is a pleasant 69-year-old female past medical history significant for paroxysmal atrial fibrillation, newly diagnosed lung cancer, COPD and former nicotine dependence. She follows in the office with Dr. Mar. She is seen and examined laying flat in bed in no acute distress. She has converted to sinus mechanism and cardizem was stopped. She states her breathing improved as soon as she went to normal rhythm. Blood pressure 117/67 heart rate 75 afebrile and maintaining oxygen saturation on nasal cannula. Laboratory data reviewed, WBC 13.1, hgb 8.3, plt 574, sodium 136, potassium 4.5, creatinine 0.57. PHYSICAL EXAMINATION CONSTITUTIONAL: No apparent distress. HEENT: Head is normocephalic. Pupils are equal, round. Sclerae anicteric. Mucous membranes of the mouth are moist. No JVD. No carotid bruit. CHEST EXAMINATION: Lungs are clear to auscultation. No chest wall tenderness is noted on palpation or with deep breathing. Diminshed bilatearlly. HEART EXAMINATION: Irregular rate and rhythm. S1, S2 heard. Soft systolic ejection murmur at the left sternal border, no gallops or rub. EXTREMITIES: 2+ peripheral pulses, no lower extremity edema and no calf tenderness. 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 Initiate on multaq 400 mg BID for rhythm control. When stable from a pulmonary perspective she can be discharged to follow up with Dr. Mar. Nurse Practitioner note has been reviewed, I agree with a documented findings and plan of care. Patient was seen and examined. Objective - Vital Signs Vital signs: Vital Signs Temp 98.1 F 01/21/20 03:22 Pulse 75 01/21/20 08:00 Resp 16 01/21/20 12:00 BP 117/67 01/21/20 08:00 Pulse Ox 98 01/21/20 08:00 Intake & Output 01/20/20 01/21/20 01/21/20 18:59 06:59 18:59 Intake Total 120 310.383 9.95 Output Total 775 200 Balance -655 310.383 -190.05 Weight 62.6 kg Intake: Intake, IV Titration 90.383 9.95 Amount Insulin Regular 100 unit 90.383 9.95 In Sodium Chloride 0.9% 100 ml @ Titrate IV .Q0M [facility] Rx#:[id number] Oral 120 220 0 Output: Urine 775 200 Other: Voiding Method Bedside Commode Bedside Commode Bedside Commode # Voids 1 1 - Labs CBC & Chem 7: 01/21/20 07:42 01/21/20 07:42 Labs: Abnormal Lab Results - Last 24 Hours (Table) 01/20/20 01/20/20 01/20/20 Range/Units 20:59 21:00 22:04 WBC (3.8-10.6) k/uL RBC (3.80-5.40) m/uL Hgb (11.4-16.0) gm/dL Hct (34.0-46.0) % MCH (25.0-35.0) pg MCHC (31.0-37.0) g/dL RDW (11.5-15.5) % Plt Count (150-450) k/uL Neutrophils # (1.3-7.7) k/uL Lymphocytes # (1.0-4.8) k/uL Sodium (137-145) mmol/L Glucose (74-99) mg/dL POC Glucose (mg/dL) 521 H 514 H 520 H (75-99) mg/dL 01/21/20 01/21/20 01/21/20 Range/Units 00:05 00:31 01:02 WBC (3.8-10.6) k/uL RBC (3.80-5.40) m/uL Hgb (11.4-16.0) gm/dL Hct (34.0-46.0) % MCH (25.0-35.0) pg MCHC (31.0-37.0) g/dL RDW (11.5-15.5) % Plt Count (150-450) k/uL Neutrophils # (1.3-7.7) k/uL Lymphocytes # (1.0-4.8) k/uL Sodium (137-145) mmol/L Glucose (74-99) mg/dL POC Glucose (mg/dL) 410 H 382 H 355 H (75-99) mg/dL 01/21/20 01/21/20 01/21/20 Range/Units 01:33 02:11 02:30 WBC (3.8-10.6) k/uL RBC (3.80-5.40) m/uL Hgb (11.4-16.0) gm/dL Hct (34.0-46.0) % MCH (25.0-35.0) pg MCHC (31.0-37.0) g/dL RDW (11.5-15.5) % Plt Count (150-450) k/uL Neutrophils # (1.3-7.7) k/uL Lymphocytes # (1.0-4.8) k/uL Sodium (137-145) mmol/L Glucose (74-99) mg/dL POC Glucose (mg/dL) 312 H 274 H 248 H (75-99) mg/dL 01/21/20 01/21/20 01/21/20 Range/Units 04:33 06:32 07:32 WBC (3.8-10.6) k/uL RBC (3.80-5.40) m/uL Hgb (11.4-16.0) gm/dL Hct (34.0-46.0) % MCH (25.0-35.0) pg MCHC (31.0-37.0) g/dL RDW (11.5-15.5) % Plt Count (150-450) k/uL Neutrophils # (1.3-7.7) k/uL Lymphocytes # (1.0-4.8) k/uL Sodium (137-145) mmol/L Glucose (74-99) mg/dL POC Glucose (mg/dL) 154 H 119 H 119 H (75-99) mg/dL 01/21/20 01/21/20 01/21/20 Range/Units 07:42 07:42 11:02 WBC 13.1 H (3.8-10.6) k/uL RBC 3.44 L (3.80-5.40) m/uL Hgb 8.3 L (11.4-16.0) gm/dL Hct 29.7 L (34.0-46.0) % MCH 24.2 L (25.0-35.0) pg MCHC 28.0 L (31.0-37.0) g/dL RDW 16.8 H (11.5-15.5) % Plt Count 574 H (150-450) k/uL Neutrophils # 11.6 H (1.3-7.7) k/uL Lymphocytes # 0.7 L (1.0-4.8) k/uL Sodium 136 L (137-145) mmol/L Glucose 120 H (74-99) mg/dL POC Glucose (mg/dL) 201 H (75-99) mg/dL
[2020-01-21] MEDS: DRONEDARONE 400 MG TAB PO SCH ×2 (12:25→18:23)
[2020-01-21 13:02] LABS: Glucose,Whole Blood 232 mg/dL (75-99)
[2020-01-21 15:09] LABS: Glucose,Whole Blood 338 mg/dL (75-99)
[2020-01-21] MEDS ORDERED: methylPREDNISolone SOD SUCCI 40 MG/ML 1 ML VIAL IV SCH (16:00)
[2020-01-21 17:01] LABS: Glucose,Whole Blood 362 mg/dL (75-99)
[2020-01-21 18:10] LABS: Hemoglobin A1C 7.2 % (4.0-6.0)
[2020-01-21 18:55] LABS: Glucose,Whole Blood 377 mg/dL (75-99)
[2020-01-21] MEDS: HYDROcodone/APAP 7.5-325MG 1 EACH TAB PO PRN (20:21)
[2020-01-21 20:48] LABS: Glucose,Whole Blood 351 mg/dL (75-99)
[2020-01-21] MEDS: INSULIN REGULAR 100 UNIT in SODIUM CHLORIDE 0.9% 100 ML IV SCH (20:59)
[2020-01-21 22:50] LABS: Glucose,Whole Blood 341 mg/dL (75-99)
[2020-01-21] MEDS: GLIMEPIRIDE 2 MG TAB PO SCH (22:58)
[2020-01-22 01:15] LABS: Glucose,Whole Blood 283 mg/dL (75-99)
[2020-01-22] MEDS: PIPERACILLIN-TAZOBACTAM 3.375 GM in SODIUM CHLORIDE 0.9% 100 ML IVPB SCH ×2 (02:35→12:48)
[2020-01-22 04:20] LABS: Glucose,Whole Blood 132 mg/dL (75-99)
[2020-01-22] MEDS: HYDROcodone/APAP 7.5-325MG 1 EACH TAB PO PRN (04:39)
[2020-01-22 04:45] VITALS: TEMP 98.8
[2020-01-22] MEDS: SODIUM CHLORIDE 0.9% 1,000 ML IV SCH (05:24)
[2020-01-22] MEDS: INSULIN ASPART (NovoLOG) 100 UNIT/ML VIAL SQ SCH ×2 (06:11→12:44)
[2020-01-22 06:12] LABS: Glucose,Whole Blood 146 mg/dL (75-99)
[2020-01-22] MEDS: GLIMEPIRIDE 2 MG TAB PO SCH (06:15)
[2020-01-22] MEDS: DRONEDARONE 400 MG TAB PO SCH (06:15)
[2020-01-22 07:18] LABS: Glucose,Whole Blood 158 mg/dL (75-99)
[2020-01-22 07:59] LABS: Anisocytosis Slight; Basophils % (A) 0 %; Eosinophils # (A) 0.1 k/uL (0-0.7); Eosinophils % (A) 0 %; HCT 26.1 % (34.0-46.0); HGB 7.3 gm/dL (11.4-16.0); Hypochromasia Marked; Lymphocytes # (A) 0.9 k/uL (1.0-4.8); Lymphocytes % (A) 4 %; MCH 23.6 pg (25.0-35.0); MCHC 27.9 g/dL (31.0-37.0); MCV 84.8 fL (80.0-100.0); Mean Platelet Volume 7.3; Monocytes # (A) 0.7 k/uL (0-1.0); Monocytes % (A) 3 %; Neutrophils # (A) 21.8 k/uL (1.3-7.7); Neutrophils % (A) 92 %; Platelet Count 473 k/uL (150-450); RBC 3.07 m/uL (3.80-5.40); RDW 16.6 % (11.5-15.5); WBC 23.7 k/uL (3.8-10.6)
[2020-01-22] MEDS: BUDESONIDE 0.5 MG/2 ML NEBU INHALATION SCH (08:35)
[2020-01-22] MEDS: IPRATROPIUM-ALBUTEROL 3 ML NEB INHALATION SCH ×3 (08:35→15:48)
[2020-01-22] MEDS ORDERED: methylPREDNISolone SOD SUCCI 40 MG/ML 1 ML VIAL IV SCH (09:00)
[2020-01-22] MEDS: METOPROLOL TARTRATE 50 MG TAB PO SCH (09:16)
[2020-01-22] MEDS: FAMOTIDINE 20 MG TAB PO SCH (09:16)
[2020-01-22] MEDS: APIXABAN 5 MG TAB PO SCH (09:16)
[2020-01-22 09:27] VITALS: RESP 16
[2020-01-22 10:22] LABS: African American GFR (CKD) >90 (>60 ml/min/1.73 sqM); Anion Gap 2 mmol/L; Blood Urea Nitrogen 24 mg/dL (7-17); Calcium 10.1 mg/dL (8.4-10.2); Carbon Dioxide 32 mmol/L (22-30); Chloride 101 mmol/L (98-107); Glucose 239 mg/dL (74-99); Magnesium 1.7 mg/dL (1.6-2.3); Non-African American GFR(CKD) 88 (>60 ml/min/1.73 sqM); Potassium 4.7 mmol/L (3.5-5.1); Sodium 135 mmol/L (137-145)
--- NOTE | 2020-01-22 10:39 | P.PN ---
Subjective Patient is resting comfortably in bed She remains in ELIQUIS 5 mg twice daily Yesterday she was started on Multaq 400 mg twice daily The dose of metoprolol was decreased to 50 mg twice daily She'll a comfortable night no chest discomfort no palpitations She had a very brief episode of atrial tachycardia/A. fib, transient Pulse rate in the 70s, blood pressure 134/67 mmHg Breath sounds are reduced bilaterally but no crackles no rhonchi Heart sounds S1 and S2 are soft and regular No JVD No lower extremity edema Soft abdomen Impression Atrial fibrillation, persistent Now on Multaq 400 mg twice daily Normal LV function Plan The patient to go home from a cardiac standpoint She must not be on digoxin while on Multaq The dose of metoprolol has been reduced She should be monitored for bradycardia She follows with her ear specialist within 1-2 weeks for follow-up Holter monitor at that time Objective - Vital Signs Vital signs: Vital Signs Temp 98.8 F 01/22/20 04:00 Pulse 76 01/22/20 08:00 Resp 16 01/22/20 08:00 BP 134/67 01/22/20 08:00 Pulse Ox 100 01/22/20 08:00 Intake & Output 01/21/20 01/22/20 01/22/20 18:59 06:59 18:59 Intake Total 484.617 938.533 0 Output Total 200 Balance 284.617 938.533 0 Weight 64.9 kg Intake: Intake, IV Titration 10.617 458.533 Amount Insulin Regular 100 unit 10.617 58.533 In Sodium Chloride 0.9% 100 ml @ Titrate IV .Q0M SHY Rx#:[id number] Piperacillin-Tazobactam 3 100 .375 gm In Sodium Chloride 0.9% 100 ml @ 25 mls/hr IVPB Q8H SHY Rx#: [id number] Sodium Chloride 0.9% 1, 300 000 ml @ 50 mls/hr IV . Q20H SHY Rx#:[id number] Oral 474 480 0 Output: Urine 200 Other: Voiding Method Bedside Commode Toilet # Voids 1 3 - Labs CBC & Chem 7: 01/22/20 06:59 01/22/20 09:42 Labs: Abnormal Lab Results - Last 24 Hours (Table) 01/21/20 01/21/2001/20/20 Range/Units 07:42 11:02 12:59 WBC (3.8-10.6) k/uL RBC (3.80-5.40) m/uL Hgb (11.4-16.0) gm/dL Hct (34.0-46.0) % MCH (25.0-35.0) pg MCHC (31.0-37.0) g/dL RDW (11.5-15.5) % Plt Count (150-450) k/uL Neutrophils # (1.3-7.7) k/uL Lymphocytes # (1.0-4.8) k/uL Sodium (137-145) mmol/L Carbon Dioxide (22-30) mmol/L BUN (7-17) mg/dL Glucose (74-99) mg/dL POC Glucose (mg/dL) 201 H 232 H (75-99) mg/dL Hemoglobin A1c 7.2 H (4.0-6.0) % 01/21/20 01/21/20 01/21/20 Range/Units 15:07 16:59 18:54 WBC (3.8-10.6) k/uL RBC (3.80-5.40) m/uL Hgb (11.4-16.0) gm/dL Hct (34.0-46.0) % MCH (25.0-35.0) pg MCHC (31.0-37.0) g/dL RDW (11.5-15.5) % Plt Count (150-450) k/uL Neutrophils # (1.3-7.7) k/uL Lymphocytes # (1.0-4.8) k/uL Sodium (137-145) mmol/L Carbon Dioxide (22-30) mmol/L BUN (7-17) mg/dL Glucose (74-99) mg/dL POC Glucose (mg/dL) 338 H 362 H 377 H (75-99) mg/dL Hemoglobin A1c (4.0-6.0) % 01/21/20 01/21/20 01/22/20 Range/Units 20:47 22:48 01:06 WBC (3.8-10.6) k/uL RBC (3.80-5.40) m/uL Hgb (11.4-16.0) gm/dL Hct (34.0-46.0) % MCH (25.0-35.0) pg MCHC (31.0-37.0) g/dL RDW (11.5-15.5) % Plt Count (150-450) k/uL Neutrophils # (1.3-7.7) k/uL Lymphocytes # (1.0-4.8) k/uL Sodium (137-145) mmol/L Carbon Dioxide (22-30) mmol/L BUN (7-17) mg/dL Glucose (74-99) mg/dL POC Glucose (mg/dL) 351 H 341 H 283 H (75-99) mg/dL Hemoglobin A1c (4.0-6.0) % 01/22/20 01/22/20 01/22/20 Range/Units 04:17 06:10 06:59 WBC 23.7 H (3.8-10.6) k/uL RBC 3.07 L (3.80-5.40) m/uL Hgb 7.3 L (11.4-16.0) gm/dL Hct 26.1 L (34.0-46.0) % MCH 23.6 L (25.0-35.0) pg MCHC 27.9 L (31.0-37.0) g/dL RDW 16.6 H (11.5-15.5) % Plt Count 473 H (150-450) k/uL Neutrophils # 21.8 H (1.3-7.7) k/uL Lymphocytes # 0.9 L (1.0-4.8) k/uL Sodium (137-145) mmol/L Carbon Dioxide (22-30) mmol/L BUN (7-17) mg/dL Glucose (74-99) mg/dL POC Glucose (mg/dL) 132 H 146 H (75-99) mg/dL Hemoglobin A1c (4.0-6.0) % 01/22/20 01/22/20 Range/Units 07:17 09:42 WBC (3.8-10.6) k/uL RBC (3.80-5.40) m/uL Hgb (11.4-16.0) gm/dL Hct (34.0-46.0) % MCH (25.0-35.0) pg MCHC (31.0-37.0) g/dL RDW (11.5-15.5) % Plt Count (150-450) k/uL Neutrophils # (1.3-7.7) k/uL Lymphocytes # (1.0-4.8) k/uL Sodium 135 L (137-145) mmol/L Carbon Dioxide 32 H (22-30) mmol/L BUN 24 H (7-17) mg/dL Glucose 239 H (74-99) mg/dL POC Glucose (mg/dL) 158 H (75-99) mg/dL Hemoglobin A1c (4.0-6.0) % Microbiology - Last 24 Hours (Table) 01/20/20 11:22 Blood Culture - Preliminary Blood No Growth after 24 hours
--- NOTE | 2020-01-22 11:00 | P.PN ---
Subjective Progress Note Date: 01/22/20 Principal diagnosis: Purulent tracheobronchitis Acute COPD exacerbation A. fib RVR Left mid lung field large mass, non-small cell cancer 01/22/2020, patient seen eval examined during the rounds labs reviewed medications reviewed care plan discussed, shortness of breath and tachycardia improved now, patient on 3 L nasal cannula oxygen saturation 100% hemodynamic stable heart rate is improved last was irregular but 76, she remains on broad- spectrum antibiotics gentle rehydration along with the IV steroids and breathing treatments This is a 69-year-old female well-known to me patient has been recently diagnosed with non-small cell cancer has not been started on chemotherapy, however patient has seen and evaluated by oncology services, patient has problem with recurrent atrial fibrillation has been hospitalized and early December, stabilized and discharged again presented with shortness of breath also cough yellowish sputum production, she has been on A. fib RVR lactic acid was elevated, patient has been on eliquis, chest x-ray shows a large mass at left midlung field area Objective - Vital Signs Vital signs: Vital Signs Temp 98.8 F 01/22/20 04:00 Pulse 76 01/22/20 08:00 Resp 16 01/22/20 08:00 BP 134/67 01/22/20 08:00 Pulse Ox 100 01/22/20 08:00 Intake & Output 01/21/20 01/22/20 01/22/20 18:59 06:59 18:59 Intake Total 484.617 938.533 0 Output Total 200 Balance 284.617 938.533 0 Weight 64.9 kg Intake: Intake, IV Titration 10.617 458.533 Amount Insulin Regular 100 unit 10.617 58.533 In Sodium Chloride 0.9% 100 ml @ Titrate IV .Q0M SHY Rx#:[id number] Piperacillin-Tazobactam 3 100 .375 gm In Sodium Chloride 0.9% 100 ml @ 25 mls/hr IVPB Q8H SHY Rx#: [id number] Sodium Chloride 0.9% 1, 300 000 ml @ 50 mls/hr IV . Q20H SHY Rx#:[id number] Oral 474 480 0 Output: Urine 200 Other: Voiding Method Bedside Commode Toilet # Voids 1 3 - Exam - Constitutional General appearance: cooperative, disheveled - EENT Eyes: PERRLA Ears: bilateral: normal - Neck Neck: normal ROM Carotids: bilateral: upstroke normal Thyroid: bilateral: normal size - Respiratory Respiratory: bilateral: diminished - Cardiovascular Rhythm: irregularly irregular Heart sounds: normal: S1, S2 - Gastrointestinal General gastrointestinal: soft - Integumentary Integumentary: normal turgor - Neurologic Neurologic: CNII-XII intact - Musculoskeletal Musculoskeletal: gait normal, generalized weakness, strength equal bilaterally - Psychiatric Psychiatric: A&O x's 3, appropriate affect, intact judgment & insight - Labs CBC & Chem 7: 01/22/20 06:59 01/22/20 09:42 Labs: Abnormal Lab Results - Last 24 Hours (Table) 01/21/20 01/21/20 01/21/20 Range/Units 07:42 11:02 12:59 WBC (3.8-10.6) k/uL RBC (3.80-5.40) m/uL Hgb (11.4-16.0) gm/dL Hct (34.0-46.0) % MCH (25.0-35.0) pg MCHC (31.0-37.0) g/dL RDW (11.5-15.5) % Plt Count (150-450) k/uL Neutrophils # (1.3-7.7) k/uL Lymphocytes # (1.0-4.8) k/uL Sodium (137-145) mmol/L Carbon Dioxide (22-30) mmol/L BUN (7-17) mg/dL Glucose (74-99) mg/dL POC Glucose (mg/dL) 201 H 232 H (75-99) mg/dL Hemoglobin A1c 7.2 H (4.0-6.0) % 01/21/20 01/21/20 01/21/20 Range/Units 15:07 16:59 18:54 WBC (3.8-10.6) k/uL RBC (3.80-5.40) m/uL Hgb (11.4-16.0) gm/dL Hct (34.0-46.0) % MCH (25.0-35.0) pg MCHC (31.0-37.0) g/dL RDW (11.5-15.5) % Plt Count (150-450) k/uL Neutrophils # (1.3-7.7) k/uL Lymphocytes # (1.0-4.8) k/uL Sodium (137-145) mmol/L Carbon Dioxide (22-30) mmol/L BUN (7-17) mg/dL Glucose (74-99) mg/dL POC Glucose (mg/dL) 338 H 362 H 377 H (75-99) mg/dL Hemoglobin A1c (4.0-6.0) % 01/21/20 01/21/20 01/22/20 Range/Units 20:47 22:48 01:06 WBC (3.8-10.6) k/uL RBC (3.80-5.40) m/uL Hgb (11.4-16.0) gm/dL Hct (34.0-46.0) % MCH (25.0-35.0) pg MCHC (31.0-37.0) g/dL RDW (11.5-15.5) % Plt Count (150-450) k/uL Neutrophils # (1.3-7.7) k/uL Lymphocytes # (1.0-4.8) k/uL Sodium (137-145) mmol/L Carbon Dioxide (22-30) mmol/L BUN (7-17) mg/dL Glucose (74-99) mg/dL POC Glucose (mg/dL) 351 H 341 H 283 H (75-99) mg/dL Hemoglobin A1c (4.0-6.0) % 01/22/20 01/22/20 01/22/20 Range/Units 04:17 06:10 06:59 WBC 23.7 H (3.8-10.6) k/uL RBC 3.07 L (3.80-5.40) m/uL Hgb 7.3 L (11.4-16.0) gm/dL Hct 26.1 L (34.0-46.0) % MCH 23.6 L (25.0-35.0) pg MCHC 27.9 L (31.0-37.0) g/dL RDW 16.6 H (11.5-15.5) % Plt Count 473 H (150-450) k/uL Neutrophils # 21.8 H (1.3-7.7) k/uL Lymphocytes # 0.9 L (1.0-4.8) k/uL Sodium (137-145) mmol/L Carbon Dioxide (22-30) mmol/L BUN (7-17) mg/dL Glucose (74-99) mg/dL POC Glucose (mg/dL) 132 H 146 H (75-99) mg/dL Hemoglobin A1c (4.0-6.0) % 01/22/20 01/22/20 Range/Units 07:17 09:42 WBC (3.8-10.6) k/uL RBC (3.80-5.40) m/uL Hgb (11.4-16.0) gm/dL Hct (34.0-46.0) % MCH (25.0-35.0) pg MCHC (31.0-37.0) g/dL RDW (11.5-15.5) % Plt Count (150-450) k/uL Neutrophils # (1.3-7.7) k/uL Lymphocytes # (1.0-4.8) k/uL Sodium 135 L (137-145) mmol/L Carbon Dioxide 32 H (22-30) mmol/L BUN 24 H (7-17) mg/dL Glucose 239 H (74-99) mg/dL POC Glucose (mg/dL) 158 H (75-99) mg/dL Hemoglobin A1c (4.0-6.0) % Microbiology - Last 24 Hours (Table) 01/20/20 11:22 Blood Culture - Preliminary Blood No Growth after 24 hours Assessment and Plan Assessment: Purulent tracheobronchitis Q COPD exacerbation A. fib RVR Associated diastolic heart failure Left mid lung field large mass, non-small cell cancer Plan: IV steroids Breathing treatments Antibiotics Off of Cardizem drip Breathing exercise incentive spirometry Other recommendations pending plan of care as per clinical response of the patient Time with Patient: Greater than 30
[2020-01-22 12:06] LABS: Glucose,Whole Blood 223 mg/dL (75-99)
[2020-01-22] MEDS ORDERED: INSULIN ASPART (NovoLOG) 100 UNIT/ML VIAL SQ SCH (12:30)
[2020-01-22 12:59] VITALS: BP 130/69; PULSE 70
[2020-01-22] MEDS ORDERED: CAPSAICIN 0.025% CREAM 60 GM TUBE TOPICAL SCH (14:15)
--- NOTE | 2020-01-23 16:58 | CDI ---
Documentation Clarification Form Date: 01/23/20 From: Cassidy Ho Phone: If you have a question about this query, please contact Aishwarya Sánchez, [employer] at [phone] between 8am and 5pm. Admit Date: 01/19/20 Discharge Date:01/22/20 Patient Name: Selene Freitas Visit Number: [id number] ATTENTION: The Clinical Documentation Specialists (CDI) and [facility] Coding Staff appreciate your assistance in clarifying documentation. Please respond to the clarification below the line at the bottom and electronically sign. The CDI & [facility] Coding staff will review the response and follow-up if needed. Please note: Queries are made part of the Legal Health Record. If you have any questions, please contact the author of this message via ITS. Dear Dr. Willis The diagnosis Acute on Chronic hypoxic respiratory failure was documented in the record, but is not noted in subsequent documentation. History/Risk Factors: COPD exacerbation, atrial fibrillation, lung cancer, diastolic CHF Tobacco Use: Previous smoker Home oxygen: 2 liters at home Clinical Indicators: shortness of breath, cough, yellowish sputum Vital signs: T. 97.9, P. 90, R. 20, BP 117/73 Pulse Ox. 96% on 4 liters of oxygen on admission, 91% on 5 liters O2 on 01/19 Lung/Breathing assessment: Chest is clear to auscultation, no wheezing or crackles Treatment: Breathing tx: Pulmicort inhalation O2: 4 l/min on 01/18, 5 l/min on 01/19 Please clarify if the acute on chronic hypoxic respiratory failure was Present/active this admission Treated and resolved this admission Ruled out Other, please specify Clinically unable to determine may be in that day she had acute on chronic hypoxia but other days she did not , each day is different MTDD
== END 2020-01-22 16:10 | disposition home health service (06) | DRG 308 ==
LOC: 3SCARD 18:19
PROVIDERS: ADMIT Internal Medicine; ATTEND Internal Medicine
DX: I48.19 Other persistent atrial fibrillation (principal); J18.9 Pneumonia, unspecified organism; J96.21 Acute and chronic respiratory failure with hypoxia; C34.92 Malignant neoplasm of unspecified part of left bronchus or lung; E87.1 Hypo-osmolality and hyponatremia; I50.32 Chronic diastolic (congestive) heart failure; J44.0 Chronic obstructive pulmonary disease with (acute) lower respiratory infection; J44.1 Chronic obstructive pulmonary disease with (acute) exacerbation; I47.1 Supraventricular tachycardia; I11.0 Hypertensive heart disease with heart failure; M19.90 Unspecified osteoarthritis, unspecified site; K21.9 Gastro-esophageal reflux disease without esophagitis; R79.89 Other specified abnormal findings of blood chemistry; Z79.01 Long term (current) use of anticoagulants; Z79.899 Other long term (current) drug therapy; Z86.711 Personal history of pulmonary embolism; Z86.718 Personal history of other venous thrombosis and embolism; Z87.891 Personal history of nicotine dependence; Z87.01 Personal history of pneumonia (recurrent); Z98.51 Tubal ligation status; Z91.041 Radiographic dye allergy status; Z91.018 Allergy to other foods; Z91.048 Other nonmedicinal substance allergy status; Z82.0 Family history of epilepsy and other diseases of the nervous system
CPT/HCPCS: 71045; 80048; 80076; 81001; 82308; 83036; 83735; 83880; 84145; 84443; 85025; 87040; 94640; 94760

== ENCOUNTER 2020-03-03 13:44 | Day surgery (SDC) | payer MEDICARE, OTHER ==
[2020-03-03] MEDS ORDERED: LIDOCAINE 1% INJ 10MG/ML (20 ML MDV) SQ ONE (14:32)
[2020-03-03 14:42] LABS: Anisocytosis Slight; Basophils # (A) 0.1 k/uL (0-0.2); Basophils % (A) 1 %; Eosinophils # (A) 0.1 k/uL (0-0.7); Eosinophils % (A) 1 %; Hypochromasia Marked; Lymphocytes # (A) 1.9 k/uL (1.0-4.8); Lymphocytes % (A) 22 %; MCH 24.9 pg (25.0-35.0); MCHC 28.9 g/dL (31.0-37.0); MCV 86.1 fL (80.0-100.0); Mean Platelet Volume 6.8; Monocytes # (A) 0.3 k/uL (0-1.0); Monocytes % (A) 4 %; Neutrophils # (A) 5.9 k/uL (1.3-7.7); Neutrophils % (A) 69 %; Platelet Count 499 k/uL (150-450); Poikilocytosis Slight; RBC 3.94 m/uL (3.80-5.40); WBC 8.5 k/uL (3.8-10.6)
[2020-03-03 14:43] LABS: HGB 9.8 gm/dL (11.4-16.0)
[2020-03-03 15:07] LABS: Potassium 5.2 mmol/L (3.5-5.1)
--- NOTE | 2020-03-03 15:10 | IR ---
PICC LINE PLACEMENT: HISTORY: Chemotherapy PROCEDURE: Ultrasound and fluoroscopic guidance of PICC line placement. COMPLICATIONS: None ANESTHESIA: 1. 1% Lidocaine locally. FINDINGS/TECHNIQUE: The procedure was explained to the patient. The risks, complications, benefits and alternatives were discussed and any questions were answered. Informed consent was obtained. The patient was placed supine on the fluoroscopic table and prepped and draped in the usual sterile fash ion. Utilizing a 21 gauge needle and sonographic and fluoroscopic guidance, access in the left brac hial vein was achieved and there is placement of a 0.018 guidewire. The vein is patent. A 4-F sheat h was placed over the guidewire. The guidewire and dilator were removed and a 4-F. PICC line was bre onelia through the sheath with the tip at the level of the SVC. The sheath was removed, the catheter wa s flushed and sutured into position. The patient was stable throughout the procedure and remained st able upon discharge from the Department of Radiology. The vein puncture was patent under ultrasound. A sanchez scale image was obtained to document patency of the vein punctured. All elements of the maximal barrier technique were utilized. FLUOROSCOPY TIME: 0.1 minute and one image submitted IMPRESSION: Successful PICC line placement under ultrasound and fluoroscopic guidance.
[2020-03-03 16:25] VITALS: PULSE 118; RESP 20
[2020-03-03 16:27] VITALS: BP 122/71
== END 2020-03-03 16:00 | disposition home or self-care (01) ==
LOC: CATHCVL 13:44
PROVIDERS: ATTEND Radiology Diagnostic Radiology
DX: C34.12 Malignant neoplasm of upper lobe, left bronchus or lung (principal); J44.9 Chronic obstructive pulmonary disease, unspecified; D64.9 Anemia, unspecified; I48.91 Unspecified atrial fibrillation; R42 Dizziness and giddiness; Z88.0 Allergy status to penicillin; Z91.048 Other nonmedicinal substance allergy status; Z88.8 Allergy status to other drugs, medicaments and biological substances; Z79.01 Long term (current) use of anticoagulants; Z79.899 Other long term (current) drug therapy; Z79.891 Long term (current) use of opiate analgesic; Z86.711 Personal history of pulmonary embolism; Z86.718 Personal history of other venous thrombosis and embolism; Z98.51 Tubal ligation status; Z86.19 Personal history of other infectious and parasitic diseases; Z87.891 Personal history of nicotine dependence; Z78.0 Asymptomatic menopausal state; Z80.9 Family history of malignant neoplasm, unspecified; Z80.6 Family history of leukemia
CPT/HCPCS: 36573; 80051; 82565; 84520; 85025; C1751; C1769; J2001

== ENCOUNTER 2020-03-06 01:51 | Emergency (ER) | payer MEDICARE, OTHER ==
[2020-03-06] MEDS ORDERED: SODIUM CHLORIDE 0.9% 1,000 ML IV STA ×2 (02:06→03:30)
--- NOTE | 2020-03-06 02:18 | ED ---
SOB HPI - General Chief Complaint: Shortness of Breath Stated Complaint: SOB Time Seen by Provider: 03/06/20 01:59 Source: patient, family, RN notes reviewed, old records reviewed Mode of arrival: wheelchair Limitations: no limitations - History of Present Illness Initial Comments: This is a 69-year-old female DF she presents today for evaluation of weakness persistent weakness. Ration has lung cancer known going to chemotherapy. No fevers. No nausea vomiting or diarrhea no other complaints. No headache chest pain shortness of breath or abdominal pain. No recent change in medications, patient has no other complaints aside from decreased appetite and weakness MD Complaint: anxiety (Decreased appetite and weakness) -: days(s) Severity: moderate Severity scale (1-10): 4 Consistency: constant Improves With: nothing Worsens With: nothing Known History Of: other (On chemotherapy) Context: recent illness, other (Known lung cancer) Associated Symptoms: denies other symptoms Treatments Prior to Arrival: none - Related Data Home Medications Medication Instructions Recorded Confirmed Famotidine [Pepcid] 20 mg PO DAILY PRN 10/21/19 03/03/20 Acetaminophen [Tylenol] 500 mg PO Q4-6H PRN 03/03/20 03/03/20 Docusate [Colace] 100 mg PO DAILY 03/03/20 03/03/20 Loperamide [Imodium] 2 mg PO DIRECTED PRN 03/03/20 03/03/20 Meclizine [Antivert] 25 mg PO DIRECTED PRN 03/03/20 03/03/20 Metoprolol Tartrate [Lopressor] 25 mg PO BID 03/03/20 03/03/20 ondansetron HCL [Zofran] 8 mg PO Q8HR PRN 03/03/20 03/03/20 Previous Rx's Medication Instructions Recorded Apixaban [Eliquis] 5 mg PO BID 30 Days #60 tab 11/06/19 HYDROcodone/APAP 7.5-325MG [[place] 1 tab PO Q4H PRN #20 tab 12/31/19 7.5-325] Albuterol Inhaler [Ventolin Hfa 1 puff INHALATION RT-QID PRN #1 01/22/20 Inhaler] puff Amoxic-Pot Clav 500-125 mg 1 tab PO Q12HR 7 Days #14 tab 01/22/20 [Augmentin 500-125 mg] Capsaicin Cream [Trixaicin Cream] 1 applic TOPICAL QID #1 applic 01/22/20 Dronedarone [Multaq] 400 mg PO AC-BID #60 tab 01/22/20 predniSONE 10 mg PO DIRECTED #18 tab 01/22/20 Allergies Allergy/AdvReac Type Severity Reaction Status Date / Time Iodine and Iodide Containing Allergy Anaphylaxis Verified 03/06/20 01:57 Produc tomato Allergy Rash/Hives Verified 03/06/20 01:57 dial soap Allergy Rash/Hives Uncoded 03/06/20 01:57 Review of Systems ROS Statement: Those systems with pertinent positive or pertinent negative responses have been documented in the HPI. ROS Other: All systems not noted in ROS Statement are negative. Past Medical History Past Medical History: Atrial Fibrillation, Cancer, COPD, Deep Vein Thrombosis (DVT), GERD/Reflux, Osteoarthritis (OA), Pulmonary Embolus (PE), Syncope Additional Past Medical History / Comment(s): vertigo, chemo History of Any Multi-Drug Resistant Organisms: None Reported Past Surgical History: Tubal Ligation Past Anesthesia/Blood Transfusion Reactions: Previous Problems w/ Anesthesia Additional Past Anesthesia/Blood Transfusion Reaction / Comment(s): hard time waking up Past Psychological History: No Psychological Hx Reported Smoking Status: Former smoker Past Alcohol Use History: None Reported Past Drug Use History: None Reported - Past Family History Mother Family Medical History: Dementia General Exam Limitations: no limitations General appearance: alert, in no apparent distress Head exam: Present: atraumatic, normocephalic, normal inspection Eye exam: Present: normal appearance, PERRL, EOMI. Absent: scleral icterus, conjunctival injection, periorbital swelling ENT exam: Present: normal exam, mucous membranes moist Neck exam: Present: normal inspection. Absent: tenderness, meningismus, lymphadenopathy Respiratory exam: Present: normal lung sounds bilaterally. Absent: respiratory distress, wheezes, rales, rhonchi, stridor Cardiovascular Exam: Present: regular rate, normal rhythm, normal heart sounds. Absent: systolic murmur, diastolic murmur, rubs, gallop, clicks GI/Abdominal exam: Present: soft, normal bowel sounds. Absent: distended, tenderness, guarding, rebound, rigid Extremities exam: Present: normal inspection, full ROM, normal capillary refill. Absent: tenderness, pedal edema, joint swelling, calf tenderness Back exam: Present: normal inspection Neurological exam: Present: alert, oriented X3, CN II-XII intact Psychiatric exam: Present: normal affect, normal mood Skin exam: Present: warm, dry, intact, normal color. Absent: rash Course Vital Signs 03/06/20 03/06/20 01:57 02:13 Temperature 97.7 F Pulse Rate 90 Respiratory 18 20 Rate Blood Pressure 147/81 O2 Sat by Pulse 96 Oximetry - Reevaluation(s) Reevaluation #1: 03/06/20 03:52 Medical records reviewed Reevaluation #2: 03/06/20 03:52 Patient has no significant findings here in the ER, patient informed results and questions answered Reevaluation #3: 03/06/20 03:52 Mild hemoglobin dropped is not fit for transfusion. Patient can be discharged home Medical Decision Making - Medical Decision Making 69 female presents today for evaluation of weakness patient did have second chemo treatment recently and has not been feeling well since. Some occasional shortness of breath. Otherwise patient has no travel history or sick contacts or fevers. Just feeling weak with diminished appetite. Thesymptomsappeartobenewpatientcanbedischargedhome - Lab Data Result diagrams: 03/06/20 02:23 03/06/20 02:28 Lab Results 03/06/20 03/06/20 03/06/20 Range/Units 02:23 02:28 02:28 WBC 9.9 (3.8-10.6) k/uL RBC 2.98 L (3.80-5.40) m/uL Hgb 7.8 L D (11.4-16.0) gm/dL Hct 25.6 L (34.0-46.0) % MCV 85.7 (80.0-100.0) fL MCH 26.2 (25.0-35.0) pg MCHC 30.5 L (31.0-37.0) g/dL RDW 19.4 H (11.5-15.5) % Plt Count 303 (150-450) k/uL MPV 6.8 Neutrophils % 84 % Lymphocytes % 11 % Monocytes % 3 % Eosinophils % 1 % Basophils % 1 % Neutrophils # 8.3 H (1.3-7.7) k/uL Lymphocytes # 1.1 (1.0-4.8) k/uL Monocytes # 0.3 (0-1.0) k/uL Eosinophils # 0.1 (0-0.7) k/uL Basophils # 0.1 (0-0.2) k/uL Hypochromasia Marked Poikilocytosis Slight Anisocytosis Slight PT 10.8 (9.0-12.0) sec INR 1.1 (<1.2) APTT 27.8 (22.0-30.0) sec Sodium 133 L (137-145) mmol/L Potassium 4.8 (3.5-5.1) mmol/L Chloride 100 (98-107) mmol/L Carbon Dioxide 34 H (22-30) mmol/L Anion Gap -1 mmol/L BUN 20 H (7-17) mg/dL Creatinine 0.65 (0.52-1.04) mg/dL Est GFR (CKD-EPI)AfAm >90 (>60 ml/min/1.73 sqM) Est GFR (CKD-EPI)NonAf >90 (>60 ml/min/1.73 sqM) Glucose 118 H (74-99) mg/dL Plasma Lactic Acid Robert (0.7-2.0) mmol/L Calcium 8.3 L (8.4-10.2) mg/dL Phosphorus 3.8 (2.5-4.5) mg/dL Magnesium 1.7 (1.6-2.3) mg/dL Total Bilirubin 0.5 (0.2-1.3) mg/dL AST 22 (14-36) U/L ALT 16 (4-34) U/L Alkaline Phosphatase 126 (38-126) U/L Creatine Kinase 28 L (30-135) U/L Troponin I (0.000-0.034) ng/mL NT-Pro-B Natriuret Pep pg/mL Total Protein 6.2 L (6.3-8.2) g/dL Albumin 2.6 L (3.5-5.0) g/dL TSH 2.740 (0.465-4.680) mIU/L 03/06/20 03/06/20 03/06/20 Range/Units 02:28 02:28 02:28 WBC (3.8-10.6) k/uL RBC (3.80-5.40) m/uL Hgb (11.4-16.0) gm/dL Hct (34.0-46.0) % MCV (80.0-100.0) fL MCH (25.0-35.0) pg MCHC (31.0-37.0) g/dL RDW (11.5-15.5) % Plt Count (150-450) k/uL MPV Neutrophils % % Lymphocytes % % Monocytes % % Eosinophils % % Basophils % % Neutrophils # (1.3-7.7) k/uL Lymphocytes # (1.0-4.8) k/uL Monocytes # (0-1.0) k/uL Eosinophils # (0-0.7) k/uL Basophils # (0-0.2) k/uL Hypochromasia Poikilocytosis Anisocytosis PT (9.0-12.0) sec INR (<1.2) APTT (22.0-30.0) sec Sodium (137-145) mmol/L Potassium (3.5-5.1) mmol/L Chloride (98-107) mmol/L Carbon Dioxide (22-30) mmol/L Anion Gap mmol/L BUN (7-17) mg/dL Creatinine (0.52-1.04) mg/dL Est GFR (CKD-EPI)AfAm (>60 ml/min/1.73 sqM) Est GFR (CKD-EPI)NonAf (>60 ml/min/1.73 sqM) Glucose (74-99) mg/dL Plasma Lactic Acid Robert 0.9 (0.7-2.0) mmol/L Calcium (8.4-10.2) mg/dL Phosphorus (2.5-4.5) mg/dL Magnesium (1.6-2.3) mg/dL Total Bilirubin (0.2-1.3) mg/dL AST (14-36) U/L ALT (4-34) U/L Alkaline Phosphatase (38-126) U/L Creatine Kinase (30-135) U/L Troponin I 0.015 (0.000-0.034) ng/mL NT-Pro-B Natriuret Pep 4350 pg/mL Total Protein (6.3-8.2) g/dL Albumin (3.5-5.0) g/dL TSH (0.465-4.680) mIU/L - EKG Data -: EKG Interpreted by Me (EKG shows sinus rhythm 79 [place] 144 QRS 84 QTc 428) - Radiology Data Radiology results: report reviewed (Chest x-ray is unchanged with no significant acute disease), image reviewed Disposition Clinical Impression: Weakness, Squamous cell carcinoma of left lung Narrative: Patient going through Chemotherapy 2nd Treatment Disposition: HOME SELF-CARE Condition: Good Instructions (If sedation given, give patient instructions): Weakness (ED) Is patient prescribed a controlled substance at d/c from ED?: No Referrals: Monica Roth MD [Primary Care Provider] - 1-2 days
[2020-03-06 02:38] LABS: Anisocytosis Slight; Basophils # (A) 0.1 k/uL (0-0.2); Basophils % (A) 1 %; Eosinophils # (A) 0.1 k/uL (0-0.7); Eosinophils % (A) 1 %; HCT 25.6 % (34.0-46.0); Hypochromasia Marked; Lymphocytes # (A) 1.1 k/uL (1.0-4.8); Lymphocytes % (A) 11 %; MCH 26.2 pg (25.0-35.0); MCHC 30.5 g/dL (31.0-37.0); MCV 85.7 fL (80.0-100.0); Mean Platelet Volume 6.8; Monocytes # (A) 0.3 k/uL (0-1.0); Monocytes % (A) 3 %; Neutrophils # (A) 8.3 k/uL (1.3-7.7); Neutrophils % (A) 84 %; Platelet Count 303 k/uL (150-450); Poikilocytosis Slight; RBC 2.98 m/uL (3.80-5.40); RDW 19.4 % (11.5-15.5); WBC 9.9 k/uL (3.8-10.6)
[2020-03-06 02:40] LABS: HGB 7.8 gm/dL (11.4-16.0)
[2020-03-06 02:49] LABS: INR 1.1 (<1.2); Partial Thromboplastin Time 27.8 sec (22.0-30.0); Prothrombin Time 10.8 sec (9.0-12.0)
[2020-03-06 02:50] LABS: ALT 16 U/L (4-34); AST 22 U/L (14-36); African American GFR (CKD) >90 (>60 ml/min/1.73 sqM); Albumin 2.6 g/dL (3.5-5.0); Alkaline Phosphatase 126 U/L (38-126); Anion Gap -1 mmol/L; Blood Urea Nitrogen 20 mg/dL (7-17); Calcium 8.3 mg/dL (8.4-10.2); Carbon Dioxide 34 mmol/L (22-30); Chloride 100 mmol/L (98-107); Creatine Kinase 28 U/L (30-135); Glucose 118 mg/dL (74-99); Magnesium 1.7 mg/dL (1.6-2.3); Non-African American GFR(CKD) >90 (>60 ml/min/1.73 sqM); Phosphorus 3.8 mg/dL (2.5-4.5); Potassium 4.8 mmol/L (3.5-5.1); Sodium 133 mmol/L (137-145); Total Bilirubin 0.5 mg/dL (0.2-1.3); Total Protein 6.2 g/dL (6.3-8.2)
--- NOTE | 2020-03-06 02:57 | XR ---
EXAM: XR Chest, 2 Views CLINICAL HISTORY: ITS.REASON XR Reason: Weakness TECHNIQUE: Frontal and lateral views of the chest. COMPARISON: 01/15/2020 CT, X-ray dated 01/19/2020 FINDINGS: Lungs: Unchanged large circumscribed mass overlying the left heart border. No consolidation. Pleural space: Unremarkable. No pneumothorax. Heart: Unremarkable. No cardiomegaly. Mediastinum: Large circumscribed mass overlying the left heart border. Bones/joints: Unremarkable. IMPRESSION: 1. Unchanged large circumscribed mass overlying the left heart border, more clearly evaluated on prior Chest CT dated 01/15/2020. 2. No acute intrathoracic process. No new consolidations, effusions, or pneumothorax.
[2020-03-06] MEDS ORDERED: SODIUM CHLORIDE 0.9% 500 ML 500 ML IV STA (03:30)
[2020-03-06] MEDS ORDERED: DEXAMETHASONE SOD PHOSPHATE 10 MG/ML 1 ML VIAL IV STA (03:30)
[2020-03-06] MEDS ORDERED: IPRATROPIUM-ALBUTEROL 3 ML NEB INHALATION STA (03:30)
[2020-03-06 04:33] LABS: Appearance,Urine Clear (Clear); Bilirubin,Urine Negative (Negative); Blood,Urine Negative (Negative); Color,Urine Light Yellow; Glucose,Urine (UA) Negative (Negative); Ketones,Urine Negative (Negative); Leukocyte Esterase,Urine Negative (Negative); Nitrite,Urine Negative (Negative); PH, Urine 6.5 (5.0-8.0); Protein,Urine Trace (Negative); Specific Gravity,Urine 1.012 (1.001-1.035); Urobilinogen,Urine <2.0 mg/dL (<2.0)
[2020-03-06 04:48] VITALS: RESP 16; TEMP 98
[2020-03-06 04:51] VITALS: BP 142/89; PULSE 82
== END 2020-03-06 04:40 | disposition home or self-care (01) ==
LOC: EC 01:51
DX: C34.92 Malignant neoplasm of unspecified part of left bronchus or lung (principal); K21.9 Gastro-esophageal reflux disease without esophagitis; Z79.899 Other long term (current) drug therapy; Z91.048 Other nonmedicinal substance allergy status; Z91.018 Allergy to other foods; Z87.891 Personal history of nicotine dependence; Z86.711 Personal history of pulmonary embolism; Z86.718 Personal history of other venous thrombosis and embolism
CPT/HCPCS: 36415; 94640; 93005; 83880; 80053; 82550; 83605; 83735; 84100; 84443; 84484; 85025; 85610; 85730; 81003; 71046; 99285; 96374; 96361 ×2; J1100

== ENCOUNTER 2020-03-11 06:58 | Inpatient (IN) | payer MEDICARE, OTHER ==
[2020-03-11] MEDS ORDERED: DILTIAZEM DRIP BOLUS FROM BAG 1 MG SOLN IV ONE (07:13)
[2020-03-11] MEDS ORDERED: SODIUM CHLORIDE 0.9% 500 ML 500 ML IV ONE (07:14)
[2020-03-11] MEDS ORDERED: SODIUM CHLORIDE 0.9% 1,000 ML IV STA (07:17)
--- NOTE | 2020-03-11 07:23 | ED ---
Arrhythmia/Palpitations HPI - General Chief Complaint: Arrhythmia/Palpitations Stated Complaint: Arrhythmia Time Seen by Provider: 03/11/20 07:00 Source: patient, family, RN notes reviewed, old records reviewed Mode of arrival: wheelchair Limitations: no limitations - History of Present Illness Initial Comments: This is a 69-year-old female with a history of lung cancer recently he just had chemotherapy 1 week ago today. Who presents by family to the emergency Department with complaints of increased heart rate a very low heart rate is low his 40s and high as 180s. Is also noted be hypotensive upon arrival. She denies any chest pain fevers chills or sweats no overt cough is out of the ordinary. She does feel weak. She has had atrial fibrillation in the past and it feels similar. MD Complaint: rapid heart beat - Related Data Home Medications Medication Instructions Recorded Confirmed Famotidine [Pepcid] 20 mg PO DAILY PRN 10/21/19 03/11/20 Acetaminophen [Tylenol] 500 mg PO Q4-6H PRN 03/03/20 03/11/20 Docusate [Colace] 100 mg PO DAILY PRN 03/03/20 03/11/20 Metoprolol Tartrate [Lopressor] 25 mg PO BID 03/03/20 03/11/20 ondansetron HCL [Zofran] 8 mg PO Q8HR PRN 03/03/20 03/11/20 Acetaminophen/Diphenhydramine 1 tab PO HS PRN 03/11/20 03/11/20 [Tylenol PM 500-25mg] Loratadine [Claritin] 10 mg PO DAILY PRN 03/11/20 03/11/20 Previous Rx's Medication Instructions Recorded Apixaban [Eliquis] 5 mg PO BID 30 Days #60 tab 11/06/19 Allergies Allergy/AdvReac Type Severity Reaction Status Date / Time Iodine and Iodide Containing Allergy Anaphylaxis Verified 03/11/20 08:24 Produc tomato Allergy Rash/Hives Verified 03/11/20 08:24 dial soap Allergy Rash/Hives Uncoded 03/11/20 08:24 Review of Systems ROS Statement: Those systems with pertinent positive or pertinent negative responses have been documented in the HPI. ROS Other: All systems not noted in ROS Statement are negative. Past Medical History Past Medical History: Atrial Fibrillation, Cancer, COPD, Deep Vein Thrombosis (DVT), GERD/Reflux, Osteoarthritis (OA), Pulmonary Embolus (PE), Syncope Additional Past Medical History / Comment(s): vertigo, chemo History of Any Multi-Drug Resistant Organisms: None Reported Past Surgical History: Tubal Ligation Past Anesthesia/Blood Transfusion Reactions: Previous Problems w/ Anesthesia Additional Past Anesthesia/Blood Transfusion Reaction / Comment(s): hard time waking up Past Psychological History: No Psychological Hx Reported Smoking Status: Former smoker Past Alcohol Use History: None Reported Past Drug Use History: None Reported - Past Family History Mother Family Medical History: Dementia General Exam - General Exam Comments Initial Comments: This is a well-developed asthenic appearing female who is awake alert oriented 3 Limitations: no limitations General appearance: alert, in no apparent distress Head exam: Present: atraumatic, normocephalic, other (She demonstrates some alopecia) Eye exam: Present: normal appearance, PERRL, EOMI. Absent: scleral icterus, conjunctival injection, periorbital swelling ENT exam: Present: mucous membranes dry Neck exam: Present: normal inspection, full ROM, other (No stridor JVD or bruits). Absent: tenderness, meningismus, lymphadenopathy Respiratory exam: Present: decreased breath sounds. Absent: respiratory distress, wheezes, rales, rhonchi, stridor Cardiovascular Exam: Present: tachycardia, irregular rhythm. Absent: systolic murmur, diastolic murmur, rubs, gallop, clicks GI/Abdominal exam: Present: soft, normal bowel sounds. Absent: distended, tenderness, guarding, rebound, rigid Extremities exam: Present: normal inspection, full ROM, normal capillary refill. Absent: tenderness, pedal edema, joint swelling, calf tenderness Back exam: Present: normal inspection Neurological exam: Present: alert, oriented X3, CN II-XII intact Psychiatric exam: Present: normal affect, normal mood Skin exam: Present: warm, dry, intact, normal color. Absent: rash Course Vital Signs 03/11/20 03/11/20 03/11/20 06:59 07:14 07:31 Temperature 97.7 F Pulse Rate 178 H 179 H 176 H Respiratory 24 18 2 L Rate Blood Pressure 85/61 93/72 102/71 O2 Sat by Pulse 99 100 100 Oximetry 03/11/20 03/11/20 07:33 08:00 Temperature Pulse Rate 108 H 113 H Respiratory 20 22 Rate Blood Pressure 93/64 110/70 O2 Sat by Pulse 100 100 Oximetry - Reevaluation(s) Reevaluation #1: 03/11/20 08:34 Reevaluation patient finds that her heart rate improved markedly as has the blood pressure. Reevaluation #2: 03/11/20 08:34 Repeat EKG shows a heart rate of 108 atrial flutter with variable AV block QRS 70 QT since QTC 318/[address] configuration EKG Findings - EKG Results: EKG: interpreted by ERMD (Atrial fibrillation with a rapid ventricular response rate of 178 QRS 76 QT since QTC 202/[address]-T wave configuration) Medical Decision Making - Lab Data Result diagrams: 03/11/20 07:22 03/11/20 07:22 Lab Results 03/11/20 03/11/20 03/11/20 Range/Units 07:22 07:22 07:22 WBC 7.3 (3.8-10.6) k/uL RBC 2.94 L (3.80-5.40) m/uL Hgb 7.7 L (11.4-16.0) gm/dL Hct 24.9 L (34.0-46.0) % MCV 84.9 (80.0-100.0) fL MCH 26.3 (25.0-35.0) pg MCHC 31.0 (31.0-37.0) g/dL RDW 18.8 H (11.5-15.5) % Plt Count 280 (150-450) k/uL MPV 8.2 Neutrophils % 67 % Lymphocytes % 26 % Monocytes % 2 % Eosinophils % 2 % Basophils % 1 % Neutrophils # 4.9 (1.3-7.7) k/uL Lymphocytes # 1.9 (1.0-4.8) k/uL Monocytes # 0.1 (0-1.0) k/uL Eosinophils # 0.2 (0-0.7) k/uL Basophils # 0.1 (0-0.2) k/uL Hypochromasia Marked Anisocytosis Slight PT 10.4 (9.0-12.0) sec INR 1.0 (<1.2) APTT 25.8 (22.0-30.0) sec Sodium 134 L (137-145) mmol/L Potassium 4.6 (3.5-5.1) mmol/L Chloride 100 (98-107) mmol/L Carbon Dioxide 29 (22-30) mmol/L Anion Gap 5 mmol/L BUN 21 H (7-17) mg/dL Creatinine 0.69 (0.52-1.04) mg/dL Est GFR (CKD-EPI)AfAm >90 (>60 ml/min/1.73 sqM) Est GFR (CKD-EPI)NonAf >90 (>60 ml/min/1.73 sqM) Glucose 130 H (74-99) mg/dL Calcium 8.5 (8.4-10.2) mg/dL Magnesium 1.7 (1.6-2.3) mg/dL Total Bilirubin 0.5 (0.2-1.3) mg/dL AST 18 (14-36) U/L ALT 18 (4-34) U/L Alkaline Phosphatase 116 (38-126) U/L Creatine Kinase 30 (30-135) U/L Troponin I (0.000-0.034) ng/mL Total Protein 6.5 (6.3-8.2) g/dL Albumin 3.0 L (3.5-5.0) g/dL 03/11/20 Range/Units 07:22 WBC (3.8-10.6) k/uL RBC (3.80-5.40) m/uL Hgb (11.4-16.0) gm/dL Hct (34.0-46.0) % MCV (80.0-100.0) fL MCH (25.0-35.0) pg MCHC (31.0-37.0) g/dL RDW (11.5-15.5) % Plt Count (150-450) k/uL MPV Neutrophils % % Lymphocytes % % Monocytes % % Eosinophils % % Basophils % % Neutrophils # (1.3-7.7) k/uL Lymphocytes # (1.0-4.8) k/uL Monocytes # (0-1.0) k/uL Eosinophils # (0-0.7) k/uL Basophils # (0-0.2) k/uL Hypochromasia Anisocytosis PT (9.0-12.0) sec INR (<1.2) APTT (22.0-30.0) sec Sodium (137-145) mmol/L Potassium (3.5-5.1) mmol/L Chloride (98-107) mmol/L Carbon Dioxide (22-30) mmol/L Anion Gap mmol/L BUN (7-17) mg/dL Creatinine (0.52-1.04) mg/dL Est GFR (CKD-EPI)AfAm (>60 ml/min/1.73 sqM) Est GFR (CKD-EPI)NonAf (>60 ml/min/1.73 sqM) Glucose (74-99) mg/dL Calcium (8.4-10.2) mg/dL Magnesium (1.6-2.3) mg/dL Total Bilirubin (0.2-1.3) mg/dL AST (14-36) U/L ALT (4-34) U/L Alkaline Phosphatase (38-126) U/L Creatine Kinase (30-135) U/L Troponin I 0.020 (0.000-0.034) ng/mL Total Protein (6.3-8.2) g/dL Albumin (3.5-5.0) g/dL Critical Care Time Critical Care Time: Yes Total Critical Care Time: 39 Critical Care Time: Critical care time includes initial presentation with history physical labs x- rays multiple reevaluation the patient including responsive therapy. Review of old charting. Discussed with the patient family regarding findings discussed with Dr. Lazaro admission orders and documentation of the above Disposition Clinical Impression: Atrial fibrillation and flutter, Hypotensive episode, Lung cancer, Chronic anemia Disposition: ADMITTED IP TO THIS HOSP Condition: Fair Referrals: Monica Roth MD [Primary Care Provider] - 1-2 days
[2020-03-11] MEDS: DILTIAZEM 125 MG in SODIUM CHLORIDE 0.9% 100 ML IV SCH (07:31)
[2020-03-11 07:46] LABS: ALT 18 U/L (4-34); AST 18 U/L (14-36); African American GFR (CKD) >90 (>60 ml/min/1.73 sqM); Alkaline Phosphatase 116 U/L (38-126); Anion Gap 5 mmol/L; Blood Urea Nitrogen 21 mg/dL (7-17); Calcium 8.5 mg/dL (8.4-10.2); Carbon Dioxide 29 mmol/L (22-30); Chloride 100 mmol/L (98-107); Creatine Kinase 30 U/L (30-135); Glucose 130 mg/dL (74-99); Magnesium 1.7 mg/dL (1.6-2.3); Non-African American GFR(CKD) >90 (>60 ml/min/1.73 sqM); Partial Thromboplastin Time 25.8 sec (22.0-30.0); Potassium 4.6 mmol/L (3.5-5.1); Prothrombin Time 10.4 sec (9.0-12.0); Sodium 134 mmol/L (137-145); Total Bilirubin 0.5 mg/dL (0.2-1.3); Total Protein 6.5 g/dL (6.3-8.2)
--- NOTE | 2020-03-11 08:09 | XR ---
EXAMINATION TYPE: XR chest 1V portable DATE OF EXAM: 03/11/2020 COMPARISON: 03/06/2020 INDICATION: Mass, lung cancer TECHNIQUE: Single frontal view of the chest is obtained. FINDINGS: The heart size is normal. The pulmonary vasculature is normal. Left suprahilar mass is stable. PICC line enters on the left with the tip in superior vena cava regio n. IMPRESSION: 1. No acute pulmonary process. 2. Stable hilar mass
[2020-03-11 08:30] LABS: Anisocytosis Slight; Basophils # (A) 0.1 k/uL (0-0.2); Basophils % (A) 1 %; Eosinophils # (A) 0.2 k/uL (0-0.7); Eosinophils % (A) 2 %; HCT 24.9 % (34.0-46.0); HGB 7.7 gm/dL (11.4-16.0); Hypochromasia Marked; Lymphocytes # (A) 1.9 k/uL (1.0-4.8); Lymphocytes % (A) 26 %; MCH 26.3 pg (25.0-35.0); MCV 84.9 fL (80.0-100.0); Mean Platelet Volume 8.2; Monocytes # (A) 0.1 k/uL (0-1.0); Monocytes % (A) 2 %; Neutrophils # (A) 4.9 k/uL (1.3-7.7); Neutrophils % (A) 67 %; Platelet Count 280 k/uL (150-450); RBC 2.94 m/uL (3.80-5.40); RDW 18.8 % (11.5-15.5); WBC 7.3 k/uL (3.8-10.6)
[2020-03-11] MEDS ORDERED: NALOXONE 0.4 MG/ML 1 ML VIAL IV PRN (08:37)
[2020-03-11] MEDS ORDERED: HEPARIN SODIUM,PORCINE 5,000 UNIT/ML 1 ML VIAL IV ONE (08:39)
[2020-03-11] MEDS ORDERED: HEPARIN SODIUM,PORCINE 5,000 UNIT/ML 1 ML VIAL IV PRN (08:39)
[2020-03-11] MEDS ORDERED: LORATADINE 10 MG TAB PO PRN (08:40)
[2020-03-11] MEDS ORDERED: ACETAMINOPHEN TAB 500 MG TAB PO PRN ×2 (08:40)
[2020-03-11] MEDS ORDERED: ONDANSETRON 4 MG TAB PO PRN (08:40)
[2020-03-11] MEDS ORDERED: DOCUSATE 100 MG CAP PO PRN (08:40)
[2020-03-11] MEDS ORDERED: FAMOTIDINE 20 MG TAB PO PRN (08:40)
[2020-03-11] MEDS ORDERED: HEPARIN SOD,PORK IN 0.45% NACL 25,000 UNIT in 0.45% NACL 1 250ML.BAG IV SCH (08:45)
[2020-03-11] MEDS ORDERED: METOPROLOL TARTRATE 25 MG TAB PO SCH (09:00)
[2020-03-11] MEDS ORDERED: diphenhydrAMINE 25 MG CAP PO PRN (09:09)
[2020-03-11] MEDS: SODIUM CHLORIDE 0.9% 1,000 ML IV SCH ×2 (11:38→17:26)
[2020-03-11] MEDS: APIXABAN 5 MG TAB PO SCH ×2 (11:42→20:24)
[2020-03-11] MEDS ORDERED: METOPROLOL TARTRATE 25 MG TAB PO STA (12:50)
--- NOTE | 2020-03-11 12:57 | P.HPIM ---
History of Present Illness 69-year-old the female with known history of lung cancer received chemo therapy about a week ago followed by some nausea vomiting during that time came in with compensative palpitations patient denied any chest pain denied any signs or symptoms of sepsis patient denied any fever denied any dysuria cough. Patient is found to be in atrial fibrillation with rapid and regular rate patient does have known history of A. fib. Does take 25 mg twice a day of metoprolol along with Eliquis patient was resumed on Eliquis. Patient is presently on Cardizem which will be weaned off will increase the dose of Eliquis. Patient is also on the Claritin as well as a Benadryl on as-needed basis both of which can cause tachycardia and frustrated atrial fibrillation patient doesn't appear to be clinically dehydrated does have hyponatremia unsure patient has an SIADH by but patient is presently on IV fluids which will be continued and if sodium drops tomorrow IV fluids were discontinued and patient was started on fluid restriction at the time. Review of Systems REVIEW OF SYSTEMS: CONSTITUTIONAL: No fever, no malaise, no fatigue. HEENT: No recent visual problems or hearing problems. Denied any sore throat. CARDIOVASCULAR: No chest pain, orthopnea, PND, no syncope. PULMONARY: No shortness of breath, no cough, no hemoptysis. GASTROINTESTINAL: No diarrhea, no nausea, no vomiting, no abdominal pain. NEUROLOGICAL: No headaches, no weakness, no numbness. HEMATOLOGICAL: Denies any bleeding or petechiae. GENITOURINARY: Denies any burning micturition, frequency, or urgency. MUSCULOSKELETAL/RHEUMATOLOGICAL: Denies any joint pain, swelling, or any muscle pain. ENDOCRINE: Denies any polyuria or polydipsia. The rest of the 14-point review of systems is negative. Past Medical History Past Medical History: Atrial Fibrillation, Cancer, COPD, Deep Vein Thrombosis (DVT), GERD/Reflux, Osteoarthritis (OA), Pulmonary Embolus (PE), Syncope Additional Past Medical History / Comment(s): vertigo, chemo History of Any Multi-Drug Resistant Organisms: None Reported Past Surgical History: Tubal Ligation Past Anesthesia/Blood Transfusion Reactions: Previous Problems w/ Anesthesia Additional Past Anesthesia/Blood Transfusion Reaction / Comment(s): hard time waking up Past Psychological History: No Psychological Hx Reported Smoking Status: Former smoker Past Alcohol Use History: None Reported Past Drug Use History: None Reported - Past Family History Mother Family Medical History: Dementia Medications and Allergies Home Medications Medication Instructions Recorded Confirmed Type Famotidine [Pepcid] 20 mg PO DAILY PRN 10/21/19 03/11/20 History Apixaban [Eliquis] 5 mg PO BID 30 Days #60 tab 11/06/19 03/11/20 Rx Acetaminophen [Tylenol] 500 mg PO Q4-6H PRN 03/03/20 03/11/20 History Docusate [Colace] 100 mg PO DAILY PRN 03/03/20 03/11/20 History Metoprolol Tartrate [Lopressor] 25 mg PO BID 03/03/20 03/11/20 History ondansetron HCL [Zofran] 8 mg PO Q8HR PRN 03/03/20 03/11/20 History Acetaminophen/Diphenhydramine 1 tab PO HS PRN 03/11/20 03/11/20 History [Tylenol PM 500-25mg] Loratadine [Claritin] 10 mg PO DAILY PRN 03/11/20 03/11/20 History Allergies Allergy/AdvReac Type Severity Reaction Status Date / Time Iodine and Iodide Containing Allergy Anaphylaxis Verified 03/11/20 08:24 Produc tomato Allergy Rash/Hives Verified 03/11/20 08:24 dial soap Allergy Rash/Hives Uncoded 03/11/20 08:24 Physical Exam Vitals: Vital Signs Temp Pulse Resp BP Pulse Ox 03/11/20 11:43 75 18 130/80 100 03/11/20 09:39 110 H 18 129/81 98 03/11/20 08:36 112 H 22 120/67 98 03/11/20 08:00 113 H 22 110/70 100 03/11/20 07:33 108 H 20 93/64 100 03/11/20 07:31 176 H 2 L 102/71 100 03/11/20 07:14 179 H 18 93/72 100 03/11/20 06:59 97.7 F 178 H 24 85/61 99 Intake and Output 03/10/20 03/11/20 03/11/20 22:59 06:59 14:59 Other: Weight 56.245 kg PHYSICAL EXAMINATION: GENERAL: The patient is alert and oriented x3, not in any acute distress. Well developed, well nourished. HEENT: Pupils are round and equally reacting to light. EOMI. No scleral icterus. No conjunctival pallor. Normocephalic, atraumatic. No pharyngeal erythema. No thyromegaly. CARDIOVASCULAR: S1 and S2 present. No murmurs, rubs, or gallops. Irregularly irregular rhythm tachycardic. PULMONARY: Chest is clear to auscultation, no wheezing or crackles. ABDOMEN: Soft, nontender, nondistended, normoactive bowel sounds. No palpable organomegaly. MUSCULOSKELETAL: No joint swelling or deformity. EXTREMITIES: No cyanosis, clubbing, or pedal edema. NEUROLOGICAL: Gross neurological examination did not reveal any focal deficits. SKIN: No rashes. Results CBC & Chem 7: 03/11/20 07:22 03/11/20 07:22 Labs: Abnormal Lab Results - Last 24 Hours (Table) 03/11/20 03/11/20 Range/Units 07:22 07:22 RBC 2.94 L (3.80-5.40) m/uL Hgb 7.7 L (11.4-16.0) gm/dL Hct 24.9 L (34.0-46.0) % RDW 18.8 H (11.5-15.5) % Sodium 134 L (137-145) mmol/L BUN 21 H (7-17) mg/dL Glucose 130 H (74-99) mg/dL Albumin 3.0 L (3.5-5.0) g/dL Assessment and Plan Plan: -Atrial fibrillation with rapid unclear rate: Patient will be continued on Eliquis will increase the dose of metoprolol, prior to wean off Cardizem. Cardiology will evaluate the patient. -History of lung cancer recently received chemotherapy about a week ago patient doesn't have any nausea vomiting at this time -Hyponatremia possibly of SIADH, management as discussed in the history History of DVT in the past -gastroesophageal reflux disease -COPD without any acute exacerbation -History of PE in the past
[2020-03-11] MEDS ORDERED: PNEUMOCOCCAL VACC-PNEUMOVAX 23 25 MCG/0.5 ML VIAL IM ONE (16:46)
[2020-03-11] MEDS: METOPROLOL TARTRATE 50 MG TAB PO SCH (20:24)
[2020-03-12] MEDS: SODIUM CHLORIDE 0.9% 1,000 ML IV SCH ×2 (02:34→03:42)
[2020-03-12] MEDS: METOPROLOL TARTRATE 50 MG TAB PO SCH ×2 (06:59→20:02)
[2020-03-12 07:51] LABS: Anisocytosis Slight; Basophils % (A) 1 %; Eosinophils # (A) 0.2 k/uL (0-0.7); Eosinophils % (A) 4 %; HCT 22.2 % (34.0-46.0); Hypochromasia Marked; Lymphocytes # (A) 1.6 k/uL (1.0-4.8); Lymphocytes % (A) 30 %; MCH 26.3 pg (25.0-35.0); MCHC 30.5 g/dL (31.0-37.0); MCV 86.3 fL (80.0-100.0); Mean Platelet Volume 8.5; Monocytes # (A) 0.1 k/uL (0-1.0); Monocytes % (A) 3 %; Neutrophils # (A) 3.2 k/uL (1.3-7.7); Neutrophils % (A) 61 %; Platelet Count 175 k/uL (150-450); RBC 2.57 m/uL (3.80-5.40); RDW 18.6 % (11.5-15.5); WBC 5.3 k/uL (3.8-10.6)
[2020-03-12 08:01] LABS: African American GFR (CKD) >90 (>60 ml/min/1.73 sqM); Anion Gap 1 mmol/L; Blood Urea Nitrogen 15 mg/dL (7-17); Calcium 8.1 mg/dL (8.4-10.2); Carbon Dioxide 27 mmol/L (22-30); Chloride 106 mmol/L (98-107); Glucose 105 mg/dL (74-99); Non-African American GFR(CKD) >90 (>60 ml/min/1.73 sqM); Potassium 4.1 mmol/L (3.5-5.1); Sodium 134 mmol/L (137-145)
[2020-03-12] MEDS: DILTIAZEM 125 MG in SODIUM CHLORIDE 0.9% 100 ML IV SCH ×2 (08:23→15:12)
[2020-03-12 08:25] LABS: HGB 6.8 gm/dL (11.4-16.0)
[2020-03-12] MEDS: APIXABAN 5 MG TAB PO SCH ×2 (09:18→20:01)
--- NOTE | 2020-03-12 10:18 | P.PN ---
Subjective 69-year-old the female with known history of lung cancer received chemo therapy about a week ago followed by some nausea vomiting during that time came in with compensative palpitations patient denied any chest pain denied any signs or symptoms of sepsis patient denied any fever denied any dysuria cough. Patient is found to be in atrial fibrillation with rapid and regular rate patient does have known history of A. fib. Does take 25 mg twice a day of metoprolol along with Eliquis patient was resumed on Eliquis. Patient is presently on Cardizem which will be weaned off will increase the dose of Eliquis. Patient is also on the Claritin as well as a Benadryl on as-needed basis both of which can cause tachycardia and frustrated atrial fibrillation patient doesn't appear to be clinically dehydrated does have hyponatremia unsure patient has an SIADH by but patient is presently on IV fluids which will be continued and if sodium drops tomorrow IV fluids were discontinued and patient was started on fluid restriction at the time. 03/12/2020 Patient heart rate is better controlled on metoprolol 50 mg twice a day. If cleared by cardiology patient will be discharged today patient the hemoglobin has gone down to around 6.7 patient will receive blood transfusion and hopefully with blood transfusion her heart rate was still low along with increased her metoprolol. Cardiology wanted to monitor the patient. They're recommending holding anticoagulation until the platelet count is about 70,000 Objective - Vital Signs Vital signs: Vital Signs Temp 97.5 F L 03/11/20 16:28 Pulse 68 03/12/20 04:00 Resp 16 03/12/20 04:00 BP 125/62 03/12/20 04:00 Pulse Ox 100 03/12/20 04:00 Intake & Output 03/11/20 03/12/20 03/12/20 18:59 06:59 18:59 Intake Total 1032.667 120 Output Total 700 Balance 1032.667 -700 120 Weight 56.245 kg 59 kg Intake: Intake, IV Titration 1032.667 Amount Diltiazem 125 mg In 32.667 Sodium Chloride 0.9% 100 ml @ 5 MG/HR 5 mls/hr IV .Q24H [facility] Rx#:[id number] Sodium Chloride 0.9% 1, 1000 000 ml @ 130 mls/hr IV . Q7H42M [facility] Rx#:[id number] Oral 120 Output: Urine 700 Other: Voiding Method Bedside Commode Bedside Commode # Voids 0 3 # Bowel Movements 0 - Exam PHYSICAL EXAMINATION: GENERAL: The patient is alert and oriented x3, not in any acute distress. Well developed, well nourished. HEENT: Pupils are round and equally reacting to light. EOMI. No scleral icterus. No conjunctival pallor. Normocephalic, atraumatic. No pharyngeal erythema. No thyromegaly. CARDIOVASCULAR: S1 and S2 present. No murmurs, rubs, or gallops. Irregularly irregular rhythm PULMONARY: Chest is clear to auscultation, no wheezing or crackles. ABDOMEN: Soft, nontender, nondistended, normoactive bowel sounds. No palpable organomegaly. MUSCULOSKELETAL: No joint swelling or deformity. EXTREMITIES: No cyanosis, clubbing, or pedal edema. NEUROLOGICAL: Gross neurological examination did not reveal any focal deficits. SKIN: No rashes. - Labs CBC & Chem 7: 03/12/20 07:02 03/12/20 07:02 Labs: Abnormal Lab Results - Last 24 Hours (Table) 03/12/20 03/12/20 Range/Units 07:02 07:02 RBC 2.57 L (3.80-5.40) m/uL Hgb 6.8 L* (11.4-16.0) gm/dL Hct 22.2 L (34.0-46.0) % MCHC 30.5 L (31.0-37.0) g/dL RDW 18.6 H (11.5-15.5) % Sodium 134 L (137-145) mmol/L Glucose 105 H (74-99) mg/dL Calcium 8.1 L (8.4-10.2) mg/dL Assessment and Plan Plan: -Atrial fibrillation with rapid unclear rate: Cardiology is admitting holding off on Eliquis sent to lab platelet count is able 70,000, continue with 50 mg twice a day of metoprolol Cardizem was discontinued yesterday -History of lung cancer recently received chemotherapy about a week ago patient doesn't have any nausea vomiting at this time -Hyponatremia possibly of SIADH, IV fluids will be discontinued patient was started on fluid restriction History of DVT in the past -gastroesophageal reflux disease -COPD without any acute exacerbation -History of PE in the past
--- NOTE | 2020-03-12 10:47 | P.CRDCN ---
History of Present Illness Consult date: 03/12/20 History of present illness: CHIEF COMPLAINT: A. fib with RVR HISTORY OF PRESENT ILLNESS: This is a 69-year-old female with a past medical history significant for lung cancer undergoing chemotherapy, atrial fibrillation, COPD, vertigo, and former nicotine dependence. Patient follows in the office with Dr. Mar. We have been asked to see the patient in consultation for A. fib with RVR. Patient examined this morning at the bedside. She reports she presented to the hospital secondary to palpitations. She denied chest pain or pressure. She denies shortness of breath. Patient was found to be in A. fib with RVR in the emergency room. She was started on a Cardizem drip. Her metoprolol has since been increased and her Cardizem drip has been weaned off. Her heart rate is controlled this morning in the 90s. DIAGNOSTICS: EKG reveals A. fib with RVR Chest xray no acute pulmonary process. Stable hilar mass. Laboratory data: WBC 5.3. Hemoglobin 6.8. Platelet count 175. Sodium 134. Potassium 4.1. BUN 15. Creatinine 0.60. Troponin negative 3. Current home cardiac medications include metoprolol 25 mg twice a day and Eliquis 5mg BID Echocardiogram completed in December 2019 reveals ejection fraction 50-55%, mild mitral regurgitation and mild tricuspid regurgitation. REVIEW OF SYSTEMS: At the time of my exam: CONSTITUTIONAL: Denies fever or chills. HEENT: Denies blurred vision, vision changes, or eye pain. Denies hemoptysis CARDIOVASCULAR: Denies chest pain, orthopnea, PND or palpitations RESPIRATORY: No shortness of breath. GASTROINTESTINAL: Denies abdominal pain. Denies nausea or vomiting. HEMATOLOGIC: Denies bleeding disorders. GENITOURINARY: Denies any blood in urine. SKIN: Denies pruitis. Denies rash. PHYSICAL EXAM: VITAL SIGNS: Reviewed. GENERAL: Well-developed in no acute distress. HEENT: Head is normocephalic. Pupils are equal, round. Sclerae anicteric. Mucous membranes of the mouth are moist. Neck supple. No JVD or thyromegaly LUNGS: Respirations even and unlabored. Lungs diminished bilaterally. HEART: Irregular rate and rhythm. S1 and S2 heard. ABDOMEN: Soft. Nondistended. Nontender. EXTREMITIES: Normal range of motion. No clubbing or cyanosis. Peripheral pulses intact. No lower extremity edema NEUROLOGIC: Awake and alert. Oriented x 3. ASSESSMENT: Paroxysmal atrial fibrillation with RVR Lung cancer, currently undergoing chemotherapy COPD Former nicotine dependence PLAN: No need to repeat echocardiogram as this was performed and December 2019 Continue Eliquis for anticoagulation Metoprolol has already been increased per internal medicine to 50 mg twice a day. Continue current dose. Patient is stable for discharge home from a cardiac perspective. Will defer to internal medicine. Nurse practitioner note has been reviewed by physician. Signing provider agrees with the documented findings, assessment, and plan of care. Past Medical History Past Medical History: Atrial Fibrillation, Cancer, COPD, Deep Vein Thrombosis (DVT), GERD/Reflux, Osteoarthritis (OA), Pulmonary Embolus (PE), Syncope Additional Past Medical History / Comment(s): vertigo, chemo for left lung cancer History of Any Multi-Drug Resistant Organisms: None Reported Past Surgical History: Tubal Ligation Past Anesthesia/Blood Transfusion Reactions: Previous Problems w/ Anesthesia Additional Past Anesthesia/Blood Transfusion Reaction / Comment(s): hard time waking up Past Psychological History: No Psychological Hx Reported Smoking Status: Former smoker Past Alcohol Use History: None Reported Additional Past Alcohol Use History / Comment(s): quit smoking 4 almost 5 years. Past Drug Use History: None Reported - Past Family History Mother Family Medical History: Dementia Medications and Allergies Home Medications Medication Instructions Recorded Confirmed Type Famotidine [Pepcid] 20 mg PO DAILY PRN 10/21/19 03/11/20 History Apixaban [Eliquis] 5 mg PO BID 30 Days #60 tab 11/06/19 03/11/20 Rx Acetaminophen [Tylenol] 500 mg PO Q4-6H PRN 03/03/20 03/11/20 History Docusate [Colace] 100 mg PO DAILY PRN 03/03/20 03/11/20 History Metoprolol Tartrate [Lopressor] 25 mg PO BID 03/03/20 03/11/20 History ondansetron HCL [Zofran] 8 mg PO Q8HR PRN 03/03/20 03/11/20 History Acetaminophen/Diphenhydramine 1 tab PO HS PRN 03/11/20 03/11/20 History [Tylenol PM 500-25mg] Loratadine [Claritin] 10 mg PO DAILY PRN 03/11/20 03/11/20 History Allergies Allergy/AdvReac Type Severity Reaction Status Date / Time Fish Containing Products Allergy Anaphylaxis Verified 03/11/20 17:23 [Fish] Iodine and Iodide Containing Allergy Anaphylaxis Verified 03/11/20 08:24 Produc tomato Allergy Rash/Hives Verified 03/11/20 08:24 dial soap Allergy Rash/Hives Uncoded 03/11/20 08:24 Physical Exam Vitals: Vital Signs Temp Pulse Pulse Resp BP BP Pulse Ox 03/12/20 04:00 68 16 125/62 100 03/11/20 23:30 85 16 123/77 99 03/11/20 20:00 116 H 16 107/66 100 03/11/20 17:02 86 18 03/11/20 16:28 97.5 F L 81 18 117/71 100 03/11/20 14:18 82 109/76 99 03/11/20 13:25 87 18 126/89 100 03/11/20 11:43 75 18 130/80 100 Intake and Output 03/11/20 03/12/20 03/12/20 22:59 06:59 14:59 Intake Total 120 Output Total 300 400 Balance -300 -400 120 Intake: Oral 120 Output: Urine 300 400 Other: Voiding Method Bedside Commode Bedside Commode # Voids 0 3 # Bowel Movements 0 Weight 56.245 kg 59 kg Results 03/12/20 07:02 03/12/20 07:02 Cardiac Enzymes 03/11/20 03/11/20 Range/Units 10:28 15:18 Troponin I 0.017 0.016 (0.000-0.034) ng/mL CBC 03/12/20 Range/Units 07:02 WBC 5.3 (3.8-10.6) k/uL RBC 2.57 L (3.80-5.40) m/uL Hgb 6.8 L* (11.4-16.0) gm/dL Hct 22.2 L (34.0-46.0) % Plt Count 175 (150-450) k/uL Comprehensive Metabolic Panel 03/12/20 Range/Units 07:02 Sodium 134 L (137-145) mmol/L Potassium 4.1 (3.5-5.1) mmol/L Chloride 106 (98-107) mmol/L Carbon Dioxide 27 (22-30) mmol/L BUN 15 (7-17) mg/dL Creatinine 0.60 (0.52-1.04) mg/dL Glucose 105 H (74-99) mg/dL Calcium 8.1 L (8.4-10.2) mg/dL Current Medications Generic Name Dose Route Start Last Admin Trade Name Freq PRN Reason Stop Dose Admin Acetaminophen 500 mg 03/11/20 08:40 Acetaminophen Tab 500 Mg Tab PO HS PRN Pain Acetaminophen 500 mg 03/11/20 08:40 Acetaminophen Tab 500 Mg Tab PO Q4H PRN Mild to Moderate Pain Apixaban 5 mg 03/11/20 09:00 03/12/20 09:18 Apixaban 5 Mg Tab PO 5 mg BID SHY Administration Docusate Sodium 100 mg 03/11/20 08:40 Docusate 100 Mg Cap PO DAILY PRN Constipation Famotidine 20 mg 03/11/20 08:40 Famotidine 20 Mg Tab PO DAILY PRN Heartburn Diltiazem HCl 125 mg/ Sodium 125 mls @ 5 mls/hr 03/11/20 07:15 03/12/20 08:23 Chloride IV Not Given .Q24H SHY 5 MG/HR Loratadine 10 mg 03/11/20 08:40 Loratadine 10 Mg Tab PO DAILY PRN Allergy Symptoms Metoprolol Tartrate 50 mg 03/11/20 21:00 03/12/20 06:59 Metoprolol Tartrate 50 Mg Tab PO 50 mg BID SHY Administration Naloxone HCl 0.2 mg 03/11/20 08:37 Naloxone 0.4 Mg/Ml 1 Ml Vial IV Q2M PRN Opioid Reversal Ondansetron HCl 8 mg 03/11/20 08:40 Ondansetron 4 Mg Tab PO Q8HR PRN Nausea Intake and Output 03/11/20 03/12/20 03/12/20 22:59 06:59 14:59 Intake Total 120 Output Total 300 400 Balance -300 -400 120 Intake: Oral 120 Output: Urine 300 400 Other: Voiding Method Bedside Commode Bedside Commode # Voids 0 3 # Bowel Movements 0 Weight 56.245 kg 59 kg 03/12/20 07:02 03/12/20 07:02
[2020-03-12 17:57] LABS: Anisocytosis Slight; Hypochromasia Marked; MCH 26.5 pg (25.0-35.0); MCHC 30.9 g/dL (31.0-37.0); MCV 85.6 fL (80.0-100.0); Mean Platelet Volume 8.6; Platelet Count 224 k/uL (150-450); Poikilocytosis Slight; RBC 3.16 m/uL (3.80-5.40); RDW 18.7 % (11.5-15.5); WBC 5.8 k/uL (3.8-10.6)
[2020-03-12 18:10] LABS: HGB 8.4 gm/dL (11.4-16.0)
[2020-03-12] MEDS ORDERED: MENTHOL-CAMPHOR LOTION 222 APPLIC/222 ML BOTTLE TOPICAL PRN (21:27)
[2020-03-13] MEDS: DILTIAZEM 125 MG in SODIUM CHLORIDE 0.9% 100 ML IV SCH (07:47)
[2020-03-13] MEDS: APIXABAN 5 MG TAB PO SCH ×2 (07:48→20:14)
[2020-03-13] MEDS: METOPROLOL TARTRATE 50 MG TAB PO SCH ×3 (07:48→20:14)
--- NOTE | 2020-03-13 10:24 | P.PN ---
Subjective 69-year-old the female with known history of lung cancer received chemo therapy about a week ago followed by some nausea vomiting during that time came in with compensative palpitations patient denied any chest pain denied any signs or symptoms of sepsis patient denied any fever denied any dysuria cough. Patient is found to be in atrial fibrillation with rapid and regular rate patient does have known history of A. fib. Does take 25 mg twice a day of metoprolol along with Eliquis patient was resumed on Eliquis. Patient is presently on Cardizem which will be weaned off will increase the dose of Eliquis. Patient is also on the Claritin as well as a Benadryl on as-needed basis both of which can cause tachycardia and frustrated atrial fibrillation patient doesn't appear to be clinically dehydrated does have hyponatremia unsure patient has an SIADH by but patient is presently on IV fluids which will be continued and if sodium drops tomorrow IV fluids were discontinued and patient was started on fluid restriction at the time. 03/12/2020 Patient heart rate is better controlled on metoprolol 50 mg twice a day. If cleared by cardiology patient will be discharged today patient the hemoglobin has gone down to around 6.7 patient will receive blood transfusion and hopefully with blood transfusion her heart rate was still low along with increased her metoprolol. . 03/13/2020 Patient the heart rate went up to yesterday afternoon because of which patient was started back on Cardizem which is being weaned off at this time patient's metoprolol will be increased to 50 3 times a day. Cardiology valid the patient patient is presently on Eliquis and cardiology is recommending monitoring one more night considering her uncontrolled heart rate for last couple days. Patient is feeling much better today after blood transfusion. Constitutional: Denied any fatigue denied any fever. Cardio vascular: denied any chest pain, palpitations Gastrointestinal denied any nausea vomiting Pulmonary: Denied any shortness of breath cough Neurologic denied any new focal deficits All inpatient medications were reviewed and appropriate changes in these medications as dictated in the interval history and assessment and plan. Objective - Vital Signs Vital signs: Vital Signs Temp 97.5 F L 03/13/20 08:00 Pulse 87 03/13/20 08:00 Resp 20 03/13/20 08:00 BP 146/86 03/13/20 08:00 Pulse Ox 93 L 03/13/20 08:00 Intake & Output 03/12/20 03/13/20 03/13/20 18:59 06:59 18:59 Intake Total 585 27.583 Balance 585 27.583 Weight 59 kg 59.5 kg Intake: Intake, IV Titration 0 27.583 Amount Diltiazem 125 mg In 0 27.583 Sodium Chloride 0.9% 100 ml @ 5 MG/HR 5 mls/hr IV .Q24H [facility] Rx#:[id number] Oral 358 Blood Product 227 Rc Pheresis 2 As3 Unit 227 [id number] Other: # Voids 3 1 - Exam PHYSICAL EXAMINATION: GENERAL: The patient is alert and oriented x3, not in any acute distress. Well developed, well nourished. HEENT: Pupils are round and equally reacting to light. EOMI. No scleral icterus. No conjunctival pallor. Normocephalic, atraumatic. No pharyngeal erythema. No thyromegaly. CARDIOVASCULAR: S1 and S2 present. No murmurs, rubs, or gallops. Irregularly irregular rhythm PULMONARY: Chest is clear to auscultation, no wheezing or crackles. ABDOMEN: Soft, nontender, nondistended, normoactive bowel sounds. No palpable organomegaly. MUSCULOSKELETAL: No joint swelling or deformity. EXTREMITIES: No cyanosis, clubbing, or pedal edema. NEUROLOGICAL: Gross neurological examination did not reveal any focal deficits. SKIN: No rashes. - Labs CBC & Chem 7: 03/12/20 17:23 03/12/20 07:02 Labs: Abnormal Lab Results - Last 24 Hours (Table) 03/12/20 03/12/20 Range/Units 09:42 17:23 RBC 3.16 L (3.80-5.40) m/uL Hgb 8.4 L D (11.4-16.0) gm/dL Hct 27.0 L (34.0-46.0) % MCHC 30.9 L (31.0-37.0) g/dL RDW 18.7 H (11.5-15.5) % Crossmatch See Detail Assessment and Plan Plan: -Atrial fibrillation with rapid ventricular rate: Patient is on Eliquis, Cardizem will be weaned off and we will increase the metoprolol 50 mg 3 times a day. Monitoring 1 more day -History of lung cancer recently received chemotherapy about a week ago patient doesn't have any nausea vomiting at this time -Hyponatremia possibly of SIADH. Repeat BMP tomorrow History of DVT in the past -gastroesophageal reflux disease -COPD without any acute exacerbation -History of PE in the past
[2020-03-13 12:19] LABS: Anisocytosis Slight; Basophils % (A) 1 %; Eosinophils # (A) 0.2 k/uL (0-0.7); Eosinophils % (A) 3 %; HCT 28.4 % (34.0-46.0); HGB 8.8 gm/dL (11.4-16.0); Hypochromasia Marked; Lymphocytes # (A) 1.1 k/uL (1.0-4.8); Lymphocytes % (A) 21 %; MCH 26.5 pg (25.0-35.0); MCV 85.4 fL (80.0-100.0); Monocytes # (A) 0.2 k/uL (0-1.0); Monocytes % (A) 4 %; Neutrophils # (A) 3.8 k/uL (1.3-7.7); Neutrophils % (A) 69 %; Platelet Count 238 k/uL (150-450); Poikilocytosis Slight; RBC 3.33 m/uL (3.80-5.40); WBC 5.4 k/uL (3.8-10.6)
--- NOTE | 2020-03-13 12:28 | P.PN ---
Subjective Progress Note Date: 03/13/20 CHIEF COMPLAINT: A. fib with RVR HISTORY OF PRESENT ILLNESS: 03/12/2020 This is a 69-year-old female with a past medical history significant for lung cancer undergoing chemotherapy, atrial fibrillation, COPD, vertigo, and former nicotine dependence. Patient follows in the office with Dr. Mar. We have been asked to see the patient in consultation for A. fib with RVR. Patient examined this morning at the bedside. She reports she presented to the hospital secondary to palpitations. She denied chest pain or pressure. She denies shortness of breath. Patient was found to be in A. fib with RVR in the emergency room. She was started on a Cardizem drip. Her metoprolol has since been increased and her Cardizem drip has been weaned off. Her heart rate is controlled this morning in the 90s. Echocardiogram completed in December 2019 reveals ejection fraction 50-55%, mild mitral regurgitation and mild tricuspid regurgitation. 03/13/2020 Patient examined this morning at the bedside. She reports nausea this morning. Denies chest pain or pressure. Denies shortness of breath. Denies palpitations. Her metoprolol has been increased to 30 mg 3 times a day per internal medicine. PHYSICAL EXAM: VITAL SIGNS: Reviewed. GENERAL: Well-developed in no acute distress. HEENT: Head is normocephalic. Pupils are equal, round. Sclerae anicteric. Mucous membranes of the mouth are moist. Neck supple. No JVD or thyromegaly LUNGS: Respirations even and unlabored. Lungs diminished bilaterally. HEART: Irregular rate and rhythm. S1 and S2 heard. ABDOMEN: Soft. Nondistended. Nontender. EXTREMITIES: Normal range of motion. No clubbing or cyanosis. Peripheral pulses intact. No lower extremity edema NEUROLOGIC: Awake and alert. Oriented x 3. ASSESSMENT: Paroxysmal atrial fibrillation with RVR Lung cancer, currently undergoing chemotherapy COPD Former nicotine dependence PLAN: Continue Eliquis for anticoagulation Continue current dose of metoprolol Recommend monitoring patient for another 24 hours. If her heart rate remains stable, she may be discharged home tomorrow from a cardiac standpoint Nurse practitioner note has been reviewed by physician. Signing provider agrees with the documented findings, assessment, and plan of care. Objective - Vital Signs Vital signs: Vital Signs Temp 97.5 F L 03/13/20 08:00 Pulse 87 03/13/20 08:00 Resp 20 03/13/20 08:00 BP 146/86 03/13/20 08:00 Pulse Ox 93 L 03/13/20 08:00 Intake & Output 03/12/20 03/13/20 03/13/20 18:59 06:59 18:59 Intake Total 585 27.583 240 Balance 585 27.583 240 Weight 59 kg 59.5 kg Intake: Intake, IV Titration 0 27.583 Amount Diltiazem 125 mg In 0 27.583 Sodium Chloride 0.9% 100 ml @ 5 MG/HR 5 mls/hr IV .Q24H [facility] Rx#:[id number] Oral 358 240 Blood Product 227 Rc Pheresis 2 As3 Unit 227 [id number] Other: # Voids 3 1 - Labs CBC & Chem 7: 03/13/20 11:11 03/12/20 07:02 Labs: Abnormal Lab Results - Last 24 Hours (Table) 03/12/20 03/12/20 03/13/20 Range/Units 09:42 17:23 11:11 RBC 3.16 L 3.33 L (3.80-5.40) m/uL Hgb 8.4 L D 8.8 L (11.4-16.0) gm/dL Hct 27.0 L 28.4 L (34.0-46.0) % MCHC 30.9 L (31.0-37.0) g/dL RDW 18.7 H 19.0 H (11.5-15.5) % Crossmatch See Detail
[2020-03-13 12:32] LABS: African American GFR (CKD) >90 (>60 ml/min/1.73 sqM); Anion Gap 5 mmol/L; Blood Urea Nitrogen 15 mg/dL (7-17); Calcium 8.6 mg/dL (8.4-10.2); Carbon Dioxide 28 mmol/L (22-30); Chloride 101 mmol/L (98-107); Glucose 96 mg/dL (74-99); Non-African American GFR(CKD) >90 (>60 ml/min/1.73 sqM); Potassium 4.6 mmol/L (3.5-5.1); Sodium 134 mmol/L (137-145)
[2020-03-14] MEDS: APIXABAN 5 MG TAB PO SCH ×2 (07:51→21:17)
[2020-03-14] MEDS: METOPROLOL TARTRATE 50 MG TAB PO SCH ×3 (07:51→21:17)
--- NOTE | 2020-03-14 09:01 | P.PN ---
Subjective 69-year-old the female with known history of lung cancer received chemo therapy about a week ago followed by some nausea vomiting during that time came in with compensative palpitations patient denied any chest pain denied any signs or symptoms of sepsis patient denied any fever denied any dysuria cough. Patient is found to be in atrial fibrillation with rapid and regular rate patient does have known history of A. fib. Does take 25 mg twice a day of metoprolol along with Eliquis patient was resumed on Eliquis. Patient is presently on Cardizem which will be weaned off will increase the dose of Eliquis. Patient is also on the Claritin as well as a Benadryl on as-needed basis both of which can cause tachycardia and frustrated atrial fibrillation patient doesn't appear to be clinically dehydrated does have hyponatremia unsure patient has an SIADH by but patient is presently on IV fluids which will be continued and if sodium drops tomorrow IV fluids were discontinued and patient was started on fluid restriction at the time. 03/12/2020 Patient heart rate is better controlled on metoprolol 50 mg twice a day. If cleared by cardiology patient will be discharged today patient the hemoglobin has gone down to around 6.7 patient will receive blood transfusion and hopefully with blood transfusion her heart rate was still low along with increased her metoprolol. . 03/13/2020 Patient the heart rate went up to yesterday afternoon because of which patient was started back on Cardizem which is being weaned off at this time patient's metoprolol will be increased to 50 3 times a day. Cardiology valid the patient patient is presently on Eliquis and cardiology is recommending monitoring one more night considering her uncontrolled heart rate for last couple days. Patient is feeling much better today after blood transfusion. 03/14/2020 Patient is still remains tachycardic in atrial fibrillation patient is being started back on Cardizem although blood pressure is borderline need to closely monitor. Constitutional: Denied any fatigue denied any fever. Cardio vascular: denied any chest pain, palpitations Gastrointestinal denied any nausea vomiting Pulmonary: Denied any shortness of breath cough Neurologic denied any new focal deficits All inpatient medications were reviewed and appropriate changes in these medications as dictated in the interval history and assessment and plan. Objective - Vital Signs Vital signs: Vital Signs Temp 97.6 F 03/13/20 20:00 Pulse 168 H 03/14/20 07:56 Resp 20 03/14/20 07:54 BP 94/73 03/14/20 07:54 Pulse Ox 96 03/14/20 07:54 Intake & Output 03/13/20 03/14/20 03/14/20 18:59 06:59 18:59 Intake Total 240 120 Output Total 100 Balance 240 -100 120 Weight 60.1 kg Intake: Oral 240 120 Output: Urine 100 Other: # Voids 1 2 0 # Bowel Movements 1 - Exam PHYSICAL EXAMINATION: GENERAL: The patient is alert and oriented x3, not in any acute distress. Well developed, well nourished. HEENT: Pupils are round and equally reacting to light. EOMI. No scleral icterus. No conjunctival pallor. Normocephalic, atraumatic. No pharyngeal erythema. No thyromegaly. CARDIOVASCULAR: S1 and S2 present. No murmurs, rubs, or gallops. Irregularly irregular rhythm , tachycardic PULMONARY: Chest is clear to auscultation, no wheezing or crackles. ABDOMEN: Soft, nontender, nondistended, normoactive bowel sounds. No palpable o rganomegaly. MUSCULOSKELETAL: No joint swelling or deformity. EXTREMITIES: No cyanosis, clubbing, or pedal edema. NEUROLOGICAL: Gross neurological examination did not reveal any focal deficits. SKIN: No rashes. 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 History of DVT in the past -gastroesophageal reflux disease -COPD without any acute exacerbation -History of PE in the past
[2020-03-14] MEDS ORDERED: DILTIAZEM DRIP BOLUS FROM BAG 1 MG SOLN IV ONE (09:28)
[2020-03-14] MEDS: DILTIAZEM 125 MG in SODIUM CHLORIDE 0.9% 100 ML IV SCH (09:28)
[2020-03-14 10:01] LABS: African American GFR (CKD) >90 (>60 ml/min/1.73 sqM); Anion Gap 5 mmol/L; Anisocytosis Moderate; Basophils % (A) 1 %; Blood Urea Nitrogen 20 mg/dL (7-17); Calcium 8.5 mg/dL (8.4-10.2); Carbon Dioxide 31 mmol/L (22-30); Chloride 100 mmol/L (98-107); Eosinophils # (A) 0.1 k/uL (0-0.7); Eosinophils % (A) 2 %; Glucose 160 mg/dL (74-99); HCT 26.8 % (34.0-46.0); HGB 8.1 gm/dL (11.4-16.0); Hypochromasia Marked; Lymphocytes % (A) 21 %; MCH 25.7 pg (25.0-35.0); MCHC 30.3 g/dL (31.0-37.0); MCV 84.8 fL (80.0-100.0); Mean Platelet Volume 8.2; Monocytes # (A) 0.3 k/uL (0-1.0); Monocytes % (A) 6 %; Neutrophils % (A) 66 %; Non-African American GFR(CKD) 80 (>60 ml/min/1.73 sqM); Platelet Count 228 k/uL (150-450); Poikilocytosis Slight; Potassium 4.2 mmol/L (3.5-5.1); RBC 3.16 m/uL (3.80-5.40); RDW 20.1 % (11.5-15.5); Sodium 136 mmol/L (137-145); WBC 4.5 k/uL (3.8-10.6)
[2020-03-14] MEDS: AMIODARONE 200 MG TAB PO SCH ×2 (10:46→21:17)
--- NOTE | 2020-03-14 13:48 | P.PN ---
Subjective Progress Note Date: 03/14/20 CHIEF COMPLAINT: A. fib with RVR HISTORY OF PRESENT ILLNESS: 03/12/2020 This is a 69-year-old female with a past medical history significant for lung cancer undergoing chemotherapy, atrial fibrillation, COPD, vertigo, and former nicotine dependence. Patient follows in the office with Dr. Mar. We have been asked to see the patient in consultation for A. fib with RVR. Patient examined this morning at the bedside. She reports she presented to the hospital secondary to palpitations. She denied chest pain or pressure. She denies shortness of breath. Patient was found to be in A. fib with RVR in the emergency room. She was started on a Cardizem drip. Her metoprolol has since been increased and her Cardizem drip has been weaned off. Her heart rate is controlled this morning in the 90s. Echocardiogram completed in December 2019 reveals ejection fraction 50-55%, mild mitral regurgitation and mild tricuspid regurgitation. 03/13/2020 Patient examined this morning at the bedside. She reports nausea this morning. Denies chest pain or pressure. Denies shortness of breath. Denies palpitations. Her metoprolol has been increased to 30 mg 3 times a day per internal medicine. 03/14/2020 Patient examined this morning at the bedside. She reports feeling palpitations. Patient remains in atrial fibrillation. Her heart rate had been controlled ov ernight. However this morning she is in RVR with heart rates up to the 170s. Systolic blood pressures running 90-100s. PHYSICAL EXAM: VITAL SIGNS: Reviewed. GENERAL: Well-developed in no acute distress. HEENT: Head is normocephalic. Pupils are equal, round. Sclerae anicteric. Mucous membranes of the mouth are moist. Neck supple. No JVD or thyromegaly LUNGS: Respirations even and unlabored. Lungs diminished bilaterally. HEART: Irregular rate and rhythm. S1 and S2 heard. ABDOMEN: Soft. Nondistended. Nontender. EXTREMITIES: Normal range of motion. No clubbing or cyanosis. Peripheral pulses intact. No lower extremity edema NEUROLOGIC: Awake and alert. Oriented x 3. ASSESSMENT: Paroxysmal atrial fibrillation with RVR Lung cancer, currently undergoing chemotherapy COPD Former nicotine dependence PLAN: Continue Eliquis for anticoagulation Continue current dose of metoprolol: 50mg TID Begin Amio PO 400mg BID Begin Cardizem infusion at 5mg/hr. Continue telemetry monitoring Nurse practitioner note has been reviewed by physician. Signing provider agrees with the documented findings, assessment, and plan of care. Objective - Vital Signs Vital signs: Vital Signs Temp 97.8 F 03/14/20 12:00 Pulse 87 03/14/20 12:00 Resp 20 03/14/20 12:00 BP 104/70 03/14/20 12:00 Pulse Ox 98 03/14/20 12:00 Intake & Output 03/13/20 03/14/20 03/14/20 18:59 06:59 18:59 Intake Total 240 240 Output Total 100 Balance 240 -100 240 Weight 60.1 kg Intake: Oral 240 240 Output: Urine 100 Other: # Voids 1 2 1 # Bowel Movements 1 - Labs CBC & Chem 7: 03/14/20 09:01 03/14/20 09:01 Labs: Abnormal Lab Results - Last 24 Hours (Table) 03/14/20 03/14/20 Range/Units 09:01 09:01 RBC 3.16 L (3.80-5.40) m/uL Hgb 8.1 L (11.4-16.0) gm/dL Hct 26.8 L (34.0-46.0) % MCHC 30.3 L (31.0-37.0) g/dL RDW 20.1 H (11.5-15.5) % Sodium 136 L (137-145) mmol/L Carbon Dioxide 31 H (22-30) mmol/L BUN 20 H (7-17) mg/dL Glucose 160 H (74-99) mg/dL
[2020-03-14 20:15] LABS: Glucose,Whole Blood 126 mg/dL (75-99)
[2020-03-15 01:54] VITALS: RESP 18
[2020-03-15] MEDS: APIXABAN 5 MG TAB PO SCH (09:09)
[2020-03-15] MEDS: METOPROLOL TARTRATE 50 MG TAB PO SCH (09:09)
[2020-03-15] MEDS: AMIODARONE 200 MG TAB PO SCH (09:09)
[2020-03-15 11:31] VITALS: BP 113/70; PULSE 99; TEMP 97.9
[2020-03-15 12:24] VITALS: BMI 26.8
[2020-03-15] MEDS: DILTIAZEM 125 MG in SODIUM CHLORIDE 0.9% 100 ML IV SCH (12:39)
--- NOTE | 2020-03-15 13:56 | P.DS ---
Providers Date of admission: 03/11/20 08:37 Attending physician: Stefanie Lazaro Consults: 03/11/20 08:37 Consult Physician Routine Consulting Provider: Tristian Menjivar Consult Reason/Comments: Rapid atrial flutter Do you want consulting provider notified?: Yes Primary care physician: [facility] Hospital Course: 69-year-old the female with known history of lung cancer received chemo therapy about a week ago followed by some nausea vomiting during that time came in with compensative palpitations patient denied any chest pain denied any signs or symptoms of sepsis patient denied any fever denied any dysuria cough. Patient is found to be in atrial fibrillation with rapid and regular rate patient does have known history of A. fib. Does take 25 mg twice a day of metoprolol along with Eliquis patient was resumed on Eliquis. Patient is presently on Cardizem which will be weaned off will increase the dose of Eliquis. Patient is also on the Claritin as well as a Benadryl on as-needed basis both of which can cause tachycardia and frustrated atrial fibrillation patient doesn't appear to be clinically dehydrated does have hyponatremia unsure patient has an SIADH by but patient is presently on IV fluids which will be continued and if sodium drops tomorrow IV fluids were discontinued and patient was started on fluid restriction at the time. 03/12/2020 Patient heart rate is better controlled on metoprolol 50 mg twice a day. If cleared by cardiology patient will be discharged today patient the hemoglobin has gone down to around 6.7 patient will receive blood transfusion and hopefully with blood transfusion her heart rate was still low along with increased her metoprolol. . 03/13/2020 Patient the heart rate went up to yesterday afternoon because of which patient was started back on Cardizem which is being weaned off at this time patient's metoprolol will be increased to 50 3 times a day. Cardiology valid the patient patient is presently on Eliquis and cardiology is recommending monitoring one more night considering her uncontrolled heart rate for last couple days. Patient is feeling much better today after blood transfusion. 03/14/2020 Patient is still remains tachycardic in atrial fibrillation patient is being started back on Cardizem although blood pressure is borderline need to closely monitor. 03/15/2020 Patient was started on amiodarone yesterday patient heart rate is better controlled today patient remains in atrial fibrillation patient will be discharged on 400 twice a day of amiodarone which can be tapered as an outpatient and metoprolol 50 twice a day. Patient will continue with her Eliquis. PHYSICAL EXAMINATION: GENERAL: The patient is alert and oriented x3, not in any acute distress. Well developed, well nourished. HEENT: Pupils are round and equally reacting to light. EOMI. No scleral icterus. No conjunctival pallor. Normocephalic, atraumatic. No pharyngeal erythema. No thyromegaly. CARDIOVASCULAR: S1 and S2 present. No murmurs, rubs, or gallops. Irregularly irregular rhythm. PULMONARY: Chest is clear to auscultation, no wheezing or crackles. ABDOMEN: Soft, nontender, nondistended, normoactive bowel sounds. No palpable organomegaly. MUSCULOSKELETAL: No joint swelling or deformity. EXTREMITIES: No cyanosis, clubbing, or pedal edema. NEUROLOGICAL: Gross neurological examination did not reveal any focal deficits. SKIN: No rashes. 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 Patient had anemia secondary to chemotherapy patient received 1 unit of PRBC transfusion while in the hospital History of DVT in the past -gastroesophageal reflux disease -COPD without any acute exacerbation -History of PE in the past Patient Condition at Discharge: Fair Plan - Discharge Summary Discharge Rx Participant: No New Discharge Prescriptions: New Metoprolol Tartrate [Lopressor] 50 mg PO BID tab Amiodarone [Cordarone] 400 mg PO BID #90 tab Continue Famotidine [Pepcid] 20 mg PO DAILY PRN PRN Reason: Heartburn Apixaban [Eliquis] 5 mg PO BID 30 Days #60 tab Acetaminophen [Tylenol] 500 mg PO Q4-6H PRN PRN Reason: Mild To Moderate Pain ondansetron HCL [Zofran] 8 mg PO Q8HR PRN PRN Reason: Nausea Docusate [Colace] 100 mg PO DAILY PRN PRN Reason: Constipation Acetaminophen/Diphenhydramine [Tylenol PM 500-25mg] 1 tab PO HS PRN PRN Reason: Pain Loratadine [Claritin] 10 mg PO DAILY PRN PRN Reason: Allergy Symptoms Discontinued Metoprolol Tartrate [Lopressor] 25 mg PO BID Discharge Medication List Famotidine [Pepcid] 20 mg PO DAILY PRN 10/21/19 [History] Apixaban [Eliquis] 5 mg PO BID 30 Days #60 tab 11/06/19 [Rx] Acetaminophen [Tylenol] 500 mg PO Q4-6H PRN 03/03/20 [History] Docusate [Colace] 100 mg PO DAILY PRN 03/03/20 [History] ondansetron HCL [Zofran] 8 mg PO Q8HR PRN 03/03/20 [History] Acetaminophen/Diphenhydramine [Tylenol PM 500-25mg] 1 tab PO HS PRN 03/11/20 [History] Loratadine [Claritin] 10 mg PO DAILY PRN 03/11/20 [History] Metoprolol Tartrate [Lopressor] 50 mg PO BID tab 03/12/20 [Rx] Amiodarone [Cordarone] 400 mg PO BID #90 tab 03/15/20 [Rx] Follow up Appointment(s)/Referral(s): Monica Roth MD [Primary Care Provider] - 3 Days Discharge Disposition: HOME SELF-CARE
--- NOTE | 2020-03-15 15:42 | P.PN ---
Subjective Progress Note Date: 03/15/20 CHIEF COMPLAINT: A. fib with RVR HISTORY OF PRESENT ILLNESS: 03/12/2020 This is a 69-year-old female with a past medical history significant for lung cancer undergoing chemotherapy, atrial fibrillation, COPD, vertigo, and former nicotine dependence. Patient follows in the office with Dr. Mar. We have been asked to see the patient in consultation for A. fib with RVR. Patient examined this morning at the bedside. She reports she presented to the hospital secondary to palpitations. She denied chest pain or pressure. She denies shortness of breath. Patient was found to be in A. fib with RVR in the emergency room. She was started on a Cardizem drip. Her metoprolol has since been increased and her Cardizem drip has been weaned off. Her heart rate is controlled this morning in the 90s. Echocardiogram completed in December 2019 reveals ejection fraction 50-55%, mild mitral regurgitation and mild tricuspid regurgitation. 03/13/2020 Patient examined this morning at the bedside. She reports nausea this morning. Denies chest pain or pressure. Denies shortness of breath. Denies palpitations. Her metoprolol has been increased to 30 mg 3 times a day per internal medicine. 03/14/2020 Patient examined this morning at the bedside. She reports feeling palpitations. Patient remains in atrial fibrillation. Her heart rate had been controlled ov ernight. However this morning she is in RVR with heart rates up to the 170s. Systolic blood pressures running 90-100s. 03/15/2020 Patient examined this point bedside. She denies chest pain or pressure. Denies shortness of breath. Patient's heart rate has been controlled. She is maintained on amiodarone and metoprolol. She is receiving Eliquis for anticoagulation PHYSICAL EXAM: VITAL SIGNS: Reviewed. GENERAL: Well-developed in no acute distress. HEENT: Head is normocephalic. Pupils are equal, round. Sclerae anicteric. Mucous membranes of the mouth are moist. Neck supple. No JVD or thyromegaly LUNGS: Respirations even and unlabored. Lungs diminished bilaterally. HEART: Irregular rate and rhythm. S1 and S2 heard. ABDOMEN: Soft. Nondistended. Nontender. EXTREMITIES: Normal range of motion. No clubbing or cyanosis. Peripheral pulses intact. No lower extremity edema NEUROLOGIC: Awake and alert. Oriented x 3. ASSESSMENT: Paroxysmal atrial fibrillation with RVR Lung cancer, currently undergoing chemotherapy COPD Former nicotine dependence PLAN: Continue current cardiac medications Patient is stable for discharge from a cardiac standpoint. She is to follow up outpatient with Dr. Mar Nurse practitioner note has been reviewed by physician. Signing provider agrees with the documented findings, assessment, and plan of care. Objective - Vital Signs Vital signs: Vital Signs Temp 97.9 F 03/15/20 08:00 Pulse 99 03/15/20 14:00 Resp 18 03/15/20 14:00 BP 113/70 03/15/20 08:00 Pulse Ox 99 03/15/20 08:00 Intake & Output 03/14/20 03/15/20 03/15/20 18:59 06:59 18:59 Intake Total 480 480 Output Total 1 381 2 Balance 479 -381 478 Weight 60.3 kg 60.3 kg Intake: Oral 480 480 Output: Urine 380 Stool 1 1 2 Other: Voiding Method Bedside Commode Bedside Commode # Voids 1 2 - Labs CBC & Chem 7: 03/14/20 09:01 03/14/20 09:01 Labs: Abnormal Lab Results - Last 24 Hours (Table) 03/14/20 Range/Units 20:14 POC Glucose (mg/dL) 126 H (75-99) mg/dL
[2020-03-15] MEDS ORDERED: AMIODARONE 200 MG TAB PO SCH (16:00)
== END 2020-03-15 15:57 | disposition home or self-care (01) | DRG 309 ==
LOC: EC 06:58 → 3SCARD 08:37
PROVIDERS: ADMIT Internal Medicine; ATTEND Internal Medicine
PROC: 30233N1 Transfusion of Nonautologous Red Blood Cells into Peripheral Vein, Percutaneous Approach (ICD-10-PCS; principal; 2020-03-11)
DX: I48.0 Paroxysmal atrial fibrillation (principal); C34.92 Malignant neoplasm of unspecified part of left bronchus or lung; E22.2 Syndrome of inappropriate secretion of antidiuretic hormone; D64.81 Anemia due to antineoplastic chemotherapy; J44.9 Chronic obstructive pulmonary disease, unspecified; M19.90 Unspecified osteoarthritis, unspecified site; K21.9 Gastro-esophageal reflux disease without esophagitis; T45.1X5A Adverse effect of antineoplastic and immunosuppressive drugs, initial encounter; Z79.01 Long term (current) use of anticoagulants; Z79.899 Other long term (current) drug therapy; Z85.118 Personal history of other malignant neoplasm of bronchus and lung; Z86.711 Personal history of pulmonary embolism; Z86.718 Personal history of other venous thrombosis and embolism; Z87.891 Personal history of nicotine dependence; Z91.041 Radiographic dye allergy status; Z91.018 Allergy to other foods; Z91.09 Other allergy status, other than to drugs and biological substances; Z98.51 Tubal ligation status; Z98.890 Other specified postprocedural states
CPT/HCPCS: 36415; 71045; 80048; 80053; 82550; 83735; 84484; 85025; 85027; 85610; 85730; 86850; 86900; 86901; 86920; 93005; 96365; 96366; 96376; 99291

== ENCOUNTER 2020-03-16 02:28 | Observation (INO) | payer MEDICARE, OTHER ==
[2020-03-16] MEDS ORDERED: SODIUM CHLORIDE 0.9% 1,000 ML IV STA (02:52)
[2020-03-16] MEDS ORDERED: IPRATROPIUM-ALBUTEROL 3 ML NEB INHALATION STA ×2 (02:52→03:55)
--- NOTE | 2020-03-16 02:54 | ED ---
SOB HPI - General Chief Complaint: Shortness of Breath Stated Complaint: SOB/revisit Time Seen by Provider: 03/16/20 02:35 Source: patient, RN notes reviewed, old records reviewed Mode of arrival: wheelchair Limitations: no limitations - History of Present Illness Initial Comments: This is a 69-year-old female DF for evaluation. Patient Dese for evaluation regards to shortness of breath that occurred this afternoon. This was after inpatient hospitalization discharge earlier in the day. On arrival to the emergency room patient is placed pass out back on oxygen she feels improved and she was taken off oxygen prior to discharge. No chest pain otherwise no complaints no fevers. MD Complaint: shortness of breath, cough -: hour(s) Severity: moderate Severity scale (1-10): 5 Quality: aching Consistency: constant Improves With: nothing Worsens With: nothing Known History Of: COPD, asthma, congestive heart failure, recurrent pneumonia Context: recent URI, anxiety, recent illness Associated Symptoms: pain with inspiration, cough, sputum production Treatments Prior to Arrival: none - Related Data Home Medications Medication Instructions Recorded Confirmed Famotidine [Pepcid] 20 mg PO DAILY PRN 10/21/19 03/11/20 Acetaminophen [Tylenol] 500 mg PO Q4-6H PRN 03/03/20 03/11/20 Docusate [Colace] 100 mg PO DAILY PRN 03/03/20 03/11/20 ondansetron HCL [Zofran] 8 mg PO Q8HR PRN 03/03/20 03/11/20 Acetaminophen/Diphenhydramine 1 tab PO HS PRN 03/11/20 03/11/20 [Tylenol PM 500-25mg] Loratadine [Claritin] 10 mg PO DAILY PRN 03/11/20 03/11/20 Previous Rx's Medication Instructions Recorded Apixaban [Eliquis] 5 mg PO BID 30 Days #60 tab 11/06/19 Metoprolol Tartrate [Lopressor] 50 mg PO BID tab 03/12/20 Amiodarone [Cordarone] 400 mg PO BID #90 tab 03/15/20 Allergies Allergy/AdvReac Type Severity Reaction Status Date / Time Fish Containing Products Allergy Anaphylaxis Verified 03/16/20 02:39 [Fish] Iodine and Iodide Containing Allergy Anaphylaxis Verified 03/16/20 02:39 Produc tomato Allergy Rash/Hives Verified 03/16/20 02:39 dial soap Allergy Rash/Hives Uncoded 03/16/20 02:39 Review of Systems ROS Statement: Those systems with pertinent positive or pertinent negative responses have been documented in the HPI. ROS Other: All systems not noted in ROS Statement are negative. Past Medical History Past Medical History: Atrial Fibrillation, Cancer, COPD, Deep Vein Thrombosis (DVT), GERD/Reflux, Osteoarthritis (OA), Pulmonary Embolus (PE), Syncope Additional Past Medical History / Comment(s): vertigo, chemo for left lung cancer History of Any Multi-Drug Resistant Organisms: None Reported Past Surgical History: Tubal Ligation Past Anesthesia/Blood Transfusion Reactions: Previous Problems w/ Anesthesia Additional Past Anesthesia/Blood Transfusion Reaction / Comment(s): hard time waking up Past Psychological History: No Psychological Hx Reported Smoking Status: Former smoker Past Alcohol Use History: None Reported Past Drug Use History: None Reported - Past Family History Mother Family Medical History: Dementia General Exam Limitations: no limitations General appearance: alert, in no apparent distress Head exam: Present: atraumatic, normocephalic, normal inspection Eye exam: Present: normal appearance, PERRL, EOMI. Absent: scleral icterus, conjunctival injection, periorbital swelling ENT exam: Present: normal exam, mucous membranes moist Neck exam: Present: normal inspection. Absent: tenderness, meningismus, lymphadenopathy Respiratory exam: Present: wheezes, rales, decreased breath sounds, prolonged expiratory. Absent: respiratory distress, rhonchi, stridor Cardiovascular Exam: Present: regular rate, normal rhythm, normal heart sounds. Absent: systolic murmur, diastolic murmur, rubs, gallop, clicks GI/Abdominal exam: Present: soft, normal bowel sounds. Absent: distended, tenderness, guarding, rebound, rigid Extremities exam: Present: normal inspection, full ROM, normal capillary refill. Absent: tenderness, pedal edema, joint swelling, calf tenderness Back exam: Present: normal inspection Neurological exam: Present: alert, oriented X3, CN II-XII intact Psychiatric exam: Present: normal affect, normal mood Skin exam: Present: warm, dry, intact, normal color. Absent: rash Course Vital Signs 03/16/20 03/16/20 03/16/20 02:31 03:20 03:28 Temperature 97.8 F Pulse Rate 73 73 73 Respiratory 18 Rate Blood Pressure 134/77 O2 Sat by Pulse 96 Oximetry 03/16/20 03:50 Temperature 97.5 F L Pulse Rate 70 Respiratory 16 Rate Blood Pressure 145/77 O2 Sat by Pulse 100 Oximetry - Reevaluation(s) Reevaluation #1: 03/16/20 03:47 Medical record and prior hospitalizations reviewed including ER and inpatient visit Reevaluation #2: 03/16/20 03:47 Breathing is improved here in the ER Reevaluation #3: 03/16/20 03:47 Patient is informed results questions have been answered here in the ER Medical Decision Making - Medical Decision Making 69 female shortness of breath patient feels significantly improved here in the ER. On reevaluation patient continues to feel improved and can be discharged home - Lab Data Result diagrams: 03/16/20 02:55 03/16/20 03:03 Lab Results 03/16/20 03/16/20 03/16/20 Range/Units 02:55 03:03 03:03 WBC 5.7 (3.8-10.6) k/uL RBC 3.30 L (3.80-5.40) m/uL Hgb 8.6 L (11.4-16.0) gm/dL Hct 29.5 L (34.0-46.0) % MCV 89.4 (80.0-100.0) fL MCH 26.0 (25.0-35.0) pg MCHC 29.1 L (31.0-37.0) g/dL RDW 22.1 H (11.5-15.5) % Plt Count 234 (150-450) k/uL MPV 7.5 Neutrophils % 70 % Lymphocytes % 16 % Monocytes % 9 % Eosinophils % 2 % Basophils % 0 % Neutrophils # 4.0 (1.3-7.7) k/uL Lymphocytes # 0.9 L (1.0-4.8) k/uL Monocytes # 0.5 (0-1.0) k/uL Eosinophils # 0.1 (0-0.7) k/uL Basophils # 0.0 (0-0.2) k/uL Hypochromasia Marked Poikilocytosis Slight Anisocytosis Moderate Macrocytosis Slight PT 10.9 (9.0-12.0) sec INR 1.1 (<1.2) APTT 28.2 (22.0-30.0) sec Sodium 136 L (137-145) mmol/L Potassium 4.6 (3.5-5.1) mmol/L Chloride 102 (98-107) mmol/L Carbon Dioxide 29 (22-30) mmol/L Anion Gap 5 mmol/L BUN 31 H (7-17) mg/dL Creatinine 0.88 (0.52-1.04) mg/dL Est GFR (CKD-EPI)AfAm 79 (>60 ml/min/1.73 sqM) Est GFR (CKD-EPI)NonAf 69 (>60 ml/min/1.73 sqM) Glucose 150 H (74-99) mg/dL Plasma Lactic Acid Robert (0.7-2.0) mmol/L Calcium 8.6 (8.4-10.2) mg/dL Magnesium 1.7 (1.6-2.3) mg/dL Total Bilirubin 0.6 (0.2-1.3) mg/dL AST 45 H (14-36) U/L ALT 36 H (4-34) U/L Alkaline Phosphatase 142 H (38-126) U/L Creatine Kinase 29 L (30-135) U/L Troponin I (0.000-0.034) ng/mL NT-Pro-B Natriuret Pep pg/mL Total Protein 6.6 (6.3-8.2) g/dL Albumin 3.1 L (3.5-5.0) g/dL 03/16/20 03/16/20 03/16/20 Range/Units 03:03 03:03 03:03 WBC (3.8-10.6) k/uL RBC (3.80-5.40) m/uL Hgb (11.4-16.0) gm/dL Hct (34.0-46.0) % MCV (80.0-100.0) fL MCH (25.0-35.0) pg MCHC (31.0-37.0) g/dL RDW (11.5-15.5) % Plt Count (150-450) k/uL MPV Neutrophils % % Lymphocytes % % Monocytes % % Eosinophils % % Basophils % % Neutrophils # (1.3-7.7) k/uL Lymphocytes # (1.0-4.8) k/uL Monocytes # (0-1.0) k/uL Eosinophils # (0-0.7) k/uL Basophils # (0-0.2) k/uL Hypochromasia Poikilocytosis Anisocytosis Macrocytosis PT (9.0-12.0) sec INR (<1.2) APTT (22.0-30.0) sec Sodium (137-145) mmol/L Potassium (3.5-5.1) mmol/L Chloride (98-107) mmol/L Carbon Dioxide (22-30) mmol/L Anion Gap mmol/L BUN (7-17) mg/dL Creatinine (0.52-1.04) mg/dL Est GFR (CKD-EPI)AfAm (>60 ml/min/1.73 sqM) Est GFR (CKD-EPI)NonAf (>60 ml/min/1.73 sqM) Glucose (74-99) mg/dL Plasma Lactic Acid Robert 0.8 (0.7-2.0) mmol/L Calcium (8.4-10.2) mg/dL Magnesium (1.6-2.3) mg/dL Total Bilirubin (0.2-1.3) mg/dL AST (14-36) U/L ALT (4-34) U/L Alkaline Phosphatase (38-126) U/L Creatine Kinase (30-135) U/L Troponin I 0.018 (0.000-0.034) ng/mL NT-Pro-B Natriuret Pep 2730 pg/mL Total Protein (6.3-8.2) g/dL Albumin (3.5-5.0) g/dL - EKG Data -: EKG Interpreted by Me (EKG shows sinus rhythm 71 MS 162 QRS 90 QTC 439) Disposition Clinical Impression: COPD (chronic obstructive pulmonary disease), History of lung cancer, Weakness Disposition: HOME SELF-CARE Condition: Good Instructions (If sedation given, give patient instructions): Chronic Bronchitis (ED) Is patient prescribed a controlled substance at d/c from ED?: No Referrals: Monica Roth MD [Primary Care Provider] - 1-2 days
[2020-03-16 03:16] LABS: Anisocytosis Moderate; Basophils % (A) 0 %; Eosinophils # (A) 0.1 k/uL (0-0.7); Eosinophils % (A) 2 %; HCT 29.5 % (34.0-46.0); HGB 8.6 gm/dL (11.4-16.0); Hypochromasia Marked; Lymphocytes # (A) 0.9 k/uL (1.0-4.8); Lymphocytes % (A) 16 %; MCHC 29.1 g/dL (31.0-37.0); MCV 89.4 fL (80.0-100.0); Macrocytosis Slight; Mean Platelet Volume 7.5; Monocytes # (A) 0.5 k/uL (0-1.0); Monocytes % (A) 9 %; Neutrophils % (A) 70 %; Platelet Count 234 k/uL (150-450); Poikilocytosis Slight; RDW 22.1 % (11.5-15.5); WBC 5.7 k/uL (3.8-10.6)
[2020-03-16 03:25] LABS: Albumin 3.1 g/dL (3.5-5.0); Calcium 8.6 mg/dL (8.4-10.2); Magnesium 1.7 mg/dL (1.6-2.3); Potassium 4.6 mmol/L (3.5-5.1); Total Bilirubin 0.6 mg/dL (0.2-1.3); Total Protein 6.6 g/dL (6.3-8.2)
--- NOTE | 2020-03-16 03:41 | XR ---
EXAM: XR Chest, 2 Views CLINICAL HISTORY: ITS.REASON XR Reason: difficulty breathing TECHNIQUE: Frontal and lateral views of the chest. COMPARISON: 03/11/2013 Impression: 1. No acute findings 2. Stable hilar mass.
[2020-03-16 03:46] LABS: INR 1.1 (<1.2); Partial Thromboplastin Time 28.2 sec (22.0-30.0); Prothrombin Time 10.9 sec (9.0-12.0)
[2020-03-16] MEDS ORDERED: DEXAMETHASONE SOD PHOSPHATE 10 MG/ML 1 ML VIAL IV STA (03:55)
[2020-03-16] MEDS ORDERED: LORazepam 2 MG/ML INJ IV STA (03:55)
--- NOTE | 2020-03-16 06:05 | ED ---
Medical Decision Making - Medical Decision Making 69 female DF for evaluation of severe shortness of breath persistent cough and congestion and significant fatigue currently. Patient at this point does not fill comfortable going home spiked multiple beverages. Patient recurrent observation with continued breathing treatments and symptomatic control - Lab Data Result diagrams: 03/16/20 02:55 03/16/20 03:03 Lab Results 03/16/20 03/16/20 03/16/20 Range/Units 02:55 03:03 03:03 WBC 5.7 (3.8-10.6) k/uL RBC 3.30 L (3.80-5.40) m/uL Hgb 8.6 L (11.4-16.0) gm/dL Hct 29.5 L (34.0-46.0) % MCV 89.4 (80.0-100.0) fL MCH 26.0 (25.0-35.0) pg MCHC 29.1 L (31.0-37.0) g/dL RDW 22.1 H (11.5-15.5) % Plt Count 234 (150-450) k/uL MPV 7.5 Neutrophils % 70 % Lymphocytes % 16 % Monocytes % 9 % Eosinophils % 2 % Basophils % 0 % Neutrophils # 4.0 (1.3-7.7) k/uL Lymphocytes # 0.9 L (1.0-4.8) k/uL Monocytes # 0.5 (0-1.0) k/uL Eosinophils # 0.1 (0-0.7) k/uL Basophils # 0.0 (0-0.2) k/uL Hypochromasia Marked Poikilocytosis Slight Anisocytosis Moderate Macrocytosis Slight PT 10.9 (9.0-12.0) sec INR 1.1 (<1.2) APTT 28.2 (22.0-30.0) sec Sodium 136 L (137-145) mmol/L Potassium 4.6 (3.5-5.1) mmol/L Chloride 102 (98-107) mmol/L Carbon Dioxide 29 (22-30) mmol/L Anion Gap 5 mmol/L BUN 31 H (7-17) mg/dL Creatinine 0.88 (0.52-1.04) mg/dL Est GFR (CKD-EPI)AfAm 79 (>60 ml/min/1.73 sqM) Est GFR (CKD-EPI)NonAf 69 (>60 ml/min/1.73 sqM) Glucose 150 H (74-99) mg/dL Plasma Lactic Acid Robert (0.7-2.0) mmol/L Calcium 8.6 (8.4-10.2) mg/dL Magnesium 1.7 (1.6-2.3) mg/dL Total Bilirubin 0.6 (0.2-1.3) mg/dL AST 45 H (14-36) U/L ALT 36 H (4-34) U/L Alkaline Phosphatase 142 H (38-126) U/L Creatine Kinase 29 L (30-135) U/L Troponin I (0.000-0.034) ng/mL NT-Pro-B Natriuret Pep pg/mL Total Protein 6.6 (6.3-8.2) g/dL Albumin 3.1 L (3.5-5.0) g/dL 03/16/20 03/16/20 03/16/20 Range/Units 03:03 03:03 03:03 WBC (3.8-10.6) k/uL RBC (3.80-5.40) m/uL Hgb (11.4-16.0) gm/dL Hct (34.0-46.0) % MCV (80.0-100.0) fL MCH (25.0-35.0) pg MCHC (31.0-37.0) g/dL RDW (11.5-15.5) % Plt Count (150-450) k/uL MPV Neutrophils % % Lymphocytes % % Monocytes % % Eosinophils % % Basophils % % Neutrophils # (1.3-7.7) k/uL Lymphocytes # (1.0-4.8) k/uL Monocytes # (0-1.0) k/uL Eosinophils # (0-0.7) k/uL Basophils # (0-0.2) k/uL Hypochromasia Poikilocytosis Anisocytosis Macrocytosis PT (9.0-12.0) sec INR (<1.2) APTT (22.0-30.0) sec Sodium (137-145) mmol/L Potassium (3.5-5.1) mmol/L Chloride (98-107) mmol/L Carbon Dioxide (22-30) mmol/L Anion Gap mmol/L BUN (7-17) mg/dL Creatinine (0.52-1.04) mg/dL Est GFR (CKD-EPI)AfAm (>60 ml/min/1.73 sqM) Est GFR (CKD-EPI)NonAf (>60 ml/min/1.73 sqM) Glucose (74-99) mg/dL Plasma Lactic Acid Robert 0.8 (0.7-2.0) mmol/L Calcium (8.4-10.2) mg/dL Magnesium (1.6-2.3) mg/dL Total Bilirubin (0.2-1.3) mg/dL AST (14-36) U/L ALT (4-34) U/L Alkaline Phosphatase (38-126) U/L Creatine Kinase (30-135) U/L Troponin I 0.018 (0.000-0.034) ng/mL NT-Pro-B Natriuret Pep 2730 pg/mL Total Protein (6.3-8.2) g/dL Albumin (3.5-5.0) g/dL Disposition Clinical Impression: COPD (chronic obstructive pulmonary disease), History of lung cancer, Weakness Disposition: ADMITTED IP TO THIS HOSP Condition: Good Instructions (If sedation given, give patient instructions): Chronic Bronchitis (ED) Referrals: Monica Roth MD [Primary Care Provider] - 1-2 days
[2020-03-16] MEDS ORDERED: SODIUM CHLORIDE 0.9% 1,000 ML IV SCH (06:15)
[2020-03-16] MEDS: IPRATROPIUM-ALBUTEROL 3 ML NEB INHALATION SCH ×4 (07:13→19:39)
[2020-03-16] MEDS ORDERED: ONDANSETRON 4 MG TAB PO PRN (10:07)
[2020-03-16] MEDS ORDERED: DOCUSATE 100 MG CAP PO PRN (10:07)
[2020-03-16] MEDS ORDERED: LORATADINE 10 MG TAB PO PRN (10:07)
[2020-03-16] MEDS ORDERED: FAMOTIDINE 20 MG TAB PO PRN (10:07)
[2020-03-16] MEDS ORDERED: ACETAMINOPHEN TAB 500 MG TAB PO PRN ×3 (10:07→10:18)
[2020-03-16] MEDS ORDERED: diphenhydrAMINE 25 MG CAP PO PRN (10:18)
[2020-03-16] MEDS: METOPROLOL TARTRATE 50 MG TAB PO SCH ×2 (10:28→23:32)
[2020-03-16] MEDS: AMIODARONE 200 MG TAB PO SCH ×2 (10:29→23:32)
--- NOTE | 2020-03-16 11:30 | P.HPIM ---
History of Present Illness Patient is a very pleasant 69-year-old was discharged from my service yesterday after she was treated for atrial fibrillation with rapid ventricular rate. Patient went home started having shortness of breath and wheezing and the pat ient came to the hospital found to be wheezing significantly. Patient was subsequently admitted COPD exacerbation patient is comparing of cough unable to bring up much. Patient does have history of a lung cancer recently received chemotherapy. Patient is presently not in atrial fibrillation. Patient is looking much worse compared to when I discharged her yesterday. Review of Systems REVIEW OF SYSTEMS: CONSTITUTIONAL: No fever, no malaise, no fatigue. HEENT: No recent visual problems or hearing problems. Denied any sore throat. CARDIOVASCULAR: No chest pain, orthopnea, PND, no palpitations, no syncope. PULMONARY: no hemoptysis. GASTROINTESTINAL: No diarrhea, no nausea, no vomiting, no abdominal pain. NEUROLOGICAL: No headaches, no weakness, no numbness. HEMATOLOGICAL: Denies any bleeding or petechiae. GENITOURINARY: Denies any burning micturition, frequency, or urgency. MUSCULOSKELETAL/RHEUMATOLOGICAL: Denies any joint pain, swelling, or any muscle pain. ENDOCRINE: Denies any polyuria or polydipsia. The rest of the 14-point review of systems is negative. Past Medical History Past Medical History: Atrial Fibrillation, Cancer, COPD, Deep Vein Thrombosis (DVT), GERD/Reflux, Osteoarthritis (OA), Pulmonary Embolus (PE), Syncope Additional Past Medical History / Comment(s): vertigo, chemo for left lung cancer History of Any Multi-Drug Resistant Organisms: None Reported Past Surgical History: Tubal Ligation Past Anesthesia/Blood Transfusion Reactions: Previous Problems w/ Anesthesia Additional Past Anesthesia/Blood Transfusion Reaction / Comment(s): hard time waking up Past Psychological History: No Psychological Hx Reported Smoking Status: Former smoker Past Alcohol Use History: None Reported Additional Past Alcohol Use History / Comment(s): quit smoking 4 almost 5 years. Past Drug Use History: None Reported - Past Family History Mother Family Medical History: Dementia Medications and Allergies Home Medications Medication Instructions Recorded Confirmed Type Famotidine [Pepcid] 20 mg PO DAILY PRN 10/21/19 03/16/20 History Apixaban [Eliquis] 5 mg PO BID 30 Days #60 tab 11/06/19 03/16/20 Rx Acetaminophen [Tylenol] 500 mg PO Q4-6H PRN 03/03/20 03/16/20 History Docusate [Colace] 100 mg PO DAILY PRN 03/03/20 03/16/20 History ondansetron HCL [Zofran] 8 mg PO Q8HR PRN 03/03/20 03/16/20 History Acetaminophen/Diphenhydramine 1 tab PO HS PRN 03/11/20 03/16/20 History [Tylenol PM 500-25mg] Loratadine [Claritin] 10 mg PO DAILY PRN 03/11/20 03/16/20 History Metoprolol Tartrate [Lopressor] 50 mg PO BID tab 03/12/20 03/16/20 Rx Amiodarone [Cordarone] See Taper PO BID 03/16/20 03/16/20 History Allergies Allergy/AdvReac Type Severity Reaction Status Date / Time Fish Containing Products Allergy Anaphylaxis Verified 03/16/20 06:58 [Fish] Iodine and Iodide Containing Allergy Anaphylaxis Verified 03/16/20 06:58 Produc tomato Allergy Rash/Hives Verified 03/16/20 06:58 dial soap Allergy Rash/Hives Uncoded 03/16/20 06:58 Physical Exam Vitals: Vital Signs Temp Pulse Pulse Resp BP BP Pulse Ox 03/16/20 10:54 82 16 03/16/20 10:46 84 16 03/16/20 09:00 16 03/16/20 07:40 97.5 F L 90 16 123/76 97 03/16/20 07:25 80 16 03/16/20 07:13 88 16 98 03/16/20 06:00 97.6 F 91 16 140/84 98 03/16/20 05:07 79 03/16/20 04:55 76 16 130/83 100 03/16/20 04:42 75 03/16/20 03:50 97.5 F L 70 16 145/77 100 03/16/20 03:28 73 03/16/20 03:20 73 03/16/20 02:31 97.8 F 73 18 134/77 96 Intake and Output 03/15/20 03/16/20 03/16/20 22:59 06:59 14:59 Other: Weight 59.874 kg 59.874 kg PHYSICAL EXAMINATION: GENERAL: The patient is alert and oriented x3, not in any acute distress. Well developed, well nourished. HEENT: Pupils are round and equally reacting to light. EOMI. No scleral icterus. No conjunctival pallor. Normocephalic, atraumatic. No pharyngeal erythema. No thyromegaly. CARDIOVASCULAR: S1 and S2 present. No murmurs, rubs, or gallops. PULMONARY: Decreased air entry with significant expiratory wheezing on exam. ABDOMEN: Soft, nontender, nondistended, normoactive bowel sounds. No palpable organomegaly. MUSCULOSKELETAL: No joint swelling or deformity. EXTREMITIES: No cyanosis, clubbing, or pedal edema. NEUROLOGICAL: Gross neurological examination did not reveal any focal deficits. SKIN: No rashes. Results CBC & Chem 7: 03/16/20 02:55 03/16/20 03:03 Labs: Abnormal Lab Results - Last 24 Hours (Table) 03/16/20 03/16/20 Range/Units 02:55 03:03 RBC 3.30 L (3.80-5.40) m/uL Hgb 8.6 L (11.4-16.0) gm/dL Hct 29.5 L (34.0-46.0) % MCHC 29.1 L (31.0-37.0) g/dL RDW 22.1 H (11.5-15.5) % Lymphocytes # 0.9 L (1.0-4.8) k/uL Sodium 136 L (137-145) mmol/L BUN 31 H (7-17) mg/dL Glucose 150 H (74-99) mg/dL AST 45 H (14-36) U/L ALT 36 H (4-34) U/L Alkaline Phosphatase 142 H (38-126) U/L Creatine Kinase 29 L (30-135) U/L Albumin 3.1 L (3.5-5.0) g/dL Thrombosis Risk Factor Assmnt - Choose All That Apply Any of the Below Risk Factors Present?: Yes Each Factor Represents 1 point: Abnormal pulmonary function (COPD), Medical pt on bed rest, Obesity (BMI >25), Swollen legs (current) Other Risk Factors: No Other congenital or acquired thrombophilia - If yes, enter type in comment: No Thrombosis Risk Factor Assessment Total Risk Factor Score: 4 Thrombosis Risk Factor Assessment Level: Moderate Risk Assessment and Plan Plan: - COPD exacerbation: Patient doesn't usually use oxygen at home presently included of oxygen although saturating well on 2 L. Patient is visibly short of breath. Patient the will be read on systemic steroids can you with inhalational treatments. If she improves patient will be discharged tomorrow -Atrial fibrillation paroxysmal A. fib presently sinus rhythm patient will be reviewed and resumed on amiodarone and the metoprolol in with Eliquis -Lung cancer received chemotherapy. He is ago. -History of DVT and PE in the past -Gastroesophageal reflux disease
[2020-03-16] MEDS: methylPREDNISolone SOD SUCCI 40 MG/ML 1 ML VIAL IV SCH ×2 (11:42→23:33)
--- NOTE | 2020-03-16 11:48 | P.CNPUL ---
History of Present Illness Consult date: 03/16/20 Reason for consult: dyspnea, cough Chief complaint: Shortness of breath and frequent falls History of present illness: Patient seen eval examined this patient came into the hospital due to chronic atrial fibrillation and rapid ventricular response she was discharged yesterday came back again because her shortness of breath wheezing cough, also had some falls also, patient has a history of recent lung cancer status post chemotherapy currently in process of getting it, patient is on IV Rocephin, bronchodilators and IV steroids, x-ray showing stable hilar mass Review of Systems All systems: negative Past Medical History Past Medical History: Atrial Fibrillation, Cancer, COPD, Deep Vein Thrombosis (DVT), GERD/Reflux, Osteoarthritis (OA), Pulmonary Embolus (PE), Syncope Additional Past Medical History / Comment(s): vertigo, chemo for left lung cancer History of Any Multi-Drug Resistant Organisms: None Reported Past Surgical History: Tubal Ligation Past Anesthesia/Blood Transfusion Reactions: Previous Problems w/ Anesthesia Additional Past Anesthesia/Blood Transfusion Reaction / Comment(s): hard time wa minh up Past Psychological History: No Psychological Hx Reported Smoking Status: Former smoker Past Alcohol Use History: None Reported Additional Past Alcohol Use History / Comment(s): quit smoking 4 almost 5 years. Past Drug Use History: None Reported - Past Family History Mother Family Medical History: Dementia Medications and Allergies Home Medications Medication Instructions Recorded Confirmed Type Famotidine [Pepcid] 20 mg PO DAILY PRN 10/21/19 03/16/20 History Apixaban [Eliquis] 5 mg PO BID 30 Days #60 tab 11/06/19 03/16/20 Rx Acetaminophen [Tylenol] 500 mg PO Q4-6H PRN 03/03/20 03/16/20 History Docusate [Colace] 100 mg PO DAILY PRN 03/03/20 03/16/20 History ondansetron HCL [Zofran] 8 mg PO Q8HR PRN 03/03/20 03/16/20 History Acetaminophen/Diphenhydramine 1 tab PO HS PRN 03/11/20 03/16/20 History [Tylenol PM 500-25mg] Loratadine [Claritin] 10 mg PO DAILY PRN 03/11/20 03/16/20 History Metoprolol Tartrate [Lopressor] 50 mg PO BID tab 03/12/20 03/16/20 Rx Amiodarone [Cordarone] See Taper PO BID 03/16/20 03/16/20 History Allergies Allergy/AdvReac Type Severity Reaction Status Date / Time Fish Containing Products Allergy Anaphylaxis Verified 03/16/20 06:58 [Fish] Iodine and Iodide Containing Allergy Anaphylaxis Verified 03/16/20 06:58 Produc tomato Allergy Rash/Hives Verified 03/16/20 06:58 dial soap Allergy Rash/Hives Uncoded 03/16/20 06:58 Physical Exam Vitals: Vital Signs Temp Pulse Pulse Resp BP BP Pulse Ox 03/16/20 10:54 82 16 03/16/20 10:46 84 16 03/16/20 09:00 16 03/16/20 07:40 97.5 F L 90 16 123/76 97 03/16/20 07:25 80 16 03/16/20 07:13 88 16 98 03/16/20 06:00 97.6 F 91 16 140/84 98 03/16/20 05:07 79 03/16/20 04:55 76 16 130/83 100 03/16/20 04:42 75 03/16/20 03:50 97.5 F L 70 16 145/77 100 03/16/20 03:28 73 03/16/20 03:20 73 03/16/20 02:31 97.8 F 73 18 134/77 96 Intake and Output 03/15/20 03/16/20 03/16/20 22:59 06:59 14:59 Other: Weight 59.874 kg 59.874 kg - Constitutional General appearance: cooperative, disheveled, mild distress - EENT Eyes: PERRLA Ears: bilateral: normal - Respiratory Respiratory: bilateral: diminished - Cardiovascular Rhythm: irregularly irregular Heart sounds: normal: S1, S2 - Gastrointestinal General gastrointestinal: normal bowel sounds - Neurologic Neurologic: CNII-XII intact - Musculoskeletal Musculoskeletal: generalized weakness, strength equal bilaterally Results - Laboratory Findings CBC and BMP: 03/16/20 02:55 03/16/20 03:03 PT/INR, D-dimer PT 10.9 sec (9.0-12.0) 03/16/20 03:03 INR 1.1 (<1.2) 03/16/20 03:03 Abnormal lab findings: Abnormal Labs 03/16/20 03/16/20 02:55 03:03 RBC 3.30 L Hgb 8.6 L Hct 29.5 L MCHC 29.1 L RDW 22.1 H Lymphocytes # 0.9 L Sodium 136 L BUN 31 H Glucose 150 H AST 45 H ALT 36 H Alkaline Phosphatase 142 H Creatine Kinase 29 L Albumin 3.1 L Assessment and Plan Assessment: Acute COPD exacerbation Purulent tracheobronchitis A. fib with RVR End-stage lung disease due to severe COPD Recent lung cancer status post chemotherapy Plan: Agree with bronchodilators and IV steroids and antibiotics continue supplemental oxygen continue monitor fall precautions further recommendations pending plan of care as per clinical response of the patient Time with Patient: Greater than 30
[2020-03-16] MEDS ORDERED: methylPREDNISolone SOD SUCCI 125 MG/2 ML VIAL IV SCH (12:00)
[2020-03-16] MEDS: FAMOTIDINE 20 MG TAB PO SCH (23:32)
[2020-03-16] MEDS: APIXABAN 5 MG TAB PO SCH (23:32)
[2020-03-17] MEDS: IPRATROPIUM-ALBUTEROL 3 ML NEB INHALATION SCH ×2 (07:11→11:04)
[2020-03-17 08:03] VITALS: BP 140/78; RESP 20; TEMP 97.6
[2020-03-17] MEDS: FAMOTIDINE 20 MG TAB PO SCH (08:54)
[2020-03-17] MEDS: methylPREDNISolone SOD SUCCI 40 MG/ML 1 ML VIAL IV SCH (08:54)
[2020-03-17] MEDS: APIXABAN 5 MG TAB PO SCH (08:54)
[2020-03-17] MEDS: METOPROLOL TARTRATE 50 MG TAB PO SCH (08:54)
[2020-03-17] MEDS: AMIODARONE 200 MG TAB PO SCH (08:55)
[2020-03-17 11:20] VITALS: PULSE 82
--- NOTE | 2020-03-17 11:43 | P.PN ---
Subjective Progress Note Date: 03/17/20 Principal diagnosis: Acute COPD exacerbation Purulent tracheobronchitis A. fib with RVR End-stage lung disease due to severe COPD Recent lung cancer status post chemotherapy 03/17/2020, patient seen eval examined during the rounds labs reviewed medications reviewed, patient is more alert and awake, dizziness lightheadedness and improved, patient remains on antibiotics, a prescription for bronchodilator updraft machine left for the patient, agree with discharge planning follow-up in outpatient setting Patient seen eval examined this patient came into the hospital due to chronic atrial fibrillation and rapid ventricular response she was discharged yesterday came back again because her shortness of breath wheezing cough, also had some falls also, patient has a history of recent lung cancer status post chemotherapy currently in process of getting it, patient is on IV Rocephin, bronchodilators and IV steroids, x-ray showing stable hilar mass Objective - Vital Signs Vital signs: Vital Signs Temp 97.6 F 03/17/20 08:02 Pulse 82 03/17/20 11:19 Resp 20 03/17/20 09:00 BP 140/78 03/17/20 08:02 Pulse Ox 99 03/17/20 08:02 Intake & Output 03/16/20 03/17/20 03/17/20 18:59 06:59 18:59 Intake Total 490 240 Output Total 400 Balance 90 240 Weight 59.874 kg Intake: IV 50 [id number] 2 gm In 50 Sodium Chloride 0.9% 50 ml @ 100 mls/hr IVPB Q24HR [facility] Rx#:[id number] Oral 440 240 Output: Urine 400 Other: Voiding Method Bedside Commode Bedside Commode # Voids 1 - Exam - Constitutional General appearance: cooperative, disheveled, mild distress - EENT Eyes: PERRLA Ears: bilateral: normal - Respiratory Respiratory: bilateral: diminished - Cardiovascular Rhythm: irregularly irregular Heart sounds: normal: S1, S2 - Gastrointestinal General gastrointestinal: normal bowel sounds - Neurologic Neurologic: CNII-XII intact - Musculoskeletal Musculoskeletal: generalized weakness, strength equal bilaterally - Labs CBC & Chem 7: 03/16/20 02:55 03/16/20 03:03 Assessment and Plan Assessment: Acute COPD exacerbation Purulent tracheobronchitis A. fib with RVR End-stage lung disease due to severe COPD Recent lung cancer status post chemotherapy Plan: Agree with bronchodilators and IV steroids and antibiotics continue supplemental oxygen continue monitor fall precautions further recommendations pending plan of care as per clinical response of the patient Time with Patient: Greater than 30
--- NOTE | 2020-03-17 12:52 | P.DS ---
Providers Date of admission: 03/16/20 06:04 Attending physician: Andrew De Leon Consults: 03/16/20 08:00 Consult Physician Stat Consulting Provider: Wally Pineda Consult Reason/Comments: copd Do you want consulting provider notified?: Yes Primary care physician: [facility] Course: 69-year-old was discharged from my service yesterday after she was treated for atrial fibrillation with rapid ventricular rate. Patient went home started having shortness of breath and wheezing and the patient came to the hospital found to be wheezing significantly. Patient was subsequently admitted COPD exacerbation patient is comparing of cough unable to bring up much. Patient does have history of a lung cancer recently received chemotherapy. Patient is presently not in atrial fibrillation. Patient is looking much worse compared to when I discharged her yesterday. 03/17/2020 Patient's COPD improved significantly patient will be discharged today. PHYSICAL EXAMINATION: GENERAL: The patient is alert and oriented x3, not in any acute distress. Well developed, well nourished. HEENT: Pupils are round and equally reacting to light. EOMI. No scleral icterus. No conjunctival pallor. Normocephalic, atraumatic. No pharyngeal erythema. No thyromegaly. CARDIOVASCULAR: S1 and S2 present. No murmurs, rubs, or gallops. PULMONARY: Mild decreased air entry no syncope and wheezing was appreciated toda y ABDOMEN: Soft, nontender, nondistended, normoactive bowel sounds. No palpable organomegaly. MUSCULOSKELETAL: No joint swelling or deformity. EXTREMITIES: No cyanosis, clubbing, or pedal edema. NEUROLOGICAL: Gross neurological examination did not reveal any focal deficits. SKIN: No rashes. Assessment and Plan Plan: - COPD exacerbation: Patient doesn't usually use oxygen at home , improved patient will be discharged today -Atrial fibrillation paroxysmal A. fib presently sinus rhythm patient will be reviewed and resumed on amiodarone and the metoprolol in with Eliquis -Lung cancer received chemotherapy. He is ago. -History of DVT and PE in the past -Gastroesophageal reflux disease Patient Condition at Discharge: Good Plan - Discharge Summary New Discharge Prescriptions: New Cefuroxime Axetil [Ceftin] 500 mg PO BID 1 Days #2 tab predniSONE 10 mg PO DAILY #30 tab Fluticasone/Salmeterol [Advair 250-50 Diskus] 1 inhalation PO BID #1 inhaler Continue Famotidine [Pepcid] 20 mg PO DAILY PRN PRN Reason: Heartburn Apixaban [Eliquis] 5 mg PO BID 30 Days #60 tab Acetaminophen [Tylenol] 500 mg PO Q4-6H PRN PRN Reason: Mild To Moderate Pain ondansetron HCL [Zofran] 8 mg PO Q8HR PRN PRN Reason: Nausea Docusate [Colace] 100 mg PO DAILY PRN PRN Reason: Constipation Acetaminophen/Diphenhydramine [Tylenol PM 500-25mg] 1 tab PO HS PRN PRN Reason: Pain Loratadine [Claritin] 10 mg PO DAILY PRN PRN Reason: Allergy Symptoms Metoprolol Tartrate [Lopressor] 50 mg PO BID tab Amiodarone [Cordarone] See Taper PO BID Discharge Medication List Famotidine [Pepcid] 20 mg PO DAILY PRN 10/21/19 [History] Apixaban [Eliquis] 5 mg PO BID 30 Days #60 tab 11/06/19 [Rx] Acetaminophen [Tylenol] 500 mg PO Q4-6H PRN 03/03/20 [History] Docusate [Colace] 100 mg PO DAILY PRN 03/03/20 [History] ondansetron HCL [Zofran] 8 mg PO Q8HR PRN 03/03/20 [History] Acetaminophen/Diphenhydramine [Tylenol PM 500-25mg] 1 tab PO HS PRN 03/11/20 [History] Loratadine [Claritin] 10 mg PO DAILY PRN 03/11/20 [History] Metoprolol Tartrate [Lopressor] 50 mg PO BID tab 03/12/20 [Rx] Amiodarone [Cordarone] See Taper PO BID 03/16/20 [History] Cefuroxime Axetil [Ceftin] 500 mg PO BID 1 Days #2 tab 03/17/20 [Rx] Fluticasone/Salmeterol [Advair 250-50 Diskus] 1 inhalation PO BID #1 inhaler 03/17/20 [Rx] predniSONE 10 mg PO DAILY #30 tab 03/17/20 [Rx] Follow up Appointment(s)/Referral(s): Adrian Mar MD [STAFF PHYSICIAN] - 1 Week (Please call the office during office hours to schedule appointment) Monica Roth MD [Primary Care Provider] - 3 Days (please call the office during hours to schedule appointment) Wally Pineda MD [STAFF PHYSICIAN] - 4 Weeks (please call the office during office hours to schedule appointment) Patient Instructions/Handouts: Chronic Bronchitis (ED) Activity/Diet/Wound Care/Special Instructions: nebulizer from [facility] Discharge Disposition: HOME SELF-CARE
== END 2020-03-17 13:12 | disposition home or self-care (01) ==
LOC: EC 02:28 → 1SOBS 06:04
PROVIDERS: ADMIT Hospitalist; ATTEND Hospitalist
DX: J44.1 Chronic obstructive pulmonary disease with (acute) exacerbation (principal); J42 Unspecified chronic bronchitis; I48.0 Paroxysmal atrial fibrillation; I50.9 Heart failure, unspecified; Z91.81 History of falling; F41.9 Anxiety disorder, unspecified; Z87.891 Personal history of nicotine dependence; Z87.01 Personal history of pneumonia (recurrent); Z87.09 Personal history of other diseases of the respiratory system; Z86.718 Personal history of other venous thrombosis and embolism; Z85.118 Personal history of other malignant neoplasm of bronchus and lung; K21.9 Gastro-esophageal reflux disease without esophagitis; M19.90 Unspecified osteoarthritis, unspecified site; Z86.711 Personal history of pulmonary embolism; Z92.21 Personal history of antineoplastic chemotherapy; Z98.51 Tubal ligation status; Z81.8 Family history of other mental and behavioral disorders; Z79.01 Long term (current) use of anticoagulants; Z79.899 Other long term (current) drug therapy; Z91.018 Allergy to other foods; Z91.048 Other nonmedicinal substance allergy status; Z88.2 Allergy status to sulfonamides
CPT/HCPCS: 96365; 96366; 96375 ×2; 96376 ×2; 96361; 99285; 36415; 94640 ×4; 94760; 93005; 83880; 80053; 82550; 83605; 83735; 84484; 85025; 85610; 85730; 71046; G0378 ×2; U0003; J2060; J1100; J2920 ×2; J0696 ×2

== ENCOUNTER 2020-04-20 21:35 | Inpatient (IN) | payer MEDICARE, OTHER ==
[2020-04-20] MEDS ORDERED: FAMOTIDINE 20 MG/2 ML VIAL IV STA (22:29)
[2020-04-20] MEDS ORDERED: methylPREDNISolone SOD SUCCI 125 MG/2 ML VIAL IV STA (22:29)
[2020-04-20] MEDS ORDERED: diphenhydrAMINE 50 MG/ML 1 ML VIAL IVP STA (22:30)
[2020-04-20 22:33] LABS: Anisocytosis Slight; Basophils % (A) 1 %; Eosinophils # (A) 0.1 k/uL (0-0.7); Eosinophils % (A) 1 %; HCT 35.7 % (34.0-46.0); HGB 10.4 gm/dL (11.4-16.0); Hypochromasia Marked; Lymphocytes # (A) 1.1 k/uL (1.0-4.8); Lymphocytes % (A) 18 %; MCH 29.9 pg (25.0-35.0); MCHC 29.2 g/dL (31.0-37.0); Macrocytosis Moderate; Mean Platelet Volume 7.3; Monocytes # (A) 0.3 k/uL (0-1.0); Monocytes % (A) 6 %; Neutrophils # (A) 4.3 k/uL (1.3-7.7); Neutrophils % (A) 71 %; Platelet Count 199 k/uL (150-450); RBC 3.49 m/uL (3.80-5.40); RDW 19.2 % (11.5-15.5)
[2020-04-20 22:40] LABS: MCV 102.2 fL (80.0-100.0)
[2020-04-20 22:43] LABS: Albumin 3.2 g/dL (3.5-5.0); Calcium 9.1 mg/dL (8.4-10.2); Potassium 5.2 mmol/L (3.5-5.1); Total Bilirubin 0.5 mg/dL (0.2-1.3); Total Protein 6.4 g/dL (6.3-8.2)
[2020-04-20 22:48] LABS: INR 1.1 (<1.2); Partial Thromboplastin Time 26.4 sec (22.0-30.0); Prothrombin Time 11.4 sec (9.0-12.0)
--- NOTE | 2020-04-20 22:54 | ED ---
SOB HPI - General Chief Complaint: Shortness of Breath Stated Complaint: SOB,Swelling in legs Time Seen by Provider: 04/20/20 21:43 Source: patient Mode of arrival: wheelchair Limitations: no limitations - History of Present Illness Initial Comments: 69-year-old female patient with past medical history significant for lung cancer presents to the emergency department today for evaluation of increased shortness of breath. States that she started to become more short of breath around 6 PM this evening. States it feels different from her usual shortness of breath. Denies any use change to her cough. States that she has been having swelling in her lower extremities that started a couple of weeks ago. She did give some Lasix from her home care nurse a week ago but has not taken any further doses. She denies any fever or chills. Denies any chest pain with this. States her last chemo treatment ended about 3 weeks ago. Denies any history of blood clots. States she was having some pain in her left lower leg last week. She is also reporting nausea whenever she eats. Denies any vomiting. Patient denies any recent rash, abdominal pain, diarrhea, constipation, back pain, numbness, tingling, dizziness, weakness, hematuria, dysuria, urinary urgency, urinary frequency, headache, visual changes, or any other complaints. - Related Data Home Medications Medication Instructions Recorded Confirmed Famotidine [Pepcid] 20 mg PO DAILY 10/21/19 04/20/20 ondansetron HCL [Zofran] 8 mg PO Q8HR PRN 03/03/20 04/20/20 Amiodarone [Cordarone] See Taper PO BID 03/16/20 04/20/20 Albuterol Inhaler [Ventolin Hfa 1 puff INHALATION RT-Q4H PRN 04/20/20 04/20/20 Inhaler] Fluticasone/Salmeterol [Advair 1 puff INHALATION RT-BID 04/20/20 04/20/20 250-50 Diskus] Ipratropium-Albuterol Nebulize 3 ml INHALATION RT-TID 04/20/20 04/20/20 [Duoneb 0.5 mg-3 mg/3 ml Soln] Previous Rx's Medication Instructions Recorded Apixaban [Eliquis] 5 mg PO BID 30 Days #60 tab 08/14/20 Metoprolol Tartrate [Lopressor] 50 mg PO BID tab 03/12/20 Allergies Allergy/AdvReac Type Severity Reaction Status Date / Time Fish Containing Products Allergy Anaphylaxis Verified 04/20/20 23:10 [Fish] Iodine and Iodide Containing Allergy Anaphylaxis Verified 04/20/20 23:10 Produc tomato Allergy Rash/Hives Verified 04/20/20 23:10 dial soap Allergy Rash/Hives Uncoded 03/16/20 06:58 Review of Systems ROS Statement: Those systems with pertinent positive or pertinent negative responses have been documented in the HPI. ROS Other: All systems not noted in ROS Statement are negative. Past Medical History Past Medical History: Atrial Fibrillation, Cancer, COPD, Deep Vein Thrombosis (DVT), GERD/Reflux, Osteoarthritis (OA), Pulmonary Embolus (PE), Syncope Additional Past Medical History / Comment(s): vertigo, chemo for left lung cancer History of Any Multi-Drug Resistant Organisms: None Reported Past Surgical History: Tubal Ligation Additional Past Surgical History / Comment(s): PICC line (L) arm Past Anesthesia/Blood Transfusion Reactions: Previous Problems w/ Anesthesia Additional Past Anesthesia/Blood Transfusion Reaction / Comment(s): hard time waking up Past Psychological History: No Psychological Hx Reported Smoking Status: Former smoker Past Alcohol Use History: None Reported Past Drug Use History: None Reported - Past Family History Mother Family Medical History: Dementia General Exam Limitations: no limitations General appearance: alert, in no apparent distress, other (This is a well- developed, well-nourished adult female patient in no acute distress. Vital signs upon presentation are temperature 97.7F, pulse 84, respirations 24, blood pressure 126/80, pulse ox 100% on room air.) Eye exam: Present: normal appearance, PERRL, EOMI. Absent: scleral icterus, conjunctival injection, periorbital swelling ENT exam: Present: normal exam, normal oropharynx, mucous membranes moist Respiratory exam: Present: rales (left lower lung), decreased breath sounds. Absent: respiratory distress, wheezes, rhonchi, stridor Cardiovascular Exam: Present: regular rate, normal rhythm, normal heart sounds. Absent: systolic murmur, diastolic murmur, rubs, gallop, clicks GI/Abdominal exam: Present: soft, normal bowel sounds. Absent: distended, tenderness, guarding, rebound, rigid Neurological exam: Present: alert, oriented X3, CN II-XII intact Psychiatric exam: Present: normal affect, normal mood Skin exam: Present: warm, dry, intact, normal color. Absent: rash Course Vital Signs 04/20/20 04/20/20 04/20/20 21:36 23:00 23:56 Temperature 97.7 F 97.9 F 97.6 F Pulse Rate 84 129 H 121 H Respiratory 24 18 16 Rate Blood Pressure 126/80 121/94 137/102 O2 Sat by Pulse 100 98 100 Oximetry 04/21/20 01:08 Temperature 98.2 F Pulse Rate 113 H Respiratory 18 Rate Blood Pressure 140/95 O2 Sat by Pulse 98 Oximetry Medical Decision Making - Medical Decision Making 69-year-old female patient presents to the emergency department today for evaluation of shortness of breath and swelling in the legs. Physical examination did reveal 3-4+ pitting edema noted to the lower legs and feet. There was some crackles at the right lung base. Labs reviewed and do reveal mildly elevated potassium of 5.2. BNP was 2300. CT chest angiography was obtained to rule out pulmonary embolism and showed evidence for bilateral pleural effusions worse on the right side. Patient also has a improving tumor to the left upper lobe. She was given a dose of IV Lasix here. She'll be admitted to the house will for further evaluation and monitoring. She is agreeable with this plan. - Lab Data Result diagrams: 04/20/20 22:13 04/20/20 22:13 Lab Results 04/20/20 04/20/20 04/20/20 Range/Units 22:13 22:13 22:13 WBC 6.0 (3.8-10.6) k/uL RBC 3.49 L (3.80-5.40) m/uL Hgb 10.4 L (11.4-16.0) gm/dL Hct 35.7 (34.0-46.0) % MCV 102.2 H D (80.0-100.0) fL MCH 29.9 (25.0-35.0) pg MCHC 29.2 L (31.0-37.0) g/dL RDW 19.2 H (11.5-15.5) % Plt Count 199 (150-450) k/uL MPV 7.3 Neutrophils % 71 % Lymphocytes % 18 % Monocytes % 6 % Eosinophils % 1 % Basophils % 1 % Neutrophils # 4.3 (1.3-7.7) k/uL Lymphocytes # 1.1 (1.0-4.8) k/uL Monocytes # 0.3 (0-1.0) k/uL Eosinophils # 0.1 (0-0.7) k/uL Basophils # 0.0 (0-0.2) k/uL Hypochromasia Marked Anisocytosis Slight Macrocytosis Moderate PT 11.4 (9.0-12.0) sec INR 1.1 (<1.2) APTT 26.4 (22.0-30.0) sec Sodium 137 (137-145) mmol/L Potassium 5.2 H (3.5-5.1) mmol/L Chloride 96 L (98-107) mmol/L Carbon Dioxide 38 H (22-30) mmol/L Anion Gap 3 mmol/L BUN 21 H (7-17) mg/dL Creatinine 0.93 (0.52-1.04) mg/dL Est GFR (CKD-EPI)AfAm 74 (>60 ml/min/1.73 sqM) Est GFR (CKD-EPI)NonAf 64 (>60 ml/min/1.73 sqM) Glucose 118 H (74-99) mg/dL Plasma Lactic Acid Robert (0.7-2.0) mmol/L Calcium 9.1 (8.4-10.2) mg/dL Magnesium 2.0 (1.6-2.3) mg/dL Total Bilirubin 0.5 (0.2-1.3) mg/dL AST 20 (14-36) U/L ALT 22 (4-34) U/L Alkaline Phosphatase 99 (38-126) U/L Troponin I (0.000-0.034) ng/mL NT-Pro-B Natriuret Pep pg/mL Total Protein 6.4 (6.3-8.2) g/dL Albumin 3.2 L (3.5-5.0) g/dL 04/20/20 04/20/20 04/20/20 Range/Units 22:13 22:13 22:13 WBC (3.8-10.6) k/uL RBC (3.80-5.40) m/uL Hgb (11.4-16.0) gm/dL Hct (34.0-46.0) % MCV (80.0-100.0) fL MCH (25.0-35.0) pg MCHC (31.0-37.0) g/dL RDW (11.5-15.5) % Plt Count (150-450) k/uL MPV Neutrophils % % Lymphocytes % % Monocytes % % Eosinophils % % Basophils % % Neutrophils # (1.3-7.7) k/uL Lymphocytes # (1.0-4.8) k/uL Monocytes # (0-1.0) k/uL Eosinophils # (0-0.7) k/uL Basophils # (0-0.2) k/uL Hypochromasia Anisocytosis Macrocytosis PT (9.0-12.0) sec INR (<1.2) APTT (22.0-30.0) sec Sodium (137-145) mmol/L Potassium (3.5-5.1) mmol/L Chloride (98-107) mmol/L Carbon Dioxide (22-30) mmol/L Anion Gap mmol/L BUN (7-17) mg/dL Creatinine (0.52-1.04) mg/dL Est GFR (CKD-EPI)AfAm (>60 ml/min/1.73 sqM) Est GFR (CKD-EPI)NonAf (>60 ml/min/1.73 sqM) Glucose (74-99) mg/dL Plasma Lactic Acid Robert 0.7 (0.7-2.0) mmol/L Calcium (8.4-10.2) mg/dL Magnesium (1.6-2.3) mg/dL Total Bilirubin (0.2-1.3) mg/dL AST (14-36) U/L ALT (4-34) U/L Alkaline Phosphatase (38-126) U/L Troponin I <0.012 (0.000-0.034) ng/mL NT-Pro-B Natriuret Pep 2380 pg/mL Total Protein (6.3-8.2) g/dL Albumin (3.5-5.0) g/dL - Radiology Data Radiology results: report reviewed, image reviewed CT chest angiography for pulmonary embolism is obtained. Report was reviewed in its entirety. Impression by Dr. Davis shows no evidence of pulmonary embolism. There is probably congestive heart failure. Bilateral pleural effusions with basilar pulmonary infiltrates and atelectasis appear essentially new compared to old exam. There is large tumor mass in the left upper lobe which appears smaller than old exam is just a favorable treatment response. Disposition Clinical Impression: Bilateral pleural effusion, Lower extremity edema Disposition: ADMITTED IP TO THIS [facility] Condition: Serious Decision to Admit Reason: Admit from EC Decision Date: 04/21/20 Decision Time: 00:33
--- NOTE | 2020-04-20 23:46 | CT ---
EXAMINATION TYPE: CT chest angio for PE DATE OF EXAM: 04/20/2020 COMPARISON: 01/15/2020 HISTORY: pe Chest pain CT DLP: 397.2 mGycm Automated exposure control for dose reduction was used. CONTRAST: Performed with IV Contrast, patient injected with 70 mL of Isovue 370. There are 3-D post processed images. There is moderate-sized right pleural effusion. There is infiltrate and atelectasis in the right lowe r lobe. Heart is enlarged. There is some contrast reflux into the inferior vena cava. There is probab ly some congestive heart failure. Thoracic aorta is intact and there is no aneurysm or dissection. The ascending aorta measures 3 cm. There is no mediastinal adenopathy. There is normal contrast opacification of the pulmonary arteries. There are no filling defects. There is small left pleural effusion. There is mild atelectasis left lower lobe. There is irregular 5 cm mass in the anterior aspect of the left upper lobe adjacent to the mediastinum. The thoracic spine is intact. There is no compression fracture. Sternum is intact. I see no focal bon e destruction. IMPRESSION: No evidence of pulmonary embolism. There is probably congestive heart failure. Bilateral pleural effusions with basilar pulmonary infiltrates and atelectasis appear essentially new compared to old CT scan. There is large tumor mass in the left upper lobe which appears smaller than old exam and suggests a favorable treatment response.
[2020-04-21] MEDS ORDERED: FUROSEMIDE 10 MG/ML 4 ML VIAL IV STA ×2 (00:04→02:12)
[2020-04-21] MEDS ORDERED: NALOXONE 0.4 MG/ML 1 ML VIAL IV PRN (00:33)
[2020-04-21] MEDS ORDERED: METOPROLOL TARTRATE 50 MG TAB PO STA (02:11)
[2020-04-21] MEDS ORDERED: APIXABAN 5 MG TAB PO ONE (02:12)
[2020-04-21 08:02] LABS: Albumin 3.4 g/dL (3.5-5.0); Calcium 9.1 mg/dL (8.4-10.2); Total Bilirubin 0.9 mg/dL (0.2-1.3)
[2020-04-21 08:07] LABS: Potassium 6.3 mmol/L (3.5-5.1)
[2020-04-21] MEDS ORDERED: DEXTROSE 50% SYRINGE 50 ML IVP STA (08:19)
[2020-04-21] MEDS ORDERED: INSULIN REGULAR 100 UNIT/ML VIAL IV ONE (08:20)
[2020-04-21] MEDS: FUROSEMIDE 10 MG/ML 4 ML VIAL IV SCH ×2 (08:44→20:38)
[2020-04-21] MEDS ORDERED: METOPROLOL TARTRATE 50 MG TAB PO SCH (09:00)
[2020-04-21] MEDS ORDERED: APIXABAN 5 MG TAB PO SCH ×2 (09:00→12:00)
[2020-04-21] MEDS ORDERED: SODIUM POLYSTYRENE SULFONATE 15 GM/60 ML BOTTLE PO STA (09:41)
[2020-04-21] MEDS ORDERED: METOPROLOL TARTRATE 25 MG TAB PO STA (09:43)
--- NOTE | 2020-04-21 09:55 | US ---
EXAMINATION TYPE: US chest DATE OF EXAM: 04/21/2020 COMPARISON: CT 04/20/2020 CLINICAL HISTORY: 69-year-old female sob, pleural effusion. TECHNIQUE: Targeted ultrasound of the posterior lower bilateral hemithoraces FINDINGS: EXAM MEASUREMENTS: Right Pleural Effusion pocket size: 10.4 cm Right skin surface to fluid distance: 2.9 cm Left Pleural Effusion pocket size: 4.8 cm Left skin surface to fluid distance: 3.2 cm Right side marked for possible thoracentesis outside the dept. Left side marked for possible thoracentesis outside the dept. Pulmonologists are able to review the images in the patient?s EMR. IMPRESSIONS: Moderate effusion on the right and small effusion on the left as above.
--- NOTE | 2020-04-21 11:24 | P.HPIM ---
History of Present Illness Patient is a pleasant 63-year-old female with known history of lung cancer given with complaints of shortness of breath found to have bilateral pleural effusion along with significant bilateral pedal edema. Patient has not normal ejection fraction the past does have history of aortic stenosis. Patient last received chemotherapy about 3 weeks ago. Patient has worsening shortness of breath along with orthopnea and paroxysmal nocturnal dyspnea. Patient has significant pleural effusion on the left side with some [id number] pleural effusion on the right side. Patient is complaining of for generalized weakness tiredness. Patient is also in atrial fibrillation patient was on amiodarone and metoprolol patient appears to be in chronic A. fib was on Eliquis is being held at this time. Patient was a valid by cardiology pulmonology will evaluate the patient. Patient has elevated potassium of 6.3 for which she is receiving Kayoxalate at this time. Review of Systems REVIEW OF SYSTEMS: CONSTITUTIONAL: No fever,. HEENT: No recent visual problems or hearing problems. Denied any sore throat. CARDIOVASCULAR: No chest pain, orthopnea, PND, no palpitations, no syncope. PULMONARY: no cough, no hemoptysis. GASTROINTESTINAL: No diarrhea, no nausea, no vomiting, no abdominal pain. NEUROLOGICAL: No headaches, no weakness, no numbness. HEMATOLOGICAL: Denies any bleeding or petechiae. GENITOURINARY: Denies any burning micturition, frequency, or urgency. MUSCULOSKELETAL/RHEUMATOLOGICAL: Denies any joint pain, swelling, or any muscle pain. ENDOCRINE: Denies any polyuria or polydipsia. The rest of the 14-point review of systems is negative. Past Medical History Past Medical History: Atrial Fibrillation, Cancer, COPD, Deep Vein Thrombosis (DVT), GERD/Reflux, Osteoarthritis (OA), Pulmonary Embolus (PE), Syncope Additional Past Medical History / Comment(s): vertigo, chemo for left lung cancer History of Any Multi-Drug Resistant Organisms: None Reported Past Surgical History: Tubal Ligation Additional Past Surgical History / Comment(s): PICC line (L) arm Past Anesthesia/Blood Transfusion Reactions: Previous Problems w/ Anesthesia Additional Past Anesthesia/Blood Transfusion Reaction / Comment(s): hard time waking up Past Psychological History: No Psychological Hx Reported Smoking Status: Former smoker Past Alcohol Use History: None Reported Past Drug Use History: None Reported - Past Family History Mother Family Medical History: Dementia Medications and Allergies Home Medications Medication Instructions Recorded Confirmed Type Famotidine [Pepcid] 20 mg PO DAILY 10/21/19 04/20/20 History Apixaban [Eliquis] 5 mg PO BID 30 Days #60 tab 11/06/19 04/20/20 Rx ondansetron HCL [Zofran] 8 mg PO Q8HR PRN 03/03/20 04/20/20 History Metoprolol Tartrate [Lopressor] 50 mg PO BID tab 03/12/20 04/20/20 Rx Amiodarone [Cordarone] See Taper PO BID 03/16/20 04/20/20 History Albuterol Inhaler [Ventolin Hfa 1 puff INHALATION RT-Q4H PRN 04/20/20 04/20/20 History Inhaler] Fluticasone/Salmeterol [Advair 1 puff INHALATION RT-BID 04/20/20 04/20/20 History 250-50 Diskus] Ipratropium-Albuterol Nebulize 3 ml INHALATION RT-TID 04/20/20 04/20/20 History [Duoneb 0.5 mg-3 mg/3 ml Soln] Allergies Allergy/AdvReac Type Severity Reaction Status Date / Time Fish Containing Products Allergy Anaphylaxis Verified 04/20/20 23:10 [Fish] Iodine and Iodide Containing Allergy Anaphylaxis Verified 04/20/20 23:10 Produc tomato Allergy Rash/Hives Verified 04/20/20 23:10 dial soap Allergy Rash/Hives Uncoded 03/16/20 06:58 Physical Exam Vitals: Vital Signs Temp Pulse Pulse Resp BP BP Pulse Ox 04/21/20 08:00 97.6 F 118 H 20 124/83 99 04/21/20 03:21 98.3 F 122 H 20 120/82 95 04/21/20 02:00 24 04/21/20 01:45 97.6 F 126 H 24 146/99 93 L 04/21/20 01:08 98.2 F 113 H 18 140/95 98 04/20/20 23:56 97.6 F 121 H 16 137/102 100 04/20/20 23:00 97.9 F 129 H 18 121/94 98 04/20/20 21:36 97.7 F 84 24 126/80 100 Intake and Output 04/20/20 04/21/20 04/21/20 22:59 06:59 14:59 Intake Total 240 Output Total 900 1500 Balance -900 -1260 Intake: Oral 240 Output: Urine 900 1500 Other: Weight 75.296 kg 78.6 kg PHYSICAL EXAMINATION: GENERAL: The patient is alert and oriented x3, patient looks tired fatigued HEENT: Pupils are round and equally reacting to light. EOMI. No scleral icterus. No conjunctival pallor. Normocephalic, atraumatic. No pharyngeal erythema. No thyromegaly. CARDIOVASCULAR: S1 and S2 present. No murmurs, rubs, or gallops. Tachycardic irregularly irregular rhythm PULMONARY: Chest is clear to auscultation, no wheezing or crackles. ABDOMEN: Soft, nontender, nondistended, normoactive bowel sounds. No palpable organomegaly. MUSCULOSKELETAL: No joint swelling or deformity. EXTREMITIES: No cyanosis, clubbing, extensive bilateral pedal edema NEUROLOGICAL: Gross neurological examination did not reveal any focal deficits. SKIN: No rashes. Results CBC & Chem 7: 04/20/20 22:13 04/21/20 06:58 Labs: Abnormal Lab Results - Last 24 Hours (Table) 04/20/20 04/20/20 04/21/20 Range/Units 22:13 22:13 06:58 RBC 3.49 L (3.80-5.40) m/uL Hgb 10.4 L (11.4-16.0) gm/dL MCV 102.2 H D (80.0-100.0) fL MCHC 29.2 L (31.0-37.0) g/dL RDW 19.2 H (11.5-15.5) % Sodium 136 L (137-145) mmol/L Potassium 5.2 H 6.3 H* (3.5-5.1) mmol/L Chloride 96 L 94 L (98-107) mmol/L Carbon Dioxide 38 H 37 H (22-30) mmol/L BUN 21 H 23 H (7-17) mg/dL Glucose 118 H 160 H (74-99) mg/dL Albumin 3.2 L 3.4 L (3.5-5.0) g/dL Thrombosis Risk Factor Assmnt - Choose All That Apply Any of the Below Risk Factors Present?: Yes Each Factor Represents 1 point: Abnormal pulmonary function (COPD), Medical pt on bed rest, Obesity (BMI >25), Swollen legs (current) Each Risk Factor Represents 2 Points: Age 61-74 years Each Risk Factor Represents 3 Points: History of DVT/PE Other congenital or acquired thrombophilia - If yes, enter type in comment: No Thrombosis Risk Factor Assessment Total Risk Factor Score: 9 Thrombosis Risk Factor Assessment Level: High Risk Assessment and Plan Plan: Shortness of breath: Multifactorial secondary to bilateral pleural effusions patient does have history of lung cancer patient the effusions most probably related to lung cancer at although CHF cannot be completely ruled out. Patient is receiving IV fluids pulmonology was consulted patient may need to paracentesis diagnostic and therapeutic. May be continued patient from atrial fibrillation as well. -Acute hypoxic respiratory failure secondary to above 1 atrial fibrillation persistent A. fib patient's anticoagulation is being held at this time amiodarone was discontinued patient metoprolol dose was increased to 75 twice a day cardiology evaluated the patient -Can start failure chronic diastolic dysfunction with acute exacerbation Lasix as mentioned above -Uric stenosis -History is consul lung cancer received chemotherapy 3 weeks ago and consulted oncology -Generalized weakness tiredness: From cancer and atrial fibrillation -Hyperkalemia: Ordered capsulate will repeat potassium again from radiology of hyperkalemia is not clear -DVT prophylaxis with Lovenox
--- NOTE | 2020-04-21 12:46 | P.CRDCN ---
History of Present Illness History of present illness: HISTORY OF PRESENTING ILLNESS This is a pleasant 69-year-old female past medical history significant for atrial fibrillation, squamous cell carcinoma status post chemotherapy 3 wee ks ago, hypertension, history of DVT/PE, COPD, sick sinus syndrome and former nicotine dependence. She follows in the office with Dr. Mar. We have been asked to see in consultation for heart failure. She presented to the hospital with worsening shortness of breath and lower extremity edema. She denies chest pain, dizziness or palpitations. EKG on arrival revealed atrial flutter with heart rate of 133. Chest CT revealed probable congestive heart failure, bilateral pleural effusions with basilar pulmonary trace noted. There is no evidence of pulmonary embolism. Irregular 5 cm mass in the anterior aspect of the left upper lobe. Laboratory data reviewed, WBC 6.0, hemoglobin 10.4, platel ets 199, sodium 136, potassium on admission 5. 2 repeat today 6.3, creatinine 0.99, magnesium 2.0, cardiac enzymes negative 3, proBNP 2380. Current daily cardiac medications include Lopressor 50 mg twice a day, Eliquis 5 mg twice a day and amiodarone. Most recent echocardiogram obtained December 2019 revealed preserved LV systolic function with ejection fraction 50-55% with mild aortic stenosis with a mean gradient of 6 mmHg and a trivial pericardial effusion. REVIEW OF SYSTEMS At the time of my exam: CONSTITUTIONAL: Denies fever or chills. CARDIOVASCULAR: Complains of shortness of breath. Denies chest pain, orthopnea, PND or palpitations. RESPIRATORY: Denies cough. GASTROINTESTINAL: Denies abdominal pain, diarrhea, constipation, nausea or vomiting. MUSCULOSKELETAL: Denies myalgias. NEUROLOGIC: Denies numbness, tingling, headacbe or weakness. ENDOCRINE: Denies fatigue, weight change, polydipsia or polyurina. GENITOURINARY: Denies burning, hematuria or urgency with micturation. HEMATOLOGIC: Denies history of anemia or bleeding. PHYSICAL EXAMINATION Blood pressure 124/83 heart rate 118 afebrile and maintaining oxygen saturation on high flow nasal cannula. CONSTITUTIONAL: No apparent distress. HEENT: Head is normocephalic. Pupils are equal, round. Sclerae anicteric. Mucous membranes of the mouth are moist. No JVD. No carotid bruit. CHEST EXAMINATION: Diminished at the bases bilaterally. No chest wall tenderness is noted on palpation or with deep breathing. HEART EXAMINATION: Irregular rate and rhythm. S1, S2 heard. Systolic ejection murmur at the base, no gallops or rub. ABDOMEN: Soft, nontender. Positive bowel sounds. EXTREMITIES: 2+ peripheral pulses, 2+ bilateral lower extremity pitting edema and no calf tenderness. NEUROLOGIC EXAMINATION: Patient is awake, alert and oriented x3. ASSESSMENT Bilateral pleural effusions right greater than left secondary to lung cancer Persistent atrial fibrillation on Eliquis, newly diagnosed in 2019 and has been persistent since that time despite attempted rhythm control with amiodarone Hyperkalemia Aortic stenosis Squamous cell lung cancer Hypertension COPD Former nicotine dependence PLAN Obtain ultrasound of the chest bilaterally. Request pulmonary opinion regrading possible thoracentesis. Hold eliquis pending their evaluation. Increase lopressor to 75 mg TID. Give Kayexalate 30 g now. Repeat potassium at 1300. Echocardiogram has been obtained and will be reviewed. Further recommendations to follow based upon clinical course. Thank you kindly for this consultation. Nurse Practitioner note has been reviewed, I agree with a documented findings and plan of care. Patient was seen and examined. Past Medical History Past Medical History: Atrial Fibrillation, Cancer, COPD, Deep Vein Thrombosis (DVT), GERD/Reflux, Osteoarthritis (OA), Pulmonary Embolus (PE), Syncope Additional Past Medical History / Comment(s): vertigo, chemo for left lung cancer History of Any Multi-Drug Resistant Organisms: None Reported Past Surgical History: Tubal Ligation Additional Past Surgical History / Comment(s): PICC line (L) arm Past Anesthesia/Blood Transfusion Reactions: Previous Problems w/ Anesthesia Additional Past Anesthesia/Blood Transfusion Reaction / Comment(s): hard time waking up Past Psychological History: No Psychological Hx Reported Smoking Status: Former smoker Past Alcohol Use History: None Reported Past Drug Use History: None Reported - Past Family History Mother Family Medical History: Dementia Medications and Allergies Home Medications Medication Instructions Recorded Confirmed Type Famotidine [Pepcid] 20 mg PO DAILY 10/21/19 04/20/20 History Apixaban [Eliquis] 5 mg PO BID 30 Days #60 tab 11/06/19 04/20/20 Rx ondansetron HCL [Zofran] 8 mg PO Q8HR PRN 03/03/20 04/20/20 History Metoprolol Tartrate [Lopressor] 50 mg PO BID tab 03/12/20 04/20/20 Rx Amiodarone [Cordarone] See Taper PO BID 03/16/20 04/20/20 History Albuterol Inhaler [Ventolin Hfa 1 puff INHALATION RT-Q4H PRN 04/20/20 04/20/20 History Inhaler] Fluticasone/Salmeterol [Advair 1 puff INHALATION RT-BID 04/20/20 04/20/20 History 250-50 Diskus] Ipratropium-Albuterol Nebulize 3 ml INHALATION RT-TID 04/20/20 04/20/20 History [Duoneb 0.5 mg-3 mg/3 ml Soln] Allergies Allergy/AdvReac Type Severity Reaction Status Date / Time Fish Containing Products Allergy Anaphylaxis Verified 04/20/20 23:10 [Fish] Iodine and Iodide Containing Allergy Anaphylaxis Verified 04/20/20 23:10 Produc tomato Allergy Rash/Hives Verified 04/20/20 23:10 dial soap Allergy Rash/Hives Uncoded 03/16/20 06:58 Physical Exam Vitals: Vital Signs Temp Pulse Pulse Resp BP BP Pulse Ox 04/21/20 03:21 98.3 F 122 H 20 120/82 95 04/21/20 02:00 24 04/21/20 01:45 97.6 F 126 H 24 146/99 93 L 04/21/20 01:08 98.2 F 113 H 18 140/95 98 04/20/20 23:56 97.6 F 121 H 16 137/102 100 04/20/20 23:00 97.9 F 129 H 18 121/94 98 04/20/20 21:36 97.7 F 84 24 126/80 100 Intake and Output 04/20/20 04/21/20 04/21/20 22:59 06:59 14:59 Output Total 900 Balance -900 Output: Urine 900 Other: Weight 75.296 kg 78.6 kg Results 04/20/20 22:13 04/21/20 06:58 Cardiac Enzymes 04/20/20 04/20/20 04/21/20 Range/Units 22:13 22:13 04:12 AST 20 (14-36) U/L Troponin I <0.012 <0.012 (0.000-0.034) ng/mL 04/21/20 04/21/20 Range/Units 06:58 06:58 AST 29 (14-36) U/L Troponin I <0.012 (0.000-0.034) ng/mL Coagulation 04/20/20 Range/Units 22:13 PT 11.4 (9.0-12.0) sec APTT 26.4 (22.0-30.0) sec CBC 04/20/20 Range/Units 22:13 WBC 6.0 (3.8-10.6) k/uL RBC 3.49 L (3.80-5.40) m/uL Hgb 10.4 L (11.4-16.0) gm/dL Hct 35.7 (34.0-46.0) % Plt Count 199 (150-450) k/uL Comprehensive Metabolic Panel 04/20/20 04/21/20 Range/Units 22:13 06:58 Sodium 137 136 L (137-145) mmol/L Potassium 5.2 H 6.3 H* (3.5-5.1) mmol/L Chloride 96 L 94 L (98-107) mmol/L Carbon Dioxide 38 H 37 H (22-30) mmol/L BUN 21 H 23 H (7-17) mg/dL Creatinine 0.93 0.99 (0.52-1.04) mg/dL Glucose 118 H 160 H (74-99) mg/dL Calcium 9.1 9.1 (8.4-10.2) mg/dL AST 20 29 (14-36) U/L ALT 22 24 (4-34) U/L Alkaline Phosphatase 99 91 (38-126) U/L Total Protein 6.4 7.0 (6.3-8.2) g/dL Albumin 3.2 L 3.4 L (3.5-5.0) g/dL Current Medications Generic Name Dose Route Start Last Admin Trade Name Freq PRN Reason Stop Dose Admin Apixaban 5 mg 04/21/20 12:00 Apixaban 5 Mg Tab PO BID SHY Furosemide 40 mg 04/21/20 09:00 Furosemide 10 Mg/Ml 4 Ml Vial IV Q12HR SHY Metoprolol Tartrate 50 mg 04/21/20 09:00 Metoprolol Tartrate 50 Mg Tab PO BID SHY Naloxone HCl 0.2 mg 04/21/20 00:33 Naloxone 0.4 Mg/Ml 1 Ml Vial IV Q2M PRN Opioid Reversal Intake and Output 04/20/20 04/21/20 04/21/20 22:59 06:59 14:59 Output Total 900 Balance -900 Output: Urine 900 Other: Weight 75.296 kg 78.6 kg 04/20/20 22:13 04/21/20 06:58
[2020-04-21] MEDS ORDERED: diphenhydrAMINE 50 MG/ML 1 ML VIAL IVP ONE (14:43)
[2020-04-21] MEDS: ALBUTEROL NEBULIZED 2.5 MG/3 ML INHALATION PRN ×2 (15:51→20:42)
--- NOTE | 2020-04-21 15:56 | P.CONS ---
History of Present Illness - Reason for Consult Consult date: 04/21/20 Stage Three Lung Cancer Requesting physician: Stefanie Lazaro - Chief Complaint SOB and Swelling and nausea - History of Present Illness The patient is a 69-year-old white female well known to our practice for treatment of her known Stage 3 squamous cell carcinoma of the lung. She recently completed cycle two of adjuvant therapy, although had a difficult time tolerati ng. Dr. Medrano had seen her on 04/13/20 and ordered restaging CTs in hope that no recurrent disease and we coud move foreward to concurrent radiation +/- radiosensitizer. She presents with increased Shortness of breath. Bilateral leg swelling, and nausea. CT of the chest moderate effusions. She is on eliquis for known history of PE/DVT, although this is on hold for probable therapeutic and diagnostic thoracentesis. History - The patient was found to have a large left lung mass in 09/2019, with biopsy in early 10/2019 showing only differential to squamous cell cancer. CT of the chest abdomen and pelvis at that time did not show any obvious metastatic disease. There was a nonspecific 1.1 cm infrahilar ipsilateral nodes. The patient was seen in consult in 11/11 when admitted with atrial fibrillation with RVR. At that time MRI of the brain was ordered which showed no metastatic di Staging completed revealing stage IIIA. Review of Systems All systems: negative Constitutional: Reports as per HPI Past Medical History Past Medical History: Atrial Fibrillation, Cancer, COPD, Deep Vein Thrombosis (DVT), GERD/Reflux, Osteoarthritis (OA), Pulmonary Embolus (PE), Syncope Additional Past Medical History / Comment(s): vertigo, chemo for left lung cancer History of Any Multi-Drug Resistant Organisms: None Reported Past Surgical History: Tubal Ligation Additional Past Surgical History / Comment(s): PICC line (L) arm Past Anesthesia/Blood Transfusion Reactions: Previous Problems w/ Anesthesia Additional Past Anesthesia/Blood Transfusion Reaction / Comm: hard time waking up Past Psychological History: No Psychological Hx Reported Smoking Status: Former smoker Past Alcohol Use History: None Reported Past Drug Use History: None Reported - Past Family History Mother Family Medical History: Dementia Medications and Allergies Home Medications Medication Instructions Recorded Confirmed Type Famotidine [Pepcid] 20 mg PO DAILY 10/21/19 04/20/20 History Apixaban [Eliquis] 5 mg PO BID 30 Days #60 tab 11/06/19 04/20/20 Rx ondansetron HCL [Zofran] 8 mg PO Q8HR PRN 03/03/20 04/20/20 History Metoprolol Tartrate [Lopressor] 50 mg PO BID tab 03/12/20 04/20/20 Rx Amiodarone [Cordarone] See Taper PO BID 03/16/20 04/20/20 History Albuterol Inhaler [Ventolin Hfa 1 puff INHALATION RT-Q4H PRN 04/20/20 04/20/20 History Inhaler] Fluticasone/Salmeterol [Advair 1 puff INHALATION RT-BID 04/20/20 04/20/20 History 250-50 Diskus] Ipratropium-Albuterol Nebulize 3 ml INHALATION RT-TID 04/20/20 04/20/20 History [Duoneb 0.5 mg-3 mg/3 ml Soln] Allergies Allergy/AdvReac Type Severity Reaction Status Date / Time Fish Containing Products Allergy Anaphylaxis Verified 04/20/20 23:10 [Fish] Iodine and Iodide Containing Allergy Anaphylaxis Verified 04/20/20 23:10 Produc tomato Allergy Rash/Hives Verified 04/20/20 23:10 dial soap Allergy Rash/Hives Uncoded 03/16/20 06:58 Physical Exam Vitals: Vital Signs Temp Pulse Pulse Resp BP BP Pulse Ox 04/21/20 12:00 97.8 F 125 H 20 110/75 99 04/21/20 08:00 97.6 F 118 H 20 124/83 99 04/21/20 03:21 98.3 F 122 H 20 120/82 95 04/21/20 02:00 24 04/21/20 01:45 97.6 F 126 H 24 146/99 93 L 04/21/20 01:08 98.2 F 113 H 18 140/95 98 04/20/20 23:56 97.6 F 121 H 16 137/102 100 04/20/20 23:00 97.9 F 129 H 18 121/94 98 04/20/20 21:36 97.7 F 84 24 126/80 100 Intake and Output 04/20/20 04/21/20 04/21/20 22:59 06:59 14:59 Intake Total 240 Output Total 900 1500 Balance -900 -1260 Intake: Oral 240 Output: Urine 900 1500 Other: Weight 75.296 kg 78.6 kg - Constitutional General appearance: cooperative, no acute distress - EENT Eyes: EOMI, PERRLA ENT: NA/AT, normal oropharynx - Neck Neck: normal ROM - Respiratory Respiratory: bilateral: diminished (lower lobes) - Cardiovascular Rhythm: irregularly irregular leg Peripheral Edema: bilateral: 3+ - Gastrointestinal General gastrointestinal: soft, tenderness - Integumentary Integumentary: pale - Neurologic non-focal - Musculoskeletal Musculoskeletal: generalized weakness - Psychiatric Psychiatric: appropriate affect, intact judgment & insight Results CBC & Chem 7: 04/20/20 22:13 04/21/20 12:41 Labs: Abnormal Lab Results - Last 24 Hours (Table) 04/20/20 04/20/20 04/21/20 Range/Units 22:13 22:13 06:58 RBC 3.49 L (3.80-5.40) m/uL Hgb 10.4 L (11.4-16.0) gm/dL MCV 102.2 H D (80.0-100.0) fL MCHC 29.2 L (31.0-37.0) g/dL RDW 19.2 H (11.5-15.5) % Sodium 136 L (137-145) mmol/L Potassium 5.2 H 6.3 H* (3.5-5.1) mmol/L Chloride 96 L 94 L (98-107) mmol/L Carbon Dioxide 38 H 37 H (22-30) mmol/L BUN 21 H 23 H (7-17) mg/dL Glucose 118 H 160 H (74-99) mg/dL Albumin 3.2 L 3.4 L (3.5-5.0) g/dL 04/21/20 Range/Units 12:41 RBC (3.80-5.40) m/uL Hgb (11.4-16.0) gm/dL MCV (80.0-100.0) fL MCHC (31.0-37.0) g/dL RDW (11.5-15.5) % Sodium (137-145) mmol/L Potassium 5.9 H (3.5-5.1) mmol/L Chloride (98-107) mmol/L Carbon Dioxide (22-30) mmol/L BUN (7-17) mg/dL Glucose (74-99) mg/dL Albumin (3.5-5.0) g/dL CT scan - chest: report reviewed Assessment and Plan (1) Squamous cell carcinoma of lung, stage III Current Visit: Yes Status: Acute Code(s): C34.90 - MALIGNANT NEOPLASM OF UNSP PART OF UNSP BRONCHUS OR LUNG SNOMED Code(s): 967543561 (2) Bilateral pleural effusion Current Visit: Yes Status: Acute Code(s): J90 - PLEURAL EFFUSION, NOT ELSEW HERE CLASSIFIED SNOMED Code(s): 657814381 (3) Lower extremity edema Current Visit: Yes Status: Acute Code(s): R60.0 - LOCALIZED EDEMA SNOMED Code(s): 901893133 Plan: - Premedicate and continue with completion of staging for plan after discharge - Pulmonary following for thoracentesis (cytology to please be sent for both therapeutic and diagnostic) - Venous doppler (although unlikely thrombolic event as on eliquis) Discussed with primary team
--- NOTE | 2020-04-21 16:42 | US ---
EXAMINATION TYPE: US venous doppler duplex LE BI DATE OF EXAM: 04/21/2020 3:28 PM COMPARISON: NONE CLINICAL HISTORY: 69-year-old female Bilateral leg edema, history of DVT, patient on blood thinners SIDE PERFORMED: Bilateral TECHNIQUE: The lower extremity deep venous system is examined utilizing real time linear array sonog mare with graded compression, doppler sonography and color-flow sonography. FINDINGS: VESSELS IMAGED: Common Femoral Vein Deep Femoral Vein Greater Saphenous Vein * Femoral Vein Popliteal Vein Small Saphenous Vein * (* superficial vessels) Unable to do sagittal images of right popliteal due to swelling Right Leg: Visualized portions appear negative for DVT Left Leg: Appears negative for DVT IMPRESSION: No evidence for DVT within the bilateral lower extremities imaged from the groin to the knee. Limited sagittal views of the right popliteal vein due to soft tissue swelling.
[2020-04-21] MEDS ORDERED: methylPREDNISolone SOD SUCCI 125 MG/2 ML VIAL IV ONE (17:00)
--- NOTE | 2020-04-21 18:12 | ECHOF ---
Referral Reason:Bilateral pleural effusion; tachycardia MEASUREMENTS -------- HEIGHT: 132.1 cm WEIGHT: 82.5 kg BP: RVIDd: 3.1 cm (< 3.3) IVSd: 1.2 cm (0.6 - 1.1) LVIDd: 3.7 cm (3.9 - 5.3) LVPWd: 1.2 cm (0.6 - 1.1) IVSs: 1.5 cm LVIDs: 2.7 cm LVPWs: 1.5 cm LA Diam: 4.3 cm (2.7 - 3.8) LAESV Index (A-L): 39.28 ml/m Ao Diam: 2.7 cm (2.0 - 3.7) AV Cusp: 1.7 cm (1.5 - 2.6) MV EXCURSION: 13.208 mm (> 18.000) MV EF SLOPE: 35 mm/s (70 - 150) EPSS: 1.2 cm MV E Rao: 0.59 m/s MV DecT: 113 ms MV A Rao: 0.46 m/s MV E/A Ratio: 1.28 RAP: 10.00 mmHg RVSP: 39.78 mmHg FINDINGS -------- This was a technically adequate study. LV size, wall thickness and systolic function are normal, with an EF greater than 55%. The left rick tricular size is normal. The right ventricle is normal in size. LA is severely dilated >40 ml/m2 The right atrium is mildly enlarged. There is mild aortic valve sclerosis. There is no evidence of aortic regurgitation. Mild mitral annular calcification present. [id number] mitral regurgitation is present. The tricuspid valve appears structurally normal. Mild tricuspid regurgitation present. There is m ild pulmonary hypertension. The right ventricular systolic pressure, as measured by Doppler, is 39. 78mmHg. Trace/mild (physiologic) pulmonic regurgitation. The aortic root size is normal. Echo free space represents a pericardial fat pad. CONCLUSIONS -------- 1. LV size, wall thickness and systolic function are normal, with an EF greater than 55%. 2. LA is severely dilated >40 ml/m2 3. The right atrium is mildly enlarged. 4. There is mild aortic valve sclerosis. 5. Dvdg-dw-eufrxzha mitral regurgitation is present. 6. Mild tricuspid regurgitation present. 7. There is mild pulmonary hypertension. 8. Trace/mild (physiologic) pulmonic regurgitation. PHARMACEUTICAL SALES SPECIALIST: Yuko Cross RDCS
[2020-04-21] MEDS: METOPROLOL TARTRATE 25 MG TAB PO SCH (20:37)
[2020-04-21] MEDS ORDERED: ONDANSETRON 4 MG/2 ML VIAL IVP PRN (21:21)
[2020-04-22] MEDS ORDERED: methylPREDNISolone SOD SUCCI 125 MG/2 ML VIAL IV ONE (03:00)
[2020-04-22 06:30] LABS: Albumin 3.9 g/dL (3.5-5.0); Calcium 9.2 mg/dL (8.4-10.2); Magnesium 1.8 mg/dL (1.6-2.3); Potassium 5.4 mmol/L (3.5-5.1); Total Bilirubin 0.6 mg/dL (0.2-1.3); Total Protein 7.6 g/dL (6.3-8.2)
[2020-04-22 07:22] LABS: Anisocytosis Slight; Basophils % (A) 0 %; Eosinophils % (A) 0 %; HCT 42.6 % (34.0-46.0); HGB 12.3 gm/dL (11.4-16.0); Hypochromasia Marked; Lymphocytes # (A) 0.6 k/uL (1.0-4.8); Lymphocytes % (A) 10 %; MCH 30.1 pg (25.0-35.0); MCHC 28.8 g/dL (31.0-37.0); MCV 104.4 fL (80.0-100.0); Macrocytosis Marked; Mean Platelet Volume 7.9; Monocytes # (A) 0.1 k/uL (0-1.0); Monocytes % (A) 2 %; Neutrophils # (A) 5.1 k/uL (1.3-7.7); Neutrophils % (A) 87 %; Platelet Count 238 k/uL (150-450); RBC 4.08 m/uL (3.80-5.40); RDW 18.7 % (11.5-15.5); WBC 5.9 k/uL (3.8-10.6)
[2020-04-22 07:29] LABS: Lymphocytes # (M) 0.47 k/uL (1.0-4.8); Monocytes # (M) 0.06 k/uL (0-1.0); Neutrophils # (M) 5.37 k/uL (1.3-7.7); Neutrophils % (M) 91 %; Nucleated Red Blood Cells 0 /100 WBC (0-0); Total Cells Counted 100
[2020-04-22] MEDS: IOPAMIDOL CONTRAST (ORAL USE) VIAL PO PRN ×2 (07:30→08:26)
[2020-04-22] MEDS ORDERED: FAMOTIDINE 20 MG/2 ML VIAL IV ONE (08:30)
[2020-04-22] MEDS ORDERED: diphenhydrAMINE 50 MG/ML 1 ML VIAL IVP ONE (08:30)
[2020-04-22] MEDS: FAMOTIDINE 20 MG TAB PO SCH (08:33)
[2020-04-22] MEDS: ALBUTEROL NEBULIZED 2.5 MG/3 ML INHALATION PRN ×2 (08:37→12:17)
[2020-04-22] MEDS ORDERED: ENOXAPARIN 30 MG/0.3 ML SYRINGE SQ SCH (09:00)
--- NOTE | 2020-04-22 09:03 | P.PN ---
Subjective 63-year-old female with known history of lung cancer given with complaints of shortness of breath found to have bilateral pleural effusion along with significant bilateral pedal edema. Patient has not normal ejection fraction the past does have history of aortic stenosis. Patient last received chemotherapy about 3 weeks ago. Patient has worsening shortness of breath along with orthopnea and paroxysmal nocturnal dyspnea. Patient has significant pleural effusion on the left side with some [id number] pleural effusion on the right side. Patient is complaining of for generalized weakness tiredness. Patient is also in atrial fibrillation patient was on amiodarone and metoprolol patient appears to be in chronic A. fib was on Eliquis is being held at this time. Patient was a valid by cardiology pulmonology will evaluate the patient. Patient has elevated potassium of 6.3 for which she is receiving Kayoxalate at this time. 04/22/2020 Patient is doing much better today patient had an ultrasound of the chest which is showing pleural effusion like yesterday and patient will be evaluated by pulmonary. Patient probably will need pleural tap. Patient still has extensive pedal edema patient is on IV Lasix with the creatinine has worsened a bit will get nephrology opinion regarding diuretics. Patient respiratory status signif icantly improved and presently on 2 L patient clinically looks much better today. Constitutional: Denied any fatigue denied any fever. Cardio vascular: denied any chest pain, palpitations Gastrointestinal denied any nausea vomiting Pulmonary: Denied any shortness of breath cough Neurologic denied any new focal deficits All inpatient medications were reviewed and appropriate changes in these medi cations as dictated in the interval history and assessment and plan. Objective - Vital Signs Vital signs: Vital Signs Temp 97.6 F 04/22/20 04:00 Pulse 122 H 04/22/20 08:45 Resp 19 04/22/20 04:00 BP 117/84 04/22/20 04:00 Pulse Ox 96 04/22/20 04:00 Intake & Output 04/21/20 04/22/20 04/22/20 18:59 06:59 18:59 Intake Total 720 Output Total 1500 1000 Balance -780 -1000 Weight 77.7 kg Intake: Oral 720 Output: Urine 1500 1000 Stool 0 0 Other: # Voids 0 # Bowel Movements 0 - Exam PHYSICAL EXAMINATION: GENERAL: The patient is alert and oriented x3, patient looks tired fatigued HEENT: Pupils are round and equally reacting to light. EOMI. No scleral icterus. No conjunctival pallor. Normocephalic, atraumatic. No pharyngeal erythema. No thyromegaly. CARDIOVASCULAR: S1 and S2 present. No murmurs, rubs, or gallops. Tachycardic irregularly irregular rhythm PULMONARY: Chest is clear to auscultation, no wheezing or crackles. ABDOMEN: Soft, nontender, nondistended, normoactive bowel sounds. No palpable organomegaly. MUSCULOSKELETAL: No joint swelling or deformity. EXTREMITIES: No cyanosis, clubbing, extensive bilateral pedal edema NEUROLOGICAL: Gross neurological examination did not reveal any focal deficits. SKIN: No rashes. - Labs CBC & Chem 7: 04/22/20 05:42 04/22/20 05:42 Labs: Abnormal Lab Results - Last 24 Hours (Table) 04/21/20 04/22/20 04/22/20 Range/Units 12:41 05:42 05:42 MCV 104.4 H (80.0-100.0) fL MCHC 28.8 L (31.0-37.0) g/dL RDW 18.7 H (11.5-15.5) % Lymphocytes # 0.6 L (1.0-4.8) k/uL Lymphocytes # (Manual) 0.47 L (1.0-4.8) k/uL Macrocytosis Marked A Potassium 5.9 H 5.4 H (3.5-5.1) mmol/L Chloride 89 L (98-107) mmol/L Carbon Dioxide 39 H (22-30) mmol/L BUN 35 H (7-17) mg/dL Creatinine 1.28 H (0.52-1.04) mg/dL Glucose 239 H (74-99) mg/dL Assessment and Plan Plan: Shortness of breath, acute respiratory failure hypoxic: Multifactorial secondary to bilateral pleural effusions patient does have history of lung cancer patient the effusions most probably related to lung cancer at although CHF cannot be completely ruled out. pulmonology was consulted patient may need to p aracentesis diagnostic and therapeutic. May be conveyed to atrial fibrillation as well. Patient was pretty status significant improved respiratory failure significantly improved present in 2 L of oxygen -Acute hypoxic respiratory failure secondary to above 1 atrial fibrillation persistent A. fib patient's anticoagulation is being held at this time amiodarone was discontinued patient metoprolol dose was increased to 75 twice a day, patient heart rate is better controlled today patient is still off anti-coagulation -Acute renal failure: Will azotemia from volume overload nephrology will be con sulted continue with IV Lasix -Congestive heart failure chronic diastolic dysfunction with acute exacerbation Lasix as mentioned above -Aortic stenosis -History is consul lung cancer received chemotherapy 3 weeks ago -Generalized weakness tiredness: From cancer and atrial fibrillation was significant improvement compared to yesterday -Hyperkalemia: Improved with the Kayexalate. -DVT prophylaxis with heparin subcutaneous
[2020-04-22] MEDS ORDERED: SODIUM POLYSTYRENE SULFONATE 15 GM/60 ML BOTTLE PO STA (09:19)
--- NOTE | 2020-04-22 10:50 | P.CNPUL ---
History of Present Illness Consult date: 04/22/20 Reason for consult: dyspnea, pleural effusion, lung mass Chief complaint: Progressive shortness of breath and anasarca History of present illness: This is a 69-year-old female with the stage III squamous cell carcinoma of the lung status post chemotherapy 2 cycles of therapy were given, followed Dr. Lopez, patient came into the hospital with bilateral swelling and anasarca and increased swelling patient has been on eLIQUIS last dose was day before yesterday, currently on hold, computed tomography scan showed bilateral effusion, ultrasound of the chest confirmed bilateral effusion however appeared to be small on the left side fairly large on the right side, patient also has a chronic atrial fibrillation on telemetry questions, originally she was the found to have a large left-sided lung mass and no lie 2020 status post biopsy positive for his, cell cancer Review of Systems All systems: negative Past Medical History Past Medical History: Atrial Fibrillation, Cancer, COPD, Deep Vein Thrombosis (DVT), GERD/Reflux, Osteoarthritis (OA), Pulmonary Embolus (PE), Syncope Additional Past Medical History / Comment(s): vertigo, chemo for left lung cancer History of Any Multi-Drug Resistant Organisms: None Reported Past Surgical History: Tubal Ligation Additional Past Surgical History / Comment(s): PICC line (L) arm Past Anesthesia/Blood Transfusion Reactions: Previous Problems w/ Anesthesia Additional Past Anesthesia/Blood Transfusion Reaction / Comment(s): hard time waking up Past Psychological History: No Psychological Hx Reported Smoking Status: Former smoker Past Alcohol Use History: None Reported Past Drug Use History: None Reported - Past Family History Mother Family Medical History: Dementia Medications and Allergies Home Medications Medication Instructions Recorded Confirmed Type Famotidine [Pepcid] 20 mg PO DAILY 10/21/19 04/20/20 History Apixaban [Eliquis] 5 mg PO BID 30 Days #60 tab 11/06/19 04/20/20 Rx ondansetron HCL [Zofran] 8 mg PO Q8HR PRN 03/03/20 04/20/20 History Metoprolol Tartrate [Lopressor] 50 mg PO BID tab 03/12/20 04/20/20 Rx Amiodarone [Cordarone] See Taper PO BID 03/16/20 04/20/20 History Albuterol Inhaler [Ventolin Hfa 1 puff INHALATION RT-Q4H PRN 04/20/20 04/20/20 History Inhaler] Fluticasone/Salmeterol [Advair 1 puff INHALATION RT-BID 04/20/20 04/20/20 History 250-50 Diskus] Ipratropium-Albuterol Nebulize 3 ml INHALATION RT-TID 04/20/20 04/20/20 History [Duoneb 0.5 mg-3 mg/3 ml Soln] Allergies Allergy/AdvReac Type Severity Reaction Status Date / Time Fish Containing Products Allergy Anaphylaxis Verified 04/20/20 23:10 [Fish] Iodine and Iodide Containing Allergy Anaphylaxis Verified 04/20/20 23:10 Produc tomato Allergy Rash/Hives Verified 04/20/20 23:10 dial soap Allergy Rash/Hives Uncoded 03/16/20 06:58 Physical Exam Vitals: Vital Signs Temp Pulse Pulse Resp BP Pulse Ox 04/22/20 08:45 122 H 04/22/20 08:35 118 H 04/22/20 08:00 96.9 F L 117 H 20 120/75 95 04/22/20 04:00 97.6 F 94 19 117/84 96 04/21/20 23:58 97.9 F 113 H 17 115/86 95 04/21/20 20:53 127 H 04/21/20 20:42 128 H 04/21/20 20:00 97.8 F 129 H 18 127/81 98 04/21/20 16:26 96 F L 123 H 20 120/77 97 04/21/20 16:08 122 H 04/21/20 15:53 120 H 04/21/20 12:00 97.8 F 125 H 20 110/75 99 Intake and Output 04/21/20 04/22/20 04/22/20 22:59 06:59 14:59 Intake Total 240 240 Output Total 400 600 Balance -160 -600 240 Intake: Oral 240 240 Output: Urine 400 600 Stool 0 0 Other: # Voids 0 # Bowel Movements 0 Weight 77.7 kg - Constitutional General appearance: average body habitus, cooperative, disheveled - EENT Eyes: EOMI, PERRLA Ears: bilateral: normal - Neck Carotids: bilateral: upstroke normal Thyroid: bilateral: normal size - Respiratory Respiratory: bilateral: diminished, dullness (Right more than the left) - Cardiovascular Rhythm: regular Heart sounds: normal: S1, S2 - Gastrointestinal General gastrointestinal: decreased bowel sounds, soft - Neurologic Neurologic: CNII-XII intact - Musculoskeletal Musculoskeletal: gait normal, generalized weakness, strength equal bilaterally - Psychiatric Psychiatric: A&O x's 3, appropriate affect, intact judgment & insight Results - Laboratory Findings CBC and BMP: 04/22/20 05:42 04/22/20 05:42 PT/INR, D-dimer PT 11.4 sec (9.0-12.0) 04/20/20 22:13 INR 1.1 (<1.2) 04/20/20 22:13 Abnormal lab findings: Abnormal Labs 04/20/20 04/20/20 04/21/20 22:13 22:13 06:58 RBC 3.49 L Hgb 10.4 L MCV 102.2 H D MCHC 29.2 L RDW 19.2 H Lymphocytes # Lymphocytes # (Manual) Macrocytosis Sodium 136 L Potassium 5.2 H 6.3 H* Chloride 96 L 94 L Carbon Dioxide 38 H 37 H BUN 21 H 23 H Creatinine Glucose 118 H 160 H Albumin 3.2 L 3.4 L 04/21/20 04/22/20 04/22/20 12:41 05:42 05:42 RBC Hgb MCV 104.4 H MCHC 28.8 L RDW 18.7 H Lymphocytes # 0.6 L Lymphocytes # (Manual) 0.47 L Macrocytosis Marked A Sodium Potassium 5.9 H 5.4 H Chloride 89 L Carbon Dioxide 39 H BUN 35 H Creatinine 1.28 H Glucose 239 H Albumin - Diagnostic Findings Chest x-ray: report reviewed, image reviewed CT scan - chest: report reviewed, image reviewed (Ultrasound along with radiographic studies results and reports reviewed) Assessment and Plan Assessment: Bilateral pleural effusion right more than the left Increased shortness of breath related to above Generalized anasarca Stage III squamous cell carcinoma of left lung Chronic atrial fibrillation on direct oral anticoagulants currently on hold for 2 days Plan: Continue gentle diuresis We'll plan for a right-sided thoracentesis Continue bronchodilator Continue chemotherapy as planned Long-term prognosis guarded Time with Patient: Greater than 30
--- NOTE | 2020-04-22 11:17 | P.PCN ---
Date of Procedure: 04/22/20 Preoperative Diagnosis: A stage III, cell cancer of the lung, bilateral pleural effusion right more than the left, chronic atrial fibrillation RVR, CHF Postoperative Diagnosis: As above Procedure(s) Performed: Right thoracentesis Anesthesia: local Surgeon: Wally Pineda Estimated Blood Loss (ml): 1 Condition: stable Disposition: floor Indications for Procedure: Shortness of breath Operative Findings: As below Description of Procedure: Patient prepared and draped in usual fashion informed consent obtained from the patient brought procedures side effect risk and alternatives explained to the patient, ultrasound was utilized to locate Nexium depth of fluid and marking of the right thoracic wall, 1% lidocaine was given at the maximum depth of the fluid, over the thoracic wall, intercostal muscles were also infiltrated with 1% lidocaine stab incision was done catheter in needle was placed needle was withdrawn catheter left in position out 450 mL of clear yellow fluid aspirated patient tolerated procedure well no complication noted post procedure chest x- ray pending
[2020-04-22] MEDS ORDERED: FUROSEMIDE 40 MG TAB PO SCH (11:37)
[2020-04-22] MEDS: METOPROLOL TARTRATE 25 MG TAB PO SCH ×3 (11:38→23:14)
--- NOTE | 2020-04-22 11:42 | XR ---
EXAMINATION TYPE: XR chest 1V DATE OF EXAM: 04/22/2020 HISTORY: Shortness of breath. COMPARISON: 03/16/2020 TECHNIQUE: Single view of the chest is submitted. FINDINGS: Demonstrated are scattered senescent parenchymal change. There is no evidence for focal infiltrate. The heart is stable. Hilar and mediastinal structures are within normal limits. Degenerative changes are seen of the dorsal spine. IMPRESSION: 1. Chronic changes without evidence for acute pulmonary disease.
--- NOTE | 2020-04-22 13:14 | CT ---
EXAMINATION TYPE: CT abdomen pelvis w con DATE OF EXAM: 04/22/2020 HISTORY: Restaging, history of lung cancer. CT DLP: 1159.3mGycm Automated Exposure Control for Dose Reduction was Utilized. CONTRAST: CT scan of the abdomen and pelvis is performed with IV Contrast, patient injected with 80 mL of Isovu e 300. COMPARISON: PET/CT January 01, [address] October 23, 2019. Most recent CTA chest 2 days ago. FINDINGS: LUNG BASES: Small right greater than left pleural effusions with associated compressive atelectasis i s redemonstrated only partially imaged on this study. Mild cardiomegaly redemonstrated. Slightly elev ated left hemidiaphragm. LIVER/GB: Visualized liver is overall heterogeneous without new discrete mass some adjacent ascites n oted superiorly and along right aspect. Dependent intraluminal 1.5 cm gallstone axial image 37. PANCREAS: No significant abnormality is seen. SPLEEN: Some adjacent left perisplenic ascites. ADRENALS: Stable slight low dense thickening to left adrenal gland.. KIDNEYS: Symmetric cortical medullary uptake and excretion without hydronephrosis seen bilaterally. C ontrast from recent CT chest study filled bladder. BOWEL: Oral contrast does not reach level of the terminal ileum make evaluation of distal bowel sligh tly suboptimal. No suspicious small or large bowel dilatation.. UTERUS/ADNEXA: No gross abnormality seen. LYMPH NODES: No greater than 1cm abdominal or pelvic lymph nodes are appreciated. OSSEOUS STRUCTURES: Facet arthropathy lower lumbar spine. OTHER: Mild/moderate calcified plaque dista l abdominal aorta extends into branch vessels. Probably moderate diffuse subcutaneous edema and soft tissue anasarca on current study. IMPRESSION: No suspicious mass or adenopathy to suggest metastatic disease. Pleural effusions with so ft tissue anasarca consistent with fluid overload state. Mild abdominal ascites. Heterogeneity of the liver may be a basis of congestion related to CHF.
--- NOTE | 2020-04-22 13:42 | P.PN ---
Subjective HISTORY OF PRESENTING ILLNESS This is a pleasant 69-year-old female past medical history significant for atrial fibrillation, squamous cell carcinoma status post chemotherapy 3 weeks ago, hypertension, history of DVT/PE, COPD, sick sinus syndrome and former nicotine dependence. She follows in the office with Dr. Mar. She is seen and examined sitting up on the edge of the bed in no acute distress. Overall she feels as if her breathing is about the same. No real improvement since admission. Blood pressure 124/88 heart rate 116 afebrile maintaining oxygen saturation on high flow nasal cannula. Laboratory data reviewed, hemoglobin 12.3, platelets 238, sodium 138, potassium 5.4, creatinine 1.28, TSH 4.33. Ultrasound of the chest performed yesterday revealed right pleural effusion with the pockets out of 10.4 cm and left pleural effusion with a pocket size of 4.8 cm. PHYSICAL EXAMINATION CONSTITUTIONAL: No apparent distress. HEENT: Head is normocephalic. Pupils are equal, round. Sclerae anicteric. Mucous membranes of the mouth are moist. No JVD. No carotid bruit. CHEST EXAMINATION: Diminished at the bases bilaterally. No chest wall tenderness is noted on palpation or with deep breathing. HEART EXAMINATION: Irregular rate and rhythm. S1, S2 heard. Systolic ejection murmur at the base, no gallops or rub. EXTREMITIES: 2+ peripheral pulses, 2+ bilateral lower extremity pitting edema and no calf tenderness. ASSESSMENT Bilateral pleural effusions right greater than left secondary to lung cancer Persistent atrial fibrillation on Eliquis, newly diagnosed in 2019 and has been persistent since that time despite attempted rhythm control with amiodarone Hyperkalemia Aortic stenosis Squamous cell lung cancer Hypertension COPD Former nicotine dependence PLAN Hold eliquis pending their evaluation. Increase lopressor to 75 mg TID. Give Kayexalate 30 gm. Repeat potassium at 1800. Further recommendations to follow based upon clinical course. Nurse Practitioner note has been reviewed, I agree with a documented findings and plan of care. Patient was seen and examined. Objective - Vital Signs Vital signs: Vital Signs Temp 96.7 F L 04/22/20 11:35 Pulse 116 H 04/22/20 12:37 Resp 20 04/22/20 11:35 BP 124/88 04/22/20 11:35 Pulse Ox 96 04/22/20 11:35 Intake & Output 01/04/22/20 04/22/20 18:59 06:59 18:59 Intake Total 720 240 Output Total 1500 1000 650 Balance -780 -1000 -410 Weight 77.7 kg Intake: Oral 720 240 Output: Urine 1500 1000 200 Stool 0 0 Other 450 Other: # Voids 0 # Bowel Movements 0 - Labs CBC & Chem 7: 04/22/20 05:42 04/22/20 05:42 Labs: Abnormal Lab Results - Last 24 Hours (Table) 04/22/20 04/22/20 Range/Units 05:42 05:42 MCV 104.4 H (80.0-100.0) fL MCHC 28.8 L (31.0-37.0) g/dL RDW 18.7 H (11.5-15.5) % Lymphocytes # 0.6 L (1.0-4.8) k/uL Lymphocytes # (Manual) 0.47 L (1.0-4.8) k/uL Macrocytosis Marked A Potassium 5.4 H (3.5-5.1) mmol/L Chloride 89 L (98-107) mmol/L Carbon Dioxide 39 H (22-30) mmol/L BUN 35 H (7-17) mg/dL Creatinine 1.28 H (0.52-1.04) mg/dL Glucose 239 H (74-99) mg/dL
--- NOTE | 2020-04-22 15:04 | P.PN ---
Subjective Progress Note Date: 04/22/20 Principal diagnosis: Increased SOB and Fluid Retention XT abdomen and pelvis without signs of metastatic disease. Hydration for flushing kidneys please. Status Post Right thoracentesis yesterday with 450 off, cytology pending. Objective - Vital Signs Vital signs: Vital Signs Temp 96.7 F L 04/22/20 11:35 Pulse 116 H 04/22/20 12:37 Resp 20 04/22/20 11:35 BP 124/88 04/22/20 11:35 Pulse Ox 96 04/22/20 11:35 Intake & Output 04/21/20 04/22/20 04/22/20 18:59 06:59 18:59 Intake Total 720 240 Output Total 1500 1000 650 Balance -780 -1000 -410 Weight 77.7 kg Intake: Oral 720 240 Output: Urine 1500 1000 200 Stool 0 0 Other 450 Other: # Voids 0 # Bowel Movements 0 - Exam - Constitutional General appearance: cooperative, no acute distress - EENT Eyes: EOMI, PERRLA ENT: NA/AT, normal oropharynx - Neck Neck: normal ROM - Respiratory Respiratory: bilateral: diminished (lower lobes) - Cardiovascular Rhythm: irregularly irregular leg Peripheral Edema: bilateral: 3+ - Gastrointestinal General gastrointestinal: soft, tenderness - Integumentary Integumentary: pale - Neurologic non-focal - Musculoskeletal Musculoskeletal: generalized weakness - Psychiatric Psychiatric: appropriate affect, intact judgment & insight - Labs CBC & Chem 7: 04/22/20 05:42 04/23/20 07:11 Labs: Abnormal Lab Results - Last 24 Hours (Table) 04/22/20 04/22/20 Range/Units 05:42 05:42 MCV 104.4 H (80.0-100.0) fL MCHC 28.8 L (31.0-37.0) g/dL RDW 18.7 H (11.5-15.5) % Lymphocytes # 0.6 L (1.0-4.8) k/uL Lymphocytes # (Manual) 0.47 L (1.0-4.8) k/uL Macrocytosis Marked A Potassium 5.4 H (3.5-5.1) mmol/L Chloride 89 L (98-107) mmol/L Carbon Dioxide 39 H (22-30) mmol/L BUN 35 H (7-17) mg/dL Creatinine 1.28 H (0.52-1.04) mg/dL Glucose 239 H (74-99) mg/dL Assessment and Plan (1) Squamous cell carcinoma of lung, stage III Current Visit: Yes Status: Acute Code(s): C34.90 - MALIGNANT NEOPLASM OF UNSP PART OF UNSP BRONCHUS OR LUNG SNOMED Code(s): 268839900 (2) Bilateral pleural effusion Current Visit: Yes Status: Acute Code(s): J90 - PLEURAL EFFUSION, NOT ELSEWHERE CLASSIFIED SNOMED Code(s): 197654417 (3) Lower extremity edema Current Visit: Yes Status: Acute Code(s): R60.0 - LOCALIZED EDEMA SNOMED Code(s): 453883468 Plan: - Premedicate and continue with completion of staging for plan after discharge - Pulmonary following for thoracentesis (cytology to please be sent for both therapeutic and diagnostic) - Status post 450cc pleural fluid obtained on 04/21/20 - Right effusion - Continue on ELiquis CT Negative for metastatic disease Physician Attest: I have completed the full history and physical and agree with above dictation, dictated as a scribe
[2020-04-22 15:35] LABS: Appearance,BF Hazy; RBC, Body Fluid 733 /uL
[2020-04-22 15:37] LABS: Nucleated Cells, Body Fluid 370 /uL
[2020-04-22 15:52] LABS: Mononuclear WBC,Body Fluid 93 %; Polynuclear WBC,Body Fluid 7 %; Total Cells Counted,Body Fluid 100
[2020-04-22] MEDS: HEPARIN SODIUM,PORCINE 5,000 UNIT/ML 1 ML VIAL SQ SCH ×2 (16:47→23:14)
[2020-04-22] MEDS: FUROSEMIDE 10 MG/ML 4 ML VIAL IV SCH (19:59)
--- NOTE | 2020-04-22 22:09 | CONS ---
CONSULTATION REASON FOR CONSULTATION: Acute kidney injury. HISTORY OF PRESENT ILLNESS: The patient is a 69-year-old female who was admitted to the hospital with complaints of shortness of breath. Patient has a history of stage III squamous cell carcinoma of the lung and has completed 2 cycles of chemotherapy. She noticed increasing lower extremity edema over the past couple of weeks. No significant changes in urine output. Currently patient is being diuresed. Serum creatinine was 0.9 mg/dL, increased to 1.28 today. Her potassium was 6.3 yesterday and it is down to 5.4. Patient was not on any nonsteroidal anti-inflammatory agents or JENNIFER inhibitors prior to admission. There is no evidence of obvious GI bleed. Urine output is actually not charted. The patient received IV treatment with insulin and D50 for the hyperkalemia. She also received a dose of Kayexalate. The patient denies any prior history of kidney diseases. PAST MEDICAL HISTORY: Recent diagnosis of lung cancer, maintained on chemotherapy, history of PE, osteoarthritis, COPD, DVT, gastroesophageal reflux disease, history of vertigo. PAST SURGICAL HISTORY: Tubal ligation, PICC line placement. SOCIAL HISTORY: The patient is a former smoker. No history of drug abuse or alcohol abuse. MEDICATIONS: Medications prior to admission included Pepcid, Eliquis, Zofran, Lopressor, amiodarone and inhalers. ALLERGIES: ALLERGIES include FISH, IODINE, TOMATO, DIAL SOAP. PHYSICAL EXAMINATION: Patient is currently comfortable, awake. She is not in any acute distress. Alert and oriented x3. Blood pressure 124/88, heart rate 120 per minute. Patient is afebrile. EXAMINATION OF THE HEART: S1 and S2. EXAMINATION OF LUNGS: Decreased breath sounds at bases. ABDOMEN: Soft, non-tender. Examination of lower extremities shows edema 2+ bilaterally. BLEACH TESTER exam is grossly intact. LABS/IMAGING: Labs show sodium of 138, potassium 5.4, chloride 89. CO2 is 39, BUN 35, creatinine 1.28, hemoglobin 12.3 g/dL. TSH 4.3. The patient had a chest CTA done on initial admission which showed no evidence of PE. There is suggestion of CHF. A CT scan of the abdomen with IV contrast was also performed today. ASSESSMENT: 1. Acute kidney injury. Rule out urine retention, given the hyperkalemia as well. The patient has received IV contrast twice. She received it initially on 04/20/2020 and for chest CTA and then again for a CT scan of the abdomen and pelvis today. We need to monitor for worsening renal function over the next few days. In the meantime, patient is volume-overloaded and she will be diuresed. 2. Squamous cell lung cancer, maintained on chemotherapy, being followed by Hematology/Oncology. 3. Volume overload, currently being diuresed; ejection fraction greater than 55% on echocardiogram done today. 4. Severely dilated left atrium. 5. Hyperkalemia associated with acute kidney injury as well as possible urine retention. No medications to promote hyperkalemia at this point. No evidence of obvious GI bleed, and blood sugars are slightly on the higher side at 160 and 118, although this morning it was all the way up to 239. PLAN: Continue with IV Lasix. Check post-void urine. Avoid any further nephrotoxic agents. Avoid hypotension. Change Lasix to IV and repeat labs in a.m. Check urinalysis as well. Maintain patient on low-potassium diet. Thank you for this consultation. Will continue to follow the patient with you during her hospitalization. MMODL / IJN: [id number] /
[2020-04-22 22:26] LABS: Glucose, BF Source Pleural Fluid; Glucose, Body Fluid 220 mg/dL; LDH, Body Fluid Source Pleural Fluid; Total Protein, Body Fluid 2200 mg/dL
[2020-04-22 23:31] LABS: Appearance,Urine Cloudy (Clear); Bilirubin,Urine Negative (Negative); Blood,Urine Negative (Negative); Color,Urine Light Yellow; Glucose,Urine (UA) Negative (Negative); Hyaline Casts,Urine 21 /lpf (0-2); Ketones,Urine Negative (Negative); Leukocyte Esterase,Urine Small (Negative); Mucus,Urine Rare /hpf; Nitrite,Urine Negative (Negative); Protein,Urine Negative (Negative); RBC,Urine 2 /hpf (0-5); Specific Gravity,Urine 1.024 (1.001-1.035); Squamous Epithelial Cell,Urine 21 /hpf (0-4); Urobilinogen,Urine <2.0 mg/dL (<2.0); WBC,Urine 1 /hpf (0-5)
[2020-04-23] MEDS: ALBUTEROL NEBULIZED 2.5 MG/3 ML INHALATION PRN (04:11)
[2020-04-23 07:51] LABS: Calcium 9.2 mg/dL (8.4-10.2)
[2020-04-23] MEDS: FAMOTIDINE 20 MG TAB PO SCH (08:50)
[2020-04-23] MEDS: METOPROLOL TARTRATE 25 MG TAB PO SCH ×2 (08:50→20:11)
[2020-04-23] MEDS: FUROSEMIDE 10 MG/ML 4 ML VIAL IV SCH (08:51)
[2020-04-23] MEDS: HEPARIN SODIUM,PORCINE 5,000 UNIT/ML 1 ML VIAL SQ SCH (08:51)
[2020-04-23] MEDS ORDERED: FUROSEMIDE 40 MG TAB PO SCH (09:00)
[2020-04-23] MEDS ORDERED: FUROSEMIDE 10 MG/ML 4 ML VIAL IV SCH (09:00)
--- NOTE | 2020-04-23 10:29 | P.PN ---
Subjective Progress Note Date: 04/23/20 This pleasant 69-year-old female with past medical history significant for persistent atrial fibrillation, his, cell carcinoma status post chemotherapy 3 weeks ago, hypertension, history of DVT/PE, COPD, sick sinus syndrome, and prior nicotine dependence who follows with Dr. Kwan in the office. Patient was noted to the hospital with shortness of breath, she was found to have significant pleural effusions. The patient's Eliquis had been placed on hold, she underwent a right-sided thoracentesis yesterday, for removal of 450 mL of clear yellow fluid. She was seen and examined this morning, sitting up at the bedside, she states that overall she's feeling significantly better today and her breathing is stable. Blood pressure 100/60, heart rate 106, 94% on 2 L of oxygen. Sodium 138, potassium 5.0, chloride 90, CO2 39, BUN 42, creatinine 1.2. Objective - Vital Signs Vital signs: Vital Signs Temp 98.2 F 04/23/20 08:00 Pulse 106 H 04/23/20 08:00 Resp 18 04/23/20 08:00 BP 99/69 04/23/20 08:00 Pulse Ox 94 L 04/23/20 08:00 Intake & Output 04/22/20 04/23/20 04/23/20 18:59 06:59 18:59 Intake Total 702 Output Total 850 300 300 Balance -148 -300 -300 Weight 76.5 kg Intake: Oral 702 Output: Urine 400 300 300 Stool 0 Other 450 Other: # Voids 1 - Exam PHYSICAL EXAMINATION CONSTITUTIONAL: No apparent distress. HEENT: Head is normocephalic. Pupils are equal, round. Sclerae anicteric. Mucous membranes of the mouth are moist. No JVD. No carotid bruit. CHEST EXAMINATION: Diminished at the bases bilaterally. No chest wall tenderness is noted on palpation or with deep breathing. HEART EXAMINATION: Irregular rate and rhythm. S1, S2 heard. Systolic ejection murmur at the base, no gallops or rub. EXTREMITIES: 2+ peripheral pulses, 1+ bilateral lower extremity pitting edema and no calf tenderness. - Labs CBC & Chem 7: 04/22/20 05:42 04/23/20 07:11 Labs: Abnormal Lab Results - Last 24 Hours (Table) 04/22/20 04/22/20 04/23/20 Range/Units 18:13 23:08 07:11 Potassium 5.4 H (3.5-5.1) mmol/L Chloride 90 L (98-107) mmol/L Carbon Dioxide 39 H (22-30) mmol/L BUN 42 H (7-17) mg/dL Creatinine 1.20 H (0.52-1.04) mg/dL Glucose 144 H (74-99) mg/dL Urine Appearance Cloudy H (Clear) Ur Leukocyte Esterase Small H (Negative) Ur Squamous Epith Cells 21 H (0-4) /hpf Hyaline Casts 21 H (0-2) /lpf Urine Mucus Rare H (None) /hpf Microbiology - Last 24 Hours (Table) 04/22/20 11:15 Gram Stain - Preliminary Pleural Fluid Body Fluid Culture - Preliminary 04/22/20 11:15 Acid Fast Bacilli Culture - Preliminary Pleural Fluid 04/22/20 11:15 Fungal Culture - Preliminary Pleural Fluid Assessment and Plan Plan: ASSESSMENT AND PLAN #1 Bilateral pleural effusions right greater than left secondary to lung cancer, status post right-sided thoracentesis yesterday #2 Persistent atrial fibrillation, Eliquis on hold, newly diagnosed in 2019 and has been persistent since that time despite attempted rhythm control with amiodarone #3 Hyperkalemia #4 Aortic stenosis #5 Squamous cell lung cancer #6 Hypertension #7 COPD #8 Former nicotine dependence Plan We will continue metoprolol 75 mg one tablet by mouth 3 times a day. If the patient is not going to have a left-sided thoracentesis, we need to resume the Eliquis. IV Lasix as per nephrology. DNP note has been reviewed, I agree with a documented findings and plan of care. Patient was seen and examined.
--- NOTE | 2020-04-23 10:29 | P.PN ---
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 Lopez, patient came into the hospital with bilateral swelling and anasarca and increased swelling patient has been on eLIQUIS last dose was day before yesterday, currently on hold, computed tomography scan showed bilateral effusion, ultrasound of the chest confirmed bilateral effusion however appeared to be small on the left side fairly large on the right side, patient also has a chronic atrial fibrillation on telemetry questions, originally she was the found to have a large left-sided lung mass and no lie 2020 status post biopsy positive for his, cell cancer Objective - Vital Signs Vital signs: Vital Signs Temp 98.2 F 04/23/20 08:00 Pulse 106 H 04/23/20 08:00 Resp 18 04/23/20 08:00 BP 99/69 04/23/20 08:00 Pulse Ox 94 L 04/23/20 08:00 Intake & Output 04/22/20 04/23/20 04/23/20 18:59 06:59 18:59 Intake Total 702 Output Total 850 300 300 Balance -148 -300 -300 Weight 76.5 kg Intake: Oral 702 Output: Urine 400 300 300 Stool 0 Other 450 Other: # Voids 1 - Exam - Constitutional General appearance: average body habitus, cooperative, disheveled - EENT Eyes: EOMI, PERRLA Ears: bilateral: normal - Neck Carotids: bilateral: upstroke normal Thyroid: bilateral: normal size - Respiratory Respiratory: bilateral: diminished, dullness (Right more than the left) - Cardiovascular Rhythm: regular Heart sounds: normal: S1, S2 - Gastrointestinal General gastrointestinal: decreased bowel sounds, soft - Neurologic Neurologic: CNII-XII intact - Musculoskeletal Musculoskeletal: gait normal, generalized weakness, strength equal bilaterally - Psychiatric Psychiatric: A&O x's 3, appropriate affect, intact judgment & insight - Labs CBC & Chem 7: 04/22/20 05:42 04/23/20 07:11 Labs: Abnormal Lab Results - Last 24 Hours (Table) 04/22/20 04/22/20 04/23/20 Range/Units 18:13 23:08 07:11 Potassium 5.4 H (3.5-5.1) mmol/L Chloride 90 L (98-107) mmol/L Carbon Dioxide 39 H (22-30) mmol/L BUN 42 H (7-17) mg/dL Creatinine 1.20 H (0.52-1.04) mg/dL Glucose 144 H (74-99) mg/dL Urine Appearance Cloudy H (Clear) Ur Leukocyte Esterase Small H (Negative) Ur Squamous Epith Cells 21 H (0-4) /hpf Hyaline Casts 21 H (0-2) /lpf Urine Mucus Rare H (None) /hpf Microbiology - Last 24 Hours (Table) 04/22/20 11:15 Gram Stain - Preliminary Pleural Fluid Body Fluid Culture - Preliminary 04/22/20 11:15 Acid Fast Bacilli Culture - Preliminary Pleural Fluid 04/22/20 11:15 Fungal Culture - Preliminary Pleural Fluid Assessment and Plan Assessment: Bilateral pleural effusion right more than the left, status post right thoracentesis findings biochemical parameters points towards transudative effusion, cytology however is pending Increased shortness of breath related to above Generalized anasarca 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
--- NOTE | 2020-04-23 10:51 | P.PN ---
Subjective 63-year-old female with known history of lung cancer given with complaints of shortness of breath found to have bilateral pleural effusion along with significant bilateral pedal edema. Patient has not normal ejection fraction the past does have history of aortic stenosis. Patient last received chemotherapy about 3 weeks ago. Patient has worsening shortness of breath along with orthopnea and paroxysmal nocturnal dyspnea. Patient has significant pleural effusion on the left side with some [id number] pleural effusion on the right side. Patient is complaining of for generalized weakness tiredness. Patient is also in atrial fibrillation patient was on amiodarone and metoprolol patient appears to be in chronic A. fib was on Eliquis is being held at this time. Patient was a valid by cardiology pulmonology will evaluate the patient. Patient has elevated potassium of 6.3 for which she is receiving Kayoxalate at this time. 04/22/2020 Patient is doing much better today patient had an ultrasound of the chest which is showing pleural effusion like yesterday and patient will be evaluated by pulmonary. Patient probably will need pleural tap. Patient still has extensive pedal edema patient is on IV Lasix with the creatinine has worsened a bit will get nephrology opinion regarding diuretics. Patient respiratory status signif icantly improved and presently on 2 L patient clinically looks much better today. 04/23/2020 Patient had a pleural tap and able to pneumonia 400 mL of fluid from the right side. Patient is bit confused today probably secondary to Benadryl. Patient has hallucinations as well as Benadryl or any other narcotics will be discontinued. A she doesn't have any evidence of sepsis at this time. Patient is bit paranoid. Bili edema improved creatinine remains stable remains on IV Lasix serum potassium improved Constitutional: Denied any fatigue denied any fever. Cardio vascular: denied any chest pain, palpitations Gastrointestinal denied any nausea vomiting Pulmonary: Denied any shortness of breath cough Neurologic denied any new focal deficits All inpatient medications were reviewed and appropriate changes in these medications as dictated in the interval history and assessment and plan. Objective - Vital Signs Vital signs: Vital Signs Temp 98.2 F 04/23/20 08:00 Pulse 106 H 04/23/20 08:00 Resp 18 04/23/20 08:00 BP 99/69 04/23/20 08:00 Pulse Ox 94 L 04/23/20 08:00 Intake & Output 04/22/20 04/23/20 04/23/20 18:59 06:59 18:59 Intake Total 702 Output Total 850 300 300 Balance -148 -300 -300 Weight 76.5 kg Intake: Oral 702 Output: Urine 400 300 300 Stool 0 Other 450 Other: # Voids 1 - Exam PHYSICAL EXAMINATION: GENERAL: The patient is alert and oriented x3, she is bit confused HEENT: Pupils are round and equally reacting to light. EOMI. No scleral icterus. No conjunctival pallor. Normocephalic, atraumatic. No pharyngeal erythema. No thyromegaly. CARDIOVASCULAR: S1 and S2 present. No murmurs, rubs, or gallops. Tachycardic irregularly irregular rhythm PULMONARY: Chest is clear to auscultation, no wheezing or crackles. ABDOMEN: Soft, nontender, nondistended, normoactive bowel sounds. No palpable organomegaly. MUSCULOSKELETAL: No joint swelling or deformity. EXTREMITIES: No cyanosis, clubbing, extensive bilateral pedal edema NEUROLOGICAL: Gross neurological examination did not reveal any focal deficits. SKIN: No rashes. - Labs CBC & Chem 7: 04/22/20 05:42 04/23/20 07:11 Labs: Abnormal Lab Results - Last 24 Hours (Table) 04/22/20 04/22/20 04/23/20 Range/Units 18:13 23:08 07:11 Potassium 5.4 H (3.5-5.1) mmol/L Chloride 90 L (98-107) mmol/L Carbon Dioxide 39 H (22-30) mmol/L BUN 42 H (7-17) mg/dL Creatinine 1.20 H (0.52-1.04) mg/dL Glucose 144 H (74-99) mg/dL Urine Appearance Cloudy H (Clear) Ur Leukocyte Esterase Small H (Negative) Ur Squamous Epith Cells 21 H (0-4) /hpf Hyaline Casts 21 H (0-2) /lpf Urine Mucus Rare H (None) /hpf Microbiology - Last 24 Hours (Table) 04/22/20 11:15 Gram Stain - Preliminary Pleural Fluid Body Fluid Culture - Preliminary 04/22/20 11:15 Acid Fast Bacilli Culture - Preliminary Pleural Fluid 04/22/20 11:15 Fungal Culture - Preliminary Pleural Fluid Assessment and Plan Plan: Shortness of breath, acute respiratory failure hypoxic: Multifactorial secondary to bilateral pleural effusions patient does have history of lung cancer patient the effusions most probably related to lung cancer at although CHF cannot be completely ruled out. Patient had thoracocentesis with removal of around 400 mL of fluid from the right side. today remains on oxygen patient remains on the Lasix does have pedal edema still although improved patient has CHF as well -Toxic encephalopathy from medications which will be discontinued -Acute hypoxic respiratory failure secondary to above 1 atrial fibrillation persistent A. fib patient's anticoagulation is being held at this time amiodarone was discontinued patient is on metoprolol o 75 twice a day, patient heart rate is better controlled today patient is still off anti- coagulation -Acute renal failure: Will azotemia from volume overload nephrology will be consulted continue with IV Lasix -Congestive heart failure chronic diastolic dysfunction with acute exacerbation Lasix as mentioned above -Aortic stenosis -History is consul lung cancer received chemotherapy 3 weeks ago -Generalized weakness tiredness: From cancer and atrial fibrillation improved. -Hyperkalemia: Improved with the Kayexalate. -DVT prophylaxis with heparin subcutaneous
[2020-04-23] MEDS: APIXABAN 5 MG TAB PO SCH ×2 (11:01→20:11)
--- NOTE | 2020-04-23 12:31 | P.PN ---
Subjective Progress Note Date: 04/23/20 Principal diagnosis: This is a 69-year-old female seen in consultation and followed up with acute kidney injury secondary to congestive heart failure and cardiorenal syndrome. Creatinine has improved from 1.28 to 1.2. She is currently on Lasix IV 40 mg daily. Her blood pressure though is somewhat low, I will 3 systolic to 99 systolic heart rate is 106, is in normal sinus rhy thm as per the EKG She'll also hyperkalemic secondary to acute kidney injury Past history significant for stage III squamous cell CA of the long with 2 cycles of chemotherapy. She also has significant edema She has a good appetite and denies any fever chills cough nausea vomiting diarrhea. Objective - Vital Signs Vital signs: Vital Signs Temp 98.2 F 04/23/20 08:00 Pulse 106 H 04/23/20 08:00 Resp 18 04/23/20 08:00 BP 99/69 04/23/20 08:00 Pulse Ox 94 L 04/23/20 08:00 Intake & Output 04/22/20 04/23/20 04/23/20 18:59 06:59 18:59 Intake Total 702 Output Total 850 300 300 Balance -148 -300 -300 Weight 76.5 kg Intake: Oral 702 Output: Urine 400 300 300 Stool 0 Other 450 Other: # Voids 1 On examination awake alert oriented HEENT exam no JVP neck is supple no facial asymmetry Lungs are significant for bilateral fine crackles, good air entry bilaterally Heart sounds unremarkable for any murmur rub gallop Abdomen soft nontender no masses Extremity exam reveals 3+ tight edema Neurologically awake alert oriented - Labs CBC & Chem 7: 04/22/20 05:42 04/23/20 07:11 Labs: Abnormal Lab Results - Last 24 Hours (Table) 04/22/20 04/22/20 04/23/20 Range/Units 18:13 23:08 07:11 Potassium 5.4 H (3.5-5.1) mmol/L Chloride 90 L (98-107) mmol/L Carbon Dioxide 39 H (22-30) mmol/L BUN 42 H (7-17) mg/dL Creatinine 1.20 H (0.52-1.04) mg/dL Glucose 144 H (74-99) mg/dL Urine Appearance Cloudy H (Clear) Ur Leukocyte Esterase Small H (Negative) Ur Squamous Epith Cells 21 H (0-4) /hpf Hyaline Casts 21 H (0-2) /lpf Urine Mucus Rare H (None) /hpf Microbiology - Last 24 Hours (Table) 04/22/20 11:15 Gram Stain - Preliminary Pleural Fluid Body Fluid Culture - Preliminary 04/22/20 11:15 Acid Fast Bacilli Culture - Preliminary Pleural Fluid 04/22/20 11:15 Fungal Culture - Preliminary Pleural Fluid Assessment and Plan Assessment: Impression 1. Acute kidney injury from cardiorenal syndrome from CHF improving with diuretics 2. Hyperkalemia secondary to acute kidney injury resolved. 3. Anabolic alkalosis bicarbs 39. Diuretics 4. Congestive heart failure 5. Low blood pressure Recommendation 1. Continue IV Lasix 40 daily 2. Reduce her metoprolol from 75 3 times a day to 75 twice a day because of the low blood pressure 3. Monitor labs
[2020-04-23] MEDS: QUEtiapine 25 MG TAB PO PRN (23:37)
[2020-04-24] MEDS: FUROSEMIDE 10 MG/ML 4 ML VIAL IV SCH (08:00)
[2020-04-24] MEDS: APIXABAN 5 MG TAB PO SCH ×2 (08:00→20:06)
[2020-04-24] MEDS: FAMOTIDINE 20 MG TAB PO SCH (08:00)
[2020-04-24] MEDS: METOPROLOL TARTRATE 25 MG TAB PO SCH ×2 (08:00→20:06)
[2020-04-24 08:17] LABS: Calcium 8.9 mg/dL (8.4-10.2); Potassium 4.2 mmol/L (3.5-5.1)
[2020-04-24 08:45] LABS: Anisocytosis Slight; HCT 35.7 % (34.0-46.0); Hypochromasia Marked; MCH 27.4 pg (25.0-35.0); MCHC 26.9 g/dL (31.0-37.0); MCV 101.7 fL (80.0-100.0); Macrocytosis Moderate; Platelet Count 135 k/uL (150-450); RBC 3.51 m/uL (3.80-5.40); RDW 18.3 % (11.5-15.5); WBC 6.5 k/uL (3.8-10.6)
[2020-04-24 08:59] LABS: HGB 9.6 gm/dL (11.4-16.0)
--- NOTE | 2020-04-24 09:05 | P.PN ---
Subjective 63-year-old female with known history of lung cancer given with complaints of shortness of breath found to have bilateral pleural effusion along with significant bilateral pedal edema. Patient has not normal ejection fraction the past does have history of aortic stenosis. Patient last received chemotherapy about 3 weeks ago. Patient has worsening shortness of breath along with orthopnea and paroxysmal nocturnal dyspnea. Patient has significant pleural effusion on the left side with some [id number] pleural effusion on the right side. Patient is complaining of for generalized weakness tiredness. Patient is also in atrial fibrillation patient was on amiodarone and metoprolol patient appears to be in chronic A. fib was on Eliquis is being held at this time. Patient was a valid by cardiology pulmonology will evaluate the patient. Patient has elevated potassium of 6.3 for which she is receiving Kayoxalate at this time. 04/22/2020 Patient is doing much better today patient had an ultrasound of the chest which is showing pleural effusion like yesterday and patient will be evaluated by pulmonary. Patient probably will need pleural tap. Patient still has extensive pedal edema patient is on IV Lasix with the creatinine has worsened a bit will get nephrology opinion regarding diuretics. Patient respiratory status signif icantly improved and presently on 2 L patient clinically looks much better today. 04/23/2020 Patient had a pleural tap and able to pneumonia 400 mL of fluid from the right side. Patient is bit confused today probably secondary to Benadryl. Patient has hallucinations as well as Benadryl or any other narcotics will be discontinued. A she doesn't have any evidence of sepsis at this time. Patient is bit paranoid. Bili edema improved creatinine remains stable remains on IV Lasix serum potassium improved 04/24/2020 Patient's creatinine improved still has significant swelling in both lower ext remity swelling. Patient although feels much better patient has some contraction alkalosis for which patient was started on Diamox by pulmonology Constitutional: Denied any fatigue denied any fever. Cardio vascular: denied any chest pain, palpitations Gastrointestinal denied any nausea vomiting Pulmonary: Denied any shortness of breath cough Neurologic denied any new focal deficits All inpatient medications were reviewed and appropriate changes in these medications as dictated in the interval history and assessment and plan. Objective - Vital Signs Vital signs: Vital Signs Temp 97.7 F 04/24/20 07:55 Pulse 120 H 04/24/20 07:55 Resp 17 04/24/20 07:55 BP 119/78 04/24/20 07:55 Pulse Ox 95 04/24/20 07:55 Intake & Output 04/23/20 04/24/20 04/24/20 18:59 06:59 18:59 Intake Total 682 0 Output Total 1000 700 Balance -318 -700 Weight 76 kg Intake: Oral 682 0 Output: Urine 1000 700 Stool 0 Other: Voiding Method Toilet Bedside Commode # Voids 1 1 # Bowel Movements 1 - Exam PHYSICAL EXAMINATION: GENERAL: The patient is alert and oriented x3, she is bit confused HEENT: Pupils are round and equally reacting to light. EOMI. No scleral icterus. No conjunctival pallor. Normocephalic, atraumatic. No pharyngeal erythema. No thyromegaly. CARDIOVASCULAR: S1 and S2 present. No murmurs, rubs, or gallops. Tachycardic irregularly irregular rhythm PULMONARY: Chest is clear to auscultation, no wheezing or crackles. ABDOMEN: Soft, nontender, nondistended, normoactive bowel sounds. No palpable organomegaly. MUSCULOSKELETAL: No joint swelling or deformity. EXTREMITIES: No cyanosis, clubbing, extensive bilateral pedal edema NEUROLOGICAL: Gross neurological examination did not reveal any focal deficits. SKIN: No rashes. - Labs CBC & Chem 7: 04/24/20 07:25 04/24/20 07:25 Labs: Abnormal Lab Results - Last 24 Hours (Table) 04/24/20 04/24/20 Range/Units 07:25 07:25 RBC 3.51 L (3.80-5.40) m/uL Hgb 9.6 L D (11.4-16.0) gm/dL MCV 101.7 H (80.0-100.0) fL MCHC 26.9 L (31.0-37.0) g/dL RDW 18.3 H (11.5-15.5) % Plt Count 135 L (150-450) k/uL Chloride 90 L (98-107) mmol/L Carbon Dioxide 41 H* (22-30) mmol/L BUN 46 H (7-17) mg/dL Glucose 128 H (74-99) mg/dL Microbiology - Last 24 Hours (Table) 04/22/20 11:15 Acid Fast Bacilli Smear - Final Pleural Fluid Acid Fast Bacilli Culture - Preliminary 04/22/20 11:15 Gram Stain - Preliminary Pleural Fluid Body Fluid Culture - Preliminary Assessment and Plan Plan: Shortness of breath, acute respiratory failure hypoxic: Multifactorial secondary to bilateral pleural effusions patient does have history of lung cancer patient the effusions most probably related to lung cancer at although CHF cannot be completely ruled out. Patient had thoracocentesis with removal of around 400 mL of fluid from the right side. Patient remains on oxygen patient remains on the Lasix does have pedal edema still although improved patient has CHF as well Fractional necrosis secondary to diuretics and patient was started on Diamox. -Toxic encephalopathy from medications : resolved -Acute hypoxic respiratory failure secondary to above 1 atrial fibrillation persistent A. fib patient's anticoagulation is being held at this time amiodarone was discontinued patient is on metoprolol o 75 twice a day, patient heart rate is better controlled today patient is still off anti- coagulation -Acute renal failure: Will azotemia from volume overload nephrology will be consulted continue with IV Lasix -Congestive heart failure chronic diastolic dysfunction with acute exacerbation Lasix as mentioned above -Aortic stenosis -History is consul lung cancer received chemotherapy 3 weeks ago -Generalized weakness tiredness: From cancer and atrial fibrillation improved. -Hyperkalemia: Improved with the Kayexalate. -DVT prophylaxis with heparin subcutaneous
[2020-04-24] MEDS: acetaZOLAMIDE 250 MG TAB PO SCH ×2 (09:36→20:06)
--- NOTE | 2020-04-24 10:53 | P.PN ---
Subjective Progress Note Date: 04/24/20 This pleasant 69-year-old female with past medical history significant for persistent atrial fibrillation, his, cell carcinoma status post chemotherapy 3 weeks ago, hypertension, history of DVT/PE, COPD, sick sinus syndrome, and prior nicotine dependence who follows with Dr. Kwan in the office. Patient was noted to the hospital with shortness of breath, she was found to have significant pleural effusions. The patient's Eliquis had been placed on hold, she underwent a right-sided thoracentesis yesterday, for removal of 450 mL of clear yellow fluid. She was seen and examined this morning, sitting up at the bedside, she states that overall she's feeling significantly better today and her breathing is stable. Blood pressure 100/60, heart rate 106, 94% on 2 L of oxygen. Sodium 138, potassium 5.0, chloride 90, CO2 39, BUN 42, creatinine 1.2. 04/24/2020 Patient was seen and examined this morning, feels well, breathing is overall stable. Blood pressure 120/78 on review of the monitor the patient's heart rate is in the 90s, 95% on 2 L of oxygen. White blood cell count 6.5, hemoglobin 9.6, down from 12.3 yesterday, platelet count 135. Sodium 137, potassium 4.2, BUN 46, creatinine 1.04. Objective - Vital Signs Vital signs: Vital Signs Temp 97.7 F 04/24/20 07:55 Pulse 120 H 04/24/20 07:55 Resp 17 04/24/20 07:55 BP 119/78 04/24/20 07:55 Pulse Ox 95 04/24/20 07:55 Intake & Output 04/23/20 04/24/20 04/24/20 18:59 06:59 18:59 Intake Total 682 0 Output Total 1000 700 Balance -318 -700 Weight 76 kg Intake: Oral 682 0 Output: Urine 1000 700 Stool 0 Other: Voiding Method Toilet Bedside Commode # Voids 1 1 # Bowel Movements 1 0 - Exam PHYSICAL EXAMINATION CONSTITUTIONAL: No apparent distress. HEENT: Head is normocephalic. Pupils are equal, round. Sclerae anicteric. Mucous membranes of the mouth are moist. No JVD. No carotid bruit. CHEST EXAMINATION: Diminished at the bases bilaterally. No chest wall tenderness is noted on palpation or with deep breathing. HEART EXAMINATION: Irregular rate and rhythm. S1, S2 heard. Systolic ejection murmur at the base, no gallops or rub. EXTREMITIES: 2+ peripheral pulses, 1+ bilateral lower extremity pitting edema and no calf tenderness. - Labs CBC & Chem 7: 04/24/20 07:25 04/24/20 07:25 Labs: Abnormal Lab Results - Last 24 Hours (Table) 04/24/20 04/24/20 Range/Units 07:25 07:25 RBC 3.51 L (3.80-5.40) m/uL Hgb 9.6 L D (11.4-16.0) gm/dL MCV 101.7 H (80.0-100.0) fL MCHC 26.9 L (31.0-37.0) g/dL RDW 18.3 H (11.5-15.5) % Plt Count 135 L (150-450) k/uL Chloride 90 L (98-107) mmol/L Carbon Dioxide 41 H* (22-30) mmol/L BUN 46 H (7-17) mg/dL Glucose 128 H (74-99) mg/dL Microbiology - Last 24 Hours (Table) 04/22/20 11:15 Acid Fast Bacilli Smear - Final Pleural Fluid Acid Fast Bacilli Culture - Preliminary 04/22/20 11:15 Gram Stain - Preliminary Pleural Fluid Body Fluid Culture - Preliminary Assessment and Plan Plan: ASSESSMENT AND PLAN #1 Bilateral pleural effusions right greater than left secondary to lung cancer, status post right-sided thoracentesis yesterday #2 Persistent atrial fibrillation, Eliquis on hold, newly diagnosed in 2019 and has been persistent since that time despite attempted rhythm control with amiodarone #3 Hyperkalemia #4 Aortic stenosis #5 Squamous cell lung cancer #6 Hypertension #7 COPD #8 Former nicotine dependence Plan We will continue metoprolol 75 mg one tablet by mouth 3 times a day. Repeat hemoglobin. IV Lasix as per nephrology. DNP note has been reviewed, I agree with a documented findings and plan of care. Patient was seen and examined.
--- NOTE | 2020-04-24 12:16 | P.PN ---
Subjective Progress Note Date: 04/24/20 Principal diagnosis: This is a 69-year-old female seen in consultation and followed up with acute kidney injury secondary to congestive heart failure and cardiorenal syndrome, hyperkalemia is secondary acute kidney injury and significant edema. Creatinine has improved from 1.28 to 1.2 further to 1.04 with Lasix 40 mg IV daily. She has significant edema, Doppler flow is negative for DVT. Echocardiogram showed 55% ejection fraction mild pulmonary hypertension, mild tricuspid regurg. Urinalysis no proteinuria noted albumin is 3.4 but improved to 3.9 She does have some cough with difficulty expectorating Past history significant for stage III squamous cell CA of the long with 2 cycles of chemotherapy. She also has significant edema She has a good appetite and denies any fever chills cough nausea vomiting diarrhea. Objective - Vital Signs Vital signs: Vital Signs Temp 97.7 F 04/24/20 07:55 Pulse 120 H 04/24/20 07:55 Resp 17 04/24/20 07:55 BP 119/78 04/24/20 07:55 Pulse Ox 95 04/24/20 07:55 Intake & Output 04/23/20 04/24/20 04/24/20 18:59 06:59 18:59 Intake Total 682 0 240 Output Total 1000 700 Balance -318 -700 240 Weight 76 kg Intake: Oral 682 0 240 Output: Urine 1000 700 Stool 0 Other: Voiding Method Toilet Bedside Commode # Voids 1 1 # Bowel Movements 1 0 On examination she is awake alert oriented comfortable HEENT exam no JVP neck is supple no facial asymmetry Lungs are significant for bilateral coarse crackles. Good air entry bilaterally No dullness percussion Heart sounds are unremarkable for any murmur rub gallop Abdomen soft nontender computed tomography scan shows moderate ascites Extremity exam was 2-3+ edema Neurologically awake alert oriented. - Labs CBC & Chem 7: 04/24/20 07:25 04/24/20 07:25 Labs: Abnormal Lab Results - Last 24 Hours (Table) 04/24/20 04/24/20 Range/Units 07:25 07:25 RBC 3.51 L (3.80-5.40) m/uL Hgb 9.6 L D (11.4-16.0) gm/dL MCV 101.7 H (80.0-100.0) fL MCHC 26.9 L (31.0-37.0) g/dL RDW 18.3 H (11.5-15.5) % Plt Count 135 L (150-450) k/uL Chloride 90 L (98-107) mmol/L Carbon Dioxide 41 H* (22-30) mmol/L BUN 46 H (7-17) mg/dL Glucose 128 H (74-99) mg/dL Microbiology - Last 24 Hours (Table) 04/22/20 11:15 Acid Fast Bacilli Smear - Final Pleural Fluid Acid Fast Bacilli Culture - Preliminary 04/22/20 11:15 Gram Stain - Preliminary Pleural Fluid Body Fluid Culture - Preliminary Assessment and Plan Assessment: Impression 1. Acute kidney injury from cardiorenal syndrome from CHF improving with diuretics. 2. Hyperkalemia secondary to acute kidney injury resolved. 3. Metabolic alkalosis bicarbs 39. Worse at 41 this morning etiology is Diuretics 4. Congestive heart failure, improved 5. Low blood pressure. Improved 6. Significant edema most of the usual causes are ruled out except for mild pulmonary hypertension tricuspid regurg. Computed tomography scan of the abdomen did not show any masses and no DVT by Doppler Recommendation 1. Continue IV Lasix 40 daily 2. Start Diamox 250 3 times a day for 3 days 3. Monitor labs including metabolic alkalosis
[2020-04-24] MEDS: QUEtiapine 25 MG TAB PO PRN (23:13)
[2020-04-25] MEDS: FAMOTIDINE 20 MG TAB PO SCH (09:16)
[2020-04-25] MEDS: APIXABAN 5 MG TAB PO SCH ×2 (09:16→20:36)
[2020-04-25] MEDS: acetaZOLAMIDE 250 MG TAB PO SCH ×2 (09:16→20:35)
[2020-04-25] MEDS: FUROSEMIDE 10 MG/ML 4 ML VIAL IV SCH (09:17)
[2020-04-25] MEDS: METOPROLOL TARTRATE 25 MG TAB PO SCH ×3 (09:17→20:35)
[2020-04-25 09:22] LABS: Calcium 9.1 mg/dL (8.4-10.2)
--- NOTE | 2020-04-25 09:39 | P.PN ---
Subjective Patient is seen in follow-up for acute kidney injury. Renal function is slightly worse from diuresis. Edema improving. Good urine output. Blood pressure stable. Oral intake fair. Vital signs are stable. General: The patient appeared well nourished and normally developed. HEENT: Head exam is unremarkable. Neck is without jugular venous distension. LUNGS: Breath sounds decreased. HEART: Rate and Rhythm are regular. ABDOMEN: Soft, nontender. EXTREMITITES: 2+ edema. Objective - Vital Signs Vital signs: Vital Signs Temp 97.0 F L 04/25/20 04:00 Pulse 102 H 04/25/20 04:00 Resp 16 04/25/20 04:00 BP 125/68 04/25/20 04:00 Pulse Ox 94 L 04/25/20 04:00 Intake & Output 04/24/20 04/25/20 04/25/20 18:59 06:59 18:59 Intake Total 720 240 Output Total 1200 450 Balance -480 -210 Weight 75.4 kg Intake: Oral 720 240 Output: Urine 1200 450 Stool 0 Other: Voiding Method Toilet Bedside Commode # Bowel Movements 0 - Labs CBC & Chem 7: 04/24/20 07:25 04/25/20 07:52 Labs: Abnormal Lab Results - Last 24 Hours (Table) 04/25/20 Range/Units 07:52 Chloride 90 L (98-107) mmol/L Carbon Dioxide 38 H (22-30) mmol/L BUN 38 H (7-17) mg/dL Creatinine 1.25 H (0.52-1.04) mg/dL Glucose 120 H (74-99) mg/dL Microbiology - Last 24 Hours (Table) 04/22/20 11:15 Gram Stain - Preliminary Pleural Fluid Body Fluid Culture - Preliminary Assessment and Plan Plan: Assessment: 1. Acute kidney injury mostly prerenal secondary to cardiorenal syndrome. Creatinine 1.25 today. UA benign. She also received IV contrast on 04/22/2020. 2. Volume overload. 3. Acute on chronic diastolic CHF. 4. Metabolic alkalosis secondary to diuresis maintained on Diamox. Better. 5. Status post right-sided thoracentesis with 450 mL drained on 04/22/2020. Plan: Maintain Lasix and Diamox. Low-salt diet and 1500 mL fluid restriction. Continue to monitor renal function and urine output.
--- NOTE | 2020-04-25 10:44 | P.PN ---
Subjective 63-year-old female with known history of lung cancer given with complaints of shortness of breath found to have bilateral pleural effusion along with significant bilateral pedal edema. Patient has not normal ejection fraction the past does have history of aortic stenosis. Patient last received chemotherapy about 3 weeks ago. Patient has worsening shortness of breath along with orthopnea and paroxysmal nocturnal dyspnea. Patient has significant pleural effusion on the left side with some [id number] pleural effusion on the right side. Patient is complaining of for generalized weakness tiredness. Patient is also in atrial fibrillation patient was on amiodarone and metoprolol patient appears to be in chronic A. fib was on Eliquis is being held at this time. Patient was a valid by cardiology pulmonology will evaluate the patient. Patient has elevated potassium of 6.3 for which she is receiving Kayoxalate at this time. 04/22/2020 Patient is doing much better today patient had an ultrasound of the chest which is showing pleural effusion like yesterday and patient will be evaluated by pulmonary. Patient probably will need pleural tap. Patient still has extensive pedal edema patient is on IV Lasix with the creatinine has worsened a bit will get nephrology opinion regarding diuretics. Patient respiratory status signif icantly improved and presently on 2 L patient clinically looks much better today. 04/23/2020 Patient had a pleural tap and able to pneumonia 400 mL of fluid from the right side. Patient is bit confused today probably secondary to Benadryl. Patient has hallucinations as well as Benadryl or any other narcotics will be discontinued. A she doesn't have any evidence of sepsis at this time. Patient is bit paranoid. Bili edema improved creatinine remains stable remains on IV Lasix serum potassium improved 04/24/2020 Patient's creatinine improved still has significant swelling in both lower ext remity swelling. Patient although feels much better patient has some contraction alkalosis for which patient was started on Diamox by pulmonology. 04/25/2020 Patient heart rate is still not well-controlled and the metoprolol dose was increased to 75 3 times a day. He still has significant bilateral pedal edema. Physical therapy and occupational therapy to evaluate the patient. Patient is presently on oral Lasix. Patient present creatinine is 2.25. Bit worse compared to yesterday. Constitutional: Denied any fatigue denied any fever. Cardio vascular: denied any chest pain, palpitations Gastrointestinal denied any nausea vomiting Pulmonary: Denied any shortness of breath cough Neurologic denied any new focal deficits All inpatient medications were reviewed and appropriate changes in these medications as dictated in the interval history and assessment and plan. Objective - Vital Signs Vital signs: Vital Signs Temp 97.0 F L 04/25/20 04:00 Pulse 102 H 04/25/20 04:00 Resp 16 04/25/20 04:00 BP 125/68 04/25/20 04:00 Pulse Ox 94 L 04/25/20 04:00 Intake & Output 04/24/20 04/25/20 04/25/20 18:59 06:59 18:59 Intake Total 720 240 Output Total 1200 450 Balance -480 -210 Weight 75.4 kg Intake: Oral 720 240 Output: Urine 1200 450 Stool 0 Other: Voiding Method Toilet Bedside Commode # Bowel Movements 0 - Exam PHYSICAL EXAMINATION: GENERAL: The patient is alert and oriented x3, she is bit confused HEENT: Pupils are round and equally reacting to light. EOMI. No scleral icterus. No conjunctival pallor. Normocephalic, atraumatic. No pharyngeal erythema. No thyromegaly. CARDIOVASCULAR: S1 and S2 present. No murmurs, rubs, or gallops. Tachycardic irregularly irregular rhythm PULMONARY: Chest is clear to auscultation, no wheezing or crackles. ABDOMEN: Soft, nontender, nondistended, normoactive bowel sounds. No palpable organomegaly. MUSCULOSKELETAL: No joint swelling or deformity. EXTREMITIES: No cyanosis, clubbing, extensive bilateral pedal edema NEUROLOGICAL: Gross neurological examination did not reveal any focal deficits. SKIN: No rashes. - Labs CBC & Chem 7: 04/24/20 07:25 04/25/20 07:52 Labs: Abnormal Lab Results - Last 24 Hours (Table) 04/25/20 Range/Units 07:52 Chloride 90 L (98-107) mmol/L Carbon Dioxide 38 H (22-30) mmol/L BUN 38 H (7-17) mg/dL Creatinine 1.25 H (0.52-1.04) mg/dL Glucose 120 H (74-99) mg/dL Microbiology - Last 24 Hours (Table) 04/22/20 11:15 Gram Stain - Preliminary Pleural Fluid Body Fluid Culture - Preliminary Assessment and Plan Plan: Shortness of breath, acute respiratory failure hypoxic: Multifactorial secondary to bilateral pleural effusions patient does have history of lung cancer patient the effusions most probably related to lung cancer at although CHF cannot be completely ruled out. Patient had thoracocentesis with removal of around 400 mL of fluid from the right side. Patient remains on oxygen patient remains on the Lasix does have pedal edema still although improved patient has CHF as well Fractional necrosis secondary to diuretics and patient was started on Diamox. -Toxic encephalopathy from medications : resolved -Acute hypoxic respiratory failure secondary to above 1 atrial fibrillation persistent A. fib patient's anticoagulation is being held at this time amiodarone was discontinued patient is on metoprolol o 75 twice a day, patient heart rate is better controlled today patient is still off anti- coagulation -Acute renal failure: Will azotemia from volume overload nephrology will be consulted continue with IV Lasix -Congestive heart failure chronic diastolic dysfunction with acute exacerbation Lasix as mentioned above -Aortic stenosis -History is consul lung cancer received chemotherapy 3 weeks ago -Generalized weakness tiredness: From cancer and atrial fibrillation improved. -Hyperkalemia: Improved with the Kayexalate. -DVT prophylaxis with heparin subcutaneous
--- NOTE | 2020-04-25 12:11 | P.PN ---
Subjective HISTORY OF PRESENTING ILLNESS This is a pleasant 69-year-old female past medical history significant for atrial fibrillation, squamous cell carcinoma status post chemotherapy 3 weeks ago, hypertension, history of DVT/PE, COPD, sick sinus syndrome and former nicotine dependence. She follows in the office with Dr. Mar. She is seen and examined sitting up on the edge of the bed in no acute distress. Breathing is stable, no chest pain, dizziness or palpitations. Blood pressure 128/61 heart rate in the 100-140 range in atrial fibrillation. Currently maintained on diamox 250 mg BID, eliquis 5 mg BID, lasix 40 mg IV daily per nephrology and lopressor 75 mg BID. Laboratory data reviewed, sodium 138, potassium 4.0, creatinine 1.25. PHYSICAL EXAMINATION CONSTITUTIONAL: No apparent distress. HEENT: Head is normocephalic. Pupils are equal, round. Sclerae anicteric. Mucous membranes of the mouth are moist. No JVD. No carotid bruit. CHEST EXAMINATION: Diminished at the bases bilaterally. No chest wall tenderness is noted on palpation or with deep breathing. HEART EXAMINATION: Irregular rate and rhythm. S1, S2 heard. Systolic ejection murmur at the base, no gallops or rub. EXTREMITIES: 2+ peripheral pulses, 2+ bilateral lower extremity pitting edema and no calf tenderness. ASSESSMENT Bilateral pleural effusions right greater than left secondary to lung cancer status post thoracentesis 450 mL was removed from the right Persistent atrial fibrillation on Eliquis, newly diagnosed in 2019 and has been persistent since that time despite attempted rhythm control with amiodarone Hyperkalemia Aortic stenosis Squamous cell lung cancer Hypertension COPD Former nicotine dependence PLAN Increase lopressor to 75 mg TID for rate control. Continue diuretics per nephrology. Eliquis has been resumed. Nurse Practitioner note has been reviewed, I agree with a documented findings and plan of care. Patient was seen and examined. Objective - Vital Signs Vital signs: Vital Signs Temp 98.1 F 04/25/20 08:00 Pulse 140 H 04/25/20 08:00 Resp 20 04/25/20 08:00 BP 128/61 04/25/20 08:00 Pulse Ox 97 04/25/20 08:00 Intake & Output 04/24/20 04/25/20 04/25/20 18:59 06:59 18:59 Intake Total 720 240 840 Output Total 1200 450 Balance -480 -210 840 Weight 75.4 kg Intake: Oral 720 240 840 Output: Urine 1200 450 Stool 0 Other: Voiding Method Toilet Bedside Commode # Voids 3 # Bowel Movements 0 - Labs CBC & Chem 7: 04/24/20 07:25 04/25/20 07:52 Labs: Abnormal Lab Results - Last 24 Hours (Table) 04/25/20 Range/Units 07:52 Chloride 90 L (98-107) mmol/L Carbon Dioxide 38 H (22-30) mmol/L BUN 38 H (7-17) mg/dL Creatinine 1.25 H (0.52-1.04) mg/dL Glucose 120 H (74-99) mg/dL Microbiology - Last 24 Hours (Table) 04/22/20 11:15 Gram Stain - Preliminary Pleural Fluid Body Fluid Culture - Preliminary
--- NOTE | 2020-04-25 14:40 | P.PN ---
Subjective Progress Note Date: 04/25/20 Principal diagnosis: Increased SOB and Fluid Retention Heart Rate remains High, appears better this afternoon, 140s this am. BLE edema still present does not appear improved. From Oncology standpoint we will follow- up after discharge, in the interim continued medical care per primary team and cardiology. Objective - Vital Signs Vital signs: Vital Signs Temp 98.1 F 04/25/20 08:00 Pulse 85 04/25/20 14:00 Resp 18 04/25/20 14:00 BP 104/64 04/25/20 12:00 Pulse Ox 97 04/25/20 12:00 Intake & Output 04/24/20 04/25/20 04/25/20 18:59 06:59 18:59 Intake Total 720 240 960 Output Total 1200 450 800 Balance -480 -210 160 Weight 75.4 kg Intake: Oral 720 240 960 Output: Urine 1200 450 800 Stool 0 Other: Voiding Method Toilet Bedside Commode # Voids 3 # Bowel Movements 0 - Exam - Constitutional General appearance: cooperative, no acute distress - EENT Eyes: EOMI, PERRLA ENT: NA/AT, normal oropharynx - Neck Neck: normal ROM - Respiratory Respiratory: bilateral: diminished (lower lobes) - Cardiovascular Rhythm: irregularly irregular leg Peripheral Edema: bilateral: 3+ - Gastrointestinal General gastrointestinal: soft, tenderness - Integumentary Integumentary: pale - Neurologic non-focal - Musculoskeletal Musculoskeletal: generalized weakness - Psychiatric Psychiatric: appropriate affect, intact judgment & insight - Labs CBC & Chem 7: 04/24/20 07:25 04/25/20 07:52 Labs: Abnormal Lab Results - Last 24 Hours (Table) 04/25/20 Range/Units 07:52 Chloride 90 L (98-107) mmol/L Carbon Dioxide 38 H (22-30) mmol/L BUN 38 H (7-17) mg/dL Creatinine 1.25 H (0.52-1.04) mg/dL Glucose 120 H (74-99) mg/dL Microbiology - Last 24 Hours (Table) 04/22/20 11:15 Gram Stain - Preliminary Pleural Fluid Body Fluid Culture - Preliminary Assessment and Plan (1) Squamous cell carcinoma of lung, stage III Current Visit: Yes Status: Acute Code(s): C34.90 - MALIGNANT NEOPLASM OF UNSP PART OF UNSP BRONCHUS OR LUNG SNOMED Code(s): 641584803 (2) Bilateral pleural effusion Current Visit: Yes Status: Acute Code(s): J90 - PLEURAL EFFUSION, NOT ELSEWHERE CLASSIFIED SNOMED Code(s): 815628223 (3) Lower extremity edema Current Visit: Yes Status: Acute Code(s): R60.0 - LOCALIZED EDEMA SNOMED Code(s): 207993568 Plan: - Premedicate and continue with completion of staging for plan after discharge - Pulmonary following for thoracentesis (cytology to please be sent for both therapeutic and diagnostic) - Status post 450cc pleural fluid obtained on 04/21/20 - Right effusion - Continue on ELiquis CT Negative for metastatic disease DISPO Oncology plan: She may follow up after discharge for next steps regarding treatment step, awaiting cytology from pleural fluid. Continue medical care per primary teams and cardiology.
[2020-04-25] MEDS: QUEtiapine 25 MG TAB PO PRN (22:43)
[2020-04-26] MEDS: FUROSEMIDE 10 MG/ML 4 ML VIAL IV SCH (09:32)
[2020-04-26] MEDS: APIXABAN 5 MG TAB PO SCH (09:32)
[2020-04-26] MEDS: FAMOTIDINE 20 MG TAB PO SCH (09:32)
[2020-04-26] MEDS: METOPROLOL TARTRATE 25 MG TAB PO SCH (09:32)
[2020-04-26] MEDS: acetaZOLAMIDE 250 MG TAB PO SCH (09:33)
--- NOTE | 2020-04-26 10:24 | P.PN ---
Subjective Patient is seen in follow-up for acute kidney injury. Labs pending today. Edema improving. Good urine output. Blood pressure stable. Oral intake fair. Vital signs are stable. General: The patient appeared well nourished and normally developed. HEENT: Head exam is unremarkable. Neck is without jugular venous distension. LUNGS: Breath sounds decreased. HEART: Rate and Rhythm are regular. ABDOMEN: Soft, nontender. EXTREMITITES: 1+ edema. Objective - Vital Signs Vital signs: Vital Signs Temp 97.9 F 04/26/20 07:54 Pulse 77 04/26/20 07:54 Resp 16 04/26/20 07:54 BP 109/62 04/26/20 07:54 Pulse Ox 99 04/26/20 07:54 Intake & Output 04/25/20 04/26/20 04/26/20 18:59 06:59 18:59 Intake Total 1320 600 Output Total 1300 500 Balance 20 100 Weight 77.1 kg Intake: Oral 1320 600 Output: Urine 1300 500 Stool 0 Other: Voiding Method Toilet Bedside Commode # Voids 3 - Labs CBC & Chem 7: 04/24/20 07:25 04/25/20 07:52 Labs: Microbiology - Last 24 Hours (Table) 04/22/20 11:15 Gram Stain - Preliminary Pleural Fluid Body Fluid Culture - Preliminary Assessment and Plan Plan: Assessment: 1. Acute kidney injury mostly prerenal secondary to cardiorenal syndrome. C reatinine 1.25 as of yesterday. UA benign. She also received IV contrast on 04/22/2020. 2. Volume overload. Improving with diuresis. 3. Acute on chronic diastolic CHF. 4. Metabolic alkalosis secondary to diuresis maintained on Diamox. Better. 5. Status post right-sided thoracentesis with 450 mL drained on 04/22/2020. Plan: Maintain Lasix and Diamox. Low-salt diet and 1500 mL fluid restriction. Continue to monitor renal function and urine output. Follow-up morning labs.
--- NOTE | 2020-04-26 10:39 | XR ---
EXAMINATION TYPE: XR chest 2V DATE OF EXAM: 04/26/2020 COMPARISON: 04/22/2020 HISTORY: Shortness of breath TECHNIQUE: Frontal and lateral views of the chest are obtained. FINDINGS: Scattered senescent parenchymal changes noted. There is left hilar mass noted. Patchy basilar densiti es. Large fixed hiatal hernia. Small effusion suggested on the left. Heart size is stable. Mediastinal structures are stable and grossly unremarkable. No evidence for hilar prominence. Degenerative changes dorsal spine. IMPRESSION: 1. There is left hilar mass noted. Patchy basilar densities. Large fixed hiatal hernia. Small effusio n suggested on the left.
--- NOTE | 2020-04-26 11:42 | P.DS ---
Providers Date of admission: 04/21/20 00:19 Attending physician: Stefanie Lazaro Consults: 04/21/20 00:34 Consult Physician Routine Consulting Provider: [facility] Consult Reason/Comments: CHF Do you want consulting provider notified?: Yes 04/21/20 11:00 Consult Physician Routine Consulting Provider: Wally Pineda Consult Reason/Comments: PULMONARY EFFUSIONS Do you want consulting provider notified?: Yes 04/21/20 11:26 Consult Physician Routine Consulting Provider: Rafa Medrano Consult Reason/Comments: Lung cancer Do you want consulting provider notified?: Yes 04/22/20 08:14 Consult Physician Routine Consulting Provider: Janice Collins Consult Reason/Comments: JIM Do you want consulting provider notified?: Yes Primary care physician: [facility] Course: 63-year-old female with known history of lung cancer given with complaints of shortness of breath found to have bilateral pleural effusion along with significant bilateral pedal edema. Patient has not normal ejection fraction the past does have history of aortic stenosis. Patient last received chemotherapy about 3 weeks ago. Patient has worsening shortness of breath along with orthopnea and paroxysmal nocturnal dyspnea. Patient has significant pleural effusion on the left side with some [id number] pleural effusion on the right side. Patient is complaining of for generalized weakness tiredness. Patient is also in atrial fibrillation patient was on amiodarone and metoprolol patient appears to be in chronic A. fib was on Eliquis is being held at this time. Patient was a valid by cardiology pulmonology will evaluate the patient. Patient has elevated potassium of 6.3 for which she is receiving Kayoxalate at this time. 04/22/2020 Patient is doing much better today patient had an ultrasound of the chest which is showing pleural effusion like yesterday and patient will be evaluated by pulmonary. Patient probably will need pleural tap. Patient still has extensive pedal edema patient is on IV Lasix with the creatinine has worsened a bit will get nephrology opinion regarding diuretics. Patient respiratory status significantly improved and presently on 2 L patient clinically looks much better today. 04/23/2020 Patient had a pleural tap and able to pneumonia 400 mL of fluid from the right side. Patient is bit confused today probably secondary to Benadryl. Patient has hallucinations as well as Benadryl or any other narcotics will be discontinued. A she doesn't have any evidence of sepsis at this time. Patient is bit paranoid. Bili edema improved creatinine remains stable remains on IV Lasix serum potassium improved 04/24/2020 Patient's creatinine improved still has significant swelling in both lower extremity swelling. Patient although feels much better patient has some contraction alkalosis for which patient was started on Diamox by pulmonology. 04/25/2020 Patient heart rate is still not well-controlled and the metoprolol dose was increased to 75 3 times a day. He still has significant bilateral pedal edema. Physical therapy and occupational therapy to evaluate the patient. Patient is presently on oral Lasix. Patient present creatinine is 2.25. Bit worse compared to yesterday. 04/26/2020 I do not have any labs available from today patient is clinically doing well doing much better wanted to go home physical therapy evaluated the patient unles s they recommended subacute rehabilitation patient will be discharged home to home with home care. She'll still has some leg swelling which is in failure improved since admission chest x-ray showed improvement in CHF and patient is saturating 90% on 2 L will discontinue oxygen. PHYSICAL EXAMINATION: GENERAL: The patient is alert and oriented x3, she is bit confused HEENT: Pupils are round and equally reacting to light. EOMI. No scleral icterus. No conjunctival pallor. Normocephalic, atraumatic. No pharyngeal erythema. No thyromegaly. CARDIOVASCULAR: S1 and S2 present. No murmurs, rubs, or gallops. Tachycardic irregularly irregular rhythm PULMONARY: Chest is clear to auscultation, no wheezing or crackles. ABDOMEN: Soft, nontender, nondistended, normoactive bowel sounds. No palpable organomegaly. MUSCULOSKELETAL: No joint swelling or deformity. EXTREMITIES: No cyanosis, clubbing, extensive bilateral pedal edema NEUROLOGICAL: Gross neurological examination did not reveal any focal deficits. SKIN: No rashes. Assessment and Plan Plan: Shortness of breath, acute respiratory failure hypoxic: Multifactorial secondary to bilateral pleural effusions patient does have history of lung cancer patient the effusions most probably related to lung cancer at although CHF cannot be completely ruled out. Patient had thoracocentesis with removal of around 400 mL of fluid from the right side. Patient has significant improvement in volume status. Metabolic alkalosis secondary to diuretics improved with Diamox. -Toxic encephalopathy from medications : resolved -Acute hypoxic respiratory failure secondary to above 1 atrial fibrillation persistent A. fib patient was resumed on anticoagulation and patient's metoprolol was increased to 75 3 times a day -Acute renal failure: Will azotemia from volume overload nephrology will be consulted continue with IV Lasix -Congestive heart failure chronic diastolic dysfunction with acute exacerbation Lasix as mentioned above -Aortic stenosis -History is squamous lung cancer received chemotherapy 3 weeks ago -Generalized weakness tiredness: From cancer and atrial fibrillation improved. -Hyperkalemia: Improved with the Kayexalate. Patient Condition at Discharge: Serious Plan - Discharge Summary Discharge Rx Participant: No New Discharge Prescriptions: New Torsemide [Demadex] 20 mg PO DAILY #30 tablet Metoprolol Tartrate [Lopressor] 75 mg PO TID tab Continue Famotidine [Pepcid] 20 mg PO DAILY Apixaban [Eliquis] 5 mg PO BID 30 Days #60 tab ondansetron HCL [Zofran] 8 mg PO Q8HR PRN PRN Reason: Nausea Amiodarone [Cordarone] See Taper PO BID Albuterol Inhaler [Ventolin Hfa Inhaler] 1 puff INHALATION RT-Q4H PRN PRN Reason: Shortness Of Breath Fluticasone/Salmeterol [Advair 250-50 Diskus] 1 puff INHALATION RT-BID Ipratropium-Albuterol Nebulize [Duoneb 0.5 mg-3 mg/3 ml Soln] 3 ml INHALATION RT-TID Discontinued Metoprolol Tartrate [Lopressor] 50 mg PO BID tab Discharge Medication List Famotidine [Pepcid] 20 mg PO DAILY 10/21/19 [History] Apixaban [Eliquis] 5 mg PO BID 30 Days #60 tab 11/06/19 [Rx] ondansetron HCL [Zofran] 8 mg PO Q8HR PRN 03/03/20 [History] Amiodarone [Cordarone] See Taper PO BID 03/16/20 [History] Albuterol Inhaler [Ventolin Hfa Inhaler] 1 puff INHALATION RT-Q4H PRN 04/20/20 [History] Fluticasone/Salmeterol [Advair 250-50 Diskus] 1 puff INHALATION RT-BID 04/20/20 [History] Ipratropium-Albuterol Nebulize [Duoneb 0.5 mg-3 mg/3 ml Soln] 3 ml INHALATION RT-TID 04/20/20 [History] Metoprolol Tartrate [Lopressor] 75 mg PO TID tab 04/26/20 [Rx] Torsemide [Demadex] 20 mg PO DAILY #30 tablet 04/26/20 [Rx] Follow up Appointment(s)/Referral(s): Rafa Medrano MD [STAFF PHYSICIAN] - 1 Week [facility], [NON-STAFF] - Monica Roth MD [Primary Care Provider] - 3 Days Monroe Mckinney DO [STAFF PHYSICIAN] - 1 Week Ambulatory/Diagnostic Orders: Basic Metabolic Panel [LAB.AMB] Time Frame: 3 Days, Location: None Selected Discharge Disposition: HOME WITH HOME HEALTH SERVICES
[2020-04-26 12:02] LABS: Calcium 8.5 mg/dL (8.4-10.2); Magnesium 1.5 mg/dL (1.6-2.3); Potassium 3.7 mmol/L (3.5-5.1)
[2020-04-26 12:29] VITALS: BP 103/60; PULSE 69; RESP 14; TEMP 97.5
[2020-04-26] MEDS ORDERED: Magnesium Replacement Protocol 1 EACH MISC MISCELLANE PRN (13:26)
[2020-04-26] MEDS ORDERED: MAGNESIUM SULFATE-D5W PMX 1 GM in DEXTROSE/WATER 1 100ML.BAG IVPB SCH (13:30)
--- NOTE | 2020-04-26 13:30 | P.PN ---
Subjective HISTORY OF PRESENTING ILLNESS This is a pleasant 69-year-old female past medical history significant for atrial fibrillation, squamous cell carcinoma status post chemotherapy 3 weeks ago, hypertension, history of DVT/PE, COPD, sick sinus syndrome and former nicotine dependence. She follows in the office with Dr. Mar. She is seen and examined sitting up on the edge of the bed in no acute distress. Breathing is stable, no chest pain, dizziness or palpitations. Blood pressure 128/61 heart rate in the 100-140 range in atrial fibrillation. Currently maintained on diamox 250 mg BID, eliquis 5 mg BID, lasix 40 mg IV daily per nephrology and lopressor 75 mg BID. Laboratory data reviewed, sodium 138, potassium 4.0, creatinine 1.25. 04/26/2020 Pt is seen and examined laying flat resting comfortably in bed in no acute distress. She states she is feeling better today with no worsening shortness of breath. Lower extremity swelling has improved. Blood pressure 103/60 heart rate 69 afebrile and maintaining oxygen saturation. Laboratory data reviewed, sodium 137, potassium 3.7, creatinine 1.1 and magnesium 1.5. Chest xray revealed patchy basilar densities and a large fixed hiatal hernia. PHYSICAL EXAMINATION CONSTITUTIONAL: No apparent distress. HEENT: Head is normocephalic. Pupils are equal, round. Sclerae anicteric. Mucous membranes of the mouth are moist. No JVD. No carotid bruit. CHEST EXAMINATION: Diminished at the bases bilaterally. No chest wall tenderness is noted on palpation or with deep breathing. HEART EXAMINATION: Irregular rate and rhythm. S1, S2 heard. Systolic ejection murmur at the base, no gallops or rub. EXTREMITIES: 2+ peripheral pulses, 2+ bilateral lower extremity pitting edema and no calf tenderness. ASSESSMENT Bilateral pleural effusions right greater than left secondary to lung cancer s tatus post thoracentesis 450 mL was removed from the right Persistent atrial fibrillation on Eliquis, newly diagnosed in 2019 and has been persistent since that time despite attempted rhythm control with amiodarone Hyperkalemia Hypomagnesemia Aortic stenosis Squamous cell lung cancer Hypertension COPD Former nicotine dependence PLAN Continue lopressor at 75 mg TID. Continue diuretics per nephrology. Replace magnesium per protocol. Repeat chest xray due to ongoing diminished bases, reviewed. No recurrent pleural effusion s/p thoracentesis. Nurse Practitioner note has been reviewed, I agree with a documented findings and plan of care. Patient was seen and examined. Objective - Vital Signs Vital signs: Vital Signs Temp 97.5 F L 04/26/20 12:00 Pulse 69 04/26/20 12:00 Resp 14 04/26/20 12:00 BP 103/60 04/26/20 12:00 Pulse Ox 100 04/26/20 12:00 Intake & Output 04/25/20 04/26/20 04/26/20 18:59 06:59 18:59 Intake Total 1320 600 720 Output Total 1300 500 Balance 20 100 720 Weight 77.1 kg Intake: Oral 1320 600 720 Output: Urine 1300 500 Stool 0 Other: Voiding Method Toilet Bedside Commode # Voids 3 2 - Labs CBC & Chem 7: 04/24/20 07:25 04/26/20 08:21 Labs: Abnormal Lab Results - Last 24 Hours (Table) 04/26/20 Range/Units 08:21 Chloride 92 L (98-107) mmol/L Carbon Dioxide 38 H (22-30) mmol/L BUN 37 H (7-17) mg/dL Creatinine 1.11 H (0.52-1.04) mg/dL Glucose 160 H (74-99) mg/dL Magnesium 1.5 L (1.6-2.3) mg/dL Microbiology - Last 24 Hours (Table) 04/22/20 11:15 Gram Stain - Preliminary Pleural Fluid Body Fluid Culture - Preliminary
--- NOTE | 2020-04-27 10:07 | P.PN ---
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 Chronic atrial fibrillation on direct oral anticoagulants currently on hold for 2 days 04/25/2020, overall respiratory pattern significantly improved sitting upright on the bed breathing comfortably, follow-up chest x-ray no pneumothorax has been noted small left-sided pleural effusion, patient can be resumed on her blood thinners as left-sided effusion is very small high risk of complication doing a thoracentesis 04/23/2020, patient seen eval examined during the rounds shortness of breath slightly better swelling in the lower extremity continued to improve, status post right-sided thoracentesis 450 mL of fluid has been removed cytology is pending cultures are pending, total protein in the pleural fluid is 2.2, LDH is 100, likely transudative pleural effusion This is a 69-year-old female with the stage III squamous cell carcinoma of the lung status post chemotherapy 2 cycles of therapy were given, followed Dr. Lopez, patient came into the hospital with bilateral swelling and anasarca and increased swelling patient has been on eLIQUIS last dose was day before yesterday, currently on hold, computed tomography scan showed bilateral effusion, ultrasound of the chest confirmed bilateral effusion however appeared to be small on the left side fairly large on the right side, patient also has a chronic atrial fibrillation on telemetry questions, originally she was the found to have a large left-sided lung mass and no lie 2020 status post biopsy positive for his, cell cancer Objective - Vital Signs Vital signs: Vital Signs Temp 98.1 F 04/25/20 08:00 Pulse 85 04/25/20 16:00 Resp 18 04/25/20 16:00 BP 106/65 04/25/20 16:00 Pulse Ox 96 04/25/20 16:00 Intake & Output 04/24/20 04/25/20 04/25/20 18:59 06:59 18:59 Intake Total 743 363 5295 Output Total 5400 210 1693 Balance -480 -210 -100 Weight 75.4 kg Intake: Oral 681 715 5496 Output: Urine 5008 636 6425 Stool 0 Other: Voiding Method Toilet Bedside Commode # Voids 3 # Bowel Movements 0 - Exam - Constitutional General appearance: average body habitus, cooperative, disheveled - EENT Eyes: EOMI, PERRLA Ears: bilateral: normal - Neck Carotids: bilateral: upstroke normal Thyroid: bilateral: normal size - Respiratory Respiratory: bilateral: diminished, dullness (Right more than the left) - Cardiovascular Rhythm: regular Heart sounds: normal: S1, S2 - Gastrointestinal General gastrointestinal: decreased bowel sounds, soft - Neurologic Neurologic: CNII-XII intact - Musculoskeletal Musculoskeletal: gait normal, generalized weakness, strength equal bilaterally - Psychiatric Psychiatric: A&O x's 3, appropriate affect, intact judgment & insight - Labs CBC & Chem 7: 04/24/20 07:25 04/26/20 08:21 Labs: Abnormal Lab Results - Last 24 Hours (Table) 04/25/20 Range/Units 07:52 Chloride 90 L (98-107) mmol/L Carbon Dioxide 38 H (22-30) mmol/L BUN 38 H (7-17) mg/dL Creatinine 1.25 H (0.52-1.04) mg/dL Glucose 120 H (74-99) mg/dL Microbiology - Last 24 Hours (Table) 04/22/20 11:15 Gram Stain - Preliminary Pleural Fluid Body Fluid Culture - Preliminary Assessment and Plan Assessment: Bilateral pleural effusion right more than the left, status post right thoracentesis findings biochemical parameters points towards transudative effusion, cytology however is pending Increased shortness of breath related to above Generalized anasarca 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
--- NOTE | 2020-04-27 10:09 | P.PN ---
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 Chronic atrial fibrillation on direct oral anticoagulants currently on hold for 2 days 04/26/2020, overall respiratory status remained stable, denies any chest pain or shortness of breath breathing comfortably swelling the lower extremity removed patient has finished 3 days of Diamox CO2 improved significantly agree with discharge planning, 04/25/2020, overall respiratory pattern significantly improved sitting upright on the bed breathing comfortably, follow-up chest x-ray no pneumothorax has been noted small left-sided pleural effusion, patient can be resumed on her blood thinners as left-sided effusion is very small high risk of complication doing a thoracentesis 04/23/2020, patient seen eval examined during the rounds shortness of breath slightly better swelling in the lower extremity continued to improve, status post right-sided thoracentesis 450 mL of fluid has been removed cytology is pending cultures are pending, total protein in the pleural fluid is 2.2, LDH is 100, likely transudative pleural effusion This is a 69-year-old female with the stage III squamous cell carcinoma of the lung status post chemotherapy 2 cycles of therapy were given, followed Dr. Lopez, patient came into the hospital with bilateral swelling and anasarca and increased swelling patient has been on eLIQUIS last dose was day before yesterday, currently on hold, computed tomography scan showed bilateral effusion, ultrasound of the chest confirmed bilateral effusion however appeared to be small on the left side fairly large on the right side, patient also has a chronic atrial fibrillation on telemetry questions, originally she was the found to have a large left-sided lung mass and no lie 2020 status post biopsy positive for his, cell cancer Objective - Vital Signs Vital signs: Vital Signs Temp 97.9 F 04/26/20 07:54 Pulse 77 04/26/20 07:54 Resp 16 04/26/20 07:54 BP 109/62 04/26/20 07:54 Pulse Ox 99 04/26/20 07:54 Intake & Output 04/25/20 04/26/20 04/26/20 18:59 06:59 18:59 Intake Total 1320 600 Output Total 1300 500 Balance 20 100 Weight 77.1 kg Intake: Oral 1320 600 Output: Urine 1300 500 Stool 0 Other: Voiding Method Toilet Bedside Commode # Voids 3 - Exam - Constitutional General appearance: average body habitus, cooperative, disheveled - EENT Eyes: EOMI, PERRLA Ears: bilateral: normal - Neck Carotids: bilateral: upstroke normal Thyroid: bilateral: normal size - Respiratory Respiratory: bilateral: diminished, dullness (Right more than the left) - Cardiovascular Rhythm: regular Heart sounds: normal: S1, S2 - Gastrointestinal General gastrointestinal: decreased bowel sounds, soft - Neurologic Neurologic: CNII-XII intact - Musculoskeletal Musculoskeletal: gait normal, generalized weakness, strength equal bilaterally - Psychiatric Psychiatric: A&O x's 3, appropriate affect, intact judgment & insight - Labs CBC & Chem 7: 04/24/20 07:25 04/26/20 08:21 Labs: Microbiology - Last 24 Hours (Table) 04/22/20 11:15 Gram Stain - Preliminary Pleural Fluid Body Fluid Culture - Preliminary Assessment and Plan Assessment: Bilateral pleural effusion right more than the left, status post right thoracentesis findings biochemical parameters points towards transudative effusion, cytology however negative for malignancy Increased shortness of breath related to above Generalized anasarca 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
== END 2020-04-26 16:10 | disposition home health service (06) | DRG 291 ==
LOC: EC 21:35 → 3SCARD 04-21 00:19
PROVIDERS: ADMIT Internal Medicine; ATTEND Internal Medicine
PROC: 0W993ZZ Drainage of Right Pleural Cavity, Percutaneous Approach (ICD-10-PCS; principal; 2020-04-22)
DX: I13.0 Hypertensive heart and chronic kidney disease with heart failure and stage 1 through stage 4 chronic kidney disease, or unspecified chronic kidney disease (principal); J96.01 Acute respiratory failure with hypoxia; I50.33 Acute on chronic diastolic (congestive) heart failure; G92 Toxic encephalopathy; N17.9 Acute kidney failure, unspecified; J91.8 Pleural effusion in other conditions classified elsewhere; E87.3 Alkalosis; I48.19 Other persistent atrial fibrillation; I48.92 Unspecified atrial flutter; C34.12 Malignant neoplasm of upper lobe, left bronchus or lung; I49.5 Sick sinus syndrome; I27.22 Pulmonary hypertension due to left heart disease; I08.2 Rheumatic disorders of both aortic and tricuspid valves; K21.9 Gastro-esophageal reflux disease without esophagitis; M19.90 Unspecified osteoarthritis, unspecified site; E87.5 Hyperkalemia; J44.9 Chronic obstructive pulmonary disease, unspecified; E83.42 Hypomagnesemia; K44.9 Diaphragmatic hernia without obstruction or gangrene; N18.9 Chronic kidney disease, unspecified; E66.9 Obesity, unspecified; T50.1X5A Adverse effect of loop [high-ceiling] diuretics, initial encounter; T50.915A Adverse effect of multiple unspecified drugs, medicaments and biological substances, initial encounter; Z68.34 Body mass index [BMI] 34.0-34.9, adult; Z79.899 Other long term (current) drug therapy; Z79.01 Long term (current) use of anticoagulants; Z86.711 Personal history of pulmonary embolism; Z86.718 Personal history of other venous thrombosis and embolism; Z98.51 Tubal ligation status; Z95.828 Presence of other vascular implants and grafts; Z87.891 Personal history of nicotine dependence; Z91.041 Radiographic dye allergy status; Z91.018 Allergy to other foods; Z91.048 Other nonmedicinal substance allergy status; Z82.0 Family history of epilepsy and other diseases of the nervous system
CPT/HCPCS: 36415; 71045; 71046; 71275; 74177; 76604; 80048; 80053; 81001; 82945; 83605; 83615; 83735; 83880; 84132; 84157; 84443; 84484; 85025; 85027; 85610; 85730; 87070; 87102; 87116; 87205; 87206; 88108; 88305; 88341; 88342; 89050; 93005; 93306; 93970; 94640; 96374; 96375; 99285

== ENCOUNTER 2020-05-18 13:15 | Inpatient (IN) | payer MEDICARE, OTHER ==
[2020-05-18] MEDS ORDERED: DILTIAZEM DRIP BOLUS FROM BAG 1 MG SOLN IV ONE (13:44)
--- NOTE | 2020-05-18 13:44 | ED ---
General Adult HPI - General Chief complaint: Shortness of Breath Stated complaint: swollen legs, low BP Time Seen by Provider: 05/18/20 13:20 Source: patient, RN notes reviewed, old records reviewed Mode of arrival: wheelchair Limitations: no limitations - History of Present Illness Initial comments: This is a 69-year-old female with past medical history significant for lung cancer. Patient states she is getting chemotherapy. Patient comes in today because she started having difficulty breathing yesterday has gotten worse today. Patient states she went to see her certified maintenance welder and they recommended she came to the emergency department. Patient states her legs become more swollen over the last week and a half. Patient denies any fever chills or cough per patient states she does feel some palpitations in her heart. Patient does states she has a history of atrial fibrillation. Patient denies any chest pain. Patient denies abdominal pain patient denies nausea vomiting diarrhea. Patient denies any back pain. Patient denies any recent fever chills or cough. - Related Data Home Medications Medication Instructions Recorded Confirmed Famotidine [Pepcid] 20 mg PO DAILY 10/21/19 04/20/20 ondansetron HCL [Zofran] 8 mg PO Q8HR PRN 03/03/20 04/20/20 Albuterol Inhaler [Ventolin Hfa 1 puff INHALATION RT-Q4H PRN 04/20/20 04/20/20 Inhaler] Fluticasone/Salmeterol [Advair 1 puff INHALATION RT-BID 04/20/20 04/20/20 250-50 Diskus] Ipratropium-Albuterol Nebulize 3 ml INHALATION RT-TID 04/20/20 04/20/20 [Duoneb 0.5 mg-3 mg/3 ml Soln] Previous Rx's Medication Instructions Recorded Apixaban [Eliquis] 5 mg PO BID 30 Days #60 tab 11/06/19 Metoprolol Tartrate [Lopressor] 75 mg PO TID tab 04/26/20 Torsemide [Demadex] 20 mg PO DAILY #30 tablet 04/26/20 Allergies Allergy/AdvReac Type Severity Reaction Status Date / Time Fish Containing Products Allergy Anaphylaxis Verified 05/18/20 13:22 [Fish] Iodine and Iodide Containing Allergy Anaphylaxis Verified 05/18/20 13:22 Produc tomato Allergy Rash/Hives Verified 05/18/20 13:22 dial soap Allergy Rash/Hives Uncoded 03/16/20 06:58 Review of Systems ROS Statement: Those systems with pertinent positive or pertinent negative responses have been documented in the HPI. ROS Other: All systems not noted in ROS Statement are negative. Past Medical History Past Medical History: Atrial Fibrillation, Cancer, COPD, Deep Vein Thrombosis (DVT), GERD/Reflux, Osteoarthritis (OA), Pulmonary Embolus (PE), Syncope Additional Past Medical History / Comment(s): vertigo, chemo for left lung cancer History of Any Multi-Drug Resistant Organisms: None Reported Past Surgical History: Tubal Ligation Additional Past Surgical History / Comment(s): PICC line (L) arm Past Anesthesia/Blood Transfusion Reactions: Previous Problems w/ Anesthesia Additional Past Anesthesia/Blood Transfusion Reaction / Comment(s): hard time waking up Past Psychological History: No Psychological Hx Reported Smoking Status: Former smoker Past Alcohol Use History: None Reported Past Drug Use History: None Reported - Past Family History Mother Family Medical History: Dementia General Exam - General Exam Comments Initial Comments: GENERAL: Patient is well-developed and well-nourished. Patient is nontoxic and well- hydrated and is in mild distress. ENT: Neck is soft and supple. No significant lymphadenopathy is noted. Oropharynx is clear. Moist mucous membranes. Neck has full range of motion without eliciting any pain. EYES: The sclera were anicteric and conjunctiva were pink and moist. Extraocular movements were intact and pupils were equal round and reactive to light. Eyelids were unremarkable. PULMONARY: Unlabored respirations. Good breath sounds bilaterally. Crackles bilateral bases CARDIOVASCULAR: Patient's heart rate is tachycardic at about 150 beats a minute and regular. ABDOMEN: Soft and nontender with normal bowel sounds. SKIN: Skin is clear with no lesions or rashes and otherwise unremarkable. NEUROLOGIC: Patient is alert and oriented x3. Cranial nerves II through XII are grossly intact. Motor and sensory are also intact. Normal speech, volume and content. Symmetrical smile. MUSCULOSKELETAL: Normal extremities with adequate strength and full range of motion. 2+ edema bilaterally LYMPHATICS: No significant lymphadenopathy is noted PSYCHIATRIC: Normal psychiatric evaluation. Limitations: no limitations Course Vital Signs 05/18/20 05/18/20 05/18/20 13:18 13:40 13:50 Temperature 98.1 F Pulse Rate 124 H 103 H Pulse Rate [ 109 H Pot Filler ] Respiratory 18 22 22 Rate Blood Pressure 98/64 104/68 96/73 O2 Sat by Pulse 88 L 100 Oximetry 05/18/20 14:47 Temperature Pulse Rate 106 H Pulse Rate [ Pot Filler ] Respiratory 17 Rate Blood Pressure 117/90 O2 Sat by Pulse 97 Oximetry Medical Decision Making - Medical Decision Making Atrial flutter with a 2-1 block at 143 bpm QRS is 90 QT intervals 324 QTC is 500. Chest x-ray shows acute pulmonary edema. I placed the patient on Cardizem drip because of the high heart rate. Also gave the patient Lasix. I spoke with [facility] agreed to admit the patient admitted the patient I consult cardiology. I continued the Cardizem drip and Lasix on the floor. - Lab Data Result diagrams: 05/18/20 13:41 05/18/20 13:41 Lab Results 05/18/20 05/18/20 05/18/20 Range/Units 13:41 13:41 13:41 WBC 7.4 (3.8-10.6) k/uL RBC 3.31 L (3.80-5.40) m/uL Hgb 10.2 L (11.4-16.0) gm/dL Hct 32.7 L (34.0-46.0) % MCV 98.8 (80.0-100.0) fL MCH 30.7 (25.0-35.0) pg MCHC 31.1 (31.0-37.0) g/dL RDW 15.8 H (11.5-15.5) % Plt Count 236 (150-450) k/uL MPV 8.3 Neutrophils % 72 % Lymphocytes % 13 % Monocytes % 9 % Eosinophils % 4 % Basophils % 0 % Neutrophils # 5.4 (1.3-7.7) k/uL Lymphocytes # 1.0 (1.0-4.8) k/uL Monocytes # 0.6 (0-1.0) k/uL Eosinophils # 0.3 (0-0.7) k/uL Basophils # 0.0 (0-0.2) k/uL Hypochromasia Marked Macrocytosis Slight PT 11.8 (9.0-12.0) sec INR 1.1 (<1.2) APTT 28.6 (22.0-30.0) sec Sodium 134 L (137-145) mmol/L Potassium 5.2 H (3.5-5.1) mmol/L Chloride 93 L (98-107) mmol/L Carbon Dioxide 35 H (22-30) mmol/L Anion Gap 6 mmol/L BUN 21 H (7-17) mg/dL Creatinine 1.16 H (0.52-1.04) mg/dL Est GFR (CKD-EPI)AfAm 57 (>60 ml/min/1.73 sqM) Est GFR (CKD-EPI)NonAf 49 (>60 ml/min/1.73 sqM) Glucose 112 H (74-99) mg/dL Plasma Lactic Acid Robert (0.7-2.0) mmol/L Calcium 8.7 (8.4-10.2) mg/dL Total Bilirubin 0.8 (0.2-1.3) mg/dL AST 32 (14-36) U/L ALT 30 (4-34) U/L Alkaline Phosphatase 142 H (38-126) U/L Troponin I (0.000-0.034) ng/mL NT-Pro-B Natriuret Pep pg/mL Total Protein 6.6 (6.3-8.2) g/dL Albumin 3.2 L (3.5-5.0) g/dL 05/18/20 05/18/20 05/18/20 Range/Units 13:41 13:41 13:41 WBC (3.8-10.6) k/uL RBC (3.80-5.40) m/uL Hgb (11.4-16.0) gm/dL Hct (34.0-46.0) % MCV (80.0-100.0) fL MCH (25.0-35.0) pg MCHC (31.0-37.0) g/dL RDW (11.5-15.5) % Plt Count (150-450) k/uL MPV Neutrophils % % Lymphocytes % % Monocytes % % Eosinophils % % Basophils % % Neutrophils # (1.3-7.7) k/uL Lymphocytes # (1.0-4.8) k/uL Monocytes # (0-1.0) k/uL Eosinophils # (0-0.7) k/uL Basophils # (0-0.2) k/uL Hypochromasia Macrocytosis PT (9.0-12.0) sec INR (<1.2) APTT (22.0-30.0) sec Sodium (137-145) mmol/L Potassium (3.5-5.1) mmol/L Chloride (98-107) mmol/L Carbon Dioxide (22-30) mmol/L Anion Gap mmol/L BUN (7-17) mg/dL Creatinine (0.52-1.04) mg/dL Est GFR (CKD-EPI)AfAm (>60 ml/min/1.73 sqM) Est GFR (CKD-EPI)NonAf (>60 ml/min/1.73 sqM) Glucose (74-99) mg/dL Plasma Lactic Acid Robert 0.9 (0.7-2.0) mmol/L Calcium (8.4-10.2) mg/dL Total Bilirubin (0.2-1.3) mg/dL AST (14-36) U/L ALT (4-34) U/L Alkaline Phosphatase (38-126) U/L Troponin I <0.012 (0.000-0.034) ng/mL NT-Pro-B Natriuret Pep 3930 pg/mL Total Protein (6.3-8.2) g/dL Albumin (3.5-5.0) g/dL Critical Care Time Critical Care Time: Yes Total Critical Care Time: 35 Disposition Clinical Impression: Acute pulmonary edema, Atrial flutter with rapid ventricular response Disposition: ADMITTED IP TO THIS HOSP Referrals: Monica Roth MD [Primary Care Provider] - 1-2 days Time of Disposition: 16:13
[2020-05-18] MEDS ORDERED: FUROSEMIDE 10 MG/ML 2 ML VIAL IV STA (13:45)
[2020-05-18 14:09] LABS: Albumin 3.2 g/dL (3.5-5.0); Calcium 8.7 mg/dL (8.4-10.2); Potassium 5.2 mmol/L (3.5-5.1); Total Bilirubin 0.8 mg/dL (0.2-1.3); Total Protein 6.6 g/dL (6.3-8.2)
[2020-05-18 14:10] LABS: INR 1.1 (<1.2); Partial Thromboplastin Time 28.6 sec (22.0-30.0); Prothrombin Time 11.8 sec (9.0-12.0)
[2020-05-18] MEDS: DILTIAZEM 125 MG in SODIUM CHLORIDE 0.9% 100 ML IV SCH (14:10)
[2020-05-18 14:21] LABS: Basophils % (A) 0 %; Eosinophils # (A) 0.3 k/uL (0-0.7); Eosinophils % (A) 4 %; HCT 32.7 % (34.0-46.0); HGB 10.2 gm/dL (11.4-16.0); Hypochromasia Marked; Lymphocytes % (A) 13 %; MCH 30.7 pg (25.0-35.0); MCHC 31.1 g/dL (31.0-37.0); MCV 98.8 fL (80.0-100.0); Macrocytosis Slight; Mean Platelet Volume 8.3; Monocytes # (A) 0.6 k/uL (0-1.0); Monocytes % (A) 9 %; Neutrophils # (A) 5.4 k/uL (1.3-7.7); Neutrophils % (A) 72 %; Platelet Count 236 k/uL (150-450); RBC 3.31 m/uL (3.80-5.40); RDW 15.8 % (11.5-15.5); WBC 7.4 k/uL (3.8-10.6)
--- NOTE | 2020-05-18 14:56 | XR ---
EXAMINATION TYPE: XR chest 2V DATE OF EXAM: 05/18/2020 COMPARISON: 04/26/2020 HISTORY: 69 year-old female shortness of breath, difficulty breathing TECHNIQUE: AP and lateral views FINDINGS: Left PICC tip at the mid SVC level. Heart mildly enlarged. Diffuse interstitial density. Left perihil ar density. Small effusions are present. IMPRESSION: Mild cardiomegaly with interstitial density, perihilar opacity on the left and bilateral small effusi ons. Correlate for CHF or pulmonary vascular congestion. Known left hilar mass.
[2020-05-18] MEDS: FAMOTIDINE 20 MG TAB PO SCH (19:47)
[2020-05-18] MEDS: METOPROLOL TARTRATE 50 MG TAB PO SCH (19:47)
[2020-05-18] MEDS: APIXABAN 5 MG TAB PO SCH (19:47)
[2020-05-18] MEDS: IPRATROPIUM-ALBUTEROL 3 ML NEB INHALATION SCH ×2 (21:01→21:03)
[2020-05-19] MEDS ORDERED: FUROSEMIDE 20 MG TAB PO SCH
[2020-05-19] MEDS: DILTIAZEM 125 MG in SODIUM CHLORIDE 0.9% 100 ML IV SCH (06:35)
[2020-05-19] MEDS: IPRATROPIUM-ALBUTEROL 3 ML NEB INHALATION SCH ×3 (07:36→21:24)
[2020-05-19] MEDS ORDERED: IPRATROPIUM-ALBUTEROL 3 ML NEB INHALATION PRN (07:43)
[2020-05-19 09:20] LABS: HCT 34.1 % (34.0-46.0); HGB 10.1 gm/dL (11.4-16.0); Hypochromasia Marked; MCH 30.1 pg (25.0-35.0); MCHC 29.7 g/dL (31.0-37.0); MCV 101.5 fL (80.0-100.0); Macrocytosis Slight; Platelet Count 231 k/uL (150-450); RBC 3.36 m/uL (3.80-5.40); RDW 15.7 % (11.5-15.5); WBC 8.6 k/uL (3.8-10.6)
[2020-05-19] MEDS: METOPROLOL TARTRATE 50 MG TAB PO SCH ×3 (09:33→20:16)
[2020-05-19] MEDS: APIXABAN 5 MG TAB PO SCH ×2 (09:33→20:16)
[2020-05-19] MEDS: AMIODARONE 200 MG TAB PO SCH ×2 (09:33→20:16)
[2020-05-19] MEDS: FAMOTIDINE 20 MG TAB PO SCH ×2 (09:33→20:16)
[2020-05-19] MEDS: FUROSEMIDE 10 MG/ML 4 ML VIAL IV SCH ×2 (09:34→20:17)
[2020-05-19 09:41] LABS: Calcium 9.1 mg/dL (8.4-10.2); Potassium 5.1 mmol/L (3.5-5.1)
--- NOTE | 2020-05-19 09:48 | P.CRDCN ---
History of Present Illness History of present illness: HISTORY OF PRESENTING ILLNESS This is a pleasant 69-year-old female past medical history significant for paroxysmal atrial fibrillation on long-term anticoagulation, squamous cell lung cancer status post chemotherapy, hypertension, COPD and former nicotine dependence. She follows in the office with Dr. Mar. We have been asked to see in consultation for atrial flutter with rapid ventricular rate. He presented to the hospital with symptoms of palpitations and shortness of breath. She also has noticed an increase in her lower extremity edema over the previous 7-10 days. She was recently admitted to the hospital for similar type complaints and underwent a thoracentesis with 450 mL of fluid removed. On discharge her diuretic therapy was recommended to be torsemide 20 mg daily however she is unsure what she has been taking as her son does her medications. She denies symptoms of chest pain or dizziness. Most recent echocardiogram obtained 04/21/2020 reveals preserved LV systolic function with ejection fraction greater than 55%, mild to moderate MR, mild TR and mild pulmonary hypertension with an RVSP of 39 mmHg. DIAGNOSTICS EKG reveals atrial flutter. Telemetry tracings indicate atrial flutter and fibrillation. Chest xray cardiomegaly with interstitial densities, perihilar opacity is on the left and bilateral small effusions. Laboratory reviewed, WBC 8.6, hemoglobin 10.1, platelets 231, sodium 134, potassium 5.2, creatinine 1.16, cardiac enzymes negative 1 and proBNP 3930. Current cardiac medications include Eliquis 5 mg twice a day, torsemide 20 mg d aily and Lopressor 50 mg 3 times a day. REVIEW OF SYSTEMS At the time of my exam: CONSTITUTIONAL: Denies fever or chills. CARDIOVASCULAR: Complains of shortness of breath. Denies chest pain, orthopnea, PND or palpitations. RESPIRATORY: Denies cough. GASTROINTESTINAL: Denies abdominal pain, diarrhea, constipation, nausea or vomiting. MUSCULOSKELETAL: Denies myalgias. NEUROLOGIC: Denies numbness, tingling, headacbe or weakness. ENDOCRINE: Denies fatigue, weight change, polydipsia or polyurina. GENITOURINARY: Denies burning, hematuria or urgency with micturation. HEMATOLOGIC: Denies history of anemia or bleeding. PHYSICAL EXAMINATION Blood pressure 110/68 heart rate 90 afebrile and maintaining oxygen saturation on nasal cannula. CONSTITUTIONAL: No apparent distress. HEENT: Head is normocephalic. Pupils are equal, round. Sclerae anicteric. Mucous membranes of the mouth are moist. No JVD. No carotid bruit. CHEST EXAMINATION: Bibasilar rales, diminished bilaterally, no wheezes or rh onchi. No chest wall tenderness is noted on palpation or with deep breathing. HEART EXAMINATION: Irregular rate and rhythm. S1, S2 heard. Systolic ejection murmur at the base, no gallops or rub. ABDOMEN: Soft, nontender. Positive bowel sounds. EXTREMITIES: 2+ peripheral pulses, 2+ bilateral lower extremity pitting edema up to the knee and no calf tenderness. NEUROLOGIC EXAMINATION: Patient is awake, alert and oriented x3. ASSESSMENT Acute on chronic diastolic heart failure Paroxysmal atrial flutter/fibrillation on long-term anticoagulation with rapid ventricular rate Squamous cell lung cancer Hypertension COPD Former nicotine dependence PLAN Rates are better controlled this morning, discontinue Cardizem infusion. Check magnesium level. Recent TSH was normal. Adjust Lasix to 40 mg IV twice a day. Initiate amiodarone 400 mg twice a day as an attempt for possible conversion back to sinus rhythm or if not conversion been at least will assist with rate control. Follow renal function and electrolytes in the morning. Document accurate intake and output along with daily weights. Further recommendations to follow based upon clinical course. Thank you kindly for this consultation. Nurse Practitioner note has been reviewed, I agree with a documented findings and plan of care. Patient was seen and examined. Past Medical History Past Medical History: Atrial Fibrillation, Cancer, COPD, Deep Vein Thrombosis (DVT), GERD/Reflux, Osteoarthritis (OA), Pulmonary Embolus (PE), Syncope Additional Past Medical History / Comment(s): vertigo, chemo for left lung cancer History of Any Multi-Drug Resistant Organisms: None Reported Past Surgical History: Tubal Ligation Additional Past Surgical History / Comment(s): PICC line (L) arm Past Anesthesia/Blood Transfusion Reactions: Previous Problems w/ Anesthesia Additional Past Anesthesia/Blood Transfusion Reaction / Comment(s): hard time waking up Past Psychological History: No Psychological Hx Reported Smoking Status: Current every day smoker, Former smoker Past Alcohol Use History: None Reported Additional Past Alcohol Use History / Comment(s): quit smoking 4 almost 5 years. Past Drug Use History: None Reported - Past Family History Mother Family Medical History: Dementia Medications and Allergies Home Medications Medication Instructions Recorded Confirmed Type Apixaban [Eliquis] 5 mg PO BID 30 Days #60 tab 11/06/19 05/18/20 Rx Ipratropium-Albuterol Nebulize 3 ml INHALATION RT-TID PRN 04/20/20 05/18/20 History [Duoneb 0.5 mg-3 mg/3 ml Soln] Famotidine 10 mg PO BID 05/18/20 05/18/20 History Metoprolol Tartrate [Lopressor] 50 mg PO TID@0900,1600,2100 05/18/20 05/18/20 History Allergies Allergy/AdvReac Type Severity Reaction Status Date / Time Fish Containing Products Allergy Anaphylaxis Verified 05/18/20 17:11 [Fish] Iodine and Iodide Containing Allergy Anaphylaxis Verified 05/18/20 17:11 Produc tomato Allergy Rash/Hives Verified 05/18/20 17:11 dial soap Allergy Rash/Hives Uncoded 05/18/20 17:11 Physical Exam Vitals: Vital Signs Temp Pulse Pulse Resp BP BP Pulse Ox 05/19/20 03:54 97.8 F 107 H 19 110/68 96 05/19/20 02:00 91 18 05/19/20 00:00 97.6 F 91 18 99/59 99 05/18/20 21:27 98 05/18/20 21:03 98 05/18/20 20:00 97.5 F L 103 H 18 96 05/18/20 16:30 98 15 105/74 96 05/18/20 16:00 115/86 05/18/20 15:30 94 17 93/66 96 05/18/20 15:00 134 H 16 117/90 98 05/18/20 14:47 106 H 17 117/90 97 05/18/20 14:30 100/71 05/18/20 14:00 121 H 16 96/73 100 05/18/20 13:50 109 H 22 96/73 05/18/20 13:40 103 H 22 104/68 100 05/18/20 13:39 20 98 05/18/20 13:18 98.1 F 124 H 18 98/64 88 L Intake and Output 05/18/20 05/19/20 05/19/20 22:59 06:59 14:59 Intake Total 82.083 Balance 82.083 Intake: Intake, IV Titration 82.083 Amount Diltiazem 125 mg In 82.083 Sodium Chloride 0.9% 100 ml @ 5 MG/HR 5 mls/hr IV .Q24H [facility] Rx#:[id number] Other: Voiding Method Toilet Toilet # Voids 1 1 Weight 70.307 kg 81.4 kg Results 05/19/20 09:00 05/18/20 13:41 Cardiac Enzymes 05/18/20 05/18/20 Range/Units 13:41 13:41 AST 32 (14-36) U/L Troponin I <0.012 (0.000-0.034) ng/mL Coagulation 05/18/20 Range/Units 13:41 PT 11.8 (9.0-12.0) sec APTT 28.6 (22.0-30.0) sec CBC 05/18/20 Range/Units 13:41 WBC 7.4 (3.8-10.6) k/uL RBC 3.31 L (3.80-5.40) m/uL Hgb 10.2 L (11.4-16.0) gm/dL Hct 32.7 L (34.0-46.0) % Plt Count 236 (150-450) k/uL Comprehensive Metabolic Panel 05/18/20 Range/Units 13:41 Sodium 134 L (137-145) mmol/L Potassium 5.2 H (3.5-5.1) mmol/L Chloride 93 L (98-107) mmol/L Carbon Dioxide 35 H (22-30) mmol/L BUN 21 H (7-17) mg/dL Creatinine 1.16 H (0.52-1.04) mg/dL Glucose 112 H (74-99) mg/dL Calcium 8.7 (8.4-10.2) mg/dL AST 32 (14-36) U/L ALT 30 (4-34) U/L Alkaline Phosphatase 142 H (38-126) U/L Total Protein 6.6 (6.3-8.2) g/dL Albumin 3.2 L (3.5-5.0) g/dL Current Medications Generic Name Dose Route Start Last Admin Trade Name Freq PRN Reason Stop Dose Admin Albuterol/Ipratropium 3 ml 05/18/20 18:30 05/18/20 21:03 Ipratropium-Albuterol 3 Ml Neb INHALATION 3 ml RT-TID SHY Administration Apixaban 5 mg 05/18/20 21:00 05/18/20 19:47 Apixaban 5 Mg Tab PO 5 mg BID SHY Administration Famotidine 10 mg 05/18/20 21:00 05/18/20 19:47 Famotidine 20 Mg Tab PO 10 mg BID SHY Administration Furosemide 10 mg 05/19/20 00:00 05/18/20 23:09 Furosemide 20 Mg Tab PO 10 mg Q8HR SHY Administration Diltiazem HCl 125 mg/ Sodium 125 mls @ 5 mls/hr 05/18/20 13:45 05/19/20 06:35 Chloride IV 5 mg/hr .Q24H SHY 5 mls/hr Administration 5 MG/HR Metoprolol Tartrate 50 mg 05/18/20 21:00 05/18/20 19:47 Metoprolol Tartrate 50 Mg Tab PO 50 mg TID@0900,1600,2100 SHY Administration Intake and Output 05/18/20 05/19/20 05/19/20 22:59 06:59 14:59 Intake Total 82.083 Balance 82.083 Intake: Intake, IV Titration 82.083 Amount Diltiazem 125 mg In 82.083 Sodium Chloride 0.9% 100 ml @ 5 MG/HR 5 mls/hr IV .Q24H [facility] Rx#:[id number] Other: Voiding Method Toilet Toilet # Voids 1 1 Weight 70.307 kg 81.4 kg 05/18/20 13:41 05/18/20 13:41
--- NOTE | 2020-05-19 10:09 | P.HPIM ---
History of Present Illness 69-year-old up as an female was sent in from physician's office because of atrial fibrillation. Patient is found to be in A. fib with rapid ventricular rate was started on Cardizem patient had a normal ejection fraction the past. P cary has congestive heart failure chronic diastolic dysfunction. Patient appears to be an exacerbation at this time to with bilateral pleural effusions. Patient does take torsemide 20 mg at home. Patient creatinine is up and bit worse now present creatinine is 1.4 her usual creatinine is within normal limits. Patient does have history of lung cancers, small cell lung cancer on chemotherapy. Patient currently complaining of mild shortness of breath denied any orthopnea paroxysmal nocturnal dyspnea. Patient was recently discharged from the hospital after she was treated for congestive heart failure atrial fibrillation and right-sided pleural effusion for which she had a thoracentesis last time Review of Systems REVIEW OF SYSTEMS: CONSTITUTIONAL: No fever, no malaise, no fatigue. HEENT: No recent visual problems or hearing problems. Denied any sore throat. CARDIOVASCULAR: no syncope. PULMONARY: no cough, no hemoptysis. GASTROINTESTINAL: No diarrhea, no nausea, no vomiting, no abdominal pain. NEUROLOGICAL: No headaches, no weakness, no numbness. HEMATOLOGICAL: Denies any bleeding or petechiae. GENITOURINARY: Denies any burning micturition, frequency, or urgency. MUSCULOSKELETAL/RHEUMATOLOGICAL: Denies any joint pain, swelling, or any muscle pain. ENDOCRINE: Denies any polyuria or polydipsia. The rest of the 14-point review of systems is negative. Past Medical History Past Medical History: Atrial Fibrillation, Cancer, COPD, Deep Vein Thrombosis (DVT), GERD/Reflux, Osteoarthritis (OA), Pulmonary Embolus (PE), Syncope Additional Past Medical History / Comment(s): vertigo, chemo for left lung cancer History of Any Multi-Drug Resistant Organisms: None Reported Past Surgical History: Tubal Ligation Additional Past Surgical History / Comment(s): PICC line (L) arm Past Anesthesia/Blood Transfusion Reactions: Previous Problems w/ Anesthesia Additional Past Anesthesia/Blood Transfusion Reaction / Comment(s): hard time waking up Past Psychological History: No Psychological Hx Reported Smoking Status: Current every day smoker, Former smoker Past Alcohol Use History: None Reported Additional Past Alcohol Use History / Comment(s): quit smoking 4 almost 5 years. Past Drug Use History: None Reported - Past Family History Mother Family Medical History: Dementia Medications and Allergies Home Medications Medication Instructions Recorded Confirmed Type Apixaban [Eliquis] 5 mg PO BID 30 Days #60 tab 11/06/19 05/18/20 Rx Ipratropium-Albuterol Nebulize 3 ml INHALATION RT-TID PRN 04/20/20 05/18/20 History [Duoneb 0.5 mg-3 mg/3 ml Soln] Famotidine 10 mg PO BID 05/18/20 05/18/20 History Metoprolol Tartrate [Lopressor] 50 mg PO TID@0900,1600,2100 05/18/20 05/18/20 History Allergies Allergy/AdvReac Type Severity Reaction Status Date / Time Fish Containing Products Allergy Anaphylaxis Verified 05/18/20 17:11 [Fish] Iodine and Iodide Containing Allergy Anaphylaxis Verified 05/18/20 17:11 Produc tomato Allergy Rash/Hives Verified 05/18/20 17:11 dial soap Allergy Rash/Hives Uncoded 05/18/20 17:11 Physical Exam Vitals: Vital Signs Temp Pulse Pulse Resp BP BP Pulse Ox 05/19/20 07:46 90 05/19/20 07:38 92 05/19/20 03:54 97.8 F 107 H 19 110/68 96 05/19/20 02:00 91 18 05/19/20 00:00 97.6 F 91 18 99/59 99 05/18/20 21:27 98 05/18/20 21:03 98 05/18/20 20:00 97.5 F L 103 H 18 96 05/18/20 16:30 98 15 105/74 96 05/18/20 16:00 115/86 05/18/20 15:30 94 17 93/66 96 05/18/20 15:00 134 H 16 117/90 98 05/18/20 14:47 106 H 17 117/90 97 05/18/20 14:30 100/71 05/18/20 14:00 121 H 16 96/73 100 05/18/20 13:50 109 H 22 96/73 05/18/20 13:40 103 H 22 104/68 100 05/18/20 13:39 20 98 05/18/20 13:18 98.1 F 124 H 18 98/64 88 L Intake and Output 05/18/20 05/19/20 05/19/20 22:59 06:59 14:59 Intake Total 82.083 540 Output Total 400 Balance 82.083 140 Intake: Intake, IV Titration 82.083 Amount Diltiazem 125 mg In 82.083 Sodium Chloride 0.9% 100 ml @ 5 MG/HR 5 mls/hr IV .Q24H SHY Rx#:[id number] Oral 540 Output: Urine 400 Other: Voiding Method Toilet Toilet # Voids 1 1 Weight 70.307 kg 81.4 kg PHYSICAL EXAMINATION: GENERAL: The patient is alert and oriented x3, not in any acute distress. Well developed, well nourished. HEENT: Pupils are round and equally reacting to light. EOMI. No scleral icterus. No conjunctival pallor. Normocephalic, atraumatic. No pharyngeal erythema. No thyromegaly. CARDIOVASCULAR: S1 and S2 present. No murmurs, rubs, or gallops. Irregularly irregular rhythm patient appears to have JVD PULMONARY: Chest is clear to auscultation, no wheezing or crackles. ABDOMEN: Soft, nontender, nondistended, normoactive bowel sounds. No palpable organomegaly. MUSCULOSKELETAL: No joint swelling or deformity. EXTREMITIES: No cyanosis, clubbing, patient does have bilateral pitting pedal edema NEUROLOGICAL: Gross neurological examination did not reveal any focal deficits. SKIN: No rashes. Results CBC & Chem 7: 05/19/20 09:00 05/19/20 09:00 Labs: Abnormal Lab Results - Last 24 Hours (Table) 05/18/20 05/18/20 05/19/20 Range/Units 13:41 13:41 09:00 RBC 3.31 L 3.36 L (3.80-5.40) m/uL Hgb 10.2 L 10.1 L (11.4-16.0) gm/dL Hct 32.7 L (34.0-46.0) % MCV 101.5 H (80.0-100.0) fL MCHC 29.7 L (31.0-37.0) g/dL RDW 15.8 H 15.7 H (11.5-15.5) % Sodium 134 L (137-145) mmol/L Potassium 5.2 H (3.5-5.1) mmol/L Chloride 93 L (98-107) mmol/L Carbon Dioxide 35 H (22-30) mmol/L BUN 21 H (7-17) mg/dL Creatinine 1.16 H (0.52-1.04) mg/dL Glucose 112 H (74-99) mg/dL Alkaline Phosphatase 142 H (38-126) U/L Albumin 3.2 L (3.5-5.0) g/dL 05/19/20 Range/Units 09:00 RBC (3.80-5.40) m/uL Hgb (11.4-16.0) gm/dL Hct (34.0-46.0) % MCV (80.0-100.0) fL MCHC (31.0-37.0) g/dL RDW (11.5-15.5) % Sodium 136 L (137-145) mmol/L Potassium (3.5-5.1) mmol/L Chloride 93 L (98-107) mmol/L Carbon Dioxide 36 H (22-30) mmol/L BUN 23 H (7-17) mg/dL Creatinine 1.34 H (0.52-1.04) mg/dL Glucose 170 H (74-99) mg/dL Alkaline Phosphatase (38-126) U/L Albumin (3.5-5.0) g/dL Assessment and Plan Plan: Congestive heart failure chronic diastolic dysfunction with acute exacerbation patient will be continued on IV Lasix and Cardizem will risk and U metoprolol dose is being increased. Magnesium and TSH levels are being obtained -Proximal atrial fibrillation patient is presently rapid ventricular rate and is in A. fib continue with anticoagulation patient the Cardizem is being dis continued and patient is being started on metoprolol -Acute renal failure: Pre-Renal azotemia from congestive heart failure continue with Lasix and creatinine is improved -COPD without any acute exacerbation -Squamous cell lung cancer for which patient received chemotherapy recently -DVT prophylaxis patient is already on anticoagulation which will be continued
[2020-05-19 10:37] LABS: T4, Free (Free Thyroxine) 0.98 ng/dL (0.78-2.19)
[2020-05-19 10:49] VITALS: BMI 36.2
[2020-05-20] MEDS: IPRATROPIUM-ALBUTEROL 3 ML NEB INHALATION SCH ×3 (08:21→19:42)
[2020-05-20] MEDS: FAMOTIDINE 20 MG TAB PO SCH ×2 (08:29→19:53)
[2020-05-20] MEDS: APIXABAN 5 MG TAB PO SCH (08:29)
[2020-05-20] MEDS: METOPROLOL TARTRATE 50 MG TAB PO SCH ×3 (08:29→19:52)
[2020-05-20] MEDS: AMIODARONE 200 MG TAB PO SCH ×2 (08:29→19:52)
[2020-05-20] MEDS: FUROSEMIDE 10 MG/ML 4 ML VIAL IV SCH (08:30)
[2020-05-20 11:06] LABS: Glucose,Whole Blood 131 mg/dL (75-99)
--- NOTE | 2020-05-20 11:41 | CT ---
EXAMINATION TYPE: CT brain wo con DATE OF EXAM: 05/20/2020 COMPARISON: MR brain 11/06/2019 HISTORY: fall today, trauma and pain CT DLP: 1098.4 mGycm Automated exposure control for dose reduction was used. Helical imaging through the brain. FINDINGS: The calvarium is intact. Paranasal sinuses and mastoid air cells are well aerated. There is no hemorr pratima or hydrocephalus. Periventricular white matter shows patchy low attenuation. Cortical atrophy is noted IMPRESSION: AGE-RELATED ATROPHY AND CHRONIC SMALL VESSEL ISCHEMIA
--- NOTE | 2020-05-20 11:52 | P.PN ---
Subjective HISTORY OF PRESENTING ILLNESS This is a pleasant 69-year-old female past medical history significant for paroxysmal atrial fibrillation on long-term anticoagulation, squamous cell lung cancer status post chemotherapy, hypertension, COPD and former nicotine dependence. She follows in the office with Dr. Mar. She is seen and examined laying in bed with her eyes closed attempting to take a nap. She states she had an episode last night of shortness of breath. She did an updraft treatment and her symptoms improved. She denies exertional chest discomfort. She has had no dizziness or palpitations. Telemetry tracings reveal persistent atrial fibrillation with mostly controlled rates. Blood pressure 113/66 heart rate 125. Laboratory data reviewed, sodium 137, potassium 5.0, creatinine 1.4, BUN 30. Currently maintained on Lasix IV 40 mg twice a day, metoprolol 50 mg 3 times a day, Eliquis 5 mg twice a day and amiodarone 400 mg twice a day. PHYSICAL EXAMINATION CONSTITUTIONAL: No apparent distress. HEENT: Head is normocephalic. Pupils are equal, round. Sclerae anicteric. Mucous membranes of the mouth are moist. No JVD. No carotid bruit. CHEST EXAMINATION: Bibasilar rales, diminished bilaterally, no wheezes or rhonchi. No chest wall tenderness is noted on palpation or with deep breathing. HEART EXAMINATION: Irregular rate and rhythm. S1, S2 heard. Systolic ejection murmur at the base, no gallops or rub. EXTREMITIES: 2+ peripheral pulses, 2+ bilateral lower extremity pitting edema up to the knee and no calf tenderness. ASSESSMENT Acute on chronic diastolic heart failure Paroxysmal atrial flutter/fibrillation on long-term anticoagulation with rapid ventricular rate Squamous cell lung cancer Acute kidney injury Hypertension COPD Former nicotine dependence PLAN Discontinue IV diuretics secondary to worsening renal function. Continue Lopressor and amiodarone as previously ordered. Follow renal function in the morning. Nurse Practitioner note has been reviewed, I agree with a documented findings and plan of care. Patient was seen and examined. Objective - Vital Signs Vital signs: Vital Signs Temp 98.5 F 05/19/20 23:30 Pulse 82 05/20/20 10:47 Resp 19 05/20/20 10:47 BP 96/54 05/20/20 10:47 Pulse Ox 90 L 05/20/20 10:47 Intake & Output 05/19/20 05/20/20 05/20/20 18:59 06:59 18:59 Intake Total 1660 240 Output Total 400 1250 400 Balance 1260 -1250 -160 Weight 81.4 kg Intake: Oral 1660 240 Output: Urine 400 1250 400 Other: Voiding Method Toilet Toilet # Voids 1 - Labs CBC & Chem 7: 05/19/20 09:00 05/20/20 06:58 Labs: Abnormal Lab Results - Last 24 Hours (Table) 05/20/20 05/20/20 Range/Units 06:58 11:05 Chloride 93 L (98-107) mmol/L Carbon Dioxide 37 H (22-30) mmol/L BUN 30 H (7-17) mg/dL Creatinine 1.40 H (0.52-1.04) mg/dL Glucose 104 H (74-99) mg/dL POC Glucose (mg/dL) 131 H (75-99) mg/dL
--- NOTE | 2020-05-20 12:17 | XR ---
EXAMINATION TYPE: XR Hip Complete RT DATE OF EXAM: 05/20/2020 COMPARISON: None HISTORY: Status post fall TECHNIQUE: 2 view right hip FINDINGS: Femoral head articulates with the acetabulum. There is a subtle lucency within the intertro chanteric region. There is avulsion of the lesser trochanter. Findings are suggestive for a intertroc hanteric fracture. Consider CT for additional evaluation and confirmation. IMPRESSION: 1. Suspected intertrochanteric fracture with avulsion of the lesser trochanter. This could be confir med with CT.
[2020-05-20] MEDS ORDERED: ACETAMINOPHEN TAB 325 MG TAB PO PRN (14:03)
--- NOTE | 2020-05-20 14:39 | P.CNOR ---
History of Present Illness - [facility] Consult date: 05/20/20 Consult reason: fracture (Right hip fracture.) History of present illness: This is a 69-year-old female who was admitted to [facility] this shortness of breath and heart palpitations. The patient has history of lung cancer for which she is currently receiving chemotherapy, atrial fibrillation and obesity. The patient states that she got out of bed without assistance today and fell sustaining injury to her right hip. X-rays were obtained which revealed a nondisplaced intertrochanteric fracture of the right hip. We were consulted for orthopedic evaluation. The patient is on Eliquis. Past Medical History Past Medical History: Atrial Fibrillation, Cancer, COPD, Deep Vein Thrombosis (DVT), GERD/Reflux, Osteoarthritis (OA), Pulmonary Embolus (PE), Syncope Additional Past Medical History / Comment(s): vertigo, chemo for left lung cancer History of Any Multi-Drug Resistant Organisms: None Reported Past Surgical History: Tubal Ligation Additional Past Surgical History / Comment(s): PICC line (L) arm Past Anesthesia/Blood Transfusion Reactions: Previous Problems w/ Anesthesia Additional Past Anesthesia/Blood Transfusion Reaction / Comm: hard time waking up Past Psychological History: No Psychological Hx Reported Smoking Status: Current every day smoker, Former smoker Past Alcohol Use History: None Reported Additional Past Alcohol Use History / Comment(s): quit smoking 4 almost 5 years. Past Drug Use History: None Reported - Past Family History Mother Family Medical History: Dementia Medications and Allergies Home Medications Medication Instructions Recorded Confirmed Type Apixaban [Eliquis] 5 mg PO BID 30 Days #60 tab 11/06/19 05/18/20 Rx Ipratropium-Albuterol Nebulize 3 ml INHALATION RT-TID PRN 04/20/20 05/18/20 History [Duoneb 0.5 mg-3 mg/3 ml Soln] Famotidine 10 mg PO BID 05/18/20 05/18/20 History Metoprolol Tartrate [Lopressor] 50 mg PO TID@0900,1600,2100 05/18/20 05/18/20 History Allergies Allergy/AdvReac Type Severity Reaction Status Date / Time Fish Containing Products Allergy Anaphylaxis Verified 05/18/20 17:11 [Fish] Iodine and Iodide Containing Allergy Anaphylaxis Verified 05/18/20 17:11 Produc tomato Allergy Rash/Hives Verified 05/18/20 17:11 dial soap Allergy Rash/Hives Uncoded 05/18/20 17:11 Physical Examination This is a pleasant 69-year-old female in no acute distress. She is alert and oriented at this time. Exam of the head neck reveal no obvious deformity. She has full cervical spine motion without difficulty or pain. No pain with palpation about cervical spine or paraspinal musculature. Exam of the upper extremities reveal no obvious deformity. She has full shoulder, elbow, wrist and finger motion bilaterally. Neurovascular status to the upper extremities is intact. Exam the lower extremities reveals shortening and external rotation of the right leg. There is pain with any movement of the right hip. She has full foot and ankle motion bilaterally. Neurovascular status to the lower extremities is intact. Results X-rays reveal a minimally displaced intertrochanteric fracture of the right hip. No other fractures noted. - Labs Labs: Abnormal Lab Results - Last 24 Hours (Table) 05/20/20 05/20/20 Range/Units 06:58 11:05 Chloride 93 L (98-107) mmol/L Carbon Dioxide 37 H (22-30) mmol/L BUN 30 H (7-17) mg/dL Creatinine 1.40 H (0.52-1.04) mg/dL Glucose 104 H (74-99) mg/dL POC Glucose (mg/dL) 131 H (75-99) mg/dL H & H 05/18/20 05/19/20 Range/Units 13:41 09:00 Hgb 10.2 L 10.1 L (11.4-16.0) gm/dL Hct 32.7 L 34.1 (34.0-46.0) % Coagulation 05/18/20 Range/Units 13:41 INR 1.1 (<1.2) Result Diagrams: 05/19/20 09:00 05/20/20 06:58 Assessment and Plan (1) Intertrochanteric fracture of right hip Current Visit: Yes Status: Acute Code(s): S72.141A - DISPLACED INTER TROCHANTERIC FRACTURE OF RIGHT FEMUR, INIT SNOMED Code(s): 018669274 (2) Atrial fibrillation and flutter Current Visit: No Status: Acute Code(s): I48.91 - UNSPECIFIED ATRIAL FI BRILLATION; I48.92 - UNSPECIFIED ATRIAL FLUTTER SNOMED Code(s): 134938770 (3) COPD (chronic obstructive pulmonary disease) Current Visit: No Status: Acute Code(s): J44.9 - CHRONIC OBSTRUCTIVE PULMONARY DISEASE, UNSPECIFIED SNOMED Code(s): 96520346 (4) History of lung cancer Current Visit: No Status: Acute Code(s): Z85.118 - PERSONAL HISTORY OF MALIGNANT NEOPLASM OF BRONCHUS AND LUNG SNOMED Code(s): 029422140 Plan: The clinical and x-ray findings are discussed with the patient. It is recomm ended that she undergo closed reduction with insertion of intertrochanteric nail of the right hip. This has been discussed with cardiology who is okay with her proceeding with surgery tomorrow. It is discussed with the patient that she will most likely require inpatient rehab postoperatively.
[2020-05-20] MEDS ORDERED: traMADol 50 MG TAB PO PRN (15:00)
[2020-05-20] MEDS ORDERED: HYDROcodone/APAP 7.5-325MG 1 EACH TAB PO PRN (15:00)
--- NOTE | 2020-05-20 16:33 | P.PN ---
Subjective 69-year-old up as an female was sent in from physician's office because of atrial fibrillation. Patient is found to be in A. fib with rapid ventricular rate was started on Cardizem patient had a normal ejection fraction the past. Patient has congestive heart failure chronic diastolic dysfunction. Patient appears to be an exacerbation at this time to with bilateral pleural effusions. Patient does take torsemide 20 mg at home. Patient creatinine is up and bit worse now present creatinine is 1.4 her usual creatinine is within normal limits. Patient does have history of lung cancers, small cell lung cancer on chemotherapy. Patient currently complaining of mild shortness of breath denied any orthopnea paroxysmal nocturnal dyspnea. Patient was recently discharged from the hospital after she was treated for congestive heart failure atrial fibrillation and right-sided pleural effusion for which she had a thoracentesis last time 05/20/2020 patient had a fall and had an intertrochanteric fracture patient blood pressures are low because of which he 6 is being discontinued and patient has elevated creatinine up to 1.4, Lasix is being held because of that reason. We'll repeat a chest x-ray for tomorrow basic metabolic profile tomorrow patient was cleared for the intramedullary nailing for intertrochanteric fracture by cardiology. We'll obtain a repeat chest x-ray tomorrow depending on that patient probably can go for surgery if there is no pulmonary edema on the x-ray. Patient is on amiodarone patient has elevated TSH T4 is essentially within normal limits further management of amiodarone as per cardiology. Patient is on anti- correlation with Eliquis which is being held. Constitutional: Denied any fatigue denied any fever. Cardio vascular: denied any chest pain, palpitations Gastrointestinal denied any nausea vomiting Pulmonary: Denied any shortness of breath cough Neurologic denied any new focal deficits All inpatient medications were reviewed and appropriate changes in these medications as dictated in the interval history and assessment and plan. Objective - Vital Signs Vital signs: Vital Signs Temp 98.5 F 05/19/20 23:30 Pulse 82 05/20/20 10:47 Resp 19 05/20/20 10:47 BP 96/54 05/20/20 10:47 Pulse Ox 90 L 05/20/20 10:47 Intake & Output 05/19/20 05/20/20 05/20/20 18:59 06:59 18:59 Intake Total 1660 240 Output Total 400 1250 400 Balance 1260 -1250 -160 Weight 81.4 kg Intake: Oral 1660 240 Output: Urine 400 1250 400 Other: Voiding Method Toilet Toilet # Voids 1 - Exam PHYSICAL EXAMINATION: GENERAL: The patient is alert and oriented x3, not in any acute distress. Well developed, well nourished. HEENT: Pupils are round and equally reacting to light. EOMI. No scleral icterus. No conjunctival pallor. Normocephalic, atraumatic. No pharyngeal erythema. No thyromegaly. CARDIOVASCULAR: S1 and S2 present. No murmurs, rubs, or gallops. Irregularly irregular rhythm patient appears to have JVD PULMONARY: Chest is clear to auscultation, no wheezing or crackles. ABDOMEN: Soft, nontender, nondistended, normoactive bowel sounds. No palpable organomegaly. MUSCULOSKELETAL: No joint swelling or deformity. EXTREMITIES: No cyanosis, clubbing, patient does have bilateral pitting pedal edema NEUROLOGICAL: Gross neurological examination did not reveal any focal deficits. - Labs CBC & Chem 7: 05/19/20 09:00 05/20/20 06:58 Labs: Abnormal Lab Results - Last 24 Hours (Table) 05/20/20 05/20/20 Range/Units 06:58 11:05 Chloride 93 L (98-107) mmol/L Carbon Dioxide 37 H (22-30) mmol/L BUN 30 H (7-17) mg/dL Creatinine 1.40 H (0.52-1.04) mg/dL Glucose 104 H (74-99) mg/dL POC Glucose (mg/dL) 131 H (75-99) mg/dL Assessment and Plan Plan: Assessment and Plan Plan: Congestive heart failure chronic diastolic dysfunction because of worsening creatinine and hypotension Lasix is being held and patient is on metoprolol. TSH is elevated as mentioned above -Proximal atrial fibrillation patient is presently rapid ventricular rate and is in A. fib continue to correlation is being held for surgery tomorrow. Patient is presently rate controlled -Acute renal failure: Pre-Renal azotemia from excessive diuresis which is being held -COPD without any acute exacerbation -Squamous cell lung cancer for which patient received chemotherapy recently
--- NOTE | 2020-05-20 17:24 | XR ---
EXAMINATION TYPE: XR chest 1V portable DATE OF EXAM: 05/20/2020 COMPARISON: 05/18/2020. HISTORY: Worsening shortness of breath. TECHNIQUE: Single frontal view of the chest is obtained. FINDINGS: The left PICC remains in place. There is slight increase of moderate right pleural effusio n with accompanying opacity. There is unchanged small left pleural effusion with adjacent atelectasis . Stable masslike perihilar opacities. The cardiac silhouette size is within normal limits. The oss eous structures are intact. IMPRESSION: Slight increase of moderate right pleural effusion with accompanying opacity. Otherwise stable known hilar mass and additional small left pleural effusion.
[2020-05-20 23:24] LABS: Glucose,Whole Blood 165 mg/dL (75-99)
[2020-05-20 23:41] LABS: ABG Base Excess 11.8 mmol/L; ABG HCO3 39 mmol/L (21-25); ABG Oxygen Saturation 91.6 % (94-97); ABG PH 7.23 (7.35-7.45); ABG PO2 71 mmHg (83-108); ABG TCO2 42 mmol/L (19-24); Allen Test Performed? Yes
--- NOTE | 2020-05-20 23:47 | P.EN ---
A team note Activated at 11:21 PM. The patient seen at the bedside shortly after. Discussed the case with the RN and reviewed the chart in detail. The patient is a 69-year-old female who was admitted for A. fib/flutter along with CHF. The patient has a underlying history of COPD and squamous cell lung cancer currently on chemotherapy. The patient also had a fall earlier today and suffered an intertrochanteric hip fracture. The patient's oxygen requirements have also gradually increased to where she is now on 8 L via nasal cannula. The patient who was alert and oriented 3 during her hospitalization was noted to be lethargic by the RN who subsequently activated a team. The patient is not answering any questions and thereby no history could be obtained from her. Vitals at the time of evaluation were BP 106/71, pulse 104, SpO2 93% on 8 L nasal cannula, respiratory rate 24, temperature 98.9. General: Ill-appearing female, in mild respiratory distress, appears older than stated age, obese HEENT: NC/AT, anicteric sclerae, moist conjunctiva, no lid-lag, PERRLA Cardiovascular: S1/S2 wnl, no murmurs, rubs, or gallops Lungs: Poor air entry bilaterally with decreased breath sounds throughout, no rales or rhonchi appreciated, no accessory muscle use Abdominal: Soft, non-tender, non-distended, no guarding, rebound, or rigidity Skin: Warm, dry Extremities: 2+ bilateral lower extremity pitting edema Psychiatric: Sitting in bed with eyes open, makes brief eye contact, not answering any questions or following commands Neuro: Moving all extremities, no obvious focal deficits noted Assessment/plan Altered mental status, suspected secondary to hypercapnic respiratory failure in setting of COPD -Obtain ABG -Start BiPAP if hypercapnia noted -Breathing treatments in place -Primary team notified by RN -Chest x-ray ordered -Continue to monitor closely
--- NOTE | 2020-05-20 23:56 | XR ---
EXAMINATION TYPE: XR chest 1V DATE OF EXAM: 05/20/2020 COMPARISON: 05/20/2020 HISTORY: Altered mental status. Short of breath TECHNIQUE: FINDINGS: There is bilateral lower lobe pulmonary infiltrates and atelectasis. This is worse on the r ight side. There is mild pulmonary congestion. Heart is probably enlarged. There is blunting right co stophrenic angle. IMPRESSION: Mild congestive heart failure. There is probably some right lower lobe pneumonia. Pleural effusions. Allowing for different positioning there is no significant change compared to exam 6 hour s ago.
[2020-05-21 00:05] LABS: ABG PCO2 95 mmHg (35-45)
[2020-05-21] MEDS ORDERED: LORazepam 2 MG/ML INJ IV STA (00:31)
[2020-05-21] MEDS ORDERED: diphenhydrAMINE 50 MG/ML 1 ML VIAL IVP PRN (00:33)
[2020-05-21 03:34] VITALS: TEMP 97.5
[2020-05-21 07:43] LABS: HCT 36.3 % (34.0-46.0); HGB 10.7 gm/dL (11.4-16.0); Hypochromasia Marked; MCHC 29.5 g/dL (31.0-37.0); MCV 101.9 fL (80.0-100.0); Macrocytosis Slight; Platelet Count 196 k/uL (150-450); RBC 3.57 m/uL (3.80-5.40); RDW 15.6 % (11.5-15.5); WBC 8.9 k/uL (3.8-10.6)
[2020-05-21 08:26] LABS: Albumin 3.3 g/dL (3.5-5.0); Calcium 9.1 mg/dL (8.4-10.2); Potassium 5.4 mmol/L (3.5-5.1); Total Protein 6.8 g/dL (6.3-8.2)
[2020-05-21] MEDS: IPRATROPIUM-ALBUTEROL 3 ML NEB INHALATION SCH (08:57)
[2020-05-21] MEDS ORDERED: LORazepam 2 MG/ML INJ IV PRN ×2 (09:21→12:16)
[2020-05-21] MEDS: METOPROLOL TARTRATE 50 MG TAB PO SCH (09:28)
[2020-05-21] MEDS: AMIODARONE 200 MG TAB PO SCH (09:28)
[2020-05-21] MEDS: FAMOTIDINE 20 MG TAB PO SCH (09:28)
[2020-05-21 10:10] LABS: ABG Base Excess 14.2 mmol/L; ABG Oxygen Saturation 96.4 % (94-97); ABG PH 7.27 (7.35-7.45); ABG PO2 91 mmHg (83-108); ABG TCO2 44 mmol/L (19-24); Allen Test Performed? Yes
[2020-05-21 10:14] LABS: ABG HCO3 41 mmol/L (21-25); ABG PCO2 90 mmHg (35-45)
[2020-05-21 10:40] VITALS: BP 121/71
--- NOTE | 2020-05-21 11:17 | P.PN ---
Subjective HISTORY OF PRESENTING ILLNESS This is a pleasant 69-year-old female past medical history significant for paroxysmal atrial fibrillation on long-term anticoagulation, squamous cell lung cancer status post chemotherapy, hypertension, COPD and former nicotine dependence. She follows in the office with Dr. Mar. She is seen and examined sitting up in bed with BiPAP on. She is quite lethargic. Respirations are equal and unlabored. Blood pressure 121/71 heart rate 116 afebrile maintaining oxygen saturation on BiPAP. This morning she had an episode of hypoxia on high flow nasal cannula requiring transitioned to BiPAP. Laboratory data reviewed, WBC 8.9, hemoglobin 10.7, platelets 196, pH 7.27, pCO2 90, pO2 91, bicarb 41, sodium 138, potassium 5.4, creatinine 1.42. Currently maintained on amiodarone 400 mg twice a day. Eliquis has been placed on hold per orthopedic surgery. She got up out of bed yesterday walking to the bathroom and fell. Repeat chest x-ray this morning reveals mild congestive heart failure with right lower lobe pneumonia and pleural effusions. Diagnostic imaging revealed intertrochanteric fracture with avulsion of the lesser trochanter on the right. Orthopedic surgery is recommending IT nailing. PHYSICAL EXAMINATION CONSTITUTIONAL: No apparent distress. Obtunded, but airway is protected and she is maintained on bipap. HEENT: Head is normocephalic. Pupils are equal, round. Sclerae anicteric. Mucous membranes of the mouth are moist. No JVD. No carotid bruit. CHEST EXAMINATION: Bibasilar rales, diminished bilaterally, no wheezes or rhonchi. No chest wall tenderness is noted on palpation or with deep breathing. HEART EXAMINATION: Irregular rate and rhythm. S1, S2 heard. Systolic ejection murmur at the base, no gallops or rub. EXTREMITIES: 2+ peripheral pulses, trace bilateral lower extremity pitting edema and no calf tenderness. ASSESSMENT Acute on chronic diastolic heart failure Hypoxia secondary to CO2 retention Fall Right intertrochanteric hip fracture Paroxysmal atrial flutter/fibrillation on long-term anticoagulation with rapid ventricular rate Squamous cell lung cancer Acute kidney injury Hypertension COPD Former nicotine dependence PLAN Continue BiPAP. Recommend pulmonary evaluation. Given recent fall and surgery recommendation patient would benefit from oncology evaluation to assess her carcinoma prognosis and stratify her care moving forward. Further recommendations to follow based upon clinical course. Prognosis guarded. Nurse Practitioner note has been reviewed, I agree with a documented findings and plan of care. Patient was seen and examined. Objective - Vital Signs Vital signs: Vital Signs Temp 97.5 F L 05/21/20 08:00 Pulse 116 H 05/21/20 09:28 Resp 16 05/21/20 10:00 BP 121/71 05/21/20 08:00 Pulse Ox 92 L 05/21/20 10:00 Intake & Output 05/20/20 05/21/20 05/21/20 18:59 06:59 18:59 Intake Total 640 20 Output Total 400 300 400 Balance 240 -300 -380 Intake: IV 20 Invasive Line 1 20 Oral 640 Output: Urine 400 300 400 Other: Voiding Method Indwelling Catheter Indwelling Catheter - Labs CBC & Chem 7: 05/21/20 07:13 05/21/20 07:13 Labs: Abnormal Lab Results - Last 24 Hours (Table) 05/20/20 05/20/20 05/21/20 Range/Units 23:23 23:33 07:13 RBC (3.80-5.40) m/uL Hgb (11.4-16.0) gm/dL MCV (80.0-100.0) fL MCHC (31.0-37.0) g/dL RDW (11.5-15.5) % ABG pH 7.23 L (7.35-7.45) ABG pCO2 95 H* (35-45) mmHg ABG pO2 71 L (83-108) mmHg ABG HCO3 39 H (21-25) mmol/L ABG Total CO2 42 H (19-24) mmol/L ABG O2 Saturation 91.6 L (94-97) % Potassium 5.4 H (3.5-5.1) mmol/L Chloride 95 L (98-107) mmol/L Carbon Dioxide 32 H (22-30) mmol/L BUN 35 H (7-17) mg/dL Creatinine 1.42 H (0.52-1.04) mg/dL Glucose 106 H (74-99) mg/dL POC Glucose (mg/dL) 165 H (75-99) mg/dL AST 1476 H (14-36) U/L ALT 887 H (4-34) U/L Alkaline Phosphatase 135 H (38-126) U/L Albumin 3.3 L (3.5-5.0) g/dL 05/21/20 05/21/20 Range/Units 07:13 10:03 RBC 3.57 L (3.80-5.40) m/uL Hgb 10.7 L (11.4-16.0) gm/dL MCV 101.9 H (80.0-100.0) fL MCHC 29.5 L (31.0-37.0) g/dL RDW 15.6 H (11.5-15.5) % ABG pH 7.27 L (7.35-7.45) ABG pCO2 90 H* (35-45) mmHg ABG pO2 (83-108) mmHg ABG HCO3 41 H* (21-25) mmol/L ABG Total CO2 44 H (19-24) mmol/L ABG O2 Saturation (94-97) % Potassium (3.5-5.1) mmol/L Chloride (98-107) mmol/L Carbon Dioxide (22-30) mmol/L BUN (7-17) mg/dL Creatinine (0.52-1.04) mg/dL Glucose (74-99) mg/dL POC Glucose (mg/dL) (75-99) mg/dL AST (14-36) U/L ALT (4-34) U/L Alkaline Phosphatase (38-126) U/L Albumin (3.5-5.0) g/dL
--- NOTE | 2020-05-21 11:41 | P.PN ---
Subjective Progress Note Date: 05/21/20 Principal diagnosis: Respiratory failure. History of lung cancer. Multiple medical comorbidities. Right hip fracture. This is a 69-year-old female who was admitted to [facility] this shortness of breath and heart palpitations. The patient has history of lung cancer for which she is currently receiving chemotherapy, atrial fibrillation and obesity. We are following the patient regarding her intertrochanteric fracture of the right hip. The patient has recently been placed on BiPAP. The patient is currently not stable for orthopedic surgical intervention. Objective - Vital Signs Vital signs: Vital Signs Temp 97.5 F L 05/21/20 08:00 Pulse 116 H 05/21/20 09:28 Resp 16 05/21/20 10:00 BP 121/71 05/21/20 08:00 Pulse Ox 92 L 05/21/20 10:00 Intake & Output 05/20/20 05/21/20 05/21/20 18:59 06:59 18:59 Intake Total 640 20 Output Total 400 300 400 Balance 240 -300 -380 Intake: IV 20 Invasive Line 1 20 Oral 640 Output: Urine 400 300 400 Other: Voiding Method Indwelling Catheter Indwelling Catheter Indwelling Catheter - Exam The patient is resting comfortably in bed. Her son is present at bedside. She is currently on BiPAP. She continues to have slight external rotation of the hip. Moderate swelling to the lower extremities noted. Neurovascular status to the lower extremities is grossly intact. - Labs CBC & Chem 7: 05/21/20 07:13 05/21/20 07:13 Labs: Abnormal Lab Results - Last 24 Hours (Table) 05/20/20 05/20/20 05/21/20 Range/Units 23:23 23:33 07:13 RBC (3.80-5.40) m/uL Hgb (11.4-16.0) gm/dL MCV (80.0-100.0) fL MCHC (31.0-37.0) g/dL RDW (11.5-15.5) % ABG pH 7.23 L (7.35-7.45) ABG pCO2 95 H* (35-45) mmHg ABG pO2 71 L (83-108) mmHg ABG HCO3 39 H (21-25) mmol/L ABG Total CO2 42 H (19-24) mmol/L ABG O2 Saturation 91.6 L (94-97) % Potassium 5.4 H (3.5-5.1) mmol/L Chloride 95 L (98-107) mmol/L Carbon Dioxide 32 H (22-30) mmol/L BUN 35 H (7-17) mg/dL Creatinine 1.42 H (0.52-1.04) mg/dL Glucose 106 H (74-99) mg/dL POC Glucose (mg/dL) 165 H (75-99) mg/dL AST 1476 H (14-36) U/L ALT 887 H (4-34) U/L Alkaline Phosphatase 135 H (38-126) U/L Albumin 3.3 L (3.5-5.0) g/dL 05/21/20 05/21/20 Range/Units 07:13 10:03 RBC 3.57 L (3.80-5.40) m/uL Hgb 10.7 L (11.4-16.0) gm/dL MCV 101.9 H (80.0-100.0) fL MCHC 29.5 L (31.0-37.0) g/dL RDW 15.6 H (11.5-15.5) % ABG pH 7.27 L (7.35-7.45) ABG pCO2 90 H* (35-45) mmHg ABG pO2 (83-108) mmHg ABG HCO3 41 H* (21-25) mmol/L ABG Total CO2 44 H (19-24) mmol/L ABG O2 Saturation (94-97) % Potassium (3.5-5.1) mmol/L Chloride (98-107) mmol/L Carbon Dioxide (22-30) mmol/L BUN (7-17) mg/dL Creatinine (0.52-1.04) mg/dL Glucose (74-99) mg/dL POC Glucose (mg/dL) (75-99) mg/dL AST (14-36) U/L ALT (4-34) U/L Alkaline Phosphatase (38-126) U/L Albumin (3.5-5.0) g/dL Assessment and Plan (1) Intertrochanteric fracture of right hip Current Visit: Yes Status: Acute Code(s): S72.141A - DISPLACED INTERTROCHANTERIC FRACTURE OF RIGHT FEMUR, INIT SNOMED Code(s): 367612363 (2) Atrial fibrillation and flutter Current Visit: No Status: Acute Code(s): I48.91 - UNSPECIFIED ATRIAL FIBRILLATION; I48.92 - UNSPECIFIED ATRIAL FLUTTER SNOMED Code(s): 635317694 (3) COPD (chronic obstructive pulmonary disease) Current Visit: No Status: Acute Code(s): J44.9 - CHRONIC OBSTRUCTIVE PULMONARY DISEASE, UNSPECIFIED SNOMED Code(s): 10240236 (4) History of lung cancer Current Visit: No Status: Acute Code(s): Z85.118 - PERSONAL HISTORY OF MALIGNANT NEOPLASM OF BRONCHUS AND LUNG SNOMED Code(s): 881191415 Plan: The clinical and x-ray findings are discussed with the patient and her son. With her recent decline, it is recommended we hold off on intervention at this time. I have reviewed the case with Dr. Lazaro who states that they may be recommending hospice care for this patient. We will continue to follow peripherally.
--- NOTE | 2020-05-21 12:14 | P.PN ---
Subjective Progress Note Date: 05/21/20 69-year-old up as an female was sent in from physician's office because of atrial fibrillation. Patient is found to be in A. fib with rapid ventricular rate was started on Cardizem patient had a normal ejection fraction the past. Patient has congestive heart failure chronic diastolic dysfunction. Patient appears to be an exacerbation at this time to with bilateral pleural effusions. Patient does take torsemide 20 mg at home. Patient creatinine is up and bit worse now present creatinine is 1.4 her usual creatinine is within normal limits. Patient does have history of lung cancers, small cell lung cancer on chemotherapy. Patient currently complaining of mild shortness of breath denied any orthopnea paroxysmal nocturnal dyspnea. Patient was recently discharged from the hospital after she was treated for congestive heart failure atrial fibrillation and right-sided pleural effusion for which she had a thoracentesis last time 05/20/2020 patient had a fall and had an intertrochanteric fracture patient blood pressures are low because of which he 6 is being discontinued and patient has elevated creatinine up to 1.4, Lasix is being held because of that reason. We'll repeat a chest x-ray for tomorrow basic metabolic profile tomorrow patient was cleared for the intramedullary nailing for intertrochanteric fracture by cardiology. We'll obtain a repeat chest x-ray tomorrow depending on that patient probably can go for surgery if there is no pulmonary edema on the x-ray. Patient is on amiodarone patient has elevated TSH T4 is essentially within normal limits further management of amiodarone as per cardiology. Patient is on anti- correlation with Eliquis which is being held. 05/21/2020 Patient is currently on BiPAP, ABG yesterday pH 7.23, CO2 95, O2 71, bicarb 39. Resting in bed with eyes closed, unable to answer questions at this time. son at bedside. Patient's poor prognosis was discussed with patient at bedside, CODE STATUS and hospice measures were discussed. Patient's son agreeable to DO NOT RESUSCITATE CODE STATUS, and hospice measures appropriate at this time jillian kuhn patient's poor prognosis. Review of Systems: Unable to obtain patient not able to answer questions All inpatient medications were reviewed and appropriate changes in these medications as dictated in the interval history and assessment and plan. Objective - Vital Signs Vital signs: Vital Signs Temp 97.5 F L 05/21/20 08:00 Pulse 116 H 05/21/20 09:28 Resp 16 05/21/20 10:00 BP 121/71 05/21/20 08:00 Pulse Ox 92 L 05/21/20 10:00 Intake & Output 05/20/20 05/21/20 05/21/20 18:59 06:59 18:59 Intake Total 640 20 Output Total 400 300 400 Balance 240 -300 -380 Intake: IV 20 Invasive Line 1 20 Oral 640 Output: Urine 400 300 400 Other: Voiding Method Indwelling Catheter Indwelling Catheter Indwelling Catheter - Exam PHYSICAL EXAMINATION: GENERAL: Drowsy, not able to answer questions, on BiPAP HEENT: Pupils are round and equally reacting to light. EOMI. No scleral icterus. No conjunctival pallor. Normocephalic, atraumatic. No pharyngeal erythema. No thyromegaly. CARDIOVASCULAR: S1 and S2 present. No murmurs, rubs, or gallops. Irregularly irregular rhythm patient appears to have JVD PULMONARY: Bibasilar rales, diminished air entry to auscultation bilaterallywel sounds. No palpable organomegaly. MUSCULOSKELETAL: No joint swelling or deformity. EXTREMITIES: No cyanosis, clubbing, patient does have bilateral pitting pedal edema NEUROLOGICAL: Gross neurological examination did not reveal any focal deficits. - Labs CBC & Chem 7: 05/21/20 07:13 05/21/20 07:13 Labs: Abnormal Lab Results - Last 24 Hours (Table) 05/20/20 05/20/20 05/21/20 Range/Units 23:23 23:33 07:13 RBC (3.80-5.40) m/uL Hgb (11.4-16.0) gm/dL MCV (80.0-100.0) fL MCHC (31.0-37.0) g/dL RDW (11.5-15.5) % ABG pH 7.23 L (7.35-7.45) ABG pCO2 95 H* (35-45) mmHg ABG pO2 71 L (83-108) mmHg ABG HCO3 39 H (21-25) mmol/L ABG Total CO2 42 H (19-24) mmol/L ABG O2 Saturation 91.6 L (94-97) % Potassium 5.4 H (3.5-5.1) mmol/L Chloride 95 L (98-107) mmol/L Carbon Dioxide 32 H (22-30) mmol/L BUN 35 H (7-17) mg/dL Creatinine 1.42 H (0.52-1.04) mg/dL Glucose 106 H (74-99) mg/dL POC Glucose (mg/dL) 165 H (75-99) mg/dL AST 1476 H (14-36) U/L ALT 887 H (4-34) U/L Alkaline Phosphatase 135 H (38-126) U/L Albumin 3.3 L (3.5-5.0) g/dL 05/21/20 05/21/20 Range/Units 07:13 10:03 RBC 3.57 L (3.80-5.40) m/uL Hgb 10.7 L (11.4-16.0) gm/dL MCV 101.9 H (80.0-100.0) fL MCHC 29.5 L (31.0-37.0) g/dL RDW 15.6 H (11.5-15.5) % ABG pH 7.27 L (7.35-7.45) ABG pCO2 90 H* (35-45) mmHg ABG pO2 (83-108) mmHg ABG HCO3 41 H* (21-25) mmol/L ABG Total CO2 44 H (19-24) mmol/L ABG O2 Saturation (94-97) % Potassium (3.5-5.1) mmol/L Chloride (98-107) mmol/L Carbon Dioxide (22-30) mmol/L BUN (7-17) mg/dL Creatinine (0.52-1.04) mg/dL Glucose (74-99) mg/dL POC Glucose (mg/dL) (75-99) mg/dL AST (14-36) U/L ALT (4-34) U/L Alkaline Phosphatase (38-126) U/L Albumin (3.5-5.0) g/dL Assessment and Plan Assessment: Plan: -Acute hypoxic and hypercapnic respiratory failure: Currently on BiPAP, most probably due to CHF exacerbation, as mentioned patient's blood pressure will not tolerate diuresis. Congestive heart failure chronic diastolic dysfunction because of worsening creatinine and hypotension Lasix is being held and patient is on metoprolol. T SH is elevated as mentioned above -Proximal atrial fibrillation patient is presently atrial fibrillation rate In 110s -Acute renal failure: Pre-Renal azotemia from excessive diuresis which is being held creatinine stable,. -COPD without any acute exacerbation -Squamous cell lung cancer for which patient received chemotherapy recently: Patient's condition and overall prognosis which is reported discussed with son at bedside. Patient is lethargic and unable to answer questions at this time. CODE STATUS and hospice measures were discussed at bedside with son, after he spoke with family reports he is agreeable to DO NOT RESUSCITATE CODE STATUS and hospice measures, hospice consultation has been placed.
[2020-05-21] MEDS ORDERED: MORPHINE SULFATE 4 MG/ML SYRINGE IV PRN (12:16)
[2020-05-21] MEDS ORDERED: ARTIFICIAL TEARS-HYPROMELLOSE DROPS 15 ML BTL BOTH EYES PRN (12:16)
[2020-05-21] MEDS ORDERED: DRY MOUTH SPRAY 44.3 SPRAY/44.3 ML SPRAY MUCOUS MEM PRN (12:16)
[2020-05-21] MEDS ORDERED: MORPHINE SULFATE 4 MG/ML SYRINGE IVP ONE (12:16)
[2020-05-21] MEDS ORDERED: MORPHINE SULFATE 2 MG/ML SYRINGE IV PRN (12:16)
[2020-05-21] MEDS ORDERED: ATROPINE OPHTH SOLN 1% 5ML BTL SUBLINGUAL PRN (12:16)
[2020-05-21] MEDS ORDERED: MORPHINE SULFATE (100 MG/2 ML) 100 MG in SODIUM CHLORIDE 0.9% 100 ML IV SCH (12:30)
[2020-05-21] MEDS ORDERED: SCOPOLAMINE 1.5MG/72HR PATCH TRANSDERM SCH (12:30)
[2020-05-21 18:01] VITALS: PULSE 55; RESP 16
--- NOTE | 2020-05-31 13:08 | P.DS ---
Providers Date of admission: 05/18/20 16:11 Expected date of discharge: 05/22/20 Attending physician: Andrew De Leon Consults: 05/18/20 16:11 Consult Physician Routine Consulting Provider: [facility] Consult Reason/Comments: Atrial flutter with rapid ventricular response, acute pulmonary edema Do you want consulting provider notified?: Yes 05/21/20 09:22 Consult Physician Urgent Consulting Provider: Wally Pineda Consult Reason/Comments: known to patient, copd, lung ca Do you want consulting provider notified?: Yes Primary care physician: Monica Roth [facility] Course: Patient with history of lung cancer metastatic disease admitted the for heart failure exacerbation patient had a fall, had intertrochanteric fracture. Patient overall clinical condition worsened respiratory failure worsened after which patient was made hospice after discussing with family. Patient subsequently on 05/21/2020. Please refer to nursing documentation for exact time of Plan - Discharge Summary New Discharge Prescriptions: No Action Apixaban [Eliquis] 5 mg PO BID 30 Days #60 tab Ipratropium-Albuterol Nebulize [Duoneb 0.5 mg-3 mg/3 ml Soln] 3 ml INHALATION RT-TID PRN PRN Reason: Shortness Of Breath Famotidine 10 mg PO BID Metoprolol Tartrate [Lopressor] 50 mg PO TID@0900,1600,2100 Discharge Medication List Apixaban [Eliquis] 5 mg PO BID 30 Days #60 tab 11/06/19 [Rx] Ipratropium-Albuterol Nebulize [Duoneb 0.5 mg-3 mg/3 ml Soln] 3 ml INHALATION RT-TID PRN 04/20/20 [History] Famotidine 10 mg PO BID 05/18/20 [History] Metoprolol Tartrate [Lopressor] 50 mg PO TID@0900,1600,2100 05/18/20 [History] Follow up Appointment(s)/Referral(s): Chiki Najera, [NON-STAFF] - Monica Roth MD [Primary Care Provider] - 1-2 days Discharge Disposition: - Preliminary Cause of Preliminary Cause of : Congestive heart failure , squamous cell lung cancer
--- NOTE | 2020-06-02 11:34 | CDI ---
Documentation Clarification Form Date: 06/02/2020 11:16:49 AM From: Wanda JoshuaNunezMAXIM vila, CCDS Admit Date: 05/18/2020 04:11:00 PM Patient Name: Selene Sparks Visit Number: [id number] Discharge Date: 05/21/2020 06:48:00 PM ATTENTION: The Clinical Documentation Specialists (CDI) and [facility] Coding Staff appreciate your assistance in clarifying documentation. Please respond to the clarification below the line at the bottom and electronically sign. The CDI & [facility] Coding staff will review the response and follow-up if needed. Please note: Queries are made part of the Legal Health Record. If you have any questions, please contact the author of this message via ITS. Dr. Ash Villarreal: Atrial Flutter is documented in the following documents without further specificity: 05/18 ED Note: "Atrial flutter with 2-1 block at 143 bpm QRS is 90 QT intervals 324 QTC is 500." 05/19 Cardiology Consult and subsequent Progress Notes: Consulted for atrial flutter with RVR. EKG reveals atrial flutter. Telemetry tracings indicate atrial flutter and fibrillation. Assessment: Paroxysmal atrial flutter/fibrillation on long-term anticoagulation with RVR 05/31 Discharge Summary: Atrial flutter with RVR. History/Risk factors per the 05/19 H/P Past Medical History: Paroxysmal Atrial Fibrillation, Chronic Diastolic CHF, Left Lung Cancer on chemo, COPD, DVT, PE, GERD, OA, Former smoker. Clinical Indicators: Patient presented to the ED on 05/18 with SOB, swollen legs, low BP and stating she felt palpitations. Patient was being seen in the world designer office and was recommended to go to the ED. ED Clinical Impression: Acute pulmonary edema, Atrial flutter with RVR 05/18 EKG: R 143 Atrial flutter w/variable AV block, Abnormal ECG. Home meds: Eliquis, Lopressor, Demadex, Pepcid, Zofran, INH Ventolin, INH Advair, INH Duoneb. Treatment 05/18: IV Cardizem 125 mls @ 5 mls/hr q24H 05/19: po Lasix 10 mg q8H, INH Duoneb, po Eliquis, po Lopressor, po Cordarone, IV Lasix 40 mg q12H In your professional opinion, in order to capture the severity of condition; can you please clarify the type of Atrial Flutter if known? [ X ] Typical/Type I [ ] Atypical/Type II [ ] Other, please specify [ ] Unable to determine (Last Revision: June 2017) MTDD
== END 2020-05-21 18:48 | disposition expired | DRG 291 ==
LOC: EC 13:15 → 3SCARD 16:11
PROVIDERS: ADMIT Hospitalist; ATTEND Hospitalist
PROC: 5A09357 Assistance with Respiratory Ventilation, Less than 24 Consecutive Hours, Continuous Positive Airway Pressure (ICD-10-PCS; principal; 2020-05-20)
PROC: 5A0935A Assistance with Respiratory Ventilation, Less than 24 Consecutive Hours, High Flow/Velocity Cannula (ICD-10-PCS; 2020-05-21)
DX: I11.0 Hypertensive heart disease with heart failure (principal); J96.02 Acute respiratory failure with hypercapnia; S72.144A Nondisplaced intertrochanteric fracture of right femur, initial encounter for closed fracture; J96.01 Acute respiratory failure with hypoxia; J18.9 Pneumonia, unspecified organism; N17.9 Acute kidney failure, unspecified; E87.2 Acidosis; J44.0 Chronic obstructive pulmonary disease with (acute) lower respiratory infection; I48.3 Typical atrial flutter; C34.92 Malignant neoplasm of unspecified part of left bronchus or lung; I27.20 Pulmonary hypertension, unspecified; I95.9 Hypotension, unspecified; I50.33 Acute on chronic diastolic (congestive) heart failure; I48.0 Paroxysmal atrial fibrillation; Z66 Do not resuscitate; Z51.5 Encounter for palliative care; Z20.822 Contact with and (suspected) exposure to COVID-19; I08.1 Rheumatic disorders of both mitral and tricuspid valves; K21.9 Gastro-esophageal reflux disease without esophagitis; M19.90 Unspecified osteoarthritis, unspecified site; E66.9 Obesity, unspecified; Z68.36 Body mass index [BMI] 36.0-36.9, adult; Z79.01 Long term (current) use of anticoagulants; Z79.899 Other long term (current) drug therapy; Z86.718 Personal history of other venous thrombosis and embolism; Z86.711 Personal history of pulmonary embolism; Z71.3 Dietary counseling and surveillance; Z98.51 Tubal ligation status; W19.XXXA Unspecified fall, initial encounter; Z91.041 Radiographic dye allergy status; Z88.9 Allergy status to unspecified drugs, medicaments and biological substances; Z91.013 Allergy to seafood; Z91.018 Allergy to other foods; Z81.8 Family history of other mental and behavioral disorders
CPT/HCPCS: 36415; 36600; 70450; 71045; 71046; 73502; 80048; 80053; 82805; 83605; 83735; 83880; 84439; 84443; 84484; 85025; 85027; 85610; 85730; 87635; 93005; 94640; 94660; 94760; 96374; 99291